=== PATIENT | male | born 1945 | race Caucasian/White ===

== ENCOUNTER 2019-11-25 06:41 | Day surgery (SDC) | payer OTHER, SELFPAY ==
[2019-11-24 07:55] VITALS: BMI 33.1
[2019-11-25 06:56] VITALS: BP 107/60; PULSE 52; RESP 18; TEMP 36.4; O2SAT 94
[2019-11-25] MEDS: sodium chloride 0.9% 1,000 ML 30 ML (07:11)
[2019-11-25 07:14] LABS: Glucose Point of Care 72 mg/dL (70-110)
--- NOTE | 2019-11-25 07:56 | ANES.PREANE2 ---
Pre-Anesthetic Assessment Pre-Anesthetic Assessment: Height/Weight: Height 1.91 m Weight 120.202 kg Temp Pulse Resp BP Pulse Ox 97.5 F L 52 L 18 107/60 94 11/25/19 06:56 11/25/19 06:56 11/25/19 06:56 11/25/19 06:56 11/25/19 06:56 Preop Diagnosis: abdominal pain Proposed Procedure: Operation Date: 11/25/19 07:45 Proposed Procedures p Colonoscopy 85614 Z12.11(Not Applicable) - Tuan Sloan MD Familial anesthetic complications: none Was Beta Subhash taken within 24 hours: Yes Last intake: Intake Last Liquid Date 11/24/19 Last Liquid Time 23:30 Social: Social History: No alcohol and No tobacco Exam: Pre-Anes Outpt Exam: alert, oriented x 3, clear to auscultation bilaterally and regular rate & rhythm Airway: Submandibular: WNL Cervical ROM: WNL MP: 2 Dentition: False (U & L) History/ROS: No significant history except as noted Pulmonary: Pulmonary: COPD (inhalers daily) and Sleep apnea (CPAP ) CV/HEM: CV/HEM: CHF, HTN and NV (CABG x5, one stent) Comments: denies chest pain : : None reported Hepatic: Hepatic: None reported GI: GI: None reported Metabolic: Metabolic: DM, Hyperlipidemia and Morbid obesity Musc/skel: Musc/skel: OA/DJD Anesthetic Plan: ASA status: III Anesthesia: Anesthesia Evaluation and MAC Risk of > 500 ml blood loss (7ml/kg in children): No Data Anesthesia Other Labs: Laboratory Results - last 48 hr 11/25/19 07:10 POC Glucose 72 Cardiac Studies: No Data to Display
[2019-11-25 09:00] VITALS: BP 101/54; PULSE 52; RESP 16; TEMP 36.4; O2SAT 94
[2019-11-25 09:15] VITALS: BP 108/47; PULSE 58; RESP 18; TEMP 36.7; O2SAT 95
--- NOTE | 2019-11-25 10:06 | ANE.PACU2 ---
 Inpatient post-anesthesia follow up: Airway intact: Yes Vital signs: Temperature 98.0 F Pulse Rate 58 Respiratory Rate 18 Blood Pressure 108/47 Pulse Oximetry 95 Oxygen Delivery Me thod Room Air Oxygen Flow Rate 3 Fraction of Inspir ed Oxygen Hydration adequate: Yes Nausea and vomiting: No Mental status: Baseline
== END 2019-11-25 09:41 | disposition home or self-care (01) ==
PROVIDERS: Family Provider Family Medicine; PCP Family Medicine; Visit Provider Surgery
PROC: 0DJD8ZZ Inspection of Lower Intestinal Tract, Via Natural or Artificial Opening Endoscopic (ICD-10-PCS; CPT 45378; principal; 2019-11-25 07:45)
DX: R10.30 Lower abdominal pain, unspecified (principal); D12.2 Benign neoplasm of ascending colon; K57.30 Diverticulosis of large intestine without perforation or abscess without bleeding; K64.8 Other hemorrhoids; J44.9 Chronic obstructive pulmonary disease, unspecified; I11.0 Hypertensive heart disease with heart failure; I50.9 Heart failure, unspecified; G47.30 Sleep apnea, unspecified; Z95.1 Presence of aortocoronary bypass graft; Z95.5 Presence of coronary angioplasty implant and graft; E11.9 Type 2 diabetes mellitus without complications; Z79.4 Long term (current) use of insulin; E78.5 Hyperlipidemia, unspecified; E66.01 Morbid (severe) obesity due to excess calories; Z68.33 Body mass index [BMI] 33.0-33.9, adult; M19.90 Unspecified osteoarthritis, unspecified site
CPT/HCPCS: 36416; 45380; 82962; 88305; J2704; J7030

== ENCOUNTER 2019-11-26 11:12 | Day surgery (SDC) | payer OTHER, SELFPAY ==
[2019-11-25 13:25] VITALS: BMI 32.5
[2019-11-26] VITALS (10 sets, daily range): BP systolic 92–136; BP diastolic 60–73; PULSE 61–79; RESP 12–20; TEMP 36.2–36.8; O2SAT 93–98
[2019-11-26] MEDS: sodium chloride 0.9% 1,000 ML 30 ML IV (12:02)
[2019-11-26 12:09] LABS: Glucose Point of Care 189 mg/dL (70-110)
--- NOTE | 2019-11-26 12:22 | ANES.PAUD2 ---
Pre-Anesthetic Update Pre-Anesthetic Assessment: Date of Surgery/Procedure: 11/26/19 Preop Diagnosis: umbilical hernia Proposed Procedure: no changes changes since preoperative assessment 11/25/19. Addendum to note for my assessment includes: Patient states he visits artistic associate [id number]. no changes made last visit. patient stated he is not currently using CPAP due to adjustments needing to be made to his machine. no history of anesthesia complications. patient has been npo since 11/26/19 0000. BG 189 this a.m. Operation Date: 11/26/19 13:30 Proposed Procedures op Laparoscopic Umbilical Hernia Repair with mesh 21223 K42.9(Not Applicable) - Tuan Sloan MD Last Intake: Intake Last Liquid Date 11/25/19 Last Liquid Time 20:00 Last Solid Date 11/25/19 Last Solid Time 17:00 Labs Last 48hrs: Laboratory Results - last 48 hr 11/26/19 12:07 POC Glucose 189 Vitals: Temperature 97.5 F L 11/26/19 11:47 Temperature Source Temporal Artery S can 11/26/19 11:47 Pulse Rate 66 11/26/19 11:47 Respiratory Rate 18 11/26/19 11:47 Blood Pressure 136/68 11/26/19 11:47 Blood Pressure Jaclyn n 90 11/26/19 11:47 Pulse Oximetry 94 11/26/19 11:47 Oxygen Delivery Me thod 11/26/19 11:47 Cardiac Studies: No Data to Display
--- NOTE | 2019-11-26 12:25 | PM.HPUD ---
H&P update H&P Update: DATE OF SURGERY/PROCEDURE: 11/26/19 DATE H&P PERFORMED: 11/06/19 H&P UPDATE INFORMATION: H&P completed within last 30 days and No changes to prior documentation PREOP DIAGNOSIS: umbilical hernia PLANNED PROCEDURE: Operation Date: 11/26/19 13:30 Proposed Procedures p Laparoscopic Umbilical Hernia Repair with mesh 14288 K42.9(Not Applicable) - Tuan Sloan MD Full H&P Medications/Allergies: Current Medications: Current Medications Generic Name Dose Route Start Last Admin Trade Name Freq PRN Reason Stop Dose Admin Sodium Chloride 1,000 mls @ 30 ml s/hr 11/26/19 11:45 11/26/19 12:02 Sodium Chloride 0.9% IV 11/27/19 11:44 30 mls/hr .Q24H VALENCIA Administration Perinent History: Medical/Surgical History: Medical History (Updated 11/06/19 @ 09:02 by Tuan Sloan MD) Abdominal aortic aneurysm (Acute) Chronic obstructive pulmonary disease (Acute) Hypertension (Acute) Low back pain (Acute) Peripheral vascular disease (Acute) Restless legs syndrome (Acute) Sleep apnea (Acute) Umbilical hernia (Acute)
--- NOTE | 2019-11-26 13:59 | SUR.PHASEI ---
BG 175
[2019-11-26 14:03] LABS: Glucose Point of Care 175 mg/dL (70-110)
[2019-11-26] MEDS: HYDROcodone-acetaminophen 5-325 mg Tablet 1 TAB PO (15:09)
--- NOTE | 2019-11-26 15:11 | PM.OP ---
Operative Report Date of procedure: November 26, 2019 Pre-op Diagnosis: umbilical hernia Post-op Diagnosis: Reducible umbilical hernia measuring 4 x 4 centimeter Procedure Done: Laparoscopic repair of umbilical hernia Implants: Proceed mesh measuring 12 x 10 cm Surgeon: Tuan Sloan Anesthesia: General Estimated blood loss (mL): 20 Condition: stable Disposition: PACU Procedure: The patient was taken to the Operating Room and was intubated under general anesthesia after the antibiotic had been administered. The abdomen was prepped and draped in a sterile manner. Using a 15 blade, a 2-cm incision was made in the left upper quadrant in the anterior axillary line and pneumoperitoneum was created using Verres needle. A 10 mm Emiliano port was placed and 15 mm of pneumoperitoneum was created after a 10 mm 30? scope had been introduced. Two 5 mm ports were placed at the level of the umbilicus and in the left lower quadrant under direct visualization. Using a combination of electrocautery and scissors the peritoneum in the midline was taken down. The hernia sac was everted to decrease the likelihood of a seroma. A spinal needle was introduced through the abdominal wall and the edges of the hernial defect were marked and measured 4x 4 cm. A 3 cm margin was marked on the abdominal wall on the outer edge of the hernial defect. Using 11 blade, four stab incisions were placed on the four corners of the site for the planned mesh placement. 4 separate 2-0 Medina-Emmanuel sutures were placed at the 4 corners of the 12 x 10 cm proceed mesh. A 5 mm camera was introduced and the mesh was introduced through the 10 mm port. Grannie needle was passed through the stab incisions and used to grasp the free ends of the Medina-Emmanuel sutures which were then used to pull the mesh up against the abdominal wall; 5 mm SecurStraps were placed 1 cm apart along the edge of the mesh to hold it against the abdominal wall. At the end of this, it was noted that the mesh was well positioned over the hernial defect. 20 cc of saline mixed with 20 cc of Exparel mixed with 20 0.5% Marcaine was infiltrated under laparoscopic visualization for a TAP block. All ports were removed under direct visualization and there was no bleeding noted from the port sites. The external oblique aponeurosis was approximated at this port site using figure of eight 0 Vicryl suture. The subcutaneous tissue was approximated using 3-0 Vicryl sutures. The skin at all 3 port sites was closed using subcuticular 4-0 Monocryl suture. The stab incisions and the 3 port sites were covered with surgical glue. The patient was extubated and transferred to recovery room in stable condition.
== END 2019-11-26 15:59 | disposition home or self-care (01) ==
PROVIDERS: Family Provider Family Medicine; PCP Family Medicine; Visit Provider Surgery
PROC: 0WQF4ZZ Repair Abdominal Wall, Percutaneous Endoscopic Approach (ICD-10-PCS; CPT 49652; principal; 2019-11-26 13:30)
DX: K42.9 Umbilical hernia without obstruction or gangrene (principal); I10 Essential (primary) hypertension; G47.30 Sleep apnea, unspecified
CPT/HCPCS: 49652; 12345; 36416; 82962; 96365; C9290; J0690; J2270; J2405; J2704; J2710; J3010; J3490; J7030

== ENCOUNTER 2020-01-21 00:37 | Emergency (ER) | payer OTHER, SELFPAY ==
[2020-01-21 00:45] VITALS: BP 121/72; PULSE 69; RESP 20; TEMP 36.9; O2SAT 92; BMI 32.5
--- NOTE | 2020-01-21 00:47 | W.ED.LOWEXIN ---
HPI - Extremity Injury (Lower) General: Chief Complaint: Extremity Problem,Nontraumatic Stated Complaint: right knee pain Time Seen by Provider: 01/21/20 00:47 History of Present Illness: HPI Narrative: 74-year-old male patient comes in tonight with complaints of anterior right knee pain. Patient reports pain started on Sunday and is just worsened to the point that he was unable to tolerate it anymore. Patient states no history of previous knee problems. Patient appears well. MD complaint: other (right knee pain) Review of Systems General: Reports: 10 or more systems reviewed and unremarkable except in HPI and below Musc: Reports: extremity pain (right knee) PFS ED PFSH: Medical History (Updated 01/21/20 @ 01:35 by JEISON Ryan) Abdominal aortic aneurysm Chronic obstructive pulmonary disease Hypertension Low back pain Peripheral vascular disease Restless legs syndrome Sleep apnea Surgical History (Updated 12/05/19 @ 11:26 by Tuan Sloan MD) History of appendectomy History of coronary artery stent placement History of umbilical hernia repair 11/26/2019 Hx of CABG Status post colonoscopy 11/25/2019: 3 mm sessile polyps x3 removed from the ascending colon, follow-up colonoscopy 2024 Social History Smoking and tobacco status: former smoker Physical Exam Const: COMMON NORMALS: no apparent distress and oriented x3 GENERAL APPEARANCE: cooperative HENMT: COMMON NORMALS: normocephalic, external ears normal, EAC's normal, TM's normal bilaterally and external nose normal HEAD & SCALP: normal to inspection and normocephalic FACE & SINUS: normal facial exam NOSE: external nose normal GENERAL EAR: hearing not grossly impaired EXTERNAL EAR: Yes external ears normal EXTERNAL AUDITORY CANAL: EAC's normal TYMPANIC MEMBRANE: TM's normal bilaterally MOUTH: oral and palatal mucosa normal THROAT: posterior oropharynx normal Eye: COMMON NORMALS: PERRL and EOMs intact bilaterally PUPIL: Yes PERRL Neck/C-Spine: COMMON NORMALS: full ROM and no lymphadenopathy Lymph: LYMPHATIC: no lymphedema noted Chest: COMMONS NORMALS: inspection of chest normal and palpation of chest normal Resp: COMMON NORMALS: normal respiratory effort and clear to auscultation bilaterally AUSCULTATION: clear to auscultation bilaterally Cardio: COMMON NORMALS: regular rate and regular rhythm RATE: regular rate RHYTHM: regular rhythm GI: COMMON NORMALS: normal to inspection, nondistended, normoactive bowel sounds and non-tender : COMMON NORMALS: Yes no CVA tenderness BLADDER/KIDNEY EXAM: Yes no CVA tenderness Back/Pelvis: COMMON NORMALS: no CVA tenderness and thoracic and lumbar spine normal to inspection Extremity: NARRATIVE EXTREMITY EXAM: Abrasion is noted to the lateral right knee, parents of anterior redness to the inferior patellar area. Minimal redness and swelling is noted though. Mild heat is noted to the same area. Neuro: COMMON NORMALS: oriented x3, moves all extremities and no focal motor deficits Psych: COMMON NORMALS: mental status grossly normal and cooperative Skin: COMMON NORMALS: no rashes or lesions noted GENERAL SKIN EXAM: no rashes or lesions noted Course Vital Signs: Vital signs: Vital Signs Temperature 98.4 F 01/21/20 00:45 Pulse Rate 69 01/21/20 00:45 Respiratory Rate 20 H 01/21/20 00:45 Blood Pressure 121/72 01/21/20 00:45 Pulse Oximetry 92 01/21/20 00:45 MDM - Extremity Injury (Lower) MDM Narrative: Medical decision making narrative: Patient comes in today for complaints of anterior right knee pain. Exam notes some area of redness with a small abrasion to the lateral side redness expands out there is no significant induration or swelling though. Area of redness is approximately 5 cm diameter. Some heat and tenderness is noted on palpation. Vital signs are normal. Differential diagnosis includes gout, arthritis, cellulitis, bursitis, contusion. X-ray noted some mild degenerative disease but otherwise no significance. Laboratory values have a normal white blood cell count, creatinine was 1.7, blood sugar is 128. Blood cultures were taken. Concern for cellulitis due to the patient's history of diabetes and complaint of pain. Patient was given 1 hydrocodone for pain and started on antibiotics with 1 g of Rocephin and Bactrim. Patient will be continued on Bactrim with need for follow-up with primary care in 1 week or return to the ER for worsening signs and symptoms. Patient reports understanding of care plan. Lab Data: Labs: Lab Results 01/21/20 01/21/20 01/21/20 Range/Units 01:08 01:08 01:08 WBC 7.9 (4.0-10.0) 10^3/ uL RBC 4.31 (4.1-5.3) 10^6/u L Hgb 12.8 (11.7-16.6) g/dL Hct 40.4 L (42.0-52.0) % MCV 93.7 (80-94) fL MCH 29.7 (28.0-34.0) pg MCHC 31.7 (30.0-36.0) g/dL RDW 13.2 (12.1-15.1) % Plt Count 158 (130-400) 10^3/c mm MPV 10.0 (7.4-10.4) fL Neut % (Auto) 72.0 % Lymph % (Auto) 17.7 % [place] % (Auto) 8.9 % Eos % (Auto) 0.8 % Baso % (Auto) 0.3 % Neut # (Auto) 5.7 (1.8-7.7) 10^3/u L Lymph # (Auto) 1.4 (0.8-4.8) 10^3/u L [place] # (Auto) 0.7 (0.2-0.9) 10^3/u L Eos # (Auto) 0.1 (0.0-0.8) 10^3/u L Baso # (Auto) 0.0 (0.0-0.1) 10^3/u L Nucleated RBC % (a uto) 0 % Nucleated RBCs # 0.0 /100WBC Sodium 141 (136-145) mmol/L Potassium 4.7 (3.5-5.1) mmol/L Chloride 107 (98-107) mmol/L Carbon Dioxide 23 (22-29) mmol/L Anion Gap 15.7 (5-19) BUN 34 H (8-23) mg/dL Creatinine 1.7 H (0.7-1.2) mg/dL Glucose 129 H (65-115) mg/dL Calculated Osmolal ity 291 (285-295) mOsm/k g Lactic Acid 1.2 (0.5-2.2) mmol/L Calcium 9.7 (8.5-10.5) mg/dL Total Bilirubin 0.5 (0.15-1.2) mg/dL AST 25 (0-40) U/L ALT 14 (0-41) U/L Alkaline Phosphata se 108 (40-130) IU/L C-Reactive Protein 1.4 (0.0-4.9) mg/L Total Protein 6.9 (6.6-8.7) g/dL Albumin 4.2 (3.5-5.2) g/dL Globulin 2.7 (1.3-4.6) g/dL Imaging Data^: Xray Ortho: Attestation: I personally reviewed and interpreted this imaging study as follows: (0117, right knee, no fracture, some djd) Discharge Plan Discharge Patient Disposition: Home, Self-Care Clinical Impression: Cellulitis Qualifiers: Site of cellulitis: extremity Site of cellulitis of extremity: lower extremity Laterality: right Qualified Code(s): L03.115 - Cellulitis of right lower limb Condition: Stable Prescriptions: New Bactrim DS 800-160 mg tablet 1 tab PO BID 10 Days Qty: 20 RF: 0 No Action amlodipine 5 mg tablet 5 mg PO DAILY RF: 0 budesonide-formoterol 160-4.5 mcg/actuation HFA aerosol inhaler 2 puff INHALATION BID RF: 0 cholecalciferol (vitamin D3) 50 mcg (2,000 unit) capsule 50 mcg PO BID RF: 0 finasteride 5 mg tablet 5 mg PO DAILY RF: 0 gabapentin 300 mg capsule 300 mg PO DAILY RF: 0 hydrochlorothiazide 25 mg tablet 25 mg PO QAM RF: 0 hydrophilic cream Cream 1 applic TOPICAL TID RF: 0 Novolin N NPH U-100 Insulin 100 unit/mL suspension See Rx Instructions SUBCUT BID RF: 0 lisinopril 40 mg tablet 20 mg PO DAILY RF: 0 meloxicam 7.5 mg tablet 7.5 mg PO DAILY RF: 0 metoprolol tartrate 50 mg tablet 25 mg PO BID RF: 0 nitroglycerin 0.4 mg tablet, sublingual 0.4 mg SUBLINGUAL ONCE PRN (Reason: chest pain) RF: 0 pentoxifylline 400 mg tablet extended release 400 mg PO TID RF: 0 ropinirole 2 mg tablet 2 mg PO TID RF: 0 simvastatin 80 mg tablet 40 mg PO DAILY RF: 0 terazosin 1 mg capsule 3 mg PO DAILY RF: 0 tiotropium bromide 2.5 mcg/actuation mist 2 inh INHALATION QAM RF: 0 clopidogrel [Plavix] 75 mg tablet 75 mg PO DAILY RF: 0 Hold Instructions: Resume on 11/29/19. docusate sodium [Colace] 100 mg capsule 100 mg PO BID Qty: 30 RF: 0 oxycodone 5 mg Tablet 5 mg PO TID PRN (Reason: Pain) RF: 0 Discharge Orders: Discharge Order (Routine); Ordered 01/21/20 Ordered By: Jeffry Brunner Referrals: Jeffry Love [Primary Care Provider] - Discharge Diet: Usual diet Discharge Activity: Increase activity as tolerated Patient Instructions: Cellulitis (ED) Activity Restrictions/Additional Instructions: Home and rest Ice or heat for further comfort Continue with routine medications Take antibiotic as directed Follow-up with primary care in one week Return to ER for worsening pain, redness and swelling Coding Level of Care Code ED [employer] Hand Engraver for Teri Fwd Exam Comprehensive
--- NOTE | 2020-01-21 00:52 | XR_ITS ---
WS: [id number] RIGHT KNEE: 3 VIEW(S) TECHNIQUE: AP, oblique(s) and lateral. HISTORY: pain, redness COMPARISON: None available. No fracture or dislocation. Mild joint space narrowing. No joint effusion. Surgical sutures along the medial knee from prior vein graft harvesting. Extensive calcifications in the arteries. XR/XR knee RT 3V* [id number] IMPRESSION: 1. Atherosclerosis. 2. Mild joint space narrowing.
[2020-01-21] MEDS: HYDROcodone-acetaminophen 7.5-325 mg Tablet 1 TAB PO (00:58)
[2020-01-21 01:13] LABS: Basophils % 0.3 %; Eosinophils # 0.1 10^3/uL (0.0-0.8); Eosinophils % 0.8 %; Hematocrit 40.4 % (42.0-52.0); Hemoglobin 12.8 g/dL (11.7-16.6); Lymphocytes # 1.4 10^3/uL (0.8-4.8); Lymphocytes % 17.7 %; Mean Corpuscular HGB Conc 31.7 g/dL (30.0-36.0); Mean Corpuscular Hemoglobin 29.7 pg (28.0-34.0); Mean Corpuscular Volume 93.7 fL (80-94); Monocytes # 0.7 10^3/uL (0.2-0.9); Monocytes % 8.9 %; Neutrophils # 5.7 10^3/uL (1.8-7.7); Nucleated Red Blood Cells % 0 %; Platelet Count 158 10^3/cmm (130-400); Red Blood Count 4.31 10^6/uL (4.1-5.3); Red Cell Distribution Width 13.2 % (12.1-15.1); White Blood Count 7.9 10^3/uL (4.0-10.0)
[2020-01-21 01:26] LABS: Lactic Sepsis W/Reflex 1.2 mmol/L (0.5-2.2)
[2020-01-21 01:27] LABS: Alanine Aminotransferase 14 U/L (0-41); Albumin Level 4.2 g/dL (3.5-5.2); Alkaline Phosphatase 108 IU/L (40-130); Anion Gap 15.7 (5-19); Aspartate Amino Transferase 25 U/L (0-40); Blood Urea Nitrogen 34 mg/dL (8-23); C Reactive Protein 1.4 mg/L (0.0-4.9); Calcium 9.7 mg/dL (8.5-10.5); Carbon Dioxide 23 mmol/L (22-29); Chloride 107 mmol/L (98-107); Creatinine Clr Calc Pharmacy 51.9754; Globulin 2.7 g/dL (1.3-4.6); Glucose 129 mg/dL (65-115); Osmolality Calculated 291 mOsm/kg (285-295); Potassium 4.7 mmol/L (3.5-5.1); Sodium 141 mmol/L (136-145); Total Bilirubin 0.5 mg/dL (0.15-1.2); Total Protein 6.9 g/dL (6.6-8.7)
[2020-01-21] MEDS: cefTRIAXone 1,000 mg SDV 1000 MG IM (01:52)
[2020-01-21] MEDS: sulfamethoxazole-trimeth DS 160-800 mg Tablet 1 TAB PO (01:52)
[2020-01-21 01:55] VITALS: BP 136/66; PULSE 69; RESP 20; O2SAT 93
== END 2020-01-21 01:55 | disposition home or self-care (01) ==
PROVIDERS: Emergency Provider Nurse Practitioner Family; Family Provider Family Medicine; PCP Family Medicine
DX: L03.115 Cellulitis of right lower limb (principal); M25.561 Pain in right knee; J44.9 Chronic obstructive pulmonary disease, unspecified; I10 Essential (primary) hypertension; I73.9 Peripheral vascular disease, unspecified; Z95.1 Presence of aortocoronary bypass graft; Z87.891 Personal history of nicotine dependence
CPT/HCPCS: 12345; 36415; 73562; 80053; 83605; 85025; 86140; 87040; 96372; 99281; 99283; J0696

== ENCOUNTER 2020-01-24 12:44 | Emergency (ER) | payer OTHER, SELFPAY ==
[2020-01-24 12:49] VITALS: PULSE 63; RESP 20; TEMP 36.8; O2SAT 95; BMI 31.6
--- NOTE | 2020-01-24 12:49 | ED_ITS ---
HPI - Extremity Problem General: Chief complaint: Extremity Injury, Lower Stated complaint: R KNEE PAIN Time Seen by Provider: 01/24/20 12:48 Source: patient Mode of arrival: ambulatory Limitations: no limitations History of Present Illness: HPI Narrative: 74-year-old male comes in with right knee pain. Patient reports that he has had knee pain for about 1 week now. Patient was seen 2 days ago in the emergency department and at that time it was felt that he had some mild cellulitis to the knee. Patient reports of redness has cleared up to the knee but he continues to have some pain to the knee. Patient reports no previous problems with chronic knee pain. Patient does take medications routinely for arthritis and for back pain. Patient goes to the [place] for his routine medical care. Review of Systems General: Reports: 10 or more systems reviewed and unremarkable except in HPI and below Musc: Reports: joint pain PFSH ED PFSH: Medical History (Updated 01/24/20 @ 14:42 by JEISON Ryan) Abdominal aortic aneurysm Chronic obstructive pulmonary disease Hypertension Low back pain Peripheral vascular disease Restless legs syndrome Sleep apnea Surgical History (Updated 12/05/19 @ 11:26 by Tuan Sloan MD) History of appendectomy History of coronary artery stent placement History of umbilical hernia repair 11/26/2019 Hx of CABG Status post colonoscopy 11/25/2019: 3 mm sessile polyps x3 removed from the ascending colon, follow-up colonoscopy 2024 Social History Smoking and tobacco status: never smoked Physical Exam Const: COMMON NORMALS: no apparent distress and oriented x3 GENERAL APPEARANCE: cooperative HENMT: COMMON NORMALS: normocephalic, external ears normal, EAC's normal, TM's normal bilaterally and external nose normal HEAD & SCALP: normal to inspection and normocephalic FACE & SINUS: normal facial exam NOSE: external nose normal GENERAL EAR: hearing not grossly impaired EXTERNAL EAR: Yes external ears normal EXTERNAL AUDITORY CANAL: EAC's normal TYMPANIC MEMBRANE: TM's normal bilaterally MOUTH: oral and palatal mucosa normal THROAT: posterior oropharynx normal Eye: COMMON NORMALS: PERRL and EOMs intact bilaterally PUPIL: Yes PERRL Neck/C-Spine: COMMON NORMALS: full ROM and no lymphadenopathy Lymph: LYMPHATIC: no lymphedema noted Chest: COMMONS NORMALS: inspection of chest normal and palpation of chest normal Resp: COMMON NORMALS: normal respiratory effort and clear to auscultation bilaterally AUSCULTATION: clear to auscultation bilaterally Cardio: COMMON NORMALS: regular rate and regular rhythm RATE: regular rate RHYTHM: regular rhythm GI: COMMON NORMALS: normal to inspection, nondistended, normoactive bowel sounds and non-tender : COMMON NORMALS: Yes no CVA tenderness BLADDER/KIDNEY EXAM: Yes no CVA tenderness Back/Pelvis: COMMON NORMALS: no CVA tenderness and thoracic and lumbar spine normal to inspection Extremity: COMMON NORMALS: normal to inspection NARRATIVE EXTREMITY EXAM: no palpable tenderness, increased pain with weight bearing GENERAL: Yes edema (bilateral, increased on right) Neuro: COMMON NORMALS: oriented x3, moves all extremities and no focal motor deficits Psych: COMMON NORMALS: mental status grossly normal and cooperative Skin: COMMON NORMALS: no rashes or lesions noted GENERAL SKIN EXAM: no rashes or lesions noted Course Vital Signs: Vital signs: Vital Signs Temperature 98.3 F 01/24/20 12:49 Pulse Rate 63 01/24/20 12:49 Respiratory Rate 16 01/24/20 12:55 Pulse Oximetry 95 01/24/20 12:49 MDM - Extremity (Nontraumatic) MDM Narrative: Medical decision making narrative: Patient came in today for complaints of persistent right knee pain. Exam notes a normal-appearing right knee with a small abrasion to the lateral aspect of the anterior side of the knee. Patient had some mild edema to the lower right leg. Pulses are intact. Respirations are even lungs are clear to auscultation. Vital signs are normal. Differential diagnosis includes tendinitis, arthritis, bursitis, cellulitis. I reviewed the chart from 2 days ago it is noted some redness to the knee but that has resolved. Ultrasound for DVT was negative. Laboratory values were normal. Reviewed exam with patient recommended treatment for her mechanical pain of the right knee. Suspect either a tendinitis or arthritis. Recommended patient drink plenty of fluids and take medications as directed for his pain that he already has prescribed from pain management. Patient agreed to plan and will follow-up with primary care. Lab Data: Labs: Lab Results 01/24/20 01/24/20 01/24/20 Range/Units 13:07 13:07 13:07 WBC 6.2 (4.0-10.0) 10^3/ uL RBC 4.38 (4.1-5.3) 10^6/u L Hgb 13.1 (11.7-16.6) g/dL Hct 40.7 L (42.0-52.0) % MCV 92.9 (80-94) fL MCH 29.9 (28.0-34.0) pg MCHC 32.2 (30.0-36.0) g/dL RDW 13.2 (12.1-15.1) % Plt Count 154 (130-400) 10^3/c mm MPV 10.2 (7.4-10.4) fL Neut % (Auto) 62.9 % Lymph % (Auto) 25.5 % [place] % (Auto) 9.1 % Eos % (Auto) 1.9 % Baso % (Auto) 0.3 % Neut # (Auto) 3.9 (1.8-7.7) 10^3/u L Lymph # (Auto) 1.6 (0.8-4.8) 10^3/u L [place] # (Auto) 0.6 (0.2-0.9) 10^3/u L Eos # (Auto) 0.1 (0.0-0.8) 10^3/u L Baso # (Auto) 0.0 (0.0-0.1) 10^3/u L Nucleated RBC % (a uto) 0 % Nucleated RBCs # 0.0 /100WBC PT 13.50 H (10.5-13.3) SECO NDS INR 1.00 (0.8-1.2) APTT 30.9 (23.9-36.7) SECO NDS Sodium 140 (136-145) mmol/L Potassium 4.9 (3.5-5.1) mmol/L Chloride 104 (98-107) mmol/L Carbon Dioxide 25 (22-29) mmol/L Anion Gap 15.9 (5-19) BUN 48 H (8-23) mg/dL Creatinine 2.1 H (0.7-1.2) mg/dL Glucose 95 (65-115) mg/dL Calculated Osmolal ity 288 (285-295) mOsm/k g Calcium 10.2 (8.5-10.5) mg/dL Total Bilirubin 0.3 (0.15-1.2) mg/dL AST 23 (0-40) U/L ALT 19 (0-41) U/L Alkaline Phosphata se 112 (40-130) IU/L Total Protein 7.9 (6.6-8.7) g/dL Albumin 4.6 (3.5-5.2) g/dL Globulin 3.3 (1.3-4.6) g/dL Discharge Plan Discharge Patient Disposition: Home, Self-Care Clinical Impression: Mechanical pain of right knee Condition: Stable Prescriptions: No Action amlodipine 5 mg tablet 5 mg PO DAILY RF: 0 budesonide-formoterol 160-4.5 mcg/actuation HFA aerosol inhaler 2 puff INHALATION BID RF: 0 cholecalciferol (vitamin D3) 50 mcg (2,000 unit) capsule 50 mcg PO BID RF: 0 finasteride 5 mg tablet 5 mg PO DAILY RF: 0 gabapentin 300 mg capsule 300 mg PO BEDTIME RF: 0 hydrochlorothiazide 25 mg tablet 25 mg PO QAM RF: 0 hydrophilic cream Cream 1 applic TOPICAL TID RF: 0 Novolin N NPH U-100 Insulin 100 unit/mL suspension See Rx Instructions SUBCUT BID RF: 0 lisinopril 40 mg tablet 20 mg PO DAILY RF: 0 meloxicam 7.5 mg tablet 7.5 mg PO DAILY RF: 0 metoprolol tartrate 50 mg tablet 25 mg PO BID RF: 0 nitroglycerin 0.4 mg tablet, sublingual 0.4 mg SUBLINGUAL ONCE PRN (Reason: chest pain) RF: 0 pentoxifylline 400 mg tablet extended release 400 mg PO TID RF: 0 ropinirole 2 mg tablet 2 mg PO TID RF: 0 simvastatin 80 mg tablet 40 mg PO DAILY RF: 0 terazosin 1 mg capsule 3 mg PO BEDTIME RF: 0 tiotropium bromide 2.5 mcg/actuation mist 2 inh INHALATION QAM RF: 0 clopidogrel [Plavix] 75 mg tablet 75 mg PO DAILY RF: 0 Hold Instructions: Resume on 11/29/19. docusate sodium [Colace] 100 mg capsule 100 mg PO BID Qty: 30 RF: 0 sulfamethoxazole-trimethoprim [Bactrim DS] 800-160 mg tablet 1 tab PO BID 10 Days Qty: 20 RF: 0 oxycodone 5 mg Tablet 5 mg PO TID PRN (Reason: Pain) RF: 0 Aspir-81 81 mg Tablet,Delayed Release (Dr/Ec) 81 mg PO DAILY RF: 0 albuterol sulfate 90 mcg/actuation Hfa Aerosol Inhaler 2 puff INHALATION Q4H PRN (Reason: Shortness Of Breath) RF: 0 Discharge Orders: Discharge Order (Routine); Ordered 01/24/20 Ordered By: Jeffry Brunner Referrals: Jeffry Love [Primary Care Provider] - Discharge Diet: Usual diet Discharge Activity: Increase activity as tolerated Patient Instructions: Knee Pain (ED) Activity Restrictions/Additional Instructions: Activity as tolerated Ice or heat for further pain relief Follow-up with primary care for further pain medication Return to ER for high fever or new concerns Coding Level of Care Code ED Community Service Aide for Teri Fwd Exam Comprehensive
[2020-01-24 12:55] VITALS: RESP 16
[2020-01-24 13:13] LABS: Basophils % 0.3 %; Eosinophils # 0.1 10^3/uL (0.0-0.8); Eosinophils % 1.9 %; Hematocrit 40.7 % (42.0-52.0); Hemoglobin 13.1 g/dL (11.7-16.6); Lymphocytes # 1.6 10^3/uL (0.8-4.8); Lymphocytes % 25.5 %; Mean Corpuscular HGB Conc 32.2 g/dL (30.0-36.0); Mean Corpuscular Hemoglobin 29.9 pg (28.0-34.0); Mean Corpuscular Volume 92.9 fL (80-94); Mean Platelet Volume 10.2 fL (7.4-10.4); Monocytes # 0.6 10^3/uL (0.2-0.9); Monocytes % 9.1 %; Neutrophils # 3.9 10^3/uL (1.8-7.7); Neutrophils % 62.9 %; Nucleated Red Blood Cells % 0 %; Platelet Count 154 10^3/cmm (130-400); Red Blood Count 4.38 10^6/uL (4.1-5.3); Red Cell Distribution Width 13.2 % (12.1-15.1); White Blood Count 6.2 10^3/uL (4.0-10.0)
[2020-01-24] MEDS: HYDROcodone-acetaminophen 7.5-325 mg Tablet 1 TAB PO (13:13)
[2020-01-24 13:29] LABS: Partial Thromboplastin Time 30.9 SECONDS (23.9-36.7)
[2020-01-24 13:39] LABS: Alanine Aminotransferase 19 U/L (0-41); Albumin Level 4.6 g/dL (3.5-5.2); Alkaline Phosphatase 112 IU/L (40-130); Anion Gap 15.9 (5-19); Aspartate Amino Transferase 23 U/L (0-40); Blood Urea Nitrogen 48 mg/dL (8-23); Calcium 10.2 mg/dL (8.5-10.5); Carbon Dioxide 25 mmol/L (22-29); Chloride 104 mmol/L (98-107); Creatinine Clr Calc Pharmacy 41.5293; Globulin 3.3 g/dL (1.3-4.6); Glucose 95 mg/dL (65-115); Osmolality Calculated 288 mOsm/kg (285-295); Potassium 4.9 mmol/L (3.5-5.1); Sodium 140 mmol/L (136-145); Total Bilirubin 0.3 mg/dL (0.15-1.2); Total Protein 7.9 g/dL (6.6-8.7)
--- NOTE | 2020-01-24 13:48 | USR_ITS ---
PROCEDURE INFORMATION: Exam: US Duplex Right Lower Extremity Veins, Limited Exam date and time: 01/24/2020 1:49 PM Age: 74 years old Clinical indication: Pain; Leg, lower; Right; Additional info: Pain, swelling TECHNIQUE: Imaging protocol: Real-time Duplex ultrasound of the Right Lower Extremity with 2-D macedo scale, color Doppler flow and spectral waveform analysis with image documentation. Limited exam was focused on the right lower extremity veins. COMPARISON: No relevant prior studies available. FINDINGS: Right deep veins: Unremarkable. The common femoral, femoral, proximal profunda femoral and popliteal veins are patent without thrombus. Normal Doppler waveforms. Normal compressibility and/or augmentation response. Right superficial veins: Unremarkable. Saphenofemoral junction is patent without thrombus. Soft tissues: Unremarkable. US/[place] [id number] IMPRESSION: No acute findings. No evidence of deep vein thrombosis.
[2020-01-24] MEDS: dexamethasone 10 mg/mL INJ IM (14:48)
[2020-01-24 15:07] VITALS: PULSE 89; RESP 15; O2SAT 95
== END 2020-01-24 15:07 | disposition home or self-care (01) ==
PROVIDERS: Emergency Provider Nurse Practitioner Family; Family Provider Family Medicine; PCP Family Medicine
DX: M25.561 Pain in right knee (principal); I71.4 Abdominal aortic aneurysm, without rupture; J44.9 Chronic obstructive pulmonary disease, unspecified; I10 Essential (primary) hypertension; I73.9 Peripheral vascular disease, unspecified; G25.81 Restless legs syndrome; G47.33 Obstructive sleep apnea (adult) (pediatric); M79.604 Pain in right leg; M79.89 Other specified soft tissue disorders; Z95.1 Presence of aortocoronary bypass graft; Z79.82 Long term (current) use of aspirin; Z95.5 Presence of coronary angioplasty implant and graft
CPT/HCPCS: 12345; 36415; 80053; 85025; 85610; 85730; 93971; 96372; 99281; 99283; J1100

== ENCOUNTER 2020-12-17 09:30 | Outpatient (CLI) | payer OTHER, SELFPAY ==
--- NOTE | 2020-12-17 10:15 | USCV_ITS ---
Musa Germain Age: 75 Gender: M : 1945 Exam Date: 12/17/2020 10:18 Ordering Phys: Roshan Medley MD ([email or web address]) Technologist: Ev Burger [place] [facility] [place]: KNOWN AAA HISTORY: Known AAA recheck Diameter (cm) AP x Transverse x Length Velocity (cm/s) Waveform Prox Aorta: 2.64 x 2.78 x 63.70 Mid Aorta: 2.93 x 2.93 x 67.40 Distal Aorta: 4.11 x 4.29 x 6.37 39.50 Right Iliac Prox: 2.02 x 1.98 x 90.70 Left Iliac Prox: 1.80 x 1.83 x 51.90 Stent Prox Landing x x Aneurysmal Sac Max x x Lt Lat Sac Dim Rt Lat Sac Dim Stent Dist Landing x x Right Iliac Stent x x Left Iliac Stent x x Right Renal Art Left Renal Art FINDINGS: See form aneurysm of the distal abdominal aorta measuring 4.1 x 4.3 cm in diameter Aneurysmal dilatation of both iliac arteries proximally Normal Doppler flow velocities CONCLUSIONS 1. Fusiform aneurysm of the distal abdominal aorta, measuring 4.11 x 4.29 cm in size. 2. 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 3. Ectatic proximal and mid abdominal aorta. Dr Roshan Medley MD [facility] (Electronically Signed) Final Date: 17 December 2020 17:24 S
--- NOTE | 2020-12-17 11:00 | USCV_ITS ---
Musa Germain Age: 75 Gender: M : 1945 Exam Date: 12/17/2020 10:33 Ordering Phys: Roshan Medley MD ([email or web address]) Technologist: Ev Burger Exam Location: [facility] [place] Indication: CLAUDICATION Risk Factors: Previous Vascular Surgery: RIGHT LEFT BP: 127.0 / 69.00 BP: 130.0/ 71.00 0 0 Waveform Velocity (cm/s) Velocity (cm/s) Waveform Biphasic 60.5 Iliac Prox 129.2 Biphasic Biphasic 92.6 Iliac Mid 95.2 Monophasic Biphasic 105.1 Iliac Distal 103.2 Monophasic Biphasic 92.8 REIMBURSEMENT REP 90.2 Monophasic Biphasic 73.8 SFA Prox 58.1 Monophasic SFA Dist 163.2 Monophasic Monophasic 42.5 POP 58.6 [address] ENG[address]ERING TECHNICIAN 69.6 Monophasic DPA 57.7 Monophasic 0.7 KATE 0[address] ENGINEERING TECHNICIAN 90 RT DPA NO FLOW LT HIGHWAY ENGINEERING TECHNICIAN 80 LT DPA 80 PLEASE SEE TECH NOTES. SFV'S ARE OCCLUDED PAST PROFUNDA SPLIT Heart rate diffuse plaques are noted in the iliac and femoral arteries on the right side. Moderate to heavy heterogeneous plaques in the left iliac and femoral arteries Monophasic and continuous waveforms in the popliteal and posterior tibial arteries bilaterally No Doppler flow signals noted in the mid,distal SFA and dorsalis pedis arteries on the right side No Doppler flow signals in the left mid SFA. CONCLUSIONS 1. Features of total occlusion of the mid and distal SFA on the right side with collateral filling of the popliteal and posterior tibial arteries. The dorsalis pedis artery on the right side also appears to be occluded 2. Features of total occlusion of the mid SFA on the left side with collateral filling of the distal SFA, popliteal and infrapopliteal vessels. 3.Abnormal resting ABIs bilaterally suggesting moderate peripheral artery disease No similar previous studies are available for comparison Dr Roshan Medley MD [facility] (Electronically Signed) Final Date: 17 December 2020 20:22 S
== END 2020-12-17 09:31 | disposition home or self-care (01) ==
LOC: RAD 09:33
PROVIDERS: PCP Family Medicine; Visit Provider Internal Medicine Cardiovascular Disease
DX: I71.4 Abdominal aortic aneurysm, without rupture (principal); I73.9 Peripheral vascular disease, unspecified
CPT/HCPCS: 93925; 93978

== ENCOUNTER → 2021-01-28 12:34 | Outpatient (BNVA) | payer OTHER, SELFPAY | PROVIDERS: PCP Family Medicine; Visit Provider Internal Medicine Cardiovascular Disease | DX: Z20.828 Contact with and (suspected) exposure to other viral communicable diseases (principal) | CPT/HCPCS: 87635 ==

== ENCOUNTER 2021-02-01 05:41 | Day surgery (SDC) | payer OTHER, SELFPAY ==
[2021-01-28 11:44] LABS: Basophils % 0.7 %; Eosinophils # 0.1 10^3/uL (0.0-0.8); Eosinophils % 2.4 %; Hematocrit 38.5 % (42.0-52.0); Hemoglobin 12.5 g/dL (11.7-16.6); Lymphocytes # 1.2 10^3/uL (0.8-4.8); Lymphocytes % 21.5 %; Mean Corpuscular HGB Conc 32.5 g/dL (30.0-36.0); Mean Corpuscular Volume 92.5 fL (80-94); Mean Platelet Volume 9.8 fL (7.4-10.4); Monocytes # 0.5 10^3/uL (0.2-0.9); Monocytes % 8.5 %; Neutrophils # 3.68 10^3/uL (1.8-7.7); Neutrophils % 66.5 %; Nucleated Red Blood Cells % 0 %; Platelet Count 142 10^3/cmm (130-400); Red Blood Count 4.16 10^6/uL (4.1-5.3); Red Cell Distribution Width 13.2 % (12.1-15.1); White Blood Count 5.5 10^3/uL (4.0-10.0)
[2021-01-28 11:59] LABS: INR 1.04 (0.8-1.2)
[2021-01-28 12:05] LABS: Anion Gap 14.3 (5-19); Blood Urea Nitrogen 47 mg/dL (8-23); Calcium 8.6 mg/dL (8.5-10.5); Carbon Dioxide 22 mmol/L (22-29); Chloride 108 mmol/L (98-107); Glucose 133 mg/dL (65-115); Osmolality Calculated 304 mOsm/kg (285-295); Potassium 4.3 mmol/L (3.5-5.1); Sodium 140 mmol/L (136-145)
[2021-02-01] VITALS (8 sets, daily range): BP systolic 122–135; BP diastolic 66–84; PULSE 50–68; RESP 14–17; TEMP 36.6–36.7; O2SAT 92–96; BMI 47.9
--- NOTE | 2021-02-01 06:00 | XACV_ITS ---
Exam Room: [facility] Ht: 191 cm Wt: 123 kg BSA: 2.59 m2 Gender: Male : 1945 Any Known Allergies: No known allergies Exam Priority: Routine Procedure(s): Procedure Description: Diagnostic procedure Procedure Description: Left Heart Catheterization Procedure Description: Aortogram Procedure Description: Venous Graft Catheterization Procedure Description: LOGAN Graft Catheterization Procedure Description: Peripheral Cath Diagnostic Procedure Procedure Description: Abdominal aortic angiography Procedure Description: Coronary Angiography Diagnostic Cath Status: Elective Diagnostic Findings * The left main is a medium caliber vessel which was found to have an aneurysmal dilatation at the mid segment. * The left anterior descending artery is a medium caliber vessel. The proximal and the mid segment was found to have moderate diffuse disease. Competitive flow was noted in the distal segment of the artery. The first diagonal branch is a small to medium caliber vessel which was found to have a high-grade ostial stenosis. No other significant stenotic lesions were seen.. * The circumflex artery is a medium caliber vessel which was found to have moderate diffuse disease proximally. Gives off a small obtuse marginal branch proximally . Right after this obtuse marginal branch, the artery appears to be totally occluded. There are some grade1- 2 left to left collaterals filling up the distal obtuse marginal artery. The ostium of the first obtuse marginal artery was found to have a high-grade stenosis.. * The right coronary artery is a medium caliber vessel which was found to have severe diffuse disease in the proximal segment. The artery appears to be completely occluded around the origin of the first RV branch. * Sequential venous graft to the PDA and PLV branch of the right coronary artery was found to be widely patent. PLV and the PDA branches were found to have mild diffuse disease. No significant stenotic lesions were seen. * The left internal mammary artery graft to the LAD was found to be widely patent with no significant stenotic lesions. * The venous graft to the diagonal/obtuse marginal arteries were not visualized. * An aortogram was performed in the LAVONNE view to visualize any grafts from the aorta. No other grafts were noted. Abdominal Diagnostic Findings The abdominal aortogram was performed by placing the pigtail catheter at the level of the L1 vertebrae. The abdomen aorta was found to have have diffuse ectasia with mild to moderate diffuse plaques. Both the renal arteries were visualized and was found to have no significant stenosis in the proximal segments. Lower Extremity Diagnostic Findings Renal aortogram with runoff was performed by placing the pigtail catheter just above the bifurcation. Both iliac arteries were found to have diffuse ectasia and mild to moderate diffuse plaques. No significant stenosis were noted. The external iliac arteries where found to have mild diffuse plaques. The internal iliac arteries were found to have mild to moderate diffuse disease. Both femoral arteries were found to be flush occluded at the takeoff of the profunda femoral artery. On the right side, the artery is reconstituted just above the knee by collaterals. A three-vessel runoff was noted below the knee on the right side. On the left side, the femoral artery found to be reconstituting in the distal end of the adductor canal. The femoral artery was found to have extensive calcification. The popliteal artery was found to have minimal diffuse plaques. A two-vessel runoff was noted at the below-knee level.. Conclusions No significant disease noted in the Left Main, LAD, Circumflex, or RCA coronary arteries. Patient has prior CABG. This is a 75-year-old white male with a history of coronary disease, status post 5 vessel coronary bypass surgery, presenting with complaints of exertional dyspnea and claudication. He was found to have features of total occlusion of the superficial femoral artery on both sides with a diminished ABIs. His perfusion scan revealed areas of fixed and reversible defects. The reversible defect is mostly in the distribution of the circumflex artery. In view of the patient's ongoing symptoms, in order to further evaluate his coronary status, graft status as well as the peripheral arteries, and cardiac conization with a coronary angiogram and peripheral angiogram where recommended. She underwent left heart catheterization with the left and right coronary angiogram, graft angiogram and peripheral angiogram today. The findings are as follows. Moderate diffuse disease in the proximal to mid LAD with a high-grade lesion in the ostium of the first diagonal branch. The diagonal branch appears to be a small to medium caliber vessel. Circumflex artery appears to be totally occluded after the first obtuse marginal branch. High-grade ostial stenosis in the ostium of the small caliber obtuse marginal branch. Total occlusion of the right coronary artery at the proximal segment. Patent LOGAN to the LAD and saphenous venous graft(sequential to the PDA/PLV). Occluded venous graft to the diagonal/obtuse marginal branch. The peripheral angiogram revealed mild diffuse ectasia of the abdominal aorta with a mild to moderate diffuse plaques. Ectatic common iliac arteries bilaterally. Flush occlusion of the femoral arteries bilaterally at the origin of the profunda femoral branch. Reconstitution of the femoral artery on the left side at the distal end of the adductor canal. Reconstitution of the femoral artery just above the knee on the right side. 3-vessel runoff was noted below the knee on the right side and two-vessel runoff on the left side. Recommendations Based on the above coronary angiogram findings, it was decided to treat him medically since his symptoms were stable. For the peripheral angiogram, it was decided to bring the patient back to the Industrial Radiographer to do possible staged intervention of the right and left femoral arteries, in view of his abnormal kidney function. I reviewed and discussed the angiogram findings with the Dr. Tabares. Dr. Tabares will make arrangements to have this done at a later time.. LV EDP: 22 mmHg Left Ventriculography Findings: * LV gram was not performed because of the concern of the dye overload. The LVEDP was 22 mmHg. Pressures Phase:Rest AO : 87 / 40 ( 63 ) @ 2:47:00 AM 111 / 43 ( 67 ) @ 2:53:00 AM 98 / 53 ( 73 ) @ 2:56:00 AM LV : 113 / -4 / @ 2:52:00 AM Hemodynamic Data Phase:Rest AO : 87.0 / 40.0 ( 63.0 ) @ 2:47:00 AM 111.0 / 43.0 ( 67.0 ) @ 2:53:00 AM 98.0 / 53.0 ( 73.0 ) @ 2:56:00 AM Clinical Evaluation EBL: 5mL-10mL Procedural Details Procedure Consent Obtained. Pre-Procedure Time Out. Identified patient by full name and date of as verbalized by the patient/guarantor. Does the consent match the physician's order: Yes. Accurate & Complete Informed Consent: Yes. Inpatient/Outpatient History & Physical on Chart: Yes. If H&P is completed, is and addenduem needed: No; If yes, is the addendum complete: N/A. Visualize and Verify Site with Patient/Guarantor: N/A. Relevant Radiology Images available: N/A. Pre-op teaching completed and patient verbalized understanding. The risks, benefits, and alternatives of sedation and/or procedure were discussed by physician. The patient agrees to continue. Procedure started. [facility] Clinical Fraility Score: 4: Vulnerable. Industrial Radiographer Indications: Stable Known CAD/PVD. Chest Pain Symptom Assessment: Atypical Angina. Cardiovascular Instability: No. Correct patient, site and procedure confirmed by cath team. PERRLA. Strong, equal hand corporate quality assurance manager bilaterally. Lungs clear x 5 lobes. IV Site on Arrival: 20 gauge in the left forearm. IV Fluids: 0.9% NaCl at KVO. 0 mL infused prior to laborer high density press. Equipment: 6F - Radial. Cardiac Cath Pack. ACIST Manifold Kit Model BT 2000. Heparinized Saline (2 units/mL), 1000 mL bag. Physician arrived. Physician scrubbed in. Immediate Pre-Procedure Time Out. Correct Patient: Yes; Correct Procedure: Yes; Correct Site: Yes; Correct Patient Position: Yes; Correct Supplies: Yes; Dried Flammable Prep: Yes; Blood Products Available: N/A;. Lidocaine 1% infiltrated to the right groin. Arterial access obtained with micropuncture set. A 5 albanian JL4 catheter in over wire. Multiple views taken of left coronary artery. Catheter removed over the standard wire. A 5 albanian JR4 catheter in over wire. Multiple views taken of right coronary artery. SVG's to RCA visualized and patent. 500 ml Bolus complete at this time. Fluid now running at 100 ml/hr. Catheter redirected to the LOGAN. Exchange wire inserted. Catheter removed over the exchange wire. A 5 albanian IM catheter in over wire. Wire out. Pre Procedural Pulses: bilateral dorsalis pedis was Doppled. Oxygen started at 2liters/min via nasal canula. bilateral groins was prepped with chloroprep then draped in the usual sterile fashion. LOGAN to LAD visualized. Exchange wire inserted. SVG to OM and DIAG occluded. A 5 albanian LCB catheter in over wire. Catheter removed over the exchange wire. A 5 albanian Angled Pig catheter in over wire. EDP Sample taken: LV 113/-4,23; HR: 51 BPM; SpO2: 96%. Pullback taken: LV Off; AO Off; Mean: , Peak to Peak: , SEP: ; HR: 51 BPM; SpO2: 96%. Aortogram performed in LAVONNE @ 12 mL/second for a total of 30 mL. PIG catheter pulled back to above the biforcation. Abdominal aortogram performed in AP @ 10 mL/sec for a total of 30 mL. Catheter repositioned again. Abdominal aortogram performed in AP @ 10 mL/sec for a total of 30 mL. Catheter removed over the exchange wire. Called Dr Tabares to come view pictures. He said he will be here in 10 min. Sheath flushed periodically to maintain patency. Post-op diagnosis: 3 vessel CAD, occluded SVG to OM and Diag, PVD. Contrast type used: Visipaque 320 mgI/mL, 500 mL bottle. Total IV fluids: 500 mL. A Suture was successful obtaining hemostatsis at the Right Femoral artery insertion site. Sheath(s) sutured into position with 2-0 silk and sterile 4x4's and Op-site applied over the site. No oozing or signs and symptoms of hematoma noted. Arterial sheath flushed and connected to tranducer and pressure bag with heparinized saline. Post Procedure: Pulses reassessed and unchanged. PERRLA. Strong, equal hand corporate quality assurance manager bilaterally. No VTE prophylaxis required. Medication's Wasted: Heparin = 2500 units. Complications: none. Estimated blood loss: 5mL-10mL. Procedure completed. Patient transferred by bed to 1st floor. Access Site Site: Right Femoral artery Sheath Size: 5 Fr Hemostasis Method: Suture Hemostasis Success: Successful Procedure Medications Start: 7:07 AM Stop: 7:07 AM Medication: 0.9% Saline Amount: 500 ml Route: I.V. bolus Start: 7:10 AM Stop: 7:10 AM Medication: Versed Amount: 1 mg Route: I.V. Start: 7:10 AM Stop: 7:10 AM Medication: Fentanyl Amount: 50 mcg Route: I.V. Start: 7:20 AM Stop: 7:20 AM Medication: Versed Amount: 1 mg Route: I.V. Start: 7:20 AM Stop: 7:20 AM Medication: Fentanyl Amount: 50 mcg Route: I.V. Start: 7:42 AM Stop: 7:42 AM Medication: Heparin Amount: 1500 units Route: I.V. I, the attending physician, have reviewed and verified all procedure medications. Yes, all medications given per verbal order History/Risk Factors Hypertension: Yes Dyslipidemia: Yes Peripheral Arterial Disease (PAD): Yes Myocardial Infarction (GA): No Obesity: Yes Renal Disease: No Prior Interventions PCI: No CABG: Yes Valve Surgery: No Report Signatures Finalized by Dr Roshan Medley MD [facility] on 02/02/2021 12:56 AM
[2021-02-01] MEDS: diphenhydrAMINE 50 mg Capsule PO (06:43)
--- NOTE | 2021-02-01 07:05 | W.PM.OPSUD ---
Surgery/Procedure H&P Update DATE OF PROCEDURE: February 01, 2021 DATE H&P PERFORMED: 01/03/21 H&P UPDATE INFORMATION: I have reviewed H&P completed within last 30 days, I have examined patient prior to procedure and No changes to prior documentation PREOP DIAGNOSIS: ASHD/abnormal stress test/peripheral arterial disease/leg pain PLANNED PROCEDURE: Operation Date: 02/01/21 07:00 Proposed Procedures p left Cardiac Catheterization [id number] I25.10 I73.9(Left) - Roshan Medley MD s Peripheral Diagnostic(Not Applicable) - Roshan Medley MD PATIENT REASSESSED PRIOR TO SEDATION, WITH NO CHANGE NOTED: Yes PHYSICAL EXAM: clear to auscultation bilaterally and regular rate & rhythm AIRWAY EVAL/ANESTHESIA PLAN: normal airway, see other exam findings, ASA III, Monitored Anesthesia, Local Anesthesia, Risks, benefits & alternatives of sedation and/or procedure discussed and Patient agrees to continue as planned
[2021-02-01] MEDS: sodium chloride 0.9% 1,000 ML 100 ML IV (08:39)
--- NOTE | 2021-02-01 08:46 | PC.NURSE ---
REceived patient from senior cytogenetics laboratory director staff at 0825. Vitals: BP: 122/66, HR: 59, Temp: 97.9, spo2: 97%.
--- NOTE | 2021-02-01 08:52 | PC.NURSE ---
Post cath recovery done. VItal remained within normal limits for the patient. and are charted in the mar. Patient denies any pain, Patient voided 600 mL urine.
[2021-02-01] MEDS: amlodipine 5 mg Tablet PO (09:22)
[2021-02-01] MEDS: aspirin 81 mg EC Tablet PO (09:22)
[2021-02-01] MEDS: ropinirole 1 mg Tablet PO ×3 (09:23→20:06)
[2021-02-01] MEDS: ropinirole 2 mg Tablet PO ×3 (09:23→20:06)
[2021-02-01] MEDS: atorvastatin 40 mg Tablet 20 MG PO (09:23)
[2021-02-01] MEDS: docusate sodium 100 mg Capsule PO ×2 (09:23→18:26)
[2021-02-01] MEDS: finasteride 5 mg Tablet PO (09:24)
[2021-02-01] MEDS: FUROsemide 40 mg Tablet PO (09:24)
[2021-02-01] MEDS: lisinopril 20 mg Tablet PO (09:25)
[2021-02-01] MEDS: pioglitazone 30 mg Tablet 15 MG PO (09:36)
[2021-02-01] MEDS: meloxicam 7.5 mg tablet PO ×2 (09:36→18:25)
--- NOTE | 2021-02-01 09:42 | PM.HP ---
Providers/Chief Complaint Admitting Physician: Dr. RAHAT Medley Primary Care Provider: Tish Henry MD Chief Complaint: Post angio/ CKD History of Present Illness Musa Germain is a 75 year old male with a history of coronary disease, peripheral artery disease, chronic kidney disease, type 2 diabetes, dyslipidemia and essential benign hypertension underwent cardiac catheterization peripheral angiogram today. He is admitted to the hospital mainly for IV hydration and close observation. This patient is known to have coronary artery disease and had a 5 vessel coronary bypass surgery at the [facility] in [place], approximately 5 years ago. He presented with dyspnea on exertion and also leg pain. He had a myocardial perfusion imaging in 2019 which revealed areas of fixed events and reversible defects. The features are suggestive of moderate area of ischemia in the distribution of the left circumflex artery. Since the patient's symptoms were stable, it was decided to treat him medically. He presented with increasing exertional claudication bilaterally. He was found to have features of total occlusion of the superficial femoral artery on both sides. For further evaluation of his coronary status as well as the peripheral arterial status, a cardiac catheterization with coronary angiogram and also a peripheral angiogram were recommended. Patient underwent this procedure yesterday. He is admitted to hospital for IV hydration and close monitoring. Review of Systems Narrative: CONSTITUTIONAL: No fever or chills. Has some amount of dyspnea on exertion. EYES: No blurring of vision or other visual disturbances lately. ENT: No hoarseness of voice, auditory disturbances or sore throat. CARDIOVASCULAR: As mentioned above. RESPIRATORY: No significant cough. GASTROINTESTINAL: No hematemesis or melena. GENITOURINARY: No dysuria or hematuria. INTEGUMENTARY: No skin rashes or history of skin cancer. NEURO: No transient ischemic attacks or amaurosis. PSYCHIATRIC: No history of psychosis or major depression. HEMATOLOGIC: No bleeding disorders or significant anemia. ENDOCRINE: No history of polyuria or polydipsia. MUSCULOSKELETAL: Exertional claudication bilaterally. ALLERGY/IMMUNOLOGY: As mentioned above. Medications/Allergies Home Medications Medication Instructions Recorded Confirmed Last Taken Type amlodipine 5 mg tablet 5 mg PO DAILY tab 11/04/19 02/09/21 02/01/21 04:30 History budesonide-formoterol HFA 160 2 puff INHALATION BID 11/04/19 02/09/21 02/01/21 04:30 History mcg-4.5 mcg/actuation aerosol inhaler finasteride 5 mg tablet 5 mg PO DAILY 11/04/19 02/09/21 02/01/21 04:30 History gabapentin 300 mg capsule 300 mg PO BEDTIME cap 11/04/19 02/09/21 01/31/21 21:00 History hydrochlorothiazide 25 mg tablet 25 mg PO QAM 11/04/19 02/09/21 02/01/21 04:30 History hydrophilic cream 1 applic TOPICAL TID 11/04/19 02/09/21 01/20/20 History insulin NPH isoph U-100 human 100 See Rx Instructions SUBCUT BID 11/04/19 02/09/21 01/31/21 21:00 History unit/mL subcutaneous suspension lisinopril 40 mg tablet 20 mg PO DAILY tab 11/04/19 02/09/21 02/01/21 04:30 History meloxicam 7.5 mg tablet 7.5 mg PO BID 11/04/19 02/09/21 02/01/21 04:30 History metoprolol tartrate 50 mg tablet 25 mg PO BID tab 11/04/19 02/09/21 02/01/21 04:30 History nitroglycerin 0.4 mg sublingual 0.4 mg SUBLINGUAL ONCE PRN 11/04/19 02/09/21 01/20/20 History tablet pentoxifylline 400 mg 400 mg PO TID 11/04/19 02/09/21 02/01/21 04:30 History tablet,extended release ropinirole 2 mg tablet 3 mg PO TID 11/04/19 02/09/21 02/01/21 04:30 History simvastatin 80 mg tablet 40 mg PO DAILY tab 11/04/19 02/09/21 01/31/21 21:00 History terazosin 1 mg capsule 3 mg PO BEDTIME cap 11/04/19 02/09/21 01/31/21 21:00 History tiotropium bromide 2.5 2 inh INHALATION QAM 11/04/19 02/09/21 02/01/21 04:30 History mcg/actuation mist for inhalation clopidogrel 75 mg tablet 75 mg PO DAILY 11/06/19 02/09/21 02/01/21 04:30 History oxycodone 7.5 mg PO TID PRN 11/24/19 02/09/21 02/01/21 04:30 History docusate sodium [Colace] 100 mg PO BID #30 cap 11/26/19 02/09/21 02/01/21 04:30 Rx albuterol sulfate 2 puff INHALATION Q4H PRN 01/24/20 02/09/21 02/01/21 04:30 History aspirin [Aspir-81] 81 mg PO DAILY 01/24/20 02/09/21 02/01/21 04:30 History Mucinex 1,200 mg PO QPM 02/01/21 02/09/21 01/31/21 21:00 History Mucinex 600 mg PO QAM 02/01/21 02/09/21 02/01/21 04:30 History furosemide 40 mg PO DAILY 02/01/21 02/09/21 02/01/21 04:30 History pioglitazone 15 mg PO DAILY 02/01/21 02/09/21 02/01/21 04:30 History Allergies Allergy/AdvReac Type Severity Reaction Status Date / Time No Known Allergies Allergy Verified 02/09/21 10:33 PFSH Acute PFSH: Medical History Abdominal aortic aneurysm Chronic obstructive pulmonary disease Hypertension Low back pain Peripheral vascular disease Restless legs syndrome Sleep apnea Surgical History History of appendectomy History of coronary artery stent placement History of umbilical hernia repair 11/26/2019 Hx of CABG Status post colonoscopy 11/25/2019: 3 mm sessile polyps x3 removed from the ascending colon, follow-up colonoscopy 2024 Family History Other Family history non-contributory Denies family history of Clotting disorder Anesthesia complication Bleeding disorder Social History Smoking and tobacco status: former smoker Alcohol intake: former Vitals/I&O/Wt Last Vital Signs Temp 98.0 F 02/01/21 08:55 Pulse 55 L 02/01/21 08:55 Resp 14 02/01/21 08:55 BP 124/84 02/01/21 08:55 Pulse Ox 92 02/01/21 08:55 Weight last 48 hrs Weight 271 lb Physical Exam Narrative: EXAM NARRATIVE: GENERAL: The patient is alert and oriented times three. Not in any acute distress. HEENT: No significant pallor, icterus or lymphadenopathy.Oral cavity: There are no mucous membrane lesions. NECK: Trachea appears to be central. No masses noted. No JVD or thyromegaly appreciated. RESPIRATORY: Chest is symmetrical. No intercostals muscle retraction or any accessory muscle activation. There is no chest wall tenderness. Breath sounds are heard bilaterally. No rales or rhonchi heard. No evidence of any consolidation. BREASTS: Deferred. HEART: The heart sounds are normal. No S3 or S4. Short systolic murmur at the left sternal border. No diastolic murmurs.. No pericardial rub ABDOMEN: No vessel pulsations or distention. No tenderness. No organomegaly appreciated. Bowel sounds are normally heard. : Deferred. RECTAL: Deferred. LYMPHATIC: No lymphadenopathy noted in the neck or groin. EXTREMITIES: Peripheral pulses are extremely weak bilaterally MUSCULOSKELETAL: No acute joint deformities or swelling SKIN: There are no significant rashes or ecchymosis NEUROPSYCHIATRIC: The patient is alert and oriented x3. Appears to be in a good mood. No tremors or rigidity noted. Data : 01/28/21 11:30 02/02/21 09:04 Other Labs: Supplemental Info 12/17/20 BLE Arterial Duplex 1. Features of total occlusion of the mid and distal SFA on the right side with collateral filling of the popliteal and posterior tibial arteries. The dorsalis pedis artery on the right side also appears to be occluded 2. Features of total occlusion of the mid SFA on the left side with collateral filling of the distal SFA, popliteal and infrapopliteal vessels. 3.Abnormal resting ABIs bilaterally suggesting moderate peripheral artery disease No similar previous studies are available for comparison 12/17/20 Aorta Iliac 1. Fusiform aneurysm of the distal abdominal aorta, measuring 4.11 x 4.29 cm in size. 2. 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 3. Ectatic proximal and mid abdominal aorta. 07/04/19 Echo Normal left ventricular size and systolic function, EF 67 %. No regional wall motion abnormalities. Minimally thickened aortic and mitral valves. Mild mitral annular calcification. Trace tricuspid valve regurgitation. There is no pericardial effusion. There are no intracardiac masses. No previous study is available for comparison. 07/04/19 Stress Test #1. Myocardial perfusion imaging revealing a moderate area of decreased tracer uptake in the inferolateral, anterolateral, apical lateral and mid inferior regions with significant reversibility, suggestive of ischemia in the distribution of the left circumflex artery. #2. Normal LV ejection fraction of 61%. #3. LV wall motion is revealing diffuse hypokinesia of the septum. #4. Normal LV volume. No similar previous studies available for comparison 1. [No significant EKG changes with the] LexiScan infusion 2. No LexiScan induced chest pain or cardiac arrhythmia 3. Normal blood pressure and heart rate response A&P Assessment and plan (1) Atherosclerotic heart disease of [place] coronary artery without angina pectoris: Patient was found to have severe vessel coronary disease. The LOGAN to the LAD was found to be patent. The venous graft to the PDA/PLV also was found to be patent. The venous graft to the diagonal/obtuse marginal was found to be totally occluded. Status: Acute Qualifiers: [place] vs. transplanted heart: [place] heart Qualified Code(s): I25.10 - Atherosclerotic heart disease of [place] coronary artery without angina pectoris (2) Peripheral vascular disease: Patient was found to have a total occlusion of the superficial femoral artery bilaterally with collateral filling of the popliteal and infrapopliteal vessels. We may consider peripheral arterial intervention at the later time. Status: Acute (3) Hypertension: The blood pressure is in the normal range. May continue on the current medications. Status: Acute Qualifiers: Hypertension type: essential hypertension Qualified Code(s): I10 - Essential (primary) hypertension (4) Dyslipidemia (high LDL; low HDL): We will continue on the current dose of the statin drug. Status: Acute (5) Chronic kidney disease: Careful IV hydration today. We will repeat the BMP in the morning Status: Acute Attestations Medical Necessity Statement*: Patient will be on observation and overnight stay. Planning to discharge home in the morning. 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 transplanted heart: [place] heart Peripheral vascular disease I73.9 Hypertension I10 Hypertension type: essential hypertension Dyslipidemia (high LDL; low HDL) E78.5 Chronic kidney disease N18.9
[2021-02-01 10:45] LABS: Partial Thromboplastin Time 29.6 SECONDS (23.9-36.7)
--- NOTE | 2021-02-01 10:52 | PC.CHAP ---
Pastoral Care Encounter/Spiritual Assessment Type of Contact [] Declined manager video visit [] Patient/Family/Request visit [] Outpatient visit [] Follow-up visit [] Physician referral [] Code/Alert [x] Routine visit [] Staff referral [] Actively dying [] Patient sleeping [] Family support [] [] Out of room [] Palliative care [] [x] Receiving care in room [] Pre-surgical visit [] Trauma [] Long length of stay [] ICU visit [] Other: Relational/Emotional Strength [] Patient feels connected with others/family/visitors/staff [] Distress [] Loneliness/isolation [] Abandonment Spirituality of Patient [] Person of Liz [] Attends Roman Catholic of their Liz [] Believes in Prayer [] Reads Bible or Protestant materials [] There are Spiritual issues to be addressed [place] Interventions [] Prayer [] Active listening [] Non-anxious presence [] Spiritual/emotional support [] Crisis/trauma care [] Spiritual counseling [] Bereavement support [] Provided bereavement packet [] Provided Bible/devotional materials [] Provided toy/stuffed animal, coloring book to patient or family member [] Provided Communion [] Anointing/[place] [] Salvation [] Completed spiritual assessment [] Other: Impact on Illness or Injury [] Angry [] Fearful [] Anxious [] Often cries [] Exhaustion [] Unable to work [] Unable to attend samaritan [] Unable to walk/stand [] Unable to read [] Unable to drive [] Unable to eat/drink [] Unable to sleep [] Unable to be with family [] Patient intubated [] Other: Summary Patient was busy with staff. Time spent with patient 1 minute
--- NOTE | 2021-02-01 11:30 | PC.NURSE ---
Addendum entered by Kareem Hogan RN 02/01/21 11:31: Arterial sheath removed. Started at 1040. Held pressure for 20 minutes. No signs of bleeding at site, bleeding not indicated per vitals. Nurse applied 4x4 gauze and tegaderm as dressing. Catheter removed was intact. Patient is to remain supine until 1600. Original Note: Arterial sheath removed. Started at 1040. Held pressure for 20 minutes. No signs of bleeding at site, bleeding not indicated per vitals. Nurse applied 4x4 gauze and tegaderm as dressing. Catheter removed was intact
[2021-02-01] MEDS: lanolin oint 7 gm 1 APPLIC TOPICAL (14:50)
--- NOTE | 2021-02-01 16:06 | PC.NURSE ---
% hours has gone by since the sheath was removed. Site is still asymptomatic. Patient no longer required to be supine. Raised head of bed per patient request.
--- NOTE | 2021-02-01 17:36 | PC.NUTR ---
NUTRITION WEIGHT ASSESSMENT: Ht. 63 inches. Wt.271 pounds. BMI of 48 kg/m2 indicates Morbid Obesity.
[2021-02-01] MEDS: guaiFENesin 600 mg Tablet 1200 MG PO (18:26)
[2021-02-01] MEDS: gabapentin 300 mg Capsule PO (20:06)
[2021-02-01] MEDS: sodium chloride 0.9% 1,000 ML 75 ML IV (23:52)
[2021-02-02] VITALS (51 sets, daily range): BP systolic 96–160; BP diastolic 52–105; PULSE 64–94; RESP 0–25; TEMP 37; O2SAT 90–95
--- NOTE | 2021-02-02 02:13 | PC.NURSE ---
Patient ambulated around nurses station 3 times. No s/s of bleeding or hematoma noted. IV fluids still running at 75 mL/hr per Dr. Medley, also ordered BNP for morning labs. Possible discharge today if all patient safety measures are met. Continue care.
[2021-02-02 04:24] LABS: NT Pro B Type Natriuretic Pept 334 pg/mL (0-450)
[2021-02-02] MEDS: sodium chloride 0.9% 1,000 ML 75 ML IV (05:05)
[2021-02-02] MEDS: hydroCHLOROthiazide 25 mg Tablet PO (05:05)
[2021-02-02] MEDS: guaiFENesin 600 mg Tablet PO (05:05)
[2021-02-02] MEDS: finasteride 5 mg Tablet PO (08:04)
[2021-02-02] MEDS: atorvastatin 40 mg Tablet 20 MG PO (08:05)
[2021-02-02] MEDS: ropinirole 1 mg Tablet PO (08:05)
[2021-02-02] MEDS: meloxicam 7.5 mg tablet PO (08:05)
[2021-02-02] MEDS: clopidogrel 75 mg Tablet PO (08:05)
[2021-02-02] MEDS: ropinirole 2 mg Tablet PO (08:05)
[2021-02-02] MEDS: docusate sodium 100 mg Capsule PO (08:05)
[2021-02-02] MEDS: aspirin 81 mg EC Tablet PO (08:05)
[2021-02-02] MEDS: FUROsemide 40 mg Tablet PO (08:05)
[2021-02-02] MEDS: pioglitazone 30 mg Tablet 15 MG PO (08:05)
[2021-02-02] MEDS: metoprolol tartrate 25 mg Tablet PO (08:05)
[2021-02-02] MEDS: amlodipine 5 mg Tablet PO (08:06)
[2021-02-02] MEDS: lisinopril 20 mg Tablet PO (08:08)
[2021-02-02 09:30] LABS: Anion Gap 12.9 (5-19); Blood Urea Nitrogen 39 mg/dL (8-23); Calcium 8.9 mg/dL (8.5-10.5); Carbon Dioxide 26 mmol/L (22-29); Chloride 102 mmol/L (98-107); Glucose 291 mg/dL (65-115); Osmolality Calculated 302 mOsm/kg (285-295); Potassium 4.9 mmol/L (3.5-5.1); Sodium 136 mmol/L (136-145)
--- NOTE | 2021-02-02 09:44 | PC.CHAP ---
Pastoral Care Encounter/Spiritual Assessment Type of Contact [] Declined fashion adviser visit [] Patient/Family/Request visit [] Outpatient visit [] Follow-up visit [] Physician referral [] Code/Alert [x] Routine visit [] Staff referral [] Actively dying [] Patient sleeping [] Family support [] [] Out of room [] Palliative care [] [] Receiving care in room [] Pre-surgical visit [] Trauma [] Long length of stay [x] ICU visit [] Other: Relational/Emotional Strength [] Patient feels connected with others/family/visitors/staff [] Distress [] Loneliness/isolation [] Abandonment Spirituality of Patient [] Person of Liz [] Attends Mormonism of their Liz [] Believes in Prayer [] Reads Bible or Buddhism materials [] There are Spiritual issues to be addressed Push Bench Operator Helper Interventions [x] Prayer [] Active listening [] Non-anxious presence [] Spiritual/emotional support [] Crisis/trauma care [] Spiritual counseling [] Bereavement support [] Provided bereavement packet [] Provided Bible/devotional materials [] Provided toy/stuffed animal, coloring book to patient or family member [] Provided Communion [] Anointing/[place] [] Salvation [x] Completed spiritual assessment [] Other: Impact on Illness or Injury [] Angry [] Fearful [] Anxious [] Often cries [] Exhaustion [] Unable to work [] Unable to attend hoahaoism [] Unable to walk/stand [] Unable to read [] Unable to drive [] Unable to eat/drink [] Unable to sleep [] Unable to be with family [] Patient intubated [] Other: Summary blood tests taken ... waiting for results Time spent with patient 10 min
== END 2021-02-02 13:30 | disposition home or self-care (01) ==
LOC: CCL 05:41 → ICU 07:59
PROVIDERS: PCP Family Medicine; Visit Provider Internal Medicine Cardiovascular Disease
DX: I25.10 Atherosclerotic heart disease of native coronary artery without angina pectoris (principal); I73.9 Peripheral vascular disease, unspecified; E78.5 Hyperlipidemia, unspecified; Z79.01 Long term (current) use of anticoagulants; I12.9 Hypertensive chronic kidney disease with stage 1 through stage 4 chronic kidney disease, or unspecified chronic kidney disease; E11.22 Type 2 diabetes mellitus with diabetic chronic kidney disease; N18.9 Chronic kidney disease, unspecified; Z87.891 Personal history of nicotine dependence; Z95.1 Presence of aortocoronary bypass graft
CPT/HCPCS: 36415; 75625; 80048; 83880; 85025; 85610; 85730; 86850; 86900; 93455; 94640; C1769; C1887; C1894; J1644; J2250; J3010; J7030; Q0163; Q9967

== ENCOUNTER → 2021-02-09 11:06 | Outpatient (BNVA) | payer OTHER, SELFPAY | PROVIDERS: PCP Family Medicine; Visit Provider Nurse Practitioner Family | DX: I25.10 Atherosclerotic heart disease of native coronary artery without angina pectoris (principal) | CPT/HCPCS: 80048 ==

== ENCOUNTER → 2021-03-24 10:35 | Outpatient (BNVA) | payer OTHER, SELFPAY | PROVIDERS: PCP Family Medicine; Referring Provider Internal Medicine; Visit Provider Internal Medicine | DX: I73.9 Peripheral vascular disease, unspecified (principal); I25.10 Atherosclerotic heart disease of native coronary artery without angina pectoris; Z20.822 Contact with and (suspected) exposure to COVID-19 | CPT/HCPCS: 80048; 85025; 85610; 87635 ==

== ENCOUNTER 2021-03-31 06:32 | Observation (INO) | payer OTHER, SELFPAY ==
[2021-03-31 07:27] VITALS: BMI 32.0
[2021-03-31] MEDS: sodium chloride 0.9% 1,000 ML 150 ML IV (08:16)
--- NOTE | 2021-03-31 09:00 | XACV_ITS ---
Ht: 188 cm Wt: 122 kg BSA: 2.56 m2 Any Known Allergies: No known allergies Gender: Male : 1945 Exam Type: Invasive Peripheral Vascular Procedure(s): Procedure Description: Peripheral Cath Diagnostic Procedure Exam Priority: Routine Lower Extremity Diagnostic Findings INDICATION: SEVERE LIFESTYLE LIMITING CLAUDICATION. Right external iliac artery: Patent Right internal iliac artery: Patent Right common femoral artery: Patent Right profunda femoral artery: Patent Right SFA:Ostially occluded. Popliteal artery reconstitutes from collateral supply from the profunda artery. Right popliteal artery: Patent (Reconstituted from collaterals) Below the knee imaging is not good, however atleast 2 vessel run off. Anterior tibial not well visualized. Likely occluded . Left external iliac artery: Patent Left internal iliac artery: Patent Left common femoral artery: Patent Left profunda femoral artery: Patent Left SFA:Ostially occluded. Distal SFA and Popliteal artery reconstitutes from collateral supply from the profunda artery. Right popliteal artery: Patent (Reconstituted from collaterals) Below the knee imaging is not good, however atleast 2 vessel run off. Anterior tibial not well visualized. . Conclusions Severe bilateral ostial to distal SFA occlusion. Continue medical therapy. Recommendations Patient will need staged procedure for revascularization attempt likely from popliteal access vs PT access in 3 weeks. IV hydration till patient is discharged. Access Site Site: Left Femoral artery Sheath Size: 6 Fr Hemost... Method: Manual Compression Hemost... Success: Successful Procedure Details Findings Procedure Consent Obtained. Admit Source: In Patient. Pre-Procedure Time Out. Identified patient by full name and date of as verbalized by the patient/guarantor. Does the consent match the physician's order: Yes. Accurate & Complete Informed Consent: Yes. Inpatient/Outpatient History & Physical on Chart: Yes. If H&P is completed, is and addenduem needed: Yes; If yes, is the addendum complete: N/A. Visualize and Verify Site with Patient/Guarantor: N/A. Relevant Radiology Images available: N/A. Pre-op teaching completed and patient verbalized understanding. The risks, benefits, and alternatives of sedation and/or procedure were discussed by physician. The patient agrees to continue. Procedure started. Correct patient, site and procedure confirmed by cath team. PERRLA. Strong, equal hand set designer bilaterally. Lungs clear x 5 lobes. IV Site on Arrival: 20 gauge in the right hand. IV Fluids: 0.9% NaCl at KVO. 400 mL infused prior to manager cardiac cath. Oxygen started at 2liters/min via nasal canula. bilateral groins was prepped with chloroprep then draped in the usual sterile fashion. right ankle area was prepped with chloroprep then draped in the usual sterile fashion. Physician notified. Baseline sample Acquired. HR: 74 BPM. Physician arrived. Physician scrubbed in. Time out performed with cath team. Lidocaine 1% infiltrated to the left groin. Arterial access obtained with micropuncture set. A 5FrFr UF catheter in over wire. wire out. glidewire inserted. Catheter out. A 5FrFr RIM catheter in over wire. runoff performed right leg 10mL/sec for a total of 30mL. runoff perfomed left leg 10mL/sec for a total of 30mL. Catheter out. Sheath(s) removed and manual pressure held until hemostasis was achieved. Sterile 4x4 and Op-site applied to the puncture site. No oozing or hematoma noted. Post sheath removal instructions were given and the patient verbalized understanding. Post Procedure: Pulses reassessed and unchanged. PERRLA. Strong, equal hand set designer bilaterally. No VTE prophylaxis required. Medication's Wasted: Heparin = 1000 units. Total IV fluids: 75 mL. Contrast type used: Visipaque 320 mgI/mL, 500 mL bottle. Contrast Material : Visipaque 58 ml. Post-op diagnosis: occluded bilateral SFA arteries. Complications: none. A Manual Compression was successful obtaining hemostatsis at the Left Femoral artery insertion site. manual pressure being held for 2 min. Estimated blood loss: 5mL-10mL. Procedure completed. Patient transferred by bed to 1st floor. Vital chart was stopped. Procedure Medications Start: 9:57 AM Stop: 9:57 AM Medication: Benadryl Amount: 50 mg Route: I.V. Start: 9:59 AM Stop: 9:59 AM Medication: Versed Amount: 1 mg Route: I.V. Start: 9:59 AM Stop: 9:59 AM Medication: Fentanyl Amount: 50 mcg Route: I.V. Start: 10:30 AM Stop: 10:30 AM Medication: Versed Amount: 1 mg Route: I.V. Start: 10:30 AM Stop: 10:30 AM Medication: Fentanyl Amount: 50 mcg Route: I.V. I, the attending physician, have reviewed and verified all procedure medications. Yes, all medications given per verbal order History/Risk Factors Hypertension: Yes Tobacco Use: Former Prior Interventions PCI: Yes CABG: Yes Report Signatures Finalized by Bora Tabares MD on 04/09/2021 07:43 PM
--- NOTE | 2021-03-31 09:54 | P.HP_ITS ---
Same Day Surgery H&P Indication for Procedure/HPI DATE OF PROCEDURE: March 31, 2021 CHIEF COMPLAINT/INDICATIONFOR SURGICAL PROCEDURE: Life style limiting claudication PREOP DIAGNOSIS: Life style limiting claudication PLANNED PROCEDRUE: Operation Date: 03/31/21 10:00 Proposed Procedures p Peripheral Diagnostic 21020 i73.9(Not Applicable) - Bora Tabares M.D Peripheral intervention Musa Germain is a 75 year old male with a history of coronary disease, peripheral artery disease, chronic kidney disease, type 2 diabetes, dyslipidemia and essential benign hypertension who has been having lifestyle limiting claudication who underwent peripheral angiogram a month ago that showed totally occluded bilateral SFAs. He is here for peripheral intervention. We will first attempt revascularization of the right SFA. ROS CONSTITUTIONAL: No fever chills weight loss or gain or night sweats. [] HEENT: Normocephalic, atraumatic.[] RESPIRATORY: No cough, sputum, hemoptysis or wheezing.[] CARDIOVASCULAR: No shortness of breath, chest pain, PND, orthopnea, lower extremity edema, presyncope or syncope. [] GI: no nausea vomiting diarrhea. 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 [] MUSCULOSKELETAL: Has bilateral leg pains Medications/Allergies* Home Medications Medication Instructions Recorded Confirmed Type amlodipine 5 mg tablet 5 mg PO DAILY tab 11/04/19 03/30/21 History budesonide-formoterol HFA 160 2 puff INHALATION BID 11/04/19 03/30/21 History mcg-4.5 mcg/actuation aerosol inhaler finasteride 5 mg tablet 5 mg PO DAILY 11/04/19 03/30/21 History gabapentin 300 mg capsule 300 mg PO BEDTIME cap 11/04/19 03/30/21 History hydrochlorothiazide 25 mg tablet 25 mg PO QAM 11/04/19 03/30/21 History hydrophilic cream 1 applic TOPICAL TID 11/04/19 03/30/21 History insulin NPH isoph U-100 human 100 See Rx Instructions SUBCUT BID 11/04/19 03/30/21 History unit/mL subcutaneous suspension lisinopril 40 mg tablet 20 mg PO DAILY tab 11/04/19 03/30/21 History meloxicam 7.5 mg tablet 7.5 mg PO BID 11/04/19 03/30/21 History metoprolol tartrate 50 mg tablet 25 mg PO BID tab 11/04/19 03/30/21 History nitroglycerin 0.4 mg sublingual 0.4 mg SUBLINGUAL ONCE PRN 11/04/19 03/30/21 History tablet pentoxifylline 400 mg 400 mg PO TID 11/04/19 03/30/21 History tablet,extended release ropinirole 2 mg tablet 3 mg PO TID 11/04/19 03/30/21 History simvastatin 80 mg tablet 40 mg PO DAILY tab 11/04/19 03/30/21 History terazosin 1 mg capsule 3 mg PO BEDTIME cap 11/04/19 03/30/21 History tiotropium bromide 2.5 2 inh INHALATION QAM 11/04/19 03/30/21 History mcg/actuation mist for inhalation clopidogrel 75 mg tablet 75 mg PO DAILY 11/06/19 03/30/21 History oxycodone 7.5 mg PO TID PRN 11/24/19 03/30/21 History albuterol sulfate 2 puff INHALATION Q4H PRN 01/24/20 03/30/21 History aspirin [Aspir-81] 81 mg PO DAILY 01/24/20 03/30/21 History Mucinex 1,200 mg PO QPM 02/01/21 03/30/21 History furosemide 40 mg PO DAILY 02/01/21 03/30/21 History guaifenesin [Mucinex] 600 mg PO QAM 02/01/21 03/30/21 History pioglitazone 15 mg PO DAILY 02/01/21 03/30/21 History Allergies/Adverse Reactions Allergy/AdvReac Type Severity Reaction Status Date / Time No Known Allergies Allergy Verified 02/09/21 10:33 Current Medications: Generic Name Dose Route Start Last Admin Trade Name Freq PRN Reason Stop Dose Admin Sodium Chloride 1,000 mls @ 150 mls/hr 03/31/21 06:15 03/31/21 08:16 Sodium Chloride 0.9% IV 150 mls/hr .[id number] VALENCIA Administration Pertinent History/Comorbid Conditions* Medical History (Updated 02/11/21 @ 16:46 by Roshan Medley MD) Abdominal aortic aneurysm Chronic obstructive pulmonary disease Hypertension Low back pain Peripheral vascular disease Restless legs syndrome Sleep apnea Surgical History (Updated 12/05/19 @ 11:26 by Tuan Sloan MD) History of appendectomy History of coronary artery stent placement History of umbilical hernia repair 11/26/2019 Hx of CABG Status post colonoscopy 11/25/2019: 3 mm sessile polyps x3 removed from the ascending colon, follow-up colonoscopy 2024 Family History (Updated 11/30/20 @ 15:24 by Eneida Rincon RN) Family history non-contributory Denies family history of Clotting disorder Anesthesia complication Bleeding disorder Social History Smoking and tobacco status: former smoker Alcohol intake: former Pertinent Exam Findings alert, oriented x 3, clear to auscultation bilaterally and regular rate & rhythm Conscious Sedation Assessment PATIENT ASSESSED PRIOR TO SEDATION, WITH NO CHANGE NOTED: Yes AIRWAY EVAL/ANESTHESIA PLAN: normal airway, see other exam findings, ASA III, Monitored Anesthesia, Local Anesthesia, Risks, benefits & alternatives of sedation and/or procedure discussed and Patient agrees to continue as planned Recommendations Surgery/Procedure today (Peripheral arterial intervention of the right SFA) Coding Level of Care Code Acute Escalator Mechanic for Teri Garay
--- NOTE | 2021-03-31 11:00 | PC.CHAP ---
Pastoral Care Encounter/Spiritual Assessment Type of Contact [] Declined electrical logging operator visit [] Patient/Family/Request visit [] Outpatient visit [] Follow-up visit [] Physician referral [] Code/Alert [x] Routine visit [] Staff referral [] Actively dying [] Patient sleeping [] Family support [] [] Out of room [] Palliative care [] [x] Receiving care in room [] Pre-surgical visit [] Trauma [] Long length of stay [] ICU visit [] Other: Relational/Emotional Strength [x] Patient feels connected with others/family/visitors/staff [] Distress [] Loneliness/isolation [] Abandonment Spirituality of Patient [x] Person of Liz [] Attends Latter-Day of their Liz [x] Believes in Prayer [] Reads Bible or Nondenominational materials [] There are Spiritual issues to be addressed Transport Medic Interventions [x] Prayer [x] Active listening [x] Non-anxious presence [x] Spiritual/emotional support [] Crisis/trauma care [x] Spiritual counseling [] Bereavement support [] Provided bereavement packet [] Provided Bible/devotional materials [] Provided toy/stuffed animal, coloring book to patient or family member [] Provided Communion [] Anointing/[place] [] Salvation [x] Completed spiritual assessment [] Other: Impact on Illness or Injury [] Angry [] Fearful [x] Anxious [] Often cries [] Exhaustion [] Unable to work [] Unable to attend alevism [] Unable to walk/stand [] Unable to read [] Unable to drive [] Unable to eat/drink [] Unable to sleep [] Unable to be with family [] Patient intubated [] Other: Summary has had tests doesn't know if he will need a procedure on vans in leg, has a good attitude, wants to home soon, +1 Time spent with patient 5 mins
--- NOTE | 2021-03-31 12:51 | PC.NURSE ---
Knowledge Management Consultant Note The patient will come back Monday April 26, 2021 for staged peripheral intervention of the left and right SFA via the popliteal approach per Dr. Tabares. The patient is to be admitted at 0600 for 4 hours of hydration with the procedure to start at 1000. Scheduling, DYLAN OrozcoU RN, and Dr. Tabares's clinic nurse were all notified. Butch Lloyd, CSU RN, stated that she would make sure the patient and his spouse knew of the scheduling and she would also put the above information in the patient's discharge paperwork.
[2021-03-31 14:48] VITALS: RESP 18
[2021-03-31] MEDS: fentaNYL 50 mcg/mL INJ 2mL 25 MCG IVP (14:48)
[2021-03-31 15:47] VITALS: PULSE 56
[2021-03-31 17:08] VITALS: BP 128/80; PULSE 56; RESP 18; TEMP 36.6; O2SAT 94
--- NOTE | 2021-03-31 18:27 | PC.NURSE ---
Pt discharged home. IV removed no redness or swelling noted. Discharge instructions given along with follow up appointments. Pt had no c/o pain or discomfort at the time of discharge.
--- NOTE | 2021-04-01 15:13 | PC.RESP ---
Pulmonary Rehab information sent to patient.
== END 2021-03-31 18:27 | disposition home or self-care (01) ==
LOC: CSU 06:33
PROVIDERS: Admitting Provider Internal Medicine; PCP Family Medicine; Visit Provider Internal Medicine
DX: I70.92 Chronic total occlusion of artery of the extremities (principal); I73.9 Peripheral vascular disease, unspecified; I25.10 Atherosclerotic heart disease of native coronary artery without angina pectoris; E78.5 Hyperlipidemia, unspecified; E11.22 Type 2 diabetes mellitus with diabetic chronic kidney disease; I12.9 Hypertensive chronic kidney disease with stage 1 through stage 4 chronic kidney disease, or unspecified chronic kidney disease; N18.9 Chronic kidney disease, unspecified; Z79.4 Long term (current) use of insulin; Z87.891 Personal history of nicotine dependence
CPT/HCPCS: 75716; C1769; C1887; C1894; G0378; J1200; J1644; J2250; J3010; J7030; Q9967

== ENCOUNTER → 2021-04-06 11:06 | Outpatient (BNVA) | payer OTHER, SELFPAY | PROVIDERS: PCP Family Medicine; Visit Provider Internal Medicine Cardiovascular Disease | DX: E78.5 Hyperlipidemia, unspecified (principal); I25.10 Atherosclerotic heart disease of native coronary artery without angina pectoris; I73.9 Peripheral vascular disease, unspecified; R06.02 Shortness of breath; I10 Essential (primary) hypertension; N18.31 Chronic kidney disease, stage 3a; I71.4 Abdominal aortic aneurysm, without rupture; Z79.01 Long term (current) use of anticoagulants | CPT/HCPCS: 80048 ==

== ENCOUNTER → 2021-04-20 10:01 | Outpatient (BNVA) | payer OTHER, SELFPAY | PROVIDERS: PCP Family Medicine; Referring Provider Internal Medicine Cardiovascular Disease; Visit Provider Internal Medicine Cardiovascular Disease | DX: N18.31 Chronic kidney disease, stage 3a (principal) | CPT/HCPCS: 80048 ==

== ENCOUNTER 2021-04-26 08:55 | Day surgery (SDC) | payer OTHER, SELFPAY ==
[2021-04-26] VITALS (18 sets, daily range): BP systolic 102–152; BP diastolic 46–89; PULSE 49–63; RESP 12–22; TEMP 36.3–36.9; O2SAT 93–98; BMI 33.0
[2021-04-26 09:34] LABS: Basophils % 0.6 %; Eosinophils # 0.1 10^3/uL (0.0-0.8); Eosinophils % 2.5 %; Hematocrit 42.3 % (42.0-52.0); Hemoglobin 13.3 g/dL (11.7-16.6); Lymphocytes # 1.2 10^3/uL (0.8-4.8); Lymphocytes % 23.4 %; Mean Corpuscular HGB Conc 31.4 g/dL (30.0-36.0); Mean Corpuscular Hemoglobin 29.6 pg (28.0-34.0); Mean Corpuscular Volume 94.2 fL (80-94); Mean Platelet Volume 9.6 fL (7.4-10.4); Monocytes # 0.5 10^3/uL (0.2-0.9); Monocytes % 8.9 %; Neutrophils # 3.39 10^3/uL (1.8-7.7); Neutrophils % 64.4 %; Nucleated Red Blood Cells % 0 %; Platelet Count 147 10^3/cmm (130-400); Red Blood Count 4.49 10^6/uL (4.1-5.3); Red Cell Distribution Width 13.6 % (12.1-15.1); White Blood Count 5.3 10^3/uL (4.0-10.0)
[2021-04-26] MEDS: sodium chloride 0.9% 1,000 ML 150 ML IV (09:35)
[2021-04-26] MEDS: diphenhydrAMINE 50 mg Capsule PO (09:45)
[2021-04-26 09:49] LABS: INR 1.03 (0.8-1.2)
[2021-04-26 09:50] LABS: SARS Covid-2 Antigen Negative (Negative)
[2021-04-26 09:56] LABS: Anion Gap 11.9 (5-19); Blood Urea Nitrogen 33 mg/dL (8-23); Carbon Dioxide 25 mmol/L (22-29); Chloride 108 mmol/L (98-107); Glucose 107 mg/dL (65-115); Osmolality Calculated 298 mOsm/kg (285-295); Potassium 4.9 mmol/L (3.5-5.1); Sodium 140 mmol/L (136-145)
--- NOTE | 2021-04-26 11:18 | XACV_ITS ---
Ht: 185 cm Wt: 120 kg BSA: 2.52 m2 Any Known Allergies: No known allergies Gender: Male : 1945 Exam Type: Invasive Peripheral Vascular Procedure(s): Procedure Description: Peripheral Cath Diagnostic Procedure Procedure Description: Lower extremities' angiography Exam Priority: Routine Lower Extremity Interventional Findings This was a staged procedure to attempt revascularization of left lower extremity from popliteal access. Patient has completely occluded SFA from ostial to distal vessel. A 6 Polish sheath was introduced in the left popliteal artery. Using a seeker support catheter and Glidewire we attempted to cross the occluded SFA segment. However it was going into dissection plane. After several attempts, Glidewire could not be advanced into true lumen in the common femoral artery. At this time we aborted the procedure. Seeker support catheter and guidewire were removed. Final angiogram was performed through the sheath that showed excellent runoff below the knee with all 3 vessels being patent. Indication: Severe lifestyle limiting claudication/occluded bilateral SFA arteries. Conclusions Occluded left SFA. Unsuccessful attempt at revascularization from popliteal access. Patient has known bilateral SFA occlusions. Has good popliteal target and runoff downstream. Recommendations Will recommend assessment for surgical bypass to popliteal arteries. Outpatient cardiology follow-up. Access Site Site: Right Popliteal Sheath Size: 6 Fr Hemost... Success: Unsuccessful Procedure Details Findings Procedure Consent Obtained. Pre-Procedure Time Out. Identified patient by full name and date of as verbalized by the patient/guarantor. Does the consent match the physician's order: Yes. Accurate & Complete Informed Consent: Yes. Inpatient/Outpatient History & Physical on Chart: Yes. If H&P is completed, is and addenduem needed: No; If yes, is the addendum complete: N/A. Visualize and Verify Site with Patient/Guarantor: N/A. Relevant Radiology Images available: Yes. Pre-op teaching completed and patient verbalized understanding. The risks, benefits, and alternatives of sedation and/or procedure were discussed by physician. The patient agrees to continue. Procedure started. Correct patient, site and procedure confirmed by cath team. PERRLA. Strong, equal hand negotiator bilaterally. Lungs clear x 5 lobes. IV Site on Arrival: 20 gauge in the right anticubital. Pre Procedural Pulses: bilateral dorsalis pedis was Doppled. Pre Procedural Pulses: bilateral posterior tibial was Doppled. Pre Procedural Pulses: bilateral radial was 2+. Oxygen started at 2liters/min via nasal canula. popliteal was prepped with chloroprep then draped in the usual sterile fashion. Physician notified. Baseline sample Acquired. HR: 69 BPM. Equipment: Peripheral. Cardiac Cath Pack. ACIST Manifold Kit Model BT 2000. Heparinized Saline (2 units/mL), 1000 mL bag. Physician arrived. Physician scrubbed in. Immediate Pre-Procedure Time Out. Correct Patient: Yes; Correct Procedure: Yes; Correct Site: Yes; Correct Patient Position: Yes; Correct Supplies: Yes; Dried Flammable Prep: Yes; Blood Products Available: N/A;. Lidocaine 1% infiltrated to the popliteal. Arterial access obtained with micropuncture set. Hand injection performed. Glidewire inserted in the sheath. Seeker inserted over the glidewire. Wire and seeker out. Hand injection performed. Dr. Howard arrived to scrub in. Wire and seeker inserted advanced to the SFA. Glidewire out. Seeker parked in the SFA. Hand injection performed. Glidewire inserted. Wire out. Glidewire inserted. Seeker pulled back to the distal SFA. Everything out. Sheath removed by Gary Soria. Manual compression applied to site. Sheath(s) removed and manual pressure held until hemostasis was achieved. Sterile 4x4 and Op-site applied to the puncture site. No oozing or hematoma noted. Post sheath removal instructions were given and the patient verbalized understanding. Post Procedure: Pulses reassessed and unchanged. PERRLA. Strong, equal hand negotiator bilaterally. No VTE prophylaxis required. Medication's Wasted: Other = Versed 1 mg. Medication's Wasted: Other = Fentanyl 50mcg. Medication's Wasted: Heparin = 1000 units. Medication's Wasted: Lidocaine 1% = 15 mL. Total IV fluids: 162 mL. Contrast type used: Omnipaque 300 mgI/mL, 500 mL bottle. Complications: None. Estimated blood loss: 5mL-10mL. Procedure completed. Patient transferred by bed to 1st floor. Vital chart was stopped. Procedure Medications Start: 11:30 AM Stop: 11:30 AM Medication: Versed Amount: 1 mg Route: I.V. Start: 11:30 AM Stop: 11:30 AM Medication: Fentanyl Amount: 50 mcg Route: I.V. Start: 11:41 AM Stop: 11:41 AM Medication: Versed Amount: 1 mg Route: I.V. Start: 11:41 AM Stop: 11:41 AM Medication: Fentanyl Amount: 50 mcg Route: I.V. I, the attending physician, have reviewed and verified all procedure medications. Yes, all medications given per verbal order History/Risk Factors Hypertension: Yes Dyslipidemia: No Peripheral Arterial Disease (PAD): No Obesity: No Renal Disease: No Tobacco Use: Former Prior Interventions PCI: Yes CABG: Yes Valve Surgery: No Report Signatures Finalized by Bora Tabares MD on 05/10/2021 07:42 PM
--- NOTE | 2021-04-26 11:33 | W.PM.OPSUD ---
Surgery/Procedure H&P Update DATE OF PROCEDURE: April 26, 2021 DATE H&P PERFORMED: 04/06/21 H&P UPDATE INFORMATION: I have reviewed H&P completed within last 30 days, I have examined patient prior to procedure and No changes to prior documentation PREOP DIAGNOSIS: Severe Life style limiting claudication PRIMARY INDICATION FOR PROCEDURE: Severe Life style limiting claudication PLANNED PROCEDURE: Operation Date: 04/26/21 10:00 Proposed Procedures p Peripheral Diagnostic(Not Applicable) - Bora Tabares M.D Possible percutaneous peripheral intervention PATIENT REASSESSED PRIOR TO SEDATION, WITH NO CHANGE NOTED: Yes PHYSICAL EXAM: alert, oriented x 3, clear to auscultation bilaterally and regular rate & rhythm AIRWAY EVAL/ANESTHESIA PLAN: ASA III, Monitored Anesthesia, Local Anesthesia, Risks, benefits & alternatives of sedation and/or procedure discussed and Patient agrees to continue as planned
--- NOTE | 2021-04-26 13:05 | PC.NURSE ---
patient received from medical laboratory specialist bedside report obtained from Kush SANTIZO patient alert oriented and in stable condition cath site clean dry and intact
[2021-04-26] MEDS: oxyCODONE-APAP 5-325 mg Tablet 1 TAB PO (17:32)
[2021-04-26] MEDS: ropinirole 2 mg Tablet 3 MG PO (17:32)
== END 2021-04-26 19:16 | disposition home or self-care (01) ==
LOC: CCL 08:57 → CSU 16:33
PROVIDERS: PCP Family Medicine; Visit Provider Internal Medicine
DX: I70.202 Unspecified atherosclerosis of native arteries of extremities, left leg (principal); J44.9 Chronic obstructive pulmonary disease, unspecified; E78.2 Mixed hyperlipidemia; I10 Essential (primary) hypertension; Z79.82 Long term (current) use of aspirin
CPT/HCPCS: 75710; 80048; 85025; 85610; 87426; C1769; C1887; C1894; J1644; J2250; J3010; J7030; Q0163; Q9967

== ENCOUNTER → 2021-05-03 13:32 | Outpatient (BNVA) | payer OTHER, SELFPAY | PROVIDERS: PCP Family Medicine; Visit Provider Nurse Practitioner Family | DX: I73.9 Peripheral vascular disease, unspecified (principal) | CPT/HCPCS: 80048 ==

== ENCOUNTER 2021-06-17 09:10 | Outpatient (CLI) | payer OTHER, SELFPAY ==
--- NOTE | 2021-06-17 09:15 | USCV_ITS ---
Musa Germain Age: 75 Gender: M : 1945 Exam Date: 06/17/2021 09:27 Ordering Phys: Tish Henry MD Technologist: Ev Burger [place] [facility] [place]: KNOWN AAA RECHECK HISTORY: Known AAA Diameter (cm) AP x Transverse x Length Velocity (cm/s) Waveform Prox Aorta: 2.67 x 2.73 x 65.50 Mid Aorta: 3.25 x 3.28 x 32.40 Distal Aorta: 4.42 x 4.39 x 8.01 40.00 Right Iliac Prox: 1.50 x 1.55 x 60.80 Left Iliac Prox: 1.27 x 1.24 x 76.40 Stent Prox Landing x x Aneurysmal Sac Max x x Lt Lat Sac Dim Rt Lat Sac Dim Stent Dist Landing x x Right Iliac Stent x x Left Iliac Stent x x Right Renal Art Left Renal Art FINDINGS: Comparison:. 12/17/20. A fusiform abdominal aortic aneurysm is noted with a maximal diameter of 4.4 cm. Mild increase in size since the prior exam. AAA extends over a length of 8.0 cm. There is no evidence of a right common iliac artery aneurysm. There is no evidence of a left common iliac artery aneurysm. CONCLUSIONS AAA, maximum diameter of 4.4 cm. Mild increase since the prior exam. Dr. Yamileth Sims DO (Electronically Signed) Final Date: 17 June 2021 13:56 S
== END 2021-06-17 09:11 | disposition home or self-care (01) ==
PROVIDERS: PCP Family Medicine; Visit Provider Family Medicine
DX: I71.4 Abdominal aortic aneurysm, without rupture (principal)
CPT/HCPCS: 93978

== ENCOUNTER → 2021-07-27 08:59 | Outpatient (BNVA) | payer OTHER, SELFPAY | PROVIDERS: PCP Family Medicine; Visit Provider Thoracic Surgery (Cardiothoracic Vascular Surgery) | DX: Z01.818 Encounter for other preprocedural examination (principal); Z20.822 Contact with and (suspected) exposure to COVID-19 | CPT/HCPCS: 87635 ==

== ENCOUNTER 2021-08-01 12:49 | Inpatient (IN) | payer OTHER, SELFPAY ==
[2021-07-27 10:21] VITALS: BMI 31.7
--- NOTE | 2021-07-27 10:24 | ECG_ITS ---
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 Measurements Intervals [place] Rate: 52 P: 74 CO: 267 QRS: 33 QRSD: 90 T: 30 QT: 444 QTc: 415 Interpretive Statements SINUS BRADYCARDIA WITH FIRST DEGREE AV BLOCK No previous ECG available for comparison Electronically Signed On 07-27-2021 23:06:51 CDT by Roshan Medley M.D. [id number]
--- NOTE | 2021-07-27 10:45 | ANES.PREANE2 ---
Pre-Anesthetic Assessment Pre-Anesthetic Assessment: Height/Weight: Height 1.91 m Weight 115.212 kg Preop Diagnosis: Severe Life style limiting claudication Proposed Procedure: Operation Date: 08/01/21 07:00 Proposed Procedures p Femoral-Popliteal Artery Bypass(Left) - Jeffry Bernal MD Was Beta Subhash taken within 24 hours: Yes Was Clonidine taken within 24 hours: N/A Social: Social History: No alcohol and No tobacco (h/o smoking quit 95') Exam: Pre-Anes Outpt Exam: alert, oriented x 3 and regular rate & rhythm Additional Exam Findings (including area of procedure): BBS but distant Airway: Submandibular: WNL Cervical ROM: WNL MP: 2 Dentition: False Additional comments: Left facial droop Pulmonary: Pulmonary: COPD and DUB[place] CV/HEM: CV/HEM: CAD (CABG, stents), HTN, [place] and PVD Comments: AAA 4.4cm : : Chronic renal Insufficiency Metabolic: Metabolic: DM, Hyperlipidemia and Morbid obesity Anesthetic Plan: ASA status: 3 Anesthesia: General Risk of > 500 ml blood loss (7ml/kg in children): No PFSH Anesthesia PFSH: Medical History Abdominal aortic aneurysm Chronic obstructive pulmonary disease Hypertension Low back pain Peripheral vascular disease Restless legs syndrome Sleep apnea Surgical History History of appendectomy History of coronary artery stent placement History of umbilical hernia repair 11/26/2019 Hx of CABG Status post colonoscopy 11/25/2019: 3 mm sessile polyps x3 removed from the ascending colon, follow-up colonoscopy 2024 Family History Other Family history non-contributory Denies family history of Clotting disorder Anesthesia complication Bleeding disorder Social History Alcohol intake: former Data Anesthesia Cardiac Studies: No Data to Display
[2021-07-27 11:11] LABS: Basophils % 0.4 %; Eosinophils # 0.2 10^3/uL (0.0-0.8); Eosinophils % 3.4 %; Hematocrit 39.4 % (42.0-52.0); Hemoglobin 12.5 g/dL (11.7-16.6); Lymphocytes # 1.3 10^3/uL (0.8-4.8); Lymphocytes % 25.9 %; Mean Corpuscular HGB Conc 31.7 g/dL (30.0-36.0); Mean Corpuscular Hemoglobin 29.8 pg (28.0-34.0); Mean Corpuscular Volume 93.8 fl (80-94); Mean Platelet Volume 10.4 fL (7.4-10.4); Monocytes # 0.4 10^3/uL (0.2-0.9); Monocytes % 7.7 %; Neutrophils # 3.09 10^3/uL (1.8-7.7); Neutrophils % 62.4 %; Nucleated Red Blood Cells % 0 %; Platelet Count 159 10^3/cmm (130-400); Red Cell Distribution Width 13.2 % (12.1-15.1)
[2021-07-27 11:31] LABS: Blood Urea Nitrogen 40 mg/dL (8-23); Calcium 8.7 mg/dL (8.5-10.5); Carbon Dioxide 22 mmol/L (22-29); Chloride 107 mmol/L (98-107); Glucose 165 mg/dL (65-115); Osmolality Calculated 303 mOsm/kg (285-295); Sodium 140 mmol/L (136-145)
[2021-07-27 11:32] LABS: Anion Gap 15.5 (5-19); Potassium 4.5 mmol/L (3.5-5.1)
[2021-08-01] VITALS (49 sets, daily range): BP systolic 107–177; BP diastolic 47–95; PULSE 54–88; RESP 7–23; TEMP 36.2–37; O2SAT 88–98
[2021-08-01 06:02] LABS: Add Urine Microscopic? NO; Charge for UA Resulting for Rev
[2021-08-01] MEDS: sodium chloride 0.9% 1,000 ML 30 ML IV (06:05)
[2021-08-01 06:07] LABS: Glucose Point of Care 89 mg/dL (70-110)
--- NOTE | 2021-08-01 06:11 | P.HP_ITS ---
Providers/Chief Complaint Admitting Physician: The Primary Care Provider: Tish Henry MD Chief Complaint: left femoral popliteal arty History of Present Illness Musa Germain is a 76 year old male whom I originally saw in my clinic on June 10 on referral for bilateral SFA occlusions and bilateral lower extremity claudication left greater than right. He had a prior history of CABG and underwent left heart catheterization by Dr. Medley on February 01 which identified the bilateral SFA occlusions. Attempted intervention was performed by Dr. Tabares on March 31 antegrade and on April 26 retrograde, but both were unsuccessful. He was then referred to our service. Prior history for CABG in 1996. Catheterization recent performed by Dr. Medley also revealed patent LOGAN to LAD as well as sequential graft to the PDA and PLV B. He appears to have occluded grafts to the OMB and diagonal. He has a long history tobacco use, but has not smoked since 1996. He continues to have bilateral exertional induced lower extremity claudication, left greater than right. He denies rest pain. Review of Systems Const: Denies: fever(s), chills, change in appetite, change in weight, fatigue or night sweats Eyes: Denies: change in vision or blurry vision ENMT: Denies: odynophagia or hoarseness Card: Reports: swelling of feet/ankles and leg pain with exertion; Denies: chest pain, palpitations, irregular heart rhythm or edema Resp: Denies: dyspnea or productive cough GI: Denies: abdominal pain, nausea, vomiting, dysphagia, heartburn or change in bowel habits : Denies: difficulty urinating, dysuria, urinary frequency, urinary urgency or urinary hesitancy Musc: Reports: back pain, extremity pain, extremity swelling and joint pain Skin/Breast: Denies: rash Neuro: Reports: numbness in extremities and difficulty walking; Denies: headache(s), weakness in extremities or sensory changes Psych: Denies: anxiety, depression or change in appetite Endo: Denies: polyuria, polydipsia or cold intolerance Fede/Lymph: Denies: easy bruising, easy bleeding, petechiae or enlarged lymph nodes Medications/Allergies Home Medications Medication Instructions Recorded Confirmed Last Taken Type amlodipine 5 mg tablet 5 mg PO DAILY tab 11/04/19 08/01/21 07/28/21 History budesonide-formoterol HFA 160 2 puff INHALATION BID 11/04/19 08/01/21 07/31/21 History mcg-4.5 mcg/actuation aerosol inhaler finasteride 5 mg tablet 5 mg PO DAILY 11/04/19 08/01/21 07/31/21 History gabapentin 300 mg capsule 300 mg PO BEDTIME cap 11/04/19 08/01/21 07/31/21 History hydrochlorothiazide 25 mg tablet 25 mg PO QAM 11/04/19 08/01/21 07/31/21 History hydrophilic cream 1 applic TOPICAL TID 11/04/19 07/27/21 04/25/21 History insulin NPH isoph U-100 human 100 See Rx Instructions SUBCUT BID 11/04/19 08/01/21 07/31/21 History unit/mL subcutaneous suspension meloxicam 7.5 mg tablet 7.5 mg PO BID 11/04/19 08/01/21 07/31/21 History metoprolol tartrate 50 mg tablet 25 mg PO BID tab 11/04/19 08/01/21 07/30/21 History nitroglycerin 0.4 mg sublingual 0.4 mg SUBLINGUAL ONCE PRN 11/04/19 07/27/21 0 01/20/20 History tablet pentoxifylline 400 mg 400 mg PO TID 11/04/19 08/01/21 07/31/21 History tablet,extended release ropinirole 2 mg tablet 3 mg PO TID 11/04/19 08/01/21 07/31/21 History simvastatin 80 mg tablet 40 mg PO DAILY tab 11/04/19 08/01/21 07/31/21 History terazosin 1 mg capsule 3 mg PO BEDTIME cap 11/04/19 08/01/21 07/31/21 History tiotropium bromide 2.5 2 inh INHALATION QAM 11/04/19 08/01/21 07/31/21 History mcg/actuation mist for inhalation clopidogrel 75 mg tablet 75 mg PO DAILY 11/06/19 08/01/21 07/28/21 History oxycodone 7.5 mg PO TID PRN 11/24/19 08/01/21 07/31/21 History albuterol sulfate 2 puff INHALATION Q4H PRN 01/24/20 08/01/21 07/31/21 History aspirin [Aspir-81] 81 mg PO DAILY 01/24/20 08/01/21 07/28/21 History Mucinex 1,200 mg PO QPM 02/01/21 07/27/21 04/25/21 20:00 History guaifenesin [Mucinex] 600 mg PO QAM 02/01/21 07/27/21 04/26/21 06:30 History pioglitazone 15 mg PO DAILY 02/01/21 08/01/21 07/31/21 History furosemide 40 mg tablet 40 mg PO DAILY tab 04/07/21 08/01/21 07/31/21 History lisinopril 40 mg tablet 40 mg PO DAILY 30 Days #30 tab 06/09/21 08/01/21 07/31/21 Rx Allergies Allergy/AdvReac Type Severity Reaction Status Date / Time No Known Allergies Allergy Verified 07/27/21 10:12 PFSH Acute PFSH: Medical History Abdominal aortic aneurysm Chronic obstructive pulmonary disease Hypertension Low back pain Peripheral vascular disease Restless legs syndrome Sleep apnea Surgical History History of appendectomy History of coronary artery stent placement History of umbilical hernia repair 11/26/2019 Hx of CABG Status post colonoscopy 11/25/2019: 3 mm sessile polyps x3 removed from the ascending colon, follow-up colonoscopy 2024 Family History Other Family history non-contributory Denies family history of Clotting disorder Anesthesia complication Bleeding disorder Social History Alcohol intake: former Vitals/I&O/Wt Last Vital Signs Temp 97.1 F L 08/01/21 05:52 Pulse 66 08/01/21 05:52 Resp 16 08/01/21 05:52 BP 177/82 08/01/21 05:52 Pulse Ox 96 08/01/21 05:52 Physical Exam Const: COMMON NORMALS: patient oriented x3 and alert ORIENTATION/CONSC IOUSNESS: Yes oriented to person, Yes oriented to place and Yes oriented to time HENMT: COMMON NORMALS: normocephalic HEAD & SCALP: normocephalic; no cranial bruits Neck/C-Spine: COMMON NORMALS: full ROM, supple, no JVD and No carotid bruits GENERAL: Yes trachea midline CERVICAL SPINE: Yes cervical ROM normal Chest: COMMONS NORMALS: normal inspection of the chest and normal palpation of entire chest wall Resp: COMMON NORMALS: normal respiratory effort, No use of accessory muscles, clear to auscultation bilaterally and percussion normal EFFORT & INSPECTION: Yes able to speak in complete sentences and Yes symmetric chest movement AUSCULTATION: clear to auscultation bilaterally PERCUSSION: percussion normal Cardio: COMMON NORMALS: no JVD, regular rate, regular rhythm, S1 normal heart sound present, S2 normal heart sound present, No gallops present (Cardio), No murmurs present (Cardio), No rub (Cardio) and Peripheral pulses 2+ throughout JUGULAR VENOUS DISTENTION: no JVD RATE: regular rate RHYTHM: regular rhythm HEART SOUNDS: S1 normal heart sound present and S2 normal heart sound present PERIPHERAL PULSES: radial pulses present positive bilateral 2+ and femoral pulses present positive right 3+ and positive left 2+ Extremity: COMMON NORMALS: normal to inspection and no pedal edema; negative for capillary refill normal OTHER: Well-healed right saphenous vein scar from prior vein harvesting for bypass surgery Neuro: COMMON NORMALS: patient oriented x3, no focal motor deficits and no sensory deficits noted SENSORIUM/ORIENTATION: Yes alert, Yes oriented to person, Yes oriented to place and Yes oriented to time GAIT: Yes Normal gait present Data : 07/27/21 10:34 07/27/21 10:34 A&P Assessment and plan (1) Peripheral vascular disease: 76-year-old gentleman with bilateral SFA occlusions that could not be reopened through previous attempts at intervention. Mr. Germain was referred to consider surgery revascularization. He has bilateral lower extremity claudication left greater than right. He presents today for planned attempt at left femoral-popliteal artery bypass. Details and risks of the procedure were carefully and frankly discussed. Risks reviewed include the possibility of , stroke, heart attack, major bleeding, infection, pneumonia, organ failure, failure to benefit, acute ischemia to the lower extremity requiring further attempt for revascularization or possible subsequent need for major amputation, prolonged hospital stay, pain after the procedure, need for further procedures, inability to complete the procedure, and possible need for long-term followup. All questions were answered. Appropriate consents have been provided for review and signature. Status: Acute Attestations Medical Necessity Statement*: Bilateral SFA occlusions with bilateral lower extremity claudication left greater than right Time Spent in Patient Care: Greater than 35 minutes Coding Level of Care Code Acute Web Development Consultant for Teri Garay Diagnoses Peripheral vascular disease I73.9
[2021-08-01 06:27] LABS: Bilirubin Urine Neg (Negative); Blood Urine Neg (Negative); Glucose Urine UA Norm (Normal); Ketones Urine Negative (Negative); Leukocyte Esterase Urine Negative (Negative); Nitrate Urine Negative (Negative); Protein Urine Neg (Negative); Urine Appearance Clear (CLEAR); Urine Color Yellow (Yellow); Urobilinogen Urine Norm (Negative); pH Urine 6 (5-7)
--- NOTE | 2021-08-01 06:45 | P.ANESUD_ITS ---
Pre-Anesthetic Update Pre-Anesthetic Assessment: Date of Surgery/Procedure: 08/01/21 Preop Savanah gnosis: Bilateral SFA occlusion with claudication Proposed Procedure: Operation Date: 08/01/21 07:00 Proposed Procedures p Femoral-Popliteal Artery Bypass(Left) - Jeffry Bernal MD Any changes to Pre-Anesthetic Assessment?: No Last Intake: Intake Last Liquid Date 07/31/21 Last Liquid Time 21:00 Last Solid Date 07/31/21 Last Solid Time 18:00 Labs Last 48hrs: Laboratory Results - last 48 hr 08/01/21 08/01/21 05:40 05:56 POC Glucose 89 Urine Color Yellow Urine Appearance Clear Urine pH 6 Ur Specific Gravit y 1.010 Urine Protein Neg Urine Glucose (UA) Norm Urine Ketones Negative Urine Blood Neg Urine Nitrate Negative Urine Bilirubin Neg Urine Urobilinogen Norm Ur Leukocyte ase Negative Vitals: Temperature 97.1 F L 08/01/21 05:52 Temperature Source Temporal Artery S can 08/01/21 05:52 Pulse Rate 66 08/01/21 05:52 Pulse Rhythm 08/01/21 05:52 Pulse Strength 3+ Normal 08/01/21 05:52 Respiratory Rate 16 08/01/21 05:52 Blood Pressure 177/82 08/01/21 05:52 Blood Pressure Jaclyn n 113 08/01/21 05:52 Pulse Oximetry 96 08/01/21 05:52 Oxygen Delivery Me thod 08/01/21 05:52 Exam: Pre-Anes Outpt Exam: alert, oriented x 3, clear to auscultation bilaterally and regular rate & rhythm Cardiac Studies: No Data to Display
[2021-08-01] MEDS: vancomycin 1,000 MG SDV 1000 MG IRRIGATION (07:58)
[2021-08-01] MEDS: heparin, porcine 1,000 unit/mL INJ 10 mL 10000 UNIT IRRIGATION (07:58)
--- NOTE | 2021-08-01 10:20 | SUR.OPER ---
NOTIFIED BERNARD SPOUSE OF START OF PROCEDURE AND PROGRESS.
[2021-08-01] MEDS: vancomycin 1,000 MG in sodium chloride 0.9% 250 ML 250 MG IV (10:57)
[2021-08-01] MEDS: lactated ringers 1,000 ML 100 ML IV (14:42)
[2021-08-01] MEDS: ropinirole 2 mg Tablet 3 MG PO ×2 (14:43→21:02)
[2021-08-01] MEDS: oxyCODONE 5 mg IR Tab/Cap 7.5 MG PO (14:50)
--- NOTE | 2021-08-01 14:53 | P.OP_ITS ---
Operative Report Date of procedure: August 01, 2021 Pre-op Diagnosis: Bilateral SFA occlusion with claudication Post-op diagnosis: same Procedure Done: Left distal external iliac to popliteal artery bypass utilizing 8 mm ringed [place]Emmanuel graft Implants: 8 mm ringed [place]Emmanuel graft Pathology: none sent Anesthesia: General Estimated blood loss (mL): 250 Estimated blood loss: She had blood was processed and retransfused as Cell Saver recovery; equal a total of 250 cc. Complications: None Findings: Heavy calcific plaque at target areas of each vessel, which was expected upon review of angiography. Dissection above iliac ligament was required for indication of a adequate quality vessel to utilize as inflow. Condition: stable Disposition: ICU Brief History: Mr. Germain is a 76-year-old gentleman with bilateral lower extremity SFA occlusions and bilateral lower extremity claudication left greater than right. He is undergone attempted interventions both antegrade and retrograde which, unfortunately, were unsuccessful. He is referred to our service to consider attempts at surgical revascularization. Details and risk of the procedure were carefully and frankly discussed. Appropriate consents have been reviewed and signed. Procedure: Mr. Germain's bilateral lower extremities and lower abdomen were sterilely prepped and draped. A roll was placed beneath the left knee. Incision was made medial to the left knee. Dissection was carried down with cautery and Metzenbaum scissors were extensive adipose tissue to this posterior space where a heavily calcified popliteal artery and was identified. Intimate approximation with the popliteal vein was carefully and small bridging veins were divided after securing with vascular clips. Small genicular branches of the artery were also secured with clips and divided. Vessels were noted to be heavily calcific but again much less so further distally. There did appear to be an adequate landing zone distally, though clearly it was diseased as well. Moistened antibiotic impregnated gauze was then placed in the wound after dissection been completed. We next made an incision in the left groin crease and utilize cautery and Metzenbaum scissors to continue dissection down to the femoral sheath was opened where the common femoral artery was carefully dissected free and isolated. This vessel was found to be very heavily calcified and then I did not feel would be a suitable area for inflow and attempted anastomosis. Therefore, I elected to proceed further proximally up to and above the inguinal ligament by partially dividing the ligament and placing retraction in this region to a point where we identified a much more suitable distal external iliac artery. We therefore made preparations for proximal anastomosis in this region. The superficial femoral artery demonstrated heavy calcifications at its origin and was occluded. After control was obtained proximally and distally, a subcutaneous tunnel was then created from the distal incision to the proximal incision where an 8 mm ringed reinforced [place]Emmanuel graft was then placed in this tunnel. After proper positioning, patient received 10,000 units of heparin. Adequate anticoagulation, was confirmed by ACT. Next, the [place]Emmanuel graft was cut to the appropriate length and beveled. Control was obtained on the popliteal artery utilizing vascular clamps. Arteriotomy was created with a #11 scalpel blade and large appropriately with [place] scissors. Distal anastomosis was then completed utilizing running 6-0 Prolene suture to the distal aspect of the [place]Emmanuel graft. Next, we beveled the proximal aspect the [place]Emmanuel graft appropriately. Proximal and distal control was obtained on the external iliac artery and the vessel was opened with a #11 scalpel blade and enlarged with [place] scissors. Proximal anastomosis was then completed with the [place]Emmanuel graft, again in a running fashion utilizing 5-0 Prolene suture. De-airing and backbleeding was allowed to occur. Antegrade flow was then reestablished through the graft into the popliteal artery. Areas of extravasation were repaired with 6-0 Prolene suture. Heparin was reversed with protamine and confirmed clinically. After adequate hemostasis had been obtained, the wound was irrigated with antibiotic solution. Sponge and needle count was correct x2. The wounds were then closed with Vicryl suture in multiple layers. Skin was reapproximated in a subcuticular fashion utilizing 3-0 Monocryl suture. Sterile dressing was applied. Patient was noted to have palpable dorsalis pedis pulse at completion of the procedure. Patient was transported to the ICU in stable condition. I did guidance counselor with his at the completion of the procedure and escorted her to Mr. Germain's bedside.
--- NOTE | 2021-08-01 14:59 | ANE.PACU2 ---
Inpatient post-anesthesia follow up: Airway intact: Yes Vital signs: Temperature 97.1 F Pulse Rate 66 Respiratory Rate 16 Blood Pressure 177/82 Pulse Oximetry 96 Oxygen Delivery Me thod Simple Mask Oxygen Flow Rate Fraction of Inspir ed Oxygen Hydration adequate: Yes Nausea and vomiting: No Pain level: 2 Mental status: Baseline
[2021-08-01] MEDS: morphine 4 mg/mL SDV 1 mL 2 MG IVP ×2 (15:38→18:22)
[2021-08-01] MEDS: aspirin 81 mg EC Tablet PO (15:39)
[2021-08-01 17:11] LABS: Glucose Point of Care 130 mg/dL (70-110)
[2021-08-01] MEDS: ceFAZolin 1,000 MG in sodium chloride 0.9% (plus) 50 ML 100 MG IV (17:52)
[2021-08-01] MEDS: metoprolol tartrate 50 mg Tablet 25 MG PO (17:52)
[2021-08-01 20:01] LABS: Glucose Point of Care 159 mg/dL (70-110)
[2021-08-01 20:21] LABS: Basophils % 0.5 %; Eosinophils # 0.1 10^3/uL (0.0-0.8); Eosinophils % 0.8 %; Hematocrit 37.5 % (42.0-52.0); Hemoglobin 11.7 g/dL (11.7-16.6); Lymphocytes % 15.2 %; Mean Corpuscular HGB Conc 31.2 g/dL (30.0-36.0); Mean Corpuscular Hemoglobin 30.1 pg (28.0-34.0); Mean Corpuscular Volume 96.4 fl (80-94); Monocytes # 0.6 10^3/uL (0.2-0.9); Monocytes % 9.7 %; Neutrophils # 4.69 10^3/uL (1.8-7.7); Neutrophils % 73.6 %; Nucleated Red Blood Cells % 0 %; Platelet Count 128 10^3/cmm (130-400); Red Blood Count 3.89 10^6/uL (4.1-5.3); Red Cell Distribution Width 13.2 % (12.1-15.1); White Blood Count 6.4 10^3/uL (4.0-10.0)
[2021-08-01 20:46] LABS: Blood Urea Nitrogen 34 mg/dL (8-23); Calcium 8.2 mg/dL (8.5-10.5); Carbon Dioxide 21 mmol/L (22-29); Chloride 109 mmol/L (98-107); Glucose 128 mg/dL (65-115); Osmolality Calculated 297 mOsm/kg (285-295); Sodium 139 mmol/L (136-145)
[2021-08-01 20:48] LABS: Anion Gap 14.1 (5-19); Potassium 5.1 mmol/L (3.5-5.1)
[2021-08-01] MEDS: gabapentin 300 mg Capsule PO (21:01)
[2021-08-01] MEDS: insulin lispro 100 unit/1 mL SUBCUT (21:02)
[2021-08-02] VITALS (41 sets, daily range): BP systolic 107–166; BP diastolic 43–126; PULSE 61–88; RESP 1–27; TEMP 37–37.1; O2SAT 90–96
[2021-08-02] MEDS: lactated ringers 1,000 ML 100 ML IV (00:36)
[2021-08-02] MEDS: ceFAZolin 1,000 MG in sodium chloride 0.9% (plus) 50 ML 100 MG IV ×2 (01:05→09:32)
[2021-08-02] MEDS: morphine 4 mg/mL SDV 1 mL 2 MG IVP ×4 (01:35→12:25)
[2021-08-02 03:48] LABS: Basophils % 0.3 %; Eosinophils % 0.6 %; Hematocrit 37.9 % (42.0-52.0); Hemoglobin 11.6 g/dL (11.7-16.6); Lymphocytes # 0.9 10^3/uL (0.8-4.8); Lymphocytes % 14.4 %; Mean Corpuscular HGB Conc 30.6 g/dL (30.0-36.0); Mean Corpuscular Hemoglobin 29.1 pg (28.0-34.0); Mean Platelet Volume 9.9 fL (7.4-10.4); Monocytes # 0.6 10^3/uL (0.2-0.9); Monocytes % 9.1 %; Neutrophils # 4.63 10^3/uL (1.8-7.7); Neutrophils % 75.3 %; Nucleated Red Blood Cells % 0 %; Platelet Count 134 10^3/cmm (130-400); Red Blood Count 3.99 10^6/uL (4.1-5.3); Red Cell Distribution Width 13.2 % (12.1-15.1); White Blood Count 6.2 10^3/uL (4.0-10.0)
[2021-08-02 04:05] LABS: Anion Gap 10.9 (5-19); Blood Urea Nitrogen 29 mg/dL (8-23); Calcium 8.4 mg/dL (8.5-10.5); Carbon Dioxide 23 mmol/L (22-29); Chloride 111 mmol/L (98-107); Glucose 148 mg/dL (65-115); Osmolality Calculated 299 mOsm/kg (285-295); Potassium 4.9 mmol/L (3.5-5.1); Sodium 140 mmol/L (136-145)
[2021-08-02] MEDS: hydroCHLOROthiazide 25 mg Tablet PO (05:17)
--- NOTE | 2021-08-02 05:20 | PC.NURSE ---
Addendum entered by Leeann Hudson RN 08/02/21 06:55: Rounded at bedside with Dr. Bernal, orders received to D/C josé and fluids, place InterDry in bilateral groins, up to chair for breakfast, and he will place transfer order to floor. Original Note: Shift Note Frequent safety and comfort rounds continue. Orders and/or nursing care completed as indicated. Patient monitored for response to intervention and treatment(s). Education provided includes medications with side effects, post op care, S/S to report, infection prevents, fall safety. Patient verbalized understanding of education. Pulses palpable and doppled, surgical sites soft without warmth. Will continue to monitor.
--- NOTE | 2021-08-02 06:52 | P.PN_ITS ---
Subjective Subjective: Interval history: Postop day #1 status post left femoral-popliteal artery bypass with 8 mm [place]-Emmanuel graft. Uneventful night. No concerns reported by nursing service. Left lower extremity is warm with 2+ palpable dorsalis pedis pulse. No evidence for embolic phenomenon. Right foot maintains a Doppler signal. Vitals/I&O/Wt Last Vital Signs Temp 98.6 F 08/02/21 04:00 Pulse 79 08/02/21 06:00 Resp 19 H 08/02/21 06:00 BP 164/86 08/02/21 06:00 Pulse Ox 93 08/02/21 06:00 08/01/21 08/01/21 08/02/21 14:59 22:59 06:59 Intake Total 370 / 370 290 / 660 1040 / 1700 Output Total 1175 / 1175 400 / 1575 Balance 370 / 370 -885 / -515 640 / 125 Physical Exam Extremity: OTHER: Left foot maintains a 2+ palpable dorsalis pedis pulse. Entire lower extremity is warm. The right lower extremity is cool with a Dopple r dorsalis pedis pulse. Urinary Catheter Management^: Nicholas: Cath Placed During This Visit: yes Reason for Continuing Indwelling Catheter: Accurate Measurement of Urinary Output in Critically Ill Patients Urinary Catheter Date of Insertion: 08/01/21 Urinary Catheter Time of Insertion: 08:32 Data : 08/02/21 03:00 08/02/21 03:00 A&P Assessment and plan (1) Status post femoropopliteal bypass surgery: Postop day #1 status post left femoral-popliteal artery bypass with 8 mm [place]-Emmanuel graft. Maintains evidence for good perfusion with warm foot and 2+ dorsalis pedis pulse. Slight strikethrough on the left knee incision. Left groin incision is clean and dry. No evidence for fluid collection. Plan: DC Nicholas catheter. Saline lock. Transfer to [facility] for continued recovery to include physical therapy assistance with ambulation. If continues to progress well, will tentatively plan for discharge to home tomorrow. Status: Acute Attestations Medical Necessity Statement*: Postop day #1 status post left femoral-popliteal artery bypass due to severe PAD with bilateral SFA occlusions. Time Spent in Patient Care: 16 - 35 minutes Coding Level of Care Code Acute Grinder Watch Parts for Teri Garay Diagnoses Status post femoropopliteal bypass surgery Z95.828
[2021-08-02] MEDS: oxyCODONE 5 mg IR Tab/Cap 7.5 MG PO ×2 (07:47→14:30)
[2021-08-02 08:00] LABS: Glucose Point of Care 159 mg/dL (70-110)
[2021-08-02] MEDS: albuterol 8 gm MDI 2 PUFF INHALATION (08:33)
[2021-08-02] MEDS: finasteride 5 mg Tablet PO (09:00)
[2021-08-02] MEDS: insulin lispro 100 unit/1 mL SUBCUT ×4 (09:00→20:34)
[2021-08-02] MEDS: ropinirole 2 mg Tablet 3 MG PO ×3 (09:01→20:32)
[2021-08-02] MEDS: lisinopril 20 mg Tablet 40 MG PO (09:01)
[2021-08-02] MEDS: FUROsemide 40 mg Tablet PO (09:01)
[2021-08-02] MEDS: clopidogrel 75 mg Tablet PO (09:02)
[2021-08-02] MEDS: pantoprazole DR 40 mg Tablet PO (09:02)
[2021-08-02] MEDS: aspirin 81 mg EC Tablet PO (09:03)
[2021-08-02] MEDS: metoprolol tartrate 50 mg Tablet 25 MG PO ×2 (09:03→17:56)
[2021-08-02] MEDS: atorvastatin 40 mg Tablet 20 MG PO (09:03)
--- NOTE | 2021-08-02 10:33 | PC.CHAP ---
Pastoral Care Encounter/Spiritual Assessment Type of Contact [] Declined nutrition services assistant visit [] Patient/Family/Request visit [] Outpatient visit [] Follow-up visit [] Physician referral [] Code/Alert [x] Routine visit [] Staff referral [] Actively dying [] Patient sleeping [] Family support [] [] Out of room [] Palliative care [] [] Receiving care in room [] Pre-surgical visit [] Trauma [] Long length of stay [] ICU visit [] Other: Relational/Emotional Strength [] Patient feels connected with others/family/visitors/staff [] Distress [] Loneliness/isolation [] Abandonment Spirituality of Patient [x] Person of Liz [] Attends Religion of their Liz [x] Believes in Prayer [] Reads Bible or Spiritism materials [] There are Spiritual issues to be addressed Cigarette Making Machine Catcher Interventions [x] Prayer [] Active listening [] Non-anxious presence [] Spiritual/emotional support [] Crisis/trauma care [] Spiritual counseling [] Bereavement support [] Provided bereavement packet [] Provided Bible/devotional materials [] Provided toy/stuffed animal, coloring book to patient or family member [] Provided Communion [] Anointing/[place] [] Salvation [] Completed spiritual assessment [] Other: Impact on Illness or Injury [] Angry [] Fearful [] Anxious [] Often cries [] Exhaustion [] Unable to work [] Unable to attend yazidism [] Unable to walk/stand [] Unable to read [] Unable to drive [] Unable to eat/drink [] Unable to sleep [] Unable to be with family [] Patient intubated [] Other: Summary A bit anxious having had surgery, in a good bit of pain, but strong enough with confidence to continue on; even with therapy. Time spent with patient 2 minutes
--- NOTE | 2021-08-02 11:15 | PC.NURSE ---
brought in home med: Pentoxifylline. Took to pharmacy for labeling. Medication given at this time.
[2021-08-02] MEDS: NON-FORMULARY MEDICATION (Pentoxifylline 400 mg tablet extended release) 400 EACH PO ×2 (12:07→14:32)
[2021-08-02 12:14] LABS: Glucose Point of Care 199 mg/dL (70-110)
--- NOTE | 2021-08-02 13:50 | PC.NURSE ---
Report faxed to [facility].
--- NOTE | 2021-08-02 14:00 | PC.NURSE ---
Report called to [facility] and given to SUKHDEV Herrera.
--- NOTE | 2021-08-02 14:29 | PC.NURSE ---
Interdry remains in place, in groin area.
--- NOTE | 2021-08-02 14:30 | PC.NURSE ---
Pt transferred to [facility] via W/C. Pt ambulated part of the way with PT. Further update given to SUKHDEV Herrera. Pt back to bed to rest. All belongings with pt.
[2021-08-02 16:37] LABS: Glucose Point of Care 178 mg/dL (70-110)
[2021-08-02 20:15] LABS: Glucose Point of Care 192 mg/dL (70-110)
[2021-08-02] MEDS: gabapentin 300 mg Capsule PO (20:32)
[2021-08-03 00:04] VITALS: BP 127/57; PULSE 61; RESP 17; TEMP 36.7; O2SAT 86
--- NOTE | 2021-08-03 00:05 | PC.NURSE ---
i reported low 02 86 to nurse
[2021-08-03 01:29] VITALS: O2SAT 91
[2021-08-03 04:16] VITALS: BP 130/65; PULSE 72; RESP 17; TEMP 36.7; O2SAT 92
[2021-08-03] MEDS: hydroCHLOROthiazide 25 mg Tablet PO (06:02)
--- NOTE | 2021-08-03 07:10 | PM.PN ---
Subjective Subjective: Interval history: Postop day #2 status post left distal iliac to popliteal artery bypass. Left foot remains warm. Palpable dorsalis pedis pulse. Postop surgical discomfort under good control. Afebrile. Vital signs stable. He is ambulated with assistance. Tolerating diet well. Vitals/I&O/Wt Last Vital Signs Temp 98.1 F 08/03/21 04:16 Pulse 72 08/03/21 04:16 Resp 17 08/03/21 04:16 BP 130/65 08/03/21 04:16 Pulse Ox 92 08/03/21 04:16 08/02/21 08/03/21 08/03/21 22:59 06:59 14:59 Intake Total 50 / 850 Output Total 480 / 730 1030 / 1760 Balance -430 / 120 -1030 / -910 Physical Exam Cardio: OTHER: Left dorsalis pedis pulse is 2+. Extremity: OTHER: Left groin and left knee incisions were carefully inspected after removal of surgical dressings. Incision lines are intact and dry. Incisions were painted with chlorhexidine and then redressed with sterile gauze. Left lower extremity and foot are warm without evidence for embolic phenomenon. Palpable dorsalis pedis pulse. Urinary Catheter Management^: Nicholas: Cath Placed During This Visit: yes Reason for Continuing Indwelling Catheter: Accurate Measurement of Urinary Output in Critically Ill Patients Urinary Catheter Date of Insertion: 08/01/21 Urinary Catheter Time of Insertion: 08:32 Data : 08/02/21 03:00 08/02/21 03:00 A&P Assessment and plan (1) Status post femoropopliteal bypass surgery: Status post left femoropopliteal bypass. Plan: We will plan for discharge to home today with home health services. He will [facility]-up in [facility] in 1 week. Status: Acute Attestations Medical Necessity Statement*: POD #2 status post left femoropopliteal bypass Time Spent in Patient Care: 16 - 35 minutes Coding Level of Care Code Acute Metal Engineering Process Worker for Teri Fwedwin Diagnoses Status post femoropopliteal bypass surgery Z95.828
--- NOTE | 2021-08-03 07:19 | P.DS_ITS ---
Discharge Providers Date of Admission: 08/01/21 12:49 Date of Discharge: August 03, 2021 Attending Provider at Admission: Jeffry Bernal MD Attending Provider at Discharge: Jeffry Bernal MD Primary Care Provider: Tish Henry MD Diagnoses at Discharge Discharge Diagnosis (1) Status post femoropopliteal bypass surgery: Status: Acute Reason for Visit Reason for Visit: left femoral popliteal [facility] Hospital Course Hospital Course Mr. Germain is a 76-year-old gentleman with bilateral superficial femoral artery occlusions and status post attempted interventions which unfortunately were unable to successfully cross these obstructive vessels. He was referred to consider staged surgical bypass. He has bilateral lower extremity claudication, left greater than right. He was electively admitted for planned left femoral popliteal artery bypass. This was performed on August 01 utilizing an 8 mm ringed Wells-Emmanuel graft. Postop day, he initially convalesced in the ICU where he remained hemodynamically stable. He has good perfusion to the left foot with a palpable dorsalis pedis pulse. After postop day #1, he was transferred to the [facility] where he continued to do well. He has been ambulating with the assistance and instructions of our physical therapy department. He remains afebrile. Tolerating diet well. Surgical dressings were removed. Incisions are clean and dry. They were redressed. He will be discharged to home today with home health services. He will be scheduled to follow-up in [facility] in 1 week. Discharge instructions and when carefully reviewed with him. Contact probation has been provided. At discharge, he is in stable condition. Physical Exam Resp: COMMON NORMALS: normal respiratory effort and clear to auscultation bilaterally AUSCULTATION: clear to auscultation bilaterally Cardio: COMMON NORMALS: regular rate, regular rhythm, S1 normal heart sound present and No murmurs present (Cardio) RATE: regular rate RHYTHM: regular rhythm HEART SOUNDS: S1 normal heart sound present Extremity: OTHER: Left lower extremity incisions and left groin incision are clean and dry. Palpable dorsalis pedis pulse on the left. Left foot is warm. No evidence for embolic phenomenon. Urinary Catheter Management^: Nicholas: Cath Placed During This Visit: yes Reason for Continuing Indwelling Catheter: Accurate Measurement of Urinary Output in Critically Ill Patients Urinary Catheter Date of Insertion: 08/01/21 Urinary Catheter Time of Insertion: 08:32 Discharge Data Data Completed and Pending: Pending at discharge Category Date Time Status Leukocyte Reduced RBC Routine Lab 08/01/21 05:35 Results Type and Screen R outine Lab 08/01/21 05:35 Results Labs from last 24 hours 08/02/21 08/02/21 08/02/21 20:11 16:26 12:10 POC Glucose 192 H 178 H 199 H 08/02/21 07:52 POC Glucose 159 H Vitals: Last Vital Signs Temp 98.1 F 08/03/21 04:16 Pulse 72 08/03/21 04:16 Resp 17 08/03/21 04:16 BP 130/65 08/03/21 04:16 Pulse Ox 92 08/03/21 04:16 Discharge Plan Discharge Patient Disposition: Home Health Service Condition: Stable Prescriptions: New levofloxacin 500 mg tablet 500 mg PO DAILY 5 Days Qty: 5 RF: 0 Continued amlodipine 5 mg tablet 5 mg PO DAILY RF: 0 budesonide-formoterol 160-4.5 mcg/actuation HFA aerosol inhaler 2 puff INHALATION BID RF: 0 finasteride 5 mg tablet 5 mg PO DAILY RF: 0 gabapentin 300 mg capsule 300 mg PO BEDTIME RF: 0 hydrochlorothiazide 25 mg tablet 25 mg PO QAM RF: 0 hydrophilic cream Cream 1 applic TOPICAL TID RF: 0 Novolin N NPH U-100 Insulin 100 unit/mL suspension See Rx Instructions SUBCUT BID RF: 0 meloxicam 7.5 mg tablet 7.5 mg PO BID RF: 0 metoprolol tartrate 50 mg tablet 25 mg PO BID RF: 0 nitroglycerin 0.4 mg tablet, sublingual 0.4 mg SUBLINGUAL ONCE PRN (Reason: chest pain) RF: 0 pentoxifylline 400 mg tablet extended release 400 mg PO TID RF: 0 ropinirole 2 mg tablet 3 mg PO TID RF: 0 simvastatin 80 mg tablet 40 mg PO DAILY RF: 0 terazosin 1 mg capsule 3 mg PO BEDTIME RF: 0 tiotropium bromide 2.5 mcg/actuation mist 2 inh INHALATION QAM RF: 0 clopidogrel [Plavix] 75 mg tablet 75 mg PO DAILY RF: 0 Hold Instructions: Resume on 11/29/19. lisinopril 40 mg tablet 40 mg PO DAILY 30 Days Qty: 30 RF: 0 furosemide 40 mg tablet 40 mg PO DAILY RF: 0 oxycodone 5 mg Tablet 7.5 mg PO TID PRN (Reason: Pain) RF: 0 aspirin [Aspir-81] 81 mg Tablet,Delayed Release (Dr/Ec) 81 mg PO DAILY RF: 0 albuterol sulfate 90 mcg/actuation Hfa Aerosol Inhaler 2 puff INHALATION Q4H PRN (Reason: Shortness Of Breath) RF: 0 Mucinex 1,200 mg Tablet Extended Release 12hr 1,200 mg PO QPM RF: 0 guaifenesin [Mucinex] 600 mg Tablet Extended Release 12hr 600 mg PO QAM RF: 0 pioglitazone 15 mg Tablet 15 mg PO DAILY RF: 0 Discharge Orders: Discharge Order (Routine); Ordered 08/03/21 Ordered By: Jeffry Bernal Referrals: Jeffry Bernal MD [Physician] - 1 week Discharge Diet: Usual diet Discharge Activity: Limit activity as instructed Patient Instructions: Opioid Safety Activity Restrictions/Additional Instructions: May remove bandage in 2 days May begin daily showers in 2 days Dry incisions thoroughly after showers. May recover if desired to prevent irritation from clothing. Pay special attention to left groin incision. Keep gauze in groin area at all times to collect moisture and prevent maceration. Change gauze 2-3 times daily and confirm that gauze remains in position and left groin over incision. Seek assistance from family member to confirm that incision is clean and dry and the gauze remains in good position. No swimming or tub baths x 2 weeks No ointments on incision Report drainage, redness, heat, increased pain, or swelling to clinic No heavy lifting or pulling x2 weeks Discharge Attestations Time Spent in Discharge Care*: less than 30 min Specific Discharge Activities: educating patient, discussing with case finishing machine adjuster/social workers/dc planners, documenting/other paperwork and evaluating patient/reviewing data Time Spent in Smoking Cessation: Patient does not smoke. Status at Discharge: Cognitive status at discharge: cognitively intact , Functional status at discharge: independent ambulation Overall status at discharge: patient is progressing back to baseline Quality Metrics Clinical Quality Measures During this hospital stay, did patient experience: None Coding Level of Care Code Acute [facility] DC note Diagnoses Status post femoropopliteal bypass surgery Z95.828
[2021-08-03 07:32] LABS: Glucose Point of Care 182 mg/dL (70-110)
[2021-08-03] MEDS: insulin lispro 100 unit/1 mL SUBCUT (07:55)
[2021-08-03] MEDS: clopidogrel 75 mg Tablet PO (07:56)
[2021-08-03] MEDS: finasteride 5 mg Tablet PO (07:56)
[2021-08-03] MEDS: pantoprazole DR 40 mg Tablet PO (07:56)
[2021-08-03] MEDS: lisinopril 20 mg Tablet 40 MG PO (07:56)
[2021-08-03] MEDS: aspirin 81 mg EC Tablet PO (07:57)
[2021-08-03] MEDS: atorvastatin 40 mg Tablet 20 MG PO (07:57)
[2021-08-03] MEDS: ropinirole 2 mg Tablet 3 MG PO (07:57)
[2021-08-03] MEDS: metoprolol tartrate 50 mg Tablet 25 MG PO (07:57)
[2021-08-03] MEDS: FUROsemide 40 mg Tablet PO (07:58)
[2021-08-03 09:31] VITALS: BP 130/65; PULSE 72; RESP 17; TEMP 36.7; O2SAT 92
--- NOTE | 2021-08-05 09:01 | PC.SOCIAL ---
discharge follow up call, spoke with patient. patient reports he is better, was ran down when he first got home. patient reports his home health nurse visited yesterday and changed his dressings, reported to patient that the incision sites looked good, free from redness and drainage. patient is taking levofloxacin as prescribed. discussed no heavy lifting x2 weeks. patient is aware of follow up appointment with dr. cox on 08-[address] nicholson 12-08. patient denies any concerns.
--- NOTE | 2021-08-05 14:50 | PC.RESP ---
PULMONARY REHAB INFORMATION SENT TO PATIENT.
== END 2021-08-03 09:32 | disposition home health service (06) | DRG 272 ==
LOC: ICU 12:50 → MEDSURG 08-02 14:37
PROVIDERS: Anesthesiology; Admitting Provider Thoracic Surgery (Cardiothoracic Vascular Surgery); PCP Family Medicine; Visit Provider Thoracic Surgery (Cardiothoracic Vascular Surgery)
PROC: 041J0JQ Bypass Left External Iliac Artery to Lower Extremity Artery with Synthetic Substitute, Open Approach (ICD-10-PCS; principal; 2021-08-01 07:00)
DX: I70.213 Atherosclerosis of native arteries of extremities with intermittent claudication, bilateral legs (principal); I25.10 Atherosclerotic heart disease of native coronary artery without angina pectoris; Z95.1 Presence of aortocoronary bypass graft; Z87.891 Personal history of nicotine dependence; I71.4 Abdominal aortic aneurysm, without rupture; J44.9 Chronic obstructive pulmonary disease, unspecified; I10 Essential (primary) hypertension; M54.50 Low back pain, unspecified; G25.81 Restless legs syndrome; G47.30 Sleep apnea, unspecified; Z79.82 Long term (current) use of aspirin; Z79.891 Long term (current) use of opiate analgesic; Z79.02 Long term (current) use of antithrombotics/antiplatelets
CPT/HCPCS: 36415; 36416; 80048; 81003; 82962; 85025; 85347; 86850; 86900; 86920; 93005; 94640; 96372; 97110; 97116; 97161; J0690; J1100; J1170; J1644; J1815; J2270; J2370; J2405; J2704; J3010; J3370; J3490; J3535; J7030; J7050

== ENCOUNTER 2021-11-04 12:22 | Inpatient (IN) | payer OTHER, MEDICARE, SELFPAY ==
[2021-11-04] VITALS (14 sets, daily range): BP systolic 101–181; BP diastolic 40–93; PULSE 71–93; RESP 11–26; TEMP 36.6–37.3; O2SAT 88–93; BMI 31.5
--- NOTE | 2021-11-04 | SCC_ITS ---
Procedure Done: Open reduction internal fixation left hip 50.0 seconds of fluoroscopic guidance, for a cumulative dose of 10.58 mGy, was provided to Dr. Smith by the radiology department. C-arm images of the LEFT hip were saved for the patient's permanent record. E.J. NOBLE HOSPITALSamara
--- NOTE | 2021-11-04 12:35 | ECG_ITS ---
[facility] Test Date: 2021-11-04 Pat Name: Musa Germain Department: Room: Gender: Male Box Tender: : 1945 Requested By: Christy Del Toro Order Number: [id number] Reading MD: WOODY MATTHEWS Measurements Intervals [place] Rate: 64 P: 48 GA: 267 QRS: 42 QRSD: 110 T: 21 QT: 407 QTc: 421 Interpretive Statements SINUS RHYTHM WITH FIRST DEGREE AV BLOCK Compared to ECG 07/27/2021 10:33:55 Sinus bradycardia no longer present Electronically Signed On 11-04-2021 18:14:37 LAST GREASER by WOODY MATTHEWS [id number]
--- NOTE | 2021-11-04 12:35 | XR_ITS ---
WS: [id number] XR hip LT 2-3V wo/w pel* [id number] REASON FOR EXAM: hip pain FINDINGS: Minimally displaced intertrochanteric fracture with fracture of the greater trochanter. The fracture line extends inferior to the greater trochanter and may involve the lesser trochanter as well. The acetabulum, superior pubic ramus, and inferior pubic ramus appear intact. XR/XR hip LT 2-3V wo/w pel* [id number] IMPRESSION: Intertrochanteric fracture. Possibly type III.
--- NOTE | 2021-11-04 12:36 | CT_ITS ---
WS: [id number] CT HEAD TECHNIQUE: Noncontrast CT of the head obtained from the skullbase to the vertex. CLINICAL INFORMATION: eval brain bleed COMPARISON: CT August 28, 2017 DLP: 1658.[address] scans at [facility] use at least one of these dose optimization techniques: automated e xposure control; mA and/or kV adjustment per patient size (includes targeted exams where dose is matc hed to clinical indication); or iterative reconstruction. FINDINGS: No evidence of intracranial hemorrhage or mass effect. Ventricular system and basal cisterns are strickland nt. Mild small vessel changes with moderate parenchymal volume loss. No extra-axial fluid collections . No evidence of mass or mass effect. Paranasal sinuses and mastoid air cells are well aerated. Intracranial vascular calcification. Mild s oft tissue edema overlying the occipital calvarium. No visualized fractures. CT/CT head wo con* 68430 IMPRESSION: 1. No evidence of intracranial hemorrhage or mass effect. 2. Mild small vessel changes with moderate parenchymal volume loss. 3. Intracranial vascular calcification. 4. No acute intracranial findings.
--- NOTE | 2021-11-04 12:48 | W.ED.GENADLT ---
HPI - General Adult General: Chief complaint: Extremity Injury, Lower Stated complaint: PROBABLE HIP FRACTURE Time Seen by Provider: 11/04/21 12:26 History of Present Illness: HPI narrative: 76-year-old male with a history of hypertension, DM medications presenting to the emergency room for evaluation of fall which happened about an hour ago. Patient was at home in recliner when he stood up and fell backwards. Patient tells me that he had no associated chest pain shortness breath palpitation. Patient complained of left hip pain after fall. Patient is on Plavix but is not on any blood thinner. Patient also reporting his head against a wall. Patient denies any LOC. Patient has no focal complaints of pain elsewhere. Patient called EMS and was brought here today for an evaluation. Onset: 1 hr ago Duration:1 hr Location:home Severity:moderate Associated symptoms: Deny chest pain, dyspnea, nausea, rash, palpitations or vomiting Review of Systems Const: Denies: fever(s) or chills Eyes: Denies: change in vision ENMT: Denies: mouth pain Card: Denies: chest pain or palpitations Resp: Denies: dyspnea or non-productive cough GI: Denies: abdominal pain, nausea, vomiting or diarrhea : Denies: dysuria Musc: Reports: extremity pain and other (+L hip pain) Skin/Breast: Denies: rash or new lesions Neuro: Denies: weakness in extremities Psych: Reports: other (Normal mood) Fede/Lymph: Denies: easy bruising PFSH ED PFSH: Medical History Abdominal aortic aneurysm Chronic obstructive pulmonary disease Hypertension Low back pain Peripheral vascular disease Restless legs syndrome Sleep apnea Surgical History History of appendectomy History of coronary artery stent placement History of umbilical hernia repair 11/26/2019 Hx of CABG Status post colonoscopy 11/25/2019: 3 mm sessile polyps x3 removed from the ascending colon, follow-up colonoscopy 2024 Status post femoropopliteal bypass surgery Family History Other Family history non-contributory Denies family history of Clotting disorder Anesthesia complication Bleeding disorder Social History Alcohol intake: former Physical Exam Const: COMMON NORMALS: alert HENMT: COMMON NORMALS: atraumatic HEAD & SCALP: atraumatic MOUTH: moist mucous membranes not abnormal Eye: COMMON NORMALS: EOMs intact bilaterally and conjunctivae normal CONJUNCTIVA: Yes conjunctivae normal Neck/C-Spine: COMMON NORMALS: full ROM and supple Resp: COMMON NORMALS: normal respiratory effort and clear to auscultation bilaterally AUSCULTATION: clear to auscultation bilaterally Cardio: COMMON NORMALS: regular rate RATE: regular rate GI: COMMON NORMALS: Soft to palpation and non-tender PALPATION: Yes Soft to palpation Extremity: NARRATIVE EXTREMITY EXAM: + decraesed range of motion to the left hip due to pain, +L inner thigh proximal tenderness to palpation, 2+ DP/TP pulses on left side, cap refill less than 3 seconds, neurovascular exam intact in the left lower extremity, no other focal tenderness palpation in the lower extremities. Neuro: SENSORIUM/ORIENTATION: Yes alert MOTOR EXAM: No Abnormal motor strength present and Other motor observations present (no focal motor deficits) Psych: COMMON NORMALS: speech normal SPEECH: Yes normal speech MOOD & AFFECT: Yes euthymic mood Course Vital Signs: Vital signs: Vital Signs Temperature 98.1 F 11/04/21 12:30 Pulse Rate 71 11/04/21 13:06 Respiratory Rate 18 11/04/21 13:06 Blood Pressure 112/47 11/04/21 13:06 Pulse Oximetry 92 11/04/21 13:06 MDM - General Adult MDM Narrative: Medical decision making narrative: Patient is a 76-year-old male with history diabetes, CAD, hypertension presents to the emergency room with complaints of left hip pain after an episode of fall. Workup CT brain, x-ray of the hip Were negative for any brain bleed. Patient is found to have a left hip fracture. Case was discussed with oncall provider Dr. Smith who agrees with admission and possible fixation. Pain controlled with dilaudid. GARFIELD of 1.3. Patient is also mildly hypoxemic at 88-89% on RA. He is placed on oxygen 3L for comfort. Disposition: admission Lab Data: Labs: Lab Results 11/04/21 11/04/21 11/04/21 12:49 12:49 12:49 WBC 8.3 10^3/uL 10^3/ uL (4.0-10.0) RBC 3.39 10^6/uL L 10 ^6/uL (4.1-5.3) Hgb 9.8 g/dL L g/dL (11.7-16.6) Hct 31.7 % L % (42.0-52.0) MCV 93.5 fl fl (80-94) MCH 28.9 pg pg (28.0-34.0) MCHC 30.9 g/dL g/dL (30.0-36.0) RDW 13.4 % % (12.1-15.1) Plt Count 150 10^3/cmm 10^3 /cmm (130-400) MPV 10.0 fL fL (7.4-10.4) Neut % (Auto) 82.7 % % Lymph % (Auto) 10.6 % % Burnett % (Auto) 5.5 % % Eos % (Auto) 0.5 % % Baso % (Auto) 0.2 % % Neut # (Auto) 6.87 10^3/uL 10^3 /uL (1.8-7.7) Lymph # (Auto) 0.9 10^3/uL 10^3/ uL (0.8-4.8) Burnett # (Auto) 0.5 10^3/uL 10^3/ uL (0.2-0.9) Eos # (Auto) 0.0 10^3/uL 10^3/ uL (0.0-0.8) Baso # (Auto) 0.0 10^3/uL 10^3/ uL (0.0-0.1) Nucleated RBC % (a uto) 0 % % Nucleated RBCs # 0.0 /100WBC /100W BC PT 14.20 SECONDS SEC ONDS (12.1-14.9) INR 1.07 (0.8-1.2) APTT 28.7 SECONDS SECO NDS (23.9-36.7) Sodium 140 mmol/L mmol/L (136-145) Potassium 3.8 mmol/L mmol/L (3.5-5.1) Chloride 112 mmol/L H mmol /L (98-107) Carbon Dioxide 17 mmol/L L mmol/ L (22-29) Anion Gap 14.8 (5-19) BUN 33 mg/dL H mg/dL (8-23) Creatinine 1.3 mg/dL H mg/dL (0.7-1.2) GFR Calculation Not Reportable Glucose 158 mg/dL H mg/dL (65-115) Calculated Osmolal ity 301 mOsm/kg H mOs m/kg (285-295) Calcium 6.9 mg/dL L mg/dL (8.5-10.5) Imaging Data^: Other Imaging: Radiologist's impression: [address] [id number] ReportSigned Patient: Musa Germain #: [id number]: 1945t#:[id number]/Sex: / MADM Date: 11/04/21Loc: ERRoom/Bed:Attending Dr: Ordering Provider/Ordering MD: Christy Del Toro MD Date of Service: 11/04/21 Procedure(s): XR hip LT 2-3V wo/w pel* [id number] Accession Number(s): [id number] Report Number: [id number] WS: [id number] XR hip LT 2-3V wo/w pel* [id number] REASON FOR EXAM: hip pain FINDINGS: Minimally displaced intertrochanteric fracture with fracture of the greater trochanter. The fracture line extends inferior to the greater trochanter and may involve the lesser trochanter as well. The acetabulum, superior pubic ramus, and inferior pubic ramus appear intact. XR/XR hip LT 2-3V wo/w pel* [id number] IMPRESSION: Intertrochanteric fracture. Possibly type III. Dictated By:Shaun Sun Jr MDSigned By:Shaun Sun Jr MDSigned Date/Time:11/04/21 1329DD/ [address] [id number] ReportSigned Patient: Musa Germain #: [id number]: 1945cct#:[id number]/Sex: 76 / MADM Date: 11/04/21Loc: ERRoom/Bed:Attending Dr: Ordering Provider/Ordering MD: Christy Del Toro MD Date of Service: 11/04/21 Procedure(s): XR chest 1V portable [id number] Accession Number(s): [id number] Report Number: [id number] WS: [email or web address] XR chest 1V portable [id number] REASON FOR EXAM: dyspnea FINDINGS: No examination for comparison. Significant tortuosity and ectasia of the thoracic aorta. The heart is at the upper limits of normal in size. Previous sternotomy Calcified granulomatous changes in both hemithoraces. Coarse reticular lung opacities in both lower lung engle unknown chronicity. The bony thorax appears intact. XR/XR chest 1V portable [id number] IMPRESSION: Basilar lung opacities of unknown chronicity. These could represent scarring or atelectasis however congestive failure or pneumonitis not readily excluded without prior comparison. Dictated By:Shaun Sun Jr MDSigned By:Shaun Sun Jr MDSigned Date/Time:11/04/219DD/ [address] [id number] Scan ReportSigned Patient: Musa Germain #: [id number]: 1945cct#:[id number]/Sex: 76 / MADM Date: 11/04/21Loc: ERRoom/Bed:Attending Dr: Ordering Provider/Ordering MD: Christy Del Toro MD Date of Service: 11/04/21 Procedure(s): CT head wo con* [id number] Accession Number(s): [id number] Report Number: [id number] WS: [email or web address] CT HEAD TECHNIQUE: Noncontrast CT of the head obtained from the skullbase to the vertex. CLINICAL INFORMATION: eval brain bleed COMPARISON: CT August 28, 2017 DLP: 1658.[address] scans at [facility] use at least one of these dose optimization techniques: automated exposure control; mA and/or kV adjustment per patient size (includes targeted exams where dose is matched to clinical indication); or iterative reconstruction. FINDINGS: No evidence of intracranial hemorrhage or mass effect. Ventricular system and basal cisterns are patent. Mild small vessel changes with moderate parenchymal volume loss. No extra-axial fluid collections. No evidence of mass or mass effect. Paranasal sinuses and mastoid air cells are well aerated. Intracranial vascular calcification. Mild soft tissue edema overlying the occipital calvarium. No visualized fractures. CT/CT head wo con* [id number] IMPRESSION: 1. No evidence of intracranial hemorrhage or mass effect. 2. Mild small vessel changes with moderate parenchymal volume loss. 3. Intracranial vascular calcification. 4. No acute intracranial findings. Dictated By:Vic Stout MDSigned By:Vic Stout MDSigned Date/Time:11/04/21 1354DD/ 1337 Discharge Plan Discharge Patient Disposition: Admitted As Inpatient Clinical Impression: Acute pain of left hip, Fall, Closed hip fracture, Hypoxemia, GARFIELD (acute kidney injury), Hypocalcemia Condition: Stable Coding Level of Care Code ED [employer] Superintendent for Jerig Fwd Exam Comprehensive
[2021-11-04 13:00] LABS: Basophils % 0.2 %; Eosinophils % 0.5 %; Hematocrit 31.7 % (42.0-52.0); Hemoglobin 9.8 g/dL (11.7-16.6); Lymphocytes # 0.9 10^3/uL (0.8-4.8); Lymphocytes % 10.6 %; Mean Corpuscular HGB Conc 30.9 g/dL (30.0-36.0); Mean Corpuscular Hemoglobin 28.9 pg (28.0-34.0); Mean Corpuscular Volume 93.5 fl (80-94); Monocytes # 0.5 10^3/uL (0.2-0.9); Monocytes % 5.5 %; Neutrophils # 6.87 10^3/uL (1.8-7.7); Neutrophils % 82.7 %; Nucleated Red Blood Cells % 0 %; Platelet Count 150 10^3/cmm (130-400); Red Blood Count 3.39 10^6/uL (4.1-5.3); Red Cell Distribution Width 13.4 % (12.1-15.1); White Blood Count 8.3 10^3/uL (4.0-10.0)
--- NOTE | 2021-11-04 13:00 | XR_ITS ---
WS: [email or web address] XR chest 1V portable [id number] REASON FOR EXAM: dyspnea FINDINGS: No examination for comparison. Significant tortuosity and ectasia of the thoracic aorta. The heart is at the upper limits of normal in size. Previous sternotomy Calcified granulomatous changes in both hemithoraces. Coarse reticular lung opacities in both lower lung engle unknown chronicity. The bony thorax appears intact. XR/XR chest 1V portable [id number] IMPRESSION: Basilar lung opacities of unknown chronicity. These could represent scarring or atelectasis however congestive failure or pneumonitis not readily excluded wit hout prior comparison.
[2021-11-04 13:26] LABS: Anion Gap 14.8 (5-19); Blood Urea Nitrogen 33 mg/dL (8-23); Calcium 6.9 mg/dL (8.5-10.5); Carbon Dioxide 17 mmol/L (22-29); Chloride 112 mmol/L (98-107); Glucose 158 mg/dL (65-115); Osmolality Calculated 301 mOsm/kg (285-295); Potassium 3.8 mmol/L (3.5-5.1); Sodium 140 mmol/L (136-145)
[2021-11-04 13:58] LABS: INR 1.07 (0.8-1.2); Partial Thromboplastin Time 28.7 SECONDS (23.9-36.7)
[2021-11-04] MEDS: HYDROmorphone 1 mg/mL INJ 1 mL 0.5 MG IVP (14:21)
--- NOTE | 2021-11-04 15:09 | P.HP_ITS ---
Providers/Chief Complaint Primary Care Provider: Tish Henry MD Chief Complaint: PROBABLE HIP FRACTURE History of Present Illness Musa Germain is a 76 year old male with a past medical history of hypertension, hyperlipidemia, insulin-dependent type 2 diabetes mellitus, CAD status post CABG x5, status post stenting x1, history of femoropopliteal bypass, peripheral vascular disease, abdominal aortic aneurysm, CKD, COPD who presents to [facility] for a fall. Patient tells me that this morning, he was getting off his recliner, he was getting up to turn, when he fell,denies any preceding chest pain, palpitations, shortness of breath, lightness, dizziness, any strokelike symptoms, no nausea, no vomiting, no dysuria, hematuria, no fevers, cough. He fell on his left hip, had left hip pain, in the emergency room he was found to have a left hip fracture, [place] creatinine 1.3. CT of head was negative for acute bleed Review of Systems Const: Denies: fever(s), chills, fatigue or malaise Eyes: Denies: change in vision or blurry vision ENMT: Denies: nasal congestion Card: Denies: chest pain, palpitations or pre-syncope Resp: Denies: dyspnea, productive cough or non-productive cough GI: Denies: abdominal pain, nausea, vomiting, hematemesis, diarrhea, constipation, hematochezia or melena : Denies: flank pain, difficulty urinating, dysuria or urinary frequency Musc: Denies: neck pain or back pain Skin/Breast: Denies: rash Neuro: Denies: headache(s), dizziness or vertigo Psych: Denies: anxiety or depression Endo: Denies: polyuria Medications/Allergies Home Medications Medication Instructions Recorded Confirmed Last Taken Type amlodipine 5 mg tablet 5 mg PO QAM tab 11/04/19 11/04/21 11/04/21 History budesonide-formoterol HFA 160 2 puff INHALATION BID 11/04/19 11/04/21 07/31/21 History mcg-4.5 mcg/actuation aerosol inhaler finasteride 5 mg tablet 5 mg PO QAM 11/04/19 11/04/21 11/04/21 History gabapentin 300 mg capsule 300 mg PO BEDTIME cap 11/04/19 11/04/21 11/03/21 History insulin NPH isoph U-100 human 100 See Rx Instructions SUBCUT BID 11/04/19 11/04/21 11/04/21 History unit/mL subcutaneous suspension 48 units meloxicam 7.5 mg tablet 7.5 mg PO BID 11/04/19 11/04/21 11/04/21 History metoprolol tartrate 50 mg tablet 25 mg PO BID tab 11/04/19 11/04/21 11/04/21 06:30 History nitroglycerin 0.4 mg sublingual 0.4 mg SUBLINGUAL Q5M PRN 11/04/19 11/04/21 01/20/20 History tablet pentoxifylline 400 mg 400 mg PO TID 11/04/19 11/04/21 11/04/21 History tablet,extended release ropinirole 2 mg tablet 2 mg PO TID 11/04/19 11/04/21 11/04/21 History simvastatin 80 mg tablet 40 mg PO BEDTIME tab 11/04/19 11/04/21 11/03/21 History terazosin 1 mg capsule 3 mg PO BEDTIME cap 11/04/19 11/04/21 11/03/21 History tiotropium bromide 2.5 2 inh INHALATION QAM 11/04/19 11/04/21 07/31/21 History mcg/actuation mist for inhalation clopidogrel 75 mg tablet 75 mg PO QAM 11/06/19 11/04/21 11/04/21 History albuterol sulfate 2 puff INHALATION Q4H PRN 01/24/20 11/04/21 07/31/21 History guaifenesin [Mucinex] See Rx Instructions .ROUTE .COMPLEX 02/01/21 11/04/21 11/04/21 History pioglitazone 15 mg PO QAM 02/01/21 11/04/21 11/04/21 History furosemide 40 mg tablet 40 mg PO QAM tab 04/07/21 11/04/21 11/04/21 History acetaminophen [Tylenol] 325 mg PO TID PRN 11/04/21 11/04/21 Unknown History aspirin [Aspir-81] 81 mg PO QAM 11/04/21 11/04/21 11/04/21 History cholecalciferol (vitamin D3) 2,000 unit PO BID 11/04/21 11/04/21 Unknown History [Vitamin D3] lisinopril 40 mg PO QAM 11/04/21 11/04/21 11/04/21 History oxycodone-acetaminophen [Percocet] 1.5 tab PO TID PRN 11/04/21 11/04/21 11/04/21 History trazodone 50 mg PO BEDTIME PRN 11/04/21 11/04/21 11/03/21 History Allergies Allergy/AdvReac Type Severity Reaction Status Date / Time No Known Allergies Allergy Verified 11/04/21 14:14 PFSH Acute PFSH: Medical History Abdominal aortic aneurysm Chronic obstructive pulmonary disease Hypertension Low back pain Peripheral vascular disease Restless legs syndrome Sleep apnea Surgical History History of appendectomy History of coronary artery stent placement History of umbilical hernia repair 11/26/2019 Hx of CABG Status post colonoscopy 11/25/2019: 3 mm sessile polyps x3 removed from the ascending colon, follow-up colonoscopy 2024 Status post femoropopliteal bypass surgery Family History Other Family history non-contributory Denies family history of Clotting disorder Anesthesia complication Bleeding disorder Social History Alcohol intake: former Vitals/I&O/Wt Last Vital Signs Temp 98.1 F 11/04/21 12:30 Pulse 71 11/04/21 13:06 Resp 17 11/04/21 14:21 BP 112/47 11/04/21 13:06 Pulse Ox 92 11/04/21 14:21 Weight last 48 hrs Weight 114.305 kg Physical Exam Const: COMMON NORMALS: no acute distress and patient oriented x3 GENERAL APPEARANCE: cooperative and comfortable HENMT: COMMON NORMALS: normocephalic HEAD & SCALP: normocephalic Eye: COMMON NORMALS: Equal, round and reactive pupils present and EOMs intact bilaterally GENERAL EYE: appearance normal, both eyes and all related structures PUPIL: Yes Equal, round and reactive pupils present Neck/C-Spine: COMMON NORMALS: full ROM, no lymphadenopathy, no JVD and Thyroid normal Lymph: LYMPHATIC: no lymphadenopathy noted Resp: COMMON NORMALS: normal respiratory effort, No retractions, No use of accessory muscles and clear to auscultation bilaterally AUSCULTATION: clear to auscultation bilaterally Cardio: COMMON NORMALS: regular rate, regular rhythm, S1 normal heart sound present, S2 normal heart sound present, No gallops present (Cardio), No clicks present (Cardio) and No murmurs present (Cardio) RATE: regular rate RHYTHM: regular rhythm HEART SOUNDS: S1 normal heart sound present and S2 normal heart sound present GI: COMMON NORMALS: Normal to inspection, nondistended, normoactive bowel sounds present, Soft to palpation and non-tender Extremity: COMMON NORMALS: no pedal edema OTHER: Left calf pain, swelling Left lower extremity external rotation Neuro: COMMON NORMALS: patient oriented x3, CN's II-XII intact bilaterally, moves all extremities and no focal motor deficits Psych: COMMON NORMALS: mental status grossly normal, Normal thought process present and cooperative THOUGHT PROCESS: Normal thought process present Data : 11/04/21 12:49 11/04/21 12:49 A&P Assessment and plan (1) Acute pain of left hip: Status: Acute (2) Status post femoropopliteal bypass surgery: Status: Acute (3) Chronic kidney disease: Status: Acute Qualifiers: Chronic kidney disease stage: stage 3 (moderate) Chronic kidney disease stage 3 subtype: stage 3a (GFR 45-59) Qualified Code(s): N18.31 - Chronic kidney disease, stage 3a (4) Atherosclerotic heart disease of [place] coronary artery without angina pectoris: Status: Acute Qualifiers: [place] vs. transplanted heart: [place] heart Qualified Code(s): I25.10 - Atherosclerotic heart disease of [place] coronary artery without angina pectoris (5) Dyslipidemia (high LDL; low HDL): Status: Acute (6) Peripheral vascular disease: Status: Acute (7) Chronic obstructive pulmonary disease: Status: Acute Qualifiers: COPD type: unspecified COPD Qualified Code(s): J44.9 - Chronic obstructive pulmonary disease, unspecified (8) Hypertension: Status: Acute Qualifiers: Hypertension type: essential hypertension Qualified Code(s): I10 - Essential (primary) hypertension (9) Abdominal aortic aneurysm: Status: Acute Qualifiers: Presence of rupture: without rupture Qualified Code(s): I71.4 - Abdominal aortic aneurysm, without rupture (10) Acute kidney injury: Status: Acute (11) Hypocalcemia: Status: Acute Additional A&P Information Left hip fracture X-ray of the left hip shows Minimally displaced intertrochanteric fracture with fracture of the greater trochanter. The fracture line extends inferior to the greater trochanter and may involve the lesser trochanter as well. The acetabulum, superior pubic ramus, and inferior pubic ramus appear intact. -PT OT -Pain control morphine -Orthopedic service on consult -Lovenox for DVT prophylaxis -Full code Type 2 diabetes mellitus, -Hold home Novolin, will check A1c -Low-dose sliding scale -We will start Levemir 10 units twice daily Acute kidney injury on CKD -Gentle IV hydration -Check CPK levels Hypertension -Continue home medications Left calf swelling, ultrasound venous COPD, currently on 2 L, does not use oxygen at home, continue to monitor closely History of femoropopliteal bypass, peripheral vascular disease CAD, status post CABG, stent status post history of stenting -Hold aspirin, Plavix Hypocalcemia -Calcium supplementation -Mag, phosphorus, vitamin D, PTH Attestations Medical Necessity Statement*: Patient requires hospitalization, inpatient, greater than 2 midnights, for left hip fracture Coding Level of Care Code Acute Teacher'S Assistant for Chg Fwd Diagnoses Acute pain of left hip M25.552 Status post femoropopliteal bypass surgery Z95.828 Chronic kidney disease N18.31 Chronic kidney disease stage: stage 3 (moderate) Chronic kidney disease stage 3 subtype: stage 3a (GFR 45-59) Atherosclerotic heart disease of [place] coronary artery without angina pectoris I25.10 [place] vs. transplanted heart: [place] heart Dyslipidemia (high LDL; low HDL) E78.5 Peripheral vascular disease I73.9 Chronic obstructive pulmonary disease J44.9 COPD type: unspecified COPD Hypertension I10 Hypertension type: essential hypertension Abdominal aortic aneurysm I71.4 Presence of rupture: without rupture Acute kidney injury N17.9 Hypocalcemia E83.51
[2021-11-04 15:12] LABS: Parathyroid Hormone 39.6 pg/mL (15-65)
[2021-11-04 15:20] LABS: 25 Hydroxy Vitamin D 49 ng/mL (30-100); Magnesium 1.6 mg/dL (1.7-2.3); Phosphorus 2.4 mg/dL (2.5-4.5)
[2021-11-04 15:30] LABS: Add Urine Microscopic? NO; Charge for UA Resulting for Rev
[2021-11-04 15:31] LABS: Ionized Calcium 1.2 mmol/L (1.1-1.4)
[2021-11-04 15:33] LABS: Bilirubin Urine Neg (Negative); Blood Urine Neg (Negative); Glucose Urine UA Norm (Normal); Ketones Urine Negative (Negative); Leukocyte Esterase Urine Negative (Negative); Nitrate Urine Negative (Negative); Protein Urine Neg (Negative); Specific Gravity, Urine 1.015 (1.005-1.030); Urine Appearance Clear (CLEAR); Urine Color Yellow (Yellow); Urobilinogen Urine Neg (Negative); pH Urine 5 (5-7)
[2021-11-04 15:43] LABS: Creatine Phosphokinase 36 U/L (39-308)
[2021-11-04] MEDS: morphine 4 mg/mL SDV 1 mL 2 MG IVP (19:51)
[2021-11-04] MEDS: ropinirole 2 mg Tablet PO ×2 (21:32→21:38)
[2021-11-04] MEDS: atorvastatin 40 mg Tablet PO (21:32)
[2021-11-04] MEDS: calcium carbonate 500 mg Chew Tablet 1000 MG PO (21:32)
[2021-11-04] MEDS: metoprolol tartrate 50 mg Tablet 25 MG PO (21:32)
[2021-11-04] MEDS: gabapentin 300 mg Capsule PO (21:32)
[2021-11-04] MEDS: docusate sodium 100 mg Capsule PO (21:33)
[2021-11-04] MEDS: enoxaparin 40 mg/0.4 mL Syringe SUBCUT (21:33)
[2021-11-04 21:34] LABS: Glucose Point of Care 130 mg/dL (70-110)
[2021-11-04] MEDS: sodium chloride 0.9% 1,000 ML 75 ML IV (21:46)
[2021-11-04] MEDS: magnesium sulfate premix 2 GM/50 ML PIGGYBACK IV (21:52)
[2021-11-04] MEDS: sodium chloride 0.9% (100 ml) 100 ML 50 ML (23:13)
[2021-11-05] VITALS (29 sets, daily range): BP systolic 101–161; BP diastolic 54–82; PULSE 67–98; RESP 16–26; TEMP 36.3–38.1; O2SAT 80–97
--- NOTE | 2021-11-05 | XR_ITS ---
NOTE: Report was unsigned for reason: Order was edited. Original Signature date and time was: 11/07/21 @ 0838 WS: [id number] Exam: XR hip LT 2-3V wo/w pel* [id number] Date/Time of Exam: 11/05/2021 11:18 AM Reason For Exam: OR PICS Intraoperative C-arm images of the left hip are submitted for evaluation. A femoral neck screw and long intramedullary josue stabilizes an intertrochanteric fracture of the left hip. Alignment is satisfactory for healing. Dictated By: Galindo Hartman DO Signed By: Signed Date/Time: MTDD XR/XR hip LT 2-3V wo/w pel* [id number] IMPRESSION: 1. Satisfactory internal orthopedic fixation involving an intertrochanteric fra cture of the left hip.
[2021-11-05] MEDS: morphine 4 mg/mL SDV 1 mL 2 MG IVP ×2 (03:55→07:40)
[2021-11-05 04:16] LABS: Basophils % 0.4 %; Eosinophils # 0.2 10^3/uL (0.0-0.8); Eosinophils % 2.4 %; Hematocrit 34.1 % (42.0-52.0); Hemoglobin 10.7 g/dL (11.7-16.6); Lymphocytes # 1.1 10^3/uL (0.8-4.8); Lymphocytes % 11.7 %; Mean Corpuscular HGB Conc 31.4 g/dL (30.0-36.0); Mean Corpuscular Hemoglobin 29.2 pg (28.0-34.0); Mean Corpuscular Volume 92.9 fl (80-94); Monocytes # 0.5 10^3/uL (0.2-0.9); Monocytes % 4.9 %; Neutrophils # 7.56 10^3/uL (1.8-7.7); Neutrophils % 80.2 %; Nucleated Red Blood Cells % 0 %; Platelet Count 160 10^3/cmm (130-400); Red Blood Count 3.67 10^6/uL (4.1-5.3); Red Cell Distribution Width 13.3 % (12.1-15.1); White Blood Count 9.4 10^3/uL (4.0-10.0)
[2021-11-05 04:37] LABS: INR 1.18 (0.8-1.2)
[2021-11-05 04:38] LABS: Estmated Average Glucose 128; Hemoglobin A1C 6.1 % (4.0-6.0)
[2021-11-05 04:43] LABS: Alanine Aminotransferase 13 U/L (0-41); Albumin Level 3.2 g/dL (3.5-5.2); Alkaline Phosphatase 117 IU/L (40-130); Anion Gap 16.6 (5-19); Aspartate Amino Transferase 12 U/L (0-40); Blood Urea Nitrogen 39 mg/dL (8-23); Carbon Dioxide 21 mmol/L (22-29); Chloride 107 mmol/L (98-107); Chol HDL Ratio 3.21 mg/dL (1.0-5.00); Cholesterol 109 mg/dL (0-200); Globulin 2.6 g/dL (1.3-4.6); Glucose 155 mg/dL (65-115); HDL Cholesterol 34 mg/dL (60-100); LDL Cholesterol Calculated 63 mg/dL (50-129); LDL HDL Ratio 1.85 RATIO (0.00-3.22); Magnesium 2.2 mg/dL (1.7-2.3); NT Pro B Type Natriuretic Pept 682 pg/mL (0-450); Osmolality Calculated 303 mOsm/kg (285-295); Phosphorus 3.2 mg/dL (2.5-4.5); Potassium 4.6 mmol/L (3.5-5.1); Sodium 140 mmol/L (136-145); Total Bilirubin 0.4 mg/dL (0.15-1.2); Total Protein 5.8 g/dL (6.6-8.7); Triglycerides 60 mg/dL (0-150)
--- NOTE | 2021-11-05 04:56 | PC.NURSE ---
Patient cleaned and prepped for surgery. Removed one watch, one ring, and one pair of dentures. All items placed at bedside.
[2021-11-05 06:47] LABS: Glucose Point of Care 170 mg/dL (70-110)
[2021-11-05 09:42] LABS: Glucose Point of Care 161 mg/dL (70-110)
[2021-11-05] MEDS: sodium chloride 0.9% 1,000 ML 30 ML IV (09:45)
--- NOTE | 2021-11-05 09:47 | P.ANESASSM_ITS ---
Pre-Anesthetic Assessment Pre-Anesthetic Assessment: Height/Weight: Height 1.91 m Weight 114.94 kg Temp Pulse Resp BP Pulse Ox 100.6 F H 73 18 142/58 94 11/05/21 09:25 11/05/21 09:25 11/05/21 09:25 11/05/21 09:25 11/05/21 09:25 Preop Diagnosis: Left intertrochanteric hip fracture Proposed Procedure: Operation Date: 11/05/21 10:20 Proposed Procedures p Open Reduction Internal Fixation Left Hip(Left) - Sriram Smith MD Familial anesthetic complications: none Was Beta Subhash taken within 24 hours: N/A Was Clonidine taken within 24 hours: N/A Last intake: Intake Last Liquid Date 11/04/21 Last Liquid Time 20:00 Last Solid Date 11/04/21 Last Solid Time 20:00 Social: Social History: No alcohol and No tobacco Comment: former smoker Exam: Pre-Anes Outpt Exam: alert, oriented x 3, clear to auscultation bilaterally and regular rate & rhythm Airway: Cervical ROM: WNL MP: 2 Dentition: Other (no teeth) Pulmonary: Pulmonary: COPD CV/HEM: CV/HEM: CAD (stednt 2010), HTN and PVD : : Chronic renal Insufficiency Metabolic: Metabolic: DM Anesthetic Plan: ASA status: 3 Anesthesia: General Risk of > 500 ml blood loss (7ml/kg in children): No Medications/Allergies Current Medications: Current Medications Generic Name Dose Route Start Last Admin Trade Name Freq PRN Reason Stop Dose Admin Atorvastatin Calci um 40 mg 11/04/21 21:00 11/04/21 21:32 Atorvastatin 40 Mg Tablet PO 40 mg BEDTIME VALENCIA Administration Calcium Carbonate 1,000 mg 11/04/21 18:45 11/04/21 21:32 Calcium Carbonat e 500 Mg Chew Tabl et PO 1,000 mg Q12H VALENCIA Administration Docusate Sodium 100 mg 11/04/21 18:45 11/04/21 21:33 Docusate Sodium 100 Mg Capsule PO 100 mg BID VALENCIA Administration Enoxaparin Sodium 40 mg 11/04/21 18:45 11/04/21 21:33 Enoxaparin 40 Mg /0.4 Ml Syringe SUBCUT 40 mg Q24H VALENCIA Administration Gabapentin 300 mg 11/04/21 21:00 11/04/21 21:32 Gabapentin 300 M g Capsule PO 300 mg BEDTIME VALENCIA Administration Sodium Chloride 1,000 mls @ 75 ml s/hr 11/04/21 18:45 11/04/21 21:46 Sodium Chloride 0.9% IV 75 mls/hr .[id number] VALENCIA Administration Sodium Chloride 1,000 mls @ 30 ml s/hr 11/05/21 09:30 11/05/21 09:45 Sodium Chloride 0.9% IV 11/06/21 09:29 30 mls/hr .Q24H VALENCIA Administration Insulin Detemir 10 unit 11/04/21 21:00 11/04/21 21:45 Insulin Detemir 100 Units/1 Ml SUBCUT 10 unit Q12H VALENCIA Administration Insulin Human Lisp ro 0 unit 11/04/21 18:45 11/04/21 22:08 Insulin Lispro 1 00 Unit/1 Ml SUBCUT Not Given TIDWM [facility] Protocol Metoprolol Tartrat e 25 mg 11/04/21 18:45 11/04/21 21:32 Metoprolol Tartr ate 50 Mg Tablet PO 25 mg BID VALENCIA Administration Morphine Sulfate 2 mg 11/04/21 18:45 11/05/21 07:40 Morphine 4 Mg/Ml Sdv 1 Ml IVP 2 mg Q4H PRN Administration SEVERE PAIN Non-Formulary Medi cation 400 mg 11/04/21 18:45 11/04/21 22:12 Pentoxifylline PO Not Given TID VALENCIA Ropinirole HCl 2 mg 11/04/21 18:45 11/04/21 21:38 Ropinirole 2 Mg Tablet PO 2 mg TID VALENCIA Administration Terazosin HCl 3 mg 11/04/21 21:00 11/04/21 21:31 Terazosin 1 Mg C apsule PO 3 mg BEDTIME VALENCIA Administration PFSH Anesthesia PFSH: Medical History Abdominal aortic aneurysm Chronic obstructive pulmonary disease Hypertension Low back pain Peripheral vascular disease Restless legs syndrome Sleep apnea Surgical History History of appendectomy History of coronary artery stent placement History of umbilical hernia repair 11/26/2019 Hx of CABG Status post colonoscopy 11/25/2019: 3 mm sessile polyps x3 removed from the ascending colon, follow-up colonoscopy 2024 Status post femoropopliteal bypass surgery Family History Other Family history non-contributory Denies family history of Clotting disorder Anesthesia complication Bleeding disorder Social History Alcohol intake: former Data Anesthesia CBC & Chem 7: 11/05/21 03:08 11/05/21 03:08 Other Labs: Laboratory Results - last 48 hr 11/04/21 11/04/21 11/04/21 12:49 12:49 12:49 WBC 8.3 RBC 3.39 L Hgb 9.8 L Hct 31.7 L MCV 93.5 MCH 28.9 MCHC 30.9 RDW 13.4 Plt Count 150 MPV 10.0 Neut % (Auto) 82.7 Lymph % (Auto) 10.6 [place] % (Auto) 5.5 Eos % (Auto) 0.5 Baso % (Auto) 0.2 Neut # (Auto) 6.87 Lymph # (Auto) 0.9 Ransom # (Auto) 0.5 Eos # (Auto) 0.0 Baso # (Auto) 0.0 Nucleated RBC % (auto) 0 Nucleated RBCs # 0.0 PT 14.20 INR 1.07 APTT 28.7 Sodium 140 Potassium 3.8 Chloride 112 H Carbon Dioxide 17 L Anion Gap 14.8 BUN 33 H Creatinine 1.3 H GFR Calculation Not Reportable Glucose 158 H POC Glucose Estimat Average Glucose Hemoglobin A1c Calculated Osmolality 301 H Calcium 6.9 L Ionized Calcium Saurabh Phosphorus Magnesium Total Bilirubin AST ALT Alkaline Phosphatase Creatine Kinase NT-Pro-B Natriuret Pep Total Protein Albumin Globulin Triglycerides Cholesterol LDL Cholesterol, Calc HDL Cholesterol LDL/HDL Ratio Cholesterol/HDL Ratio 25-OH Vitamin D Total PTH Intact Calcium (PTH Intact) Urine Color Urine Appearance Urine pH Ur Specific [place] Urine Protein Urine Glucose (UA) Urine Ketones Urine Blood Urine Nitrate Urine Bilirubin Urine Urobilinogen Ur Leukocyte Esterase 11/04/21 11/04/21 11/04/21 12:49 12:49 12:49 WBC RBC Hgb Hct MCV MCH MCHC RDW Plt Count MPV Neut % (Auto) Lymph % (Auto) [place] % (Auto) Eos % (Auto) Baso % (Auto) Neut # (Auto) Lymph # (Auto) [place] # (Auto) Eos # (Auto) Baso # (Auto) Nucleated RBC % (auto) Nucleated RBCs # PT INR APTT Sodium Potassium Chloride Carbon Dioxide Anion Gap BUN Creatinine GFR Calculation Glucose POC Glucose Estimat Average Glucose Hemoglobin A1c Calculated Osmolality Calcium Ionized Calcium Saurabh Phosphorus 2.4 L Magnesium 1.6 L Total Bilirubin AST ALT Alkaline Phosphatase Creatine Kinase 36 L NT-Pro-B Natriuret Pep Total Protein Albumin Globulin Triglycerides Cholesterol LDL Cholesterol, Calc HDL Cholesterol LDL/HDL Ratio Cholesterol/HDL Ratio 25-OH Vitamin D Total 49 PTH Intact 39.6 Calcium (PTH Intact) 7.0 L Urine Color Urine Appearance Urine pH Ur Specific [place] Urine Protein Urine Glucose (UA) Urine Ketones Urine Blood Urine Nitrate Urine Bilirubin Urine Urobilinogen Ur Leukocyte Esterase 11/04/21 11/04/21 11/04/21 15:08 15:17 21:10 WBC RBC Hgb Hct MCV MCH MCHC RDW Plt Count MPV Neut % (Auto) Lymph % (Auto) [place] % (Auto) Eos % (Auto) Baso % (Auto) Neut # (Auto) Lymph # (Auto) [place] # (Auto) Eos # (Auto) Baso # (Auto) Nucleated RBC % (auto) Nucleated RBCs # PT INR APTT Sodium Potassium Chloride Carbon Dioxide Anion Gap BUN Creatinine GFR Calculation Glucose POC Glucose 130 H Estimat Average Glucose Hemoglobin A1c Calculated Osmolality Calcium Ionized Calcium Saurabh 1.2 Phosphorus Magnesium Total Bilirubin AST ALT Alkaline Phosphatase Creatine Kinase Cancelled NT-Pro-B Natriuret Pep Total Protein Albumin Globulin Triglycerides Cholesterol LDL Cholesterol, Calc HDL Cholesterol LDL/HDL Ratio Cholesterol/HDL Ratio 25-OH Vitamin D Total PTH Intact Calcium (PTH Intact) Urine Color Yellow Urine Appearance Clear Urine pH 5 Ur Specific [place] 1.015 Urine Protein Neg Urine Glucose (UA) Norm Urine Ketones Negative Urine Blood Neg Urine Nitrate Negative Urine Bilirubin Neg Urine Urobilinogen Neg Ur Leukocyte Esterase Negative 11/05/21 11/05/21 11/05/21 03:08 03:08 03:08 WBC 9.4 RBC 3.67 L Hgb 10.7 L Hct 34.1 L MCV 92.9 MCH 29.2 MCHC 31.4 RDW 13.3 Plt Count 160 MPV 10.0 Neut % (Auto) 80.2 Lymph % (Auto) 11.7 [place] % (Auto) 4.9 Eos % (Auto) 2.4 Baso % (Auto) 0.4 Neut # (Auto) 7.56 Lymph # (Auto) 1.1 [place] # (Auto) 0.5 Eos # (Auto) 0.2 Baso # (Auto) 0.0 Nucleated RBC % (auto) 0 Nucleated RBCs # 0.0 PT 15.30 H INR 1.18 APTT Sodium 140 Potassium 4.6 Chloride 107 Carbon Dioxide 21 L Anion Gap 16.6 BUN 39 H Creatinine 1.5 H GFR Calculation Not Reportable Glucose 155 H POC Glucose Estimat Average Glucose Hemoglobin A1c Calculated Osmolality 303 H Calcium 8.0 L Ionized Calcium Saurabh Phosphorus 3.2 Magnesium 2.2 Total Bilirubin 0.4 AST 12 ALT 13 Alkaline Phosphatase 117 Creatine Kinase NT-Pro-B Natriuret Pep 682 H Total Protein 5.8 L Albumin 3.2 L Globulin 2.6 Triglycerides 60 Cholesterol 109 LDL Cholesterol, Calc 63 HDL Cholesterol 34 L LDL/HDL Ratio 1.85 Cholesterol/HDL Ratio 3.21 25-OH Vitamin D Total PTH Intact Calcium (PTH Intact) Urine Color Urine Appearance Urine pH Ur Specific [place] Urine Protein Urine Glucose (UA) Urine Ketones Urine Blood Urine Nitrate Urine Bilirubin Urine Urobilinogen Ur Leukocyte Esterase 11/05/21 11/05/21 11/05/21 03:08 06:29 09:38 WBC RBC Hgb Hct MCV MCH MCHC RDW Plt Count MPV Neut % (Auto) Lymph % (Auto) [place] % (Auto) Eos % (Auto) Baso % (Auto) Neut # (Auto) Lymph # (Auto) [place] # (Auto) Eos # (Auto) Baso # (Auto) Nucleated RBC % (auto) Nucleated RBCs # PT INR APTT Sodium Potassium Chloride Carbon Dioxide Anion Gap BUN Creatinine GFR Calculation Glucose POC Glucose 170 H 161 H Estimat Average Glucose 128 Hemoglobin A1c 6.1 H Calculated Osmolality Calcium Ionized Calcium Saurabh Phosphorus Magnesium Total Bilirubin AST ALT Alkaline Phosphatase Creatine Kinase NT-Pro-B Natriuret Pep Total Protein Albumin Globulin Triglycerides Cholesterol LDL Cholesterol, Calc HDL Cholesterol LDL/HDL Ratio Cholesterol/HDL Ratio 25-OH Vitamin D Total PTH Intact Calcium (PTH Intact) Urine Color Urine Appearance Urine pH Ur Specific [place] Urine Protein Urine Glucose (UA) Urine Ketones Urine Blood Urine Nitrate Urine Bilirubin Urine Urobilinogen Ur Leukocyte Esterase Cardiac Studies: No Data to Display
--- NOTE | 2021-11-05 10:11 | PM.CONSULT ---
Providers/Reason For Consult Consulting Physician/Specialty*: Sriram Smith MD; orthopedic surgery Reason for Consult*: Left intratrochanteric hip fracture Attending Physician: Marco Elder MD Primary Care Provider: Tish Henry MD History of Present Illness History of Present Illness Musa Germain is a 76 year old male who fell yesterday at home. He states he arose from the couch to answer his door with his leg asleep. He was unable to stabilize himself with his arm and fell to the ground with immediate pain in his left hip. He was transferred to our emergency room where radiographs revealed a left intertrochanteric hip fracture. He has been admitted to the hospital and orthopedics is seeing the patient for surgical stabilization. He denies any other extremity pain. He denies any blow to the head neck or back pain. He reportedly was very active and required no ambulatory aids. His is with him at the bedside and states he could out work even a younger man. Medications/Allergies Home Medications Medication Instructions Recorded Confirmed Last Taken Type amlodipine 5 mg tablet 5 mg PO QAM tab 11/04/19 11/04/21 11/04/21 History budesonide-formoterol HFA 160 2 puff INHALATION BID 11/04/19 11/04/21 07/31/21 History mcg-4.5 mcg/actuation aerosol inhaler finasteride 5 mg tablet 5 mg PO QAM 11/04/19 11/04/21 11/04/21 History gabapentin 300 mg capsule 300 mg PO BEDTIME cap 11/04/19 11/04/21 11/03/21 History insulin NPH isoph U-100 human 100 See Rx Instructions SUBCUT BID 11/04/19 11/04/21 11/04/21 History unit/mL subcutaneous suspension 48 units meloxicam 7.5 mg tablet 7.5 mg PO BID 11/04/19 11/04/21 11/04/21 History metoprolol tartrate 50 mg tablet 25 mg PO BID tab 11/04/19 11/04/21 11/04/21 06:30 History nitroglycerin 0.4 mg sublingual 0.4 mg SUBLINGUAL Q5M PRN 11/04/19 11/04/21 01/20/20 History tablet pentoxifylline 400 mg 400 mg PO TID 11/04/19 11/04/2111/04/22 History tablet,extended release ropinirole 2 mg tablet 2 mg PO TID 11/04/19 11/04/21 11/04/21 History simvastatin 80 mg tablet 40 mg PO BEDTIME tab 11/04/19 11/04/21 11/03/21 History terazosin 1 mg capsule 3 mg PO BEDTIME cap 11/04/19 11/04/21 11/03/21 History tiotropium bromide 2.5 2 inh INHALATION QAM 11/04/19 11/04/21 07/31/21 History mcg/actuation mist for inhalation clopidogrel 75 mg tablet 75 mg PO QAM 11/06/19 11/04/21 11/04/21 History albuterol sulfate 2 puff INHALATION Q4H PRN 01/24/20 11/04/21 07/31/21 History guaifenesin [Mucinex] See Rx Instructions .ROUTE .COMPLEX 02/01/21 11/04/21 11/04/21 History pioglitazone 15 mg PO QAM 02/01/21 11/04/21 11/04/21 History furosemide 40 mg tablet 40 mg PO QAM tab 04/07/21 11/04/21 11/04/21 History acetaminophen [Tylenol] 325 mg PO TID PRN 11/04/21 11/04/21 Unknown History aspirin [Aspir-81] 81 mg PO QAM 11/04/21 11/04/21 11/04/21 History cholecalciferol (vitamin D3) 2,000 unit PO BID 11/04/21 11/04/21 Unknown History [Vitamin D3] lisinopril 40 mg PO QAM 11/04/21 11/04/21 11/04/21 History oxycodone-acetaminophen [Percocet] 1.5 tab PO TID PRN 11/04/21 11/04/21 11/04/21 History trazodone 50 mg PO BEDTIME PRN 11/04/21 11/04/21 11/03/21 History Allergies Allergy/AdvReac Type Severity Reaction Status Date / Time No Known Allergies Allergy Verified 11/04/21 14:14 Current Medications Generic Name Dose Route Start Last Admin Trade Name Freq PRN Reason Stop Dose Admin Atorvastatin Calcium 40 mg 11/04/21 21:00 11/04/21 21:32 Atorvastatin 40 Mg Tablet PO 40 mg BEDTIME VALENCIA Administration Calcium Carbonate 1,000 mg 11/04/21 18:45 11/04/21 21:32 Calcium Carbonate 500 Mg Chew Tablet PO 1,000 mg Q12H VALENCIA Administration Docusate Sodium 100 mg 11/04/21 18:45 11/04/21 21:33 Docusate Sodium 100 Mg Capsule PO 100 mg BID VALENCIA Administration Enoxaparin Sodium 40 mg 11/04/21 18:45 11/04/21 21:33 Enoxaparin 40 Mg/0.4 Ml Syringe SUBCUT 40 mg Q24H VALENCIA Administration Gabapentin 300 mg 11/04/21 21:00 11/04/21 21:32 Gabapentin 300 Mg Capsule PO 300 mg BEDTIME VALENCIA Administration Sodium Chloride 1,000 mls @ 75 mls/hr 11/04/21 18:45 11/04/21 21:46 Sodium Chloride 0.9% IV 75 mls/hr .[id number] VALENCIA Administration Sodium Chloride 1,000 mls @ 30 mls/hr 11/05/21 09:30 11/05/21 09:45 Sodium Chloride 0.9% IV 11/06/21 09:29 30 mls/hr .Q24H VALENCIA Administration Insulin Detemir 10 unit 11/04/21 21:00 11/04/21 21:45 Insulin Detemir 100 Units/1 Ml SUBCUT 10 unit Q12H VALENCIA Administration Insulin Human Lispro 0 unit 11/04/21 18:45 11/04/21 22:08 Insulin Lispro 100 Unit/1 Ml SUBCUT Not Given [facility] Protocol Metoprolol Tartrate 25 mg 11/04/21 18:45 11/04/21 21:32 Metoprolol Tartrate 50 Mg Tablet PO 25 mg BID VALENCIA Administration Morphine Sulfate 2 mg 11/04/21 18:45 11/05/21 07:40 Morphine 4 Mg/Ml Sdv 1 Ml IVP 2 mg Q4H PRN Administration SEVERE PAIN Non-Formulary Medication 400 mg 11/04/21 18:45 11/04/21 22:12 Pentoxifylline PO Not Given TID VALENCIA Ropinirole HCl 2 mg 11/04/21 18:45 11/04/21 21:38 Ropinirole 2 Mg Tablet PO 2 mg TID VALENCIA Administration Terazosin HCl 3 mg 11/04/21 21:00 11/04/21 21:31 Terazosin 1 Mg Capsule PO 3 mg BEDTIME VALENCIA Administration PFSH Acute PFSH: Medical History Abdominal aortic aneurysm Chronic obstructive pulmonary disease Hypertension Low back pain Peripheral vascular disease Restless legs syndrome Sleep apnea Surgical History History of appendectomy History of coronary artery stent placement History of umbilical hernia repair 11/26/2019 Hx of CABG Status post colonoscopy 11/25/2019: 3 mm sessile polyps x3 removed from the ascending colon, follow-up colonoscopy 2024 Status post femoropopliteal bypass surgery Family History Other Family history non-contributory Denies family history of Clotting disorder Anesthesia complication Bleeding disorder Social History Alcohol intake: former Vitals/I&O/Wt Last Vital Signs Temp 100.6 F H 11/05/21 09:25 Pulse 73 11/05/21 09:25 Resp 18 11/05/21 09:25 BP 142/58 11/05/21 09:25 Pulse Ox 94 11/05/21 09:25 11/04/21 11/05/21 11/05/21 22:59 06:59 14:59 Intake Total 530.833 / 530.833 Output Total 600 / 600 200 / 800 300 / 300 Balance -600 / -600 330.833 / -269.167 -300 / -300 Weight last 48 hrs Weight 253 lb 6.4 oz Weight 252 lb Weight 252 lb Physical Exam Narrative: EXAM NARRATIVE: On examination Mr. Germain is supine in bed in no apparent distress. He answers questions appropriately and is oriented to person place and time. He has scars over his medial leg consistent with a femoropopliteal bypass He has exquisite pain with motion of the left hip. He will flex extend his left toes and ankle. His left lower extremity sensation is intact to light touch. I cannot feel good dorsalis pedis or tibialis posterior pulses although his left foot is warm. Data Imaging^: Xray Ortho: Radiologist's impression: 2 views of the left hip are interpreted from the emergency room yesterday revealing a nondisplaced left intertrochanteric hip fracture A&P Assessment and plan (1) Intertrochanteric fracture of left hip: I discussed options with the patient.. I told the patient we could treat this nonoperatively but certainly they would be at risk for medical problems without surgery. Theywould have problems with pain that would require narcotics for pain control. They would require a long period of bedrest crate icer risk for pneumonia and skin breakdown. I discussed surgical intervention with the patient. I told them with open reduction internal fixation they should be able to be mobilized and resume ambulatory status. We can eliminate the problems associated with prolonged bed rest and would have better control of pain. Certainly there would be inherent risk with surgery. These would would include the risk of cardiac complications, stroke, infection, and even . I discussed risk of any orthopedic implant including nonunion, malunion, a component failure. I discussed the possible need for component removal. I discussed risk of deep venous thromboses and pulmonary emboli that are present with any treatment and the importance of DVT prophylaxis. The patient expressed good understanding of alternative treatments, seem to comprehend, and agrees to surgical intervention. Status: Acute Coding Level of Care Code Acute Substance Abuse Clinician for Teri Garay Diagnoses Intertrochanteric fracture of left hip S72.142A
--- NOTE | 2021-11-05 11:17 | XR_ITS ---
WS: [id number] Exam: XR hip LT 2-3V wo/w pel* [id number] Date/Time of Exam: 11/05/2021 11:18 AM Reason For Exam: OR PICS Intraoperative C-arm images of the left hip are submitted for evaluation. A femoral neck screw and long intramedullary josue stabilizes an intertrochanteric fracture of the left hip. Alignment is satisfactory for healing.
--- NOTE | 2021-11-05 11:34 | P.OP_ITS ---
Operative Report Date of procedure: November 05, 2021 Pre-op Diagnosis: Left intertrochanteric hip fracture Post-op diagnosis: same Post-op Findings: Same Procedure Done: Open reduction internal fixation left hip Implants: Jes[place]s gamma nail 420 x 11 mm, lag screw 10.5 x 110 mm Pathology: none sent Surgeon: Sriram Smith Anesthesia: General Estimated blood loss (mL): 100 Complications: None Findings: The patient had a nondisplaced left intertrochanteric hip fracture Condition: stable Disposition: PACU Procedure: The patient was taken to the operating room. They were given 1 g of Ancef. They were positioned on the fracture table with the right lower extremity in gentle traction. A timeout was performed. A 2 cm long incision was made proximal to the greater trochanter scalpel blade. Dissection was carried down to tip the greater trochanter. A guidepin was passed manually from the tip of the trochanter down the shaft. The proximal reamer was utilized to open up the proximal canal. An 11 mm by 420 mm [place] gamma nail was passed down the canal without difficulty. Under visualization of fluoroscopy a guidepin was driven up into the head and neck at 125? angle. It was measured at 110 mm in length and a lag screw similar length was then placed and locked into place with the proximal locking screw. Intraoperative imaging was obtained verifying satisfactory position of the hardware and reduction of the fracture. Deep tissues were closed with 0 Vicryl as were subcutaneous tissues. The skin was closed with skin alivia. Sterile dressings were applied. The patient was extubated and taken to recovery room in stable condition.
--- NOTE | 2021-11-05 11:56 | P.PN_ITS ---
Subjective Subjective: Interval history: Patient was seen this morning, he had 100.6 fever overnight, was seen in [facility], has no complaints overnight Vitals/I&O/Wt Last Vital Signs Temp 97.4 F L 11/05/21 11:35 Pulse 96 11/05/21 11:50 Resp 17 11/05/21 11:50 BP 133/59 11/05/21 11:50 Pulse Ox 84 L 11/05/21 11:50 11/04/21 11/05/21 11/05/21 22:59 06:59 14:59 Intake Total 530.833 / 530.833 550 / 550 Output Total 600 / 600 200 / 800 400 / 400 Balance -600 / -600 330.833 / -269.167 150 / 150 Weight last 48 hrs Weight 114.94 kg Weight 114.305 kg Weight 114.305 kg Physical Exam Const: COMMON NORMALS: no acute distress and patient oriented x3 Resp: COMMON NORMALS: normal respiratory effort, No retractions, No use of accessory muscles and clear to auscultation bilaterally AUSCULTATION: clear to auscultation bilaterally Cardio: COMMON NORMALS: regular rate, regular rhythm, S1 normal heart sound present and S2 normal heart sound present RATE: regular rate RHYTHM: regular rhythm HEART SOUNDS: S1 normal heart sound present and S2 normal heart sound present GI: COMMON NORMALS: Normal to inspection, nondistended, normoactive bowel sounds present, Soft to palpation, non-tender and No hepatosplenomegaly present PALPATION: Yes Soft to palpation and Yes No hepatosplenomegaly present Extremity: COMMON NORMALS: no pedal edema Neuro: COMMON NORMALS: patient oriented x3 Psych: COMMON NORMALS: mental status grossly normal Data : 11/05/21 03:08 11/05/21 03:08 A&P Assessment and plan (1) Acute pain of left hip: Status: Acute (2) Status post femoropopliteal bypass surgery: Status: Acute (3) Chronic kidney disease: Status: Acute Qualifiers: Chronic kidney disease stage: stage 3 (moderate) Chronic kidney disease stage 3 subtype: stage 3a (GFR 45-59) Qualified Code(s): N18.31 - Chronic kidney disease, stage 3a (4) Atherosclerotic heart disease of [place] coronary artery without angina pectoris: Status: Acute Qualifiers: [place] vs. transplanted heart: [place] heart Qualified Code(s): I25.10 - Atherosclerotic heart disease of [place] coronary artery without angina pectoris (5) Dyslipidemia (high LDL; low HDL): Status: Acute (6) Peripheral vascular disease: Status: Acute (7) Chronic obstructive pulmonary disease: Status: Acute Qualifiers: COPD type: unspecified COPD Qualified Code(s): J44.9 - Chronic obstructive pulmonary disease, unspecified (8) Hypertension: Status: Acute Qualifiers: Hypertension type: essential hypertension Qualified Code(s): I10 - Essential (primary) hypertension (9) Abdominal aortic aneurysm: Status: Acute Qualifiers: Presence of rupture: without rupture Qualified Code(s): I71.4 - Abdominal aortic aneurysm, without rupture (10) Acute kidney injury: Status: Acute (11) Hypocalcemia: Status: Acute Additional A&P Information Left hip fracture X-ray of the left hip shows Minimally displaced intertrochanteric fracture with fracture of the greater trochanter. The fracture line extends inferior to the greater trochanter and may involve the lesser trochanter as well. The acetabulum, superior pubic ramus, and inferior pubic ramus appear intact. -PT OT -Pain control morphine -Orthopedic service on consult, surgical intervention this morning -Will do flu testing, COVID testing -Lovenox for DVT prophylaxis -Full code Type 2 diabetes mellitus, -Hold home Novolin, A1c 6.1 -Low-dose sliding scale -Continue Levemir 10 units twice daily Acute kidney injury on CKD -Gentle IV hydration Hypertension -Continue home medications Left calf swelling, ultrasound venous negative for DVT COPD, currently on 2 L, does not use oxygen at home, continue to monitor closely History of femoropopliteal bypass, peripheral vascular disease CAD, status post CABG, stent status post history of stenting -Hold aspirin, Plavix Hypocalcemia -Calcium supplementation -Mag within normal limits, phosphorus within normal limits, vitamin D, PTH within normal limits Attestations 2 Medical Necessity Statement*: Patient requires hospitalization for left hip fracture Coding Level of Care Code Acute Scholastic Aptitude Test Grader for Teri Garay Diagnoses Acute pain of left hip M25.552 Status post femoropopliteal bypass surgery Z95.828 Chronic kidney disease N18.31 Chronic kidney disease stage: stage 3 (moderate) Chronic kidney disease stage 3 subtype: stage 3a (GFR 45-59) Atherosclerotic heart disease of [place] coronary artery without angina pectoris I25.10 [place] vs. transplanted heart: [place] heart Dyslipidemia (high LDL; low HDL) E78.5 Peripheral vascular disease I73.9 Chronic obstructive pulmonary disease J44.9 COPD type: unspecified COPD Hypertension I10 Hypertension type: essential hypertension Abdominal aortic aneurysm I71.4 Presence of rupture: without rupture Acute kidney injury N17.9 Hypocalcemia E83.51
[2021-11-05 12:29] LABS: Glucose Point of Care 192 mg/dL (70-110)
[2021-11-05] MEDS: ipratropium-albuterol 3 mL Neb INHALATION (14:04)
[2021-11-05 15:43] LABS: Influenza A by IFA Negative (Negative); Influenza B by IFA Negative (Negative)
[2021-11-05] MEDS: ropinirole 2 mg Tablet PO ×2 (15:55→20:23)
[2021-11-05] MEDS: oxyCODONE 5 mg IR Tab/Cap 10 MG PO (15:55)
[2021-11-05 16:31] LABS: Adenovirus Not Detected (NOT DETECT); Chlamydia Pneumoniae Not Detected (NOT DETECT); Coronavirus 229E,HKU1,NL63,OC4 Not Detected (NOT DETECT); Human Metapneumovirus Not Detected (NOT DETECT); Human Rhinovirus/Enterovirus Not Detected (NOT DETECT); Influenza A Not Detected (NOT DETECT); Influenza A H1 Not Detected (NOT DETECT); Influenza A H1-2009 Not Detected (NOT DETECT); Influenza A H3 Not Detected (NOT DETECT); Influenza B Not Detected (NOT DETECT); Mycoplasma Pneumoniae Not Detected (NOT DETECT); Parainfluenza Virus Type 1 Not Detected (NOT DETECT); Parainfluenza Virus Type 2 Not Detected (NOT DETECT); Parainfluenza Virus Type 3 Not Detected (NOT DETECT); Parainfluenza Virus Type 4 Not Detected (NOT DETECT); Respiratory Syncytial Virus A Not Detected (NOT DETECT); Respiratory Syncytial Virus B Not Detected (NOT DETECT); SARS-COV-2 Not Detected (NOT DETECT)
[2021-11-05 17:04] LABS: Glucose Point of Care 258 mg/dL (70-110)
[2021-11-05] MEDS: cholecalciferol (vitamin D3) 1,000 unit Tablet 2000 UNIT PO (17:08)
[2021-11-05] MEDS: enoxaparin 40 mg/0.4 mL Syringe SUBCUT (17:08)
[2021-11-05] MEDS: calcium carbonate 500 mg Chew Tablet 1000 MG PO (17:08)
[2021-11-05] MEDS: docusate sodium 100 mg Capsule PO (17:08)
[2021-11-05] MEDS: metoprolol tartrate 50 mg Tablet 25 MG PO (17:09)
[2021-11-05] MEDS: sodium chloride 0.9% 1,000 ML 75 ML IV (17:11)
[2021-11-05] MEDS: insulin lispro 100 unit/1 mL SUBCUT (17:19)
--- NOTE | 2021-11-05 18:45 | USR_ITS ---
PROCEDURE INFORMATION: Exam: US Duplex Left Lower Extremity Veins, Limited Exam date and time: 11/05/2021 6:45 PM Age: 76 years old Clinical indication: Pain; Leg, upper; Left; Additional info: Dvt TECHNIQUE: Imaging protocol: Real-time Duplex ultrasound of the Left Lower Extremity with 2-D [place] scale, color Doppler flow and spectral waveform analysis with image documentation. Limited exam focused on the left lower extremity veins. COMPARISON: No relevant prior studies available. FINDINGS: Left deep veins: The common femoral, femoral, proximal profunda femoral and popliteal veins are patent without thrombus. Normal Doppler waveforms. Normal compressibility and/or augmentation response. Left superficial veins: Saphenofemoral junction is patent without thrombus. Soft tissues: Superficial soft tissue edema in the calf. US/CV venous duplex [facility] [id number] IMPRESSION: No evidence of deep vein thrombosis.
[2021-11-05] MEDS: atorvastatin 40 mg Tablet PO (20:24)
[2021-11-05] MEDS: gabapentin 300 mg Capsule PO (20:24)
[2021-11-05 20:43] LABS: Glucose Point of Care 232 mg/dL (70-110)
[2021-11-06] VITALS (16 sets, daily range): BP systolic 111–154; BP diastolic 55–68; PULSE 72–106; RESP 16–24; TEMP 36.5–37.2; O2SAT 89–97
[2021-11-06] MEDS: ondansetron 2 mg/ML SDV 2 mL 4 MG IVP (01:44)
[2021-11-06] MEDS: metoclopramide 5 mg/mL SDV 2 mL 10 MG IVP (05:05)
--- NOTE | 2021-11-06 05:29 | PC.NURSE ---
Patient recently medicated for nausea/vomiting. Called desk requesting someone sit at the side of his bed as he feels short of breath. O2 sat on 3LNC 96%. Dr. Perales called new order received for Ativan 0.5mg IVP x's 1.
[2021-11-06 05:45] LABS: Basophils % 0.2 %; Eosinophils # 0.1 10^3/uL (0.0-0.8); Eosinophils % 0.5 %; Hematocrit 33.3 % (42.0-52.0); Hemoglobin 10.6 g/dL (11.7-16.6); Lymphocytes # 0.9 10^3/uL (0.8-4.8); Lymphocytes % 6.5 %; Mean Corpuscular HGB Conc 31.8 g/dL (30.0-36.0); Mean Corpuscular Hemoglobin 29.3 pg (28.0-34.0); Mean Platelet Volume 10.3 fL (7.4-10.4); Monocytes # 0.5 10^3/uL (0.2-0.9); Monocytes % 3.9 %; Neutrophils # 11.71 10^3/uL (1.8-7.7); Neutrophils % 88.6 %; Nucleated Red Blood Cells % 0 %; Platelet Count 158 10^3/cmm (130-400); Red Blood Count 3.62 10^6/uL (4.1-5.3); Red Cell Distribution Width 13.1 % (12.1-15.1); White Blood Count 13.2 10^3/uL (4.0-10.0)
[2021-11-06] MEDS: aspirin 81 mg EC Tablet PO (05:52)
[2021-11-06] MEDS: LORazepam 2 mg/mL INJ 1 mL 0.5 MG IVP (05:52)
[2021-11-06] MEDS: calcium carbonate 500 mg Chew Tablet 1000 MG PO ×2 (05:53→18:39)
[2021-11-06] MEDS: sodium chloride 0.9% 1,000 ML 75 ML IV (05:53)
[2021-11-06] MEDS: finasteride 5 mg Tablet PO (05:53)
[2021-11-06] MEDS: amlodipine 5 mg Tablet PO (05:53)
[2021-11-06 05:55] LABS: INR 1.08 (0.8-1.2)
[2021-11-06 06:16] LABS: Alanine Aminotransferase 13 U/L (0-41); Albumin Level 3.2 g/dL (3.5-5.2); Alkaline Phosphatase 125 IU/L (40-130); Anion Gap 18.8 (5-19); Aspartate Amino Transferase 15 U/L (0-40); Blood Urea Nitrogen 47 mg/dL (8-23); Calcium 8.4 mg/dL (8.5-10.5); Carbon Dioxide 19 mmol/L (22-29); Chloride 101 mmol/L (98-107); Globulin 2.8 g/dL (1.3-4.6); Glucose 187 mg/dL (65-115); Magnesium 2.2 mg/dL (1.7-2.3); NT Pro B Type Natriuretic Pept 745 pg/mL (0-450); Osmolality Calculated 295 mOsm/kg (285-295); Phosphorus 3.3 mg/dL (2.5-4.5); Potassium 4.8 mmol/L (3.5-5.1); Sodium 134 mmol/L (136-145); Total Bilirubin 0.4 mg/dL (0.15-1.2)
[2021-11-06] MEDS: HYDROcodone-acetaminophen 5-325 mg Tablet 1 TAB PO (06:39)
[2021-11-06 06:43] LABS: Glucose Point of Care 239 mg/dL (70-110)
[2021-11-06] MEDS: morphine 4 mg/mL SDV 1 mL 2 MG IVP (07:46)
[2021-11-06] MEDS: metoprolol tartrate 50 mg Tablet 25 MG PO ×2 (07:47→18:39)
[2021-11-06] MEDS: docusate sodium 100 mg Capsule PO ×2 (07:47→18:39)
[2021-11-06] MEDS: cholecalciferol (vitamin D3) 1,000 unit Tablet 2000 UNIT PO ×2 (07:47→18:39)
[2021-11-06] MEDS: ropinirole 2 mg Tablet PO ×3 (07:47→20:29)
[2021-11-06] MEDS: insulin lispro 100 unit/1 mL SUBCUT ×2 (07:57→18:38)
[2021-11-06] MEDS: ipratropium-albuterol 3 mL Neb INHALATION (09:07)
--- NOTE | 2021-11-06 09:43 | USCV_ITS ---
Musa Germain Age: 76 Gender: M : 1945 Exam Date: 11/06/2021 10:02 Ordering Phys: Marco Elder MD Technologist: Emely Madsen Exam Location: [facility] [place] Indication: Shortness of breath BP: 111 / 62 HR: 76 Rhythm: Sinus Technical Quality: Technically difficult study MEASUREMENTS (Male / Female) Normal Values 2D ECHO LV Diastolic Diameter PLAX 4.3 cm 4.2 - 5.9 / 3.9 - 5.3 cm LV Systolic Diameter PLAX 2.5 cm IVS Diastolic Thickness 2.0 cm 0.6 - 1.0 / 0.6 - 0.9 cm IVS Systolic Thickness 2.1 cm LVPW Diastolic Thickness 1.0 cm 0.6 - 1.0 / 0.6 - 0.9 cm LVPW Systolic Thickness 2.1 cm RV Chamber Size 2.3 cm LVOT Diameter 2.1 cm LV Ejection Fraction 2D Teich 71.0 % LV Ejection Fraction MOD 2C 60.6 % LV Ejection Fraction 2C AL 60.2 % LA Diameter 4.5 cm LA Width 3.5 cm LA Height 5.9 cm RA Width 3.5 cm RA Height 4.7 cm Aorta at Sinotubular Diameter 3.7 cm M-MODE Aortic Annulus Diameter 4.1 cm LA Ao Ratio MM 1.2 MV E Point Septal Separation 0.6 cm DOPPLER AV Peak Velocity 156.0 cm/s LVOT Peak Velocity 121.0 cm/s AV Area Cont Eq vti 3.0 cm squared AV Area Cont Eq pk 2.6 cm squared MV Area PHT 2.8 cm squared Mitral E to A Ratio 0.9 MV E' Velocity 51.5 cm/s Mitral E to MV E' Ratio 8.4 Mitral E to LV E' Lateral Ratio 5.6 Mitral E to LV E' Septal Ratio 16.5 TV Peak E Velocity 72.0 cm/s Right Atrial Pressure 3.0 mmHg RV Acceleration Time 0.1 s RV Ejection Time 0.3 s RV AcT/ET 0.3 FINDINGS Left Ventricle Normal left ventricular cavity size. Normal left ventricular systolic function. No regional wall motion abnormalities. Left ventricular ejection fraction is estimated at 70 %. Grade I/IV diastolic dysfunction (abnormal relaxation filling pattern), normal to mildly elevated filling pressures. Right Ventricle The right ventricle is normal in size and function. Right Atrium The right atrium is normal in size. Left Atrium The left atrium is normal in size. Mitral Valve Structurally normal mitral valve without significant stenosis or prolapse. There is no mitral regurgitation. Aortic Valve Moderate aortic valve calcification. No aortic valve stenosis. Trace aortic valve regurgitation. Tricuspid Valve Trace tricuspid valve regurgitation. Pulmonic Valve Structurally normal pulmonic valve without significant stenosis. There is no pulmonic regurgitation. Pericardium Normal pericardium without effusion. Aorta Normal ascending aorta dimension. CONCLUSIONS 1-Normal left ventricular cavity size. Normal left ventricular systolic function. No regional wall motion abnormalities. Left ventricular ejection fraction is estimated at 70 %. Grade I/IV diastolic dysfunction (abnormal relaxation filling pattern), normal to mildly elevated filling pressures. 2-There is no pericardial effusion. 3-No significant valve abnormalities. 4-Right atrial pressure is around 5 mm of mercury. 5-No significant change since the prior echocardiogram study of 07/04/2019 . Charo Howard MD (Electronically Signed) Final Date: 06 November 2021 16:20 S
[2021-11-06] MEDS: enoxaparin 40 mg/0.4 mL Syringe SUBCUT (09:46)
--- NOTE | 2021-11-06 09:53 | XRR_ITS ---
PROCEDURE INFORMATION: Exam: XR Chest Exam date and time: 11/06/2021 9:53 AM Age: 76 years old Clinical indication: Shortness of breath; Additional info: SOB TECHNIQUE: Imaging protocol: XR of the chest. Views: 1 view. Total images: 1 COMPARISON: CR XR chest 1V portable [id number] 11/04/2021 1:08 PM FINDINGS: Lungs: Bilateral pulmonary opacities are again noted with the left-sided opacities showing interval worsening. Pleural spaces: Unremarkable. No pleural effusion. No pneumothorax. Heart/Mediastinum: Heart size is stable when compared to the prior exam. Bones/joints: Osseous structures are unchanged from the prior exam. Other findings: Stable postsurgical changes. XR/XR chest 1V portable [id number] IMPRESSION: Bilateral pulmonary opacities are again noted with the left-sided opacities showing interval worsening.
[2021-11-06] MEDS: FUROsemide 10 mg/mL SDV 4mL 40 MG IVP (09:58)
--- NOTE | 2021-11-06 10:32 | PM.PN ---
Subjective Subjective: Interval history: Patient was seen this morning, currently on 6 L, does complain of some wheezing, but no shortness of breath with exertion, does feel weak, adamant about going home with home health care, no nausea, no vomiting, no chest pain Vitals/I&O/Wt Last Vital Signs Temp 97.7 F 11/06/21 08:00 Pulse 82 11/06/21 09:24 Resp 18 11/06/21 09:07 BP 111/62 11/06/21 08:00 Pulse Ox 92 11/06/21 09:07 11/05/21 11/06/21 11/06/21 22:59 06:59 14:59 Intake Total 1234 / 1784 1972.5 / 3756.5 680 / 680 Output Total 750 / 1150 Balance 1234 / 1384 1222.5 / 2606.5 680 / 680 Weight last 48 hrs Weight 114.94 kg Weight 114.305 kg Weight 114.305 kg Physical Exam Const: COMMON NORMALS: no acute distress and patient oriented x3 Resp: COMMON NORMALS: normal respiratory effort, No retractions and No use of accessory muscles AUSCULTATION: wheezes Cardio: COMMON NORMALS: regular rate, regular rhythm, S1 normal heart sound present and S2 normal heart sound present RATE: regular rate RHYTHM: regular rhythm HEART SOUNDS: S1 normal heart sound present and S2 normal heart sound present GI: COMMON NORMALS: Normal to inspection, nondistended, normoactive bowel sounds present, Soft to palpation and non-tender PALPATION: Yes Soft to palpation Extremity: COMMON NORMALS: no pedal edema Neuro: COMMON NORMALS: patient oriented x3 Data : 11/06/21 04:05 11/06/21 04:05 A&P Assessment and plan (1) Acute pain of left hip: Status: Acute (2) Status post femoropopliteal bypass surgery: Status: Acute (3) Chronic kidney disease: Status: Acute Qualifiers: Chronic kidney disease stage: stage 3 (moderate) Chronic kidney disease stage 3 subtype: stage 3a (GFR 45-59) Qualified Code(s): N18.31 - Chronic kidney disease, stage 3a (4) Atherosclerotic heart disease of [place] coronary artery without angina pectoris: Status: Acute Qualifiers: [place] vs. transplanted heart: [place] heart Qualified Code(s): I25.10 - Atherosclerotic heart disease of [place] coronary artery without angina pectoris (5) Dyslipidemia (high LDL; low HDL): Status: Acute (6) Peripheral vascular disease: Status: Acute (7) Chronic obstructive pulmonary disease: Status: Acute Qualifiers: COPD type: unspecified COPD Qualified Code(s): J44.9 - Chronic obstructive pulmonary disease, unspecified (8) Hypertension: Status: Acute Qualifiers: Hypertension type: essential hypertension Qualified Code(s): I10 - Essential (primary) hypertension (9) Abdominal aortic aneurysm: Status: Acute Qualifiers: Presence of rupture: without rupture Qualified Code(s): I71.4 - Abdominal aortic aneurysm, without rupture (10) Acute kidney injury: Status: Acute (11) Hypocalcemia: Status: Acute Additional A&P Information Left hip fracture X-ray of the left hip shows Minimally displaced intertrochanteric fracture with fracture of the greater trochanter. The fracture line extends inferior to the greater trochanter and may involve the lesser trochanter as well. The acetabulum, superior pubic ramus, and inferior pubic ramus appear intact. -Status post open reduction internal fixation -PT OT -Pain control morphine -Orthopedic service on consult, -flu testing negative, COVID testing negative -Lovenox for DVT prophylaxis -Full code Hypoxia on chronic 6 L, wheezing on exam -Does have elevated BNP -COVID-negative, flu negative -Chest x-ray pending -Creatinine 1.7, will give 40 of Lasix, cardiac echo -If oxygen requirements do not improve, will consider VQ scan for consideration of pulmonary emboli -Left lower extremity ultrasound negative for DVT Type 2 diabetes mellitus, -Hold home Novolin, A1c 6.1 -Low-dose sliding scale -Continue Levemir 10 units twice daily Acute kidney injury on CKD -Gentle IV hydration Hypertension -Continue home medications Left calf swelling, ultrasound venous negative for DVT COPD,, does not use oxygen at home, continue to monitor closely History of femoropopliteal bypass, peripheral vascular disease CAD, status post CABG, stent status post history of stenting -Hold aspirin, Plavix Hypocalcemia -Calcium supplementation -Mag within normal limits, phosphorus within normal limits, vitamin D, PTH within normal limits Attestations Medical Necessity Statement*: Patient requires hospitalization for hypoxia, left hip fracture Coding Level of Care Code Acute Computer Forwarding System Markup Clerk for Teri Garay Diagnoses Acute pain of left hip M25.552 Status post femoropopliteal bypass surgery Z95.828 Chronic kidney disease N18.31 Chronic kidney disease stage: stage 3 (moderate) Chronic kidney disease stage 3 subtype: stage 3a (GFR 45-59) Atherosclerotic heart disease of [place] coronary artery without angina pectoris I25.10 [place] vs. transplanted heart: [place] heart Dyslipidemia (high LDL; low HDL) E78.5 Peripheral vascular disease I73.9 Chronic obstructive pulmonary disease J44.9 COPD type: unspecified COPD Hypertension I10 Hypertension type: essential hypertension Abdominal aortic aneurysm I71.4 Presence of rupture: without rupture Acute kidney injury N17.9 Hypocalcemia E83.51
[2021-11-06 11:10] LABS: Glucose Point of Care 134 mg/dL (70-110)
[2021-11-06] MEDS: oxyCODONE 5 mg IR Tab/Cap 10 MG PO ×2 (11:14→20:28)
[2021-11-06 14:44] LABS: Blood Gas Allen Test Pos; Blood Gas Sample Type Arterial; Oxygen Device NC
[2021-11-06 15:22] LABS: ABG PCO2 26.3 mmHg (35-45); Arterial Blood Gas Hematocrit 23.5 % (42-52); Base Excess ABG -2.2 mmol/L (-2.0-2.0); Blood Gas Operator Identificat WALCI; Blood Gas Sample Site Brachial, left; Carboxyhemoglobin 4.5 %THgb (0.4-20.1); HCO3 ABG 20.5 mmol/L (22-26); HGB O2 Sat 91.3 % (95-100); Ionized Calcium Level - ABG 1.1 mmol/L (1.1-1.4); Oxygen Saturation ABG 97.6; Potassium Level - ABG 5.3 mmol/L (3.5-5.0); Total Hemoglobin 7.7 g/dL (14-18)
[2021-11-06 17:35] LABS: Glucose Point of Care 162 mg/dL (70-110)
[2021-11-06] MEDS: gabapentin 300 mg Capsule PO (20:29)
[2021-11-06] MEDS: atorvastatin 40 mg Tablet PO (20:29)
[2021-11-06 21:18] LABS: Glucose Point of Care 221 mg/dL (70-110)
[2021-11-07] VITALS (14 sets, daily range): BP systolic 95–146; BP diastolic 56–69; PULSE 66–97; RESP 16–20; TEMP 36.8–37.6; O2SAT 90–93
[2021-11-07] MEDS: oxyCODONE 5 mg IR Tab/Cap 10 MG PO ×3 (04:35→15:11)
[2021-11-07] MEDS: aspirin 81 mg EC Tablet PO (05:18)
[2021-11-07] MEDS: finasteride 5 mg Tablet PO (05:18)
[2021-11-07] MEDS: amlodipine 5 mg Tablet PO (05:18)
[2021-11-07] MEDS: calcium carbonate 500 mg Chew Tablet 1000 MG PO ×2 (05:48→17:43)
[2021-11-07 06:12] LABS: Glucose Point of Care 175 mg/dL (70-110)
[2021-11-07 06:15] LABS: Basophils % 0.4 %; Eosinophils # 0.3 10^3/uL (0.0-0.8); Hemoglobin 9.6 g/dL (11.7-16.6); INR 1.06 (0.8-1.2); Lymphocytes # 0.9 10^3/uL (0.8-4.8); Lymphocytes % 9.1 %; Mean Corpuscular Hemoglobin 28.7 pg (28.0-34.0); Mean Corpuscular Volume 92.8 fl (80-94); Mean Platelet Volume 10.7 fL (7.4-10.4); Monocytes # 0.6 10^3/uL (0.2-0.9); Neutrophils # 8.13 10^3/uL (1.8-7.7); Nucleated Red Blood Cells % 0 %; Platelet Count 168 10^3/cmm (130-400); Red Blood Count 3.34 10^6/uL (4.1-5.3); Red Cell Distribution Width 13.4 % (12.1-15.1)
[2021-11-07 06:40] LABS: Alanine Aminotransferase 9 U/L (0-41); Albumin Level 3.1 g/dL (3.5-5.2); Alkaline Phosphatase 122 IU/L (40-130); Anion Gap 18.8 (5-19); Aspartate Amino Transferase 15 U/L (0-40); Blood Urea Nitrogen 57 mg/dL (8-23); Calcium 8.5 mg/dL (8.5-10.5); Carbon Dioxide 20 mmol/L (22-29); Chloride 102 mmol/L (98-107); Globulin 2.9 g/dL (1.3-4.6); Glucose 155 mg/dL (65-115); Magnesium 2.1 mg/dL (1.7-2.3); NT Pro B Type Natriuretic Pept 1524 pg/mL (0-450); Osmolality Calculated 301 mOsm/kg (285-295); Phosphorus 2.9 mg/dL (2.5-4.5); Potassium 4.8 mmol/L (3.5-5.1); Sodium 136 mmol/L (136-145); Total Bilirubin 0.4 mg/dL (0.15-1.2)
--- NOTE | 2021-11-07 09:07 | NM_ITS ---
WS: [id number] NUCLEAR MEDICINE VENTILATION/PERFUSION LUNG SCAN HISTORY: sob COMPARISON: 11/06/2021 TECHNIQUE: Ventilation: 32.5 mCi of Technetium 99 DTPA aerosol inhaled. Perfusion: 5.4 mCi of technetium 99m MAA IV. Heterogeneous distribution of the radionuclide throughout the ventilatory portion due to patient's ch ronic lung disease. Lung volumes are decreased. The heart shadow appears enlarged. Better perfusion o verall. No large unmatched defects. Blunting of the posterior LEFT costophrenic angle is matched. NM/NM pul vent and perfus* [id number] IMPRESSION: Low probability pulmonary embolism.
[2021-11-07] MEDS: metoprolol tartrate 50 mg Tablet 25 MG PO ×2 (09:13→17:43)
[2021-11-07] MEDS: cholecalciferol (vitamin D3) 1,000 unit Tablet 2000 UNIT PO ×2 (09:13→17:43)
[2021-11-07] MEDS: ropinirole 2 mg Tablet PO ×3 (09:13→20:40)
[2021-11-07] MEDS: docusate sodium 100 mg Capsule PO ×2 (09:13→17:43)
[2021-11-07] MEDS: insulin lispro 100 unit/1 mL SUBCUT ×3 (09:13→17:45)
[2021-11-07] MEDS: enoxaparin 40 mg/0.4 mL Syringe SUBCUT (10:10)
[2021-11-07] MEDS: FUROsemide 10 mg/mL SDV 4mL 40 MG IVP (10:10)
[2021-11-07] MEDS: metOLazone 5 MG Tablet 2.5 MG PO (10:11)
[2021-11-07 11:08] LABS: Glucose Point of Care 235 mg/dL (70-110)
--- NOTE | 2021-11-07 13:37 | PM.PN ---
Subjective Subjective: Interval history: Patient was seen this morning, currently on 6 L, he uses CPAP overnight, no chest pain, no palpitations, does feel weak Vitals/I&O/Wt Last Vital Signs Temp 98.3 F 11/07/21 04:00 Pulse 81 11/07/21 11:35 Resp 16 11/07/21 11:35 BP 146/60 11/07/21 11:35 Pulse Ox 90 11/07/21 11:35 11/06/21 11/07/21 11/07/21 22:59 06:59 14:59 Intake Total 1000 / 1740 480 / 2220 360 / 360 Output Total 550 / 1625 800 / 2425 900 / 900 Balance 450 / 115 -320 / -205 -540 / -540 Physical Exam Const: COMMON NORMALS: no acute distress and patient oriented x3 Resp: COMMON NORMALS: normal respiratory effort, No retractions and No use of accessory muscles AUSCULTATION: crackles Cardio: COMMON NORMALS: regular rate, regular rhythm, S1 normal heart sound present and S2 normal heart sound present RATE: regular rate RHYTHM: regular rhythm HEART SOUNDS: S1 normal heart sound present and S2 normal heart sound present GI: COMMON NORMALS: Normal to inspection, nondistended, normoactive bowel sounds present, Soft to palpation and non-tender PALPATION: Yes Soft to palpation Neuro: COMMON NORMALS: patient oriented x3 Psych: COMMON NORMALS: mental status grossly normal Data : 11/07/21 05:05 11/07/21 05:05 A&P Assessment and plan (1) Acute pain of left hip: Status: Acute (2) Status post femoropopliteal bypass surgery: Status: Acute (3) Chronic kidney disease: Status: Acute Qualifiers: Chronic kidney disease stage: stage 3 (moderate) Chronic kidney disease stage 3 subtype: stage 3a (GFR 45-59) Qualified Code(s): N18.31 - Chronic kidney disease, stage 3a (4) Atherosclerotic heart disease of [place] coronary artery without angina pectoris: Status: Acute Qualifiers: [place] vs. transplanted heart: [place] heart Qualified Code(s): I25.10 - Atherosclerotic heart disease of [place] coronary artery without angina pectoris (5) Dyslipidemia (high LDL; low HDL): Status: Acute (6) Peripheral vascular disease: Status: Acute (7) Chronic obstructive pulmonary disease: Status: Acute Qualifiers: COPD type: unspecified COPD Qualified Code(s): J44.9 - Chronic obstructive pulmonary disease, unspecified (8) Hypertension: Status: Acute Qualifiers: Hypertension type: essential hypertension Qualified Code(s): I10 - Essential (primary) hypertension (9) Abdominal aortic aneurysm: Status: Acute Qualifiers: Presence of rupture: without rupture Qualified Code(s): I71.4 - Abdominal aortic aneurysm, without rupture (10) Acute kidney injury: Status: Acute (11) Hypocalcemia: Status: Acute Additional A&P Information Left hip fracture X-ray of the left hip shows Minimally displaced intertrochanteric fracture with fracture of the greater trochanter. The fracture line extends inferior to the greater trochanter and may involve the lesser trochanter as well. The acetabulum, superior pubic ramus, and inferior pubic ramus appear intact. -Status post open reduction internal fixation -PT OT -Pain control morphine -Orthopedic service on consult, -flu testing negative, COVID testing negative -Lovenox for DVT prophylaxis -Full code Hypoxia on chronic 6 L, crackles on exam -Does have elevated BNP -COVID-negative, flu negative -Chest x-ray shows bilateral pulmonary opacities, concerning for fluid overload -Cardiac echo -1-Normal left ventricular cavity size. Normal left ventricular systolic function. No regional wall motion abnormalities. Left ventricular ejection fraction is estimated at 70 %. Grade I/IV diastolic dysfunction (abnormal relaxation filling pattern), normal to mildly elevated filling pressures. 2-There is no pericardial effusion. 3-No significant valve abnormalities. 4-Right atrial pressure is around 5 mm of mercury. 5-No significant change since the prior echocardiogram study of 07/04/2019 . -Creatinine 1.6, will give 40 mg of Lasix today - order VQ scan to evaluate for underlying pulm emboli -Left lower extremity ultrasound negative for DVT Type 2 diabetes mellitus, -Hold home Novolin, A1c 6.1 -Low-dose sliding scale -Continue Levemir 10 units twice daily Acute kidney injury on CKD -Gentle IV hydration Hypertension -Continue home medications Left calf swelling, ultrasound venous negative for DVT COPD,, does not use oxygen at home, continue to monitor closely History of femoropopliteal bypass, peripheral vascular disease CAD, status post CABG, stent status post history of stenting -Hold aspirin, Plavix Hypocalcemia -Calcium supplementation -Mag within normal limits, phosphorus within normal limits, vitamin D, PTH within normal limits Attestations Medical Necessity Statement*: Patient requires hospitalization for left hip fracture, hypoxia, likely diastolic CHF exacerbation, Coding Level of Care Code Acute Director Of Elementary Education for Teri Fwd Diagnoses Acute pain of left hip M25.552 Status post femoropopliteal bypass surgery Z95.828 Chronic kidney disease N18.31 Chronic kidney disease stage: stage 3 (moderate) Chronic kidney disease stage 3 subtype: stage 3a (GFR 45-59) Atherosclerotic heart disease of [place] coronary artery without angina pectoris I25.10 [place] vs. transplanted heart: [place] heart Dyslipidemia (high LDL; low HDL) E78.5 Peripheral vascular disease I73.9 Chronic obstructive pulmonary disease J44.9 COPD type: unspecified COPD Hypertension I10 Hypertension type: essential hypertension Abdominal aortic aneurysm I71.4 Presence of rupture: without rupture Acute kidney injury N17.9 Hypocalcemia E83.51
--- NOTE | 2021-11-07 16:49 | P.PN_ITS ---
Subjective Subjective: Interval history: Pain OK. Slow progress with therapy Vitals/I&O/Wt Last Vital Signs Temp 98.3 F 11/07/21 04:00 Pulse 69 11/07/21 15:27 Resp 18 11/07/21 15:27 BP 95/59 11/07/21 15:27 Pulse Ox 90 11/07/21 15:27 11/07/21 11/07/21 11/07/21 06:59 14:59 22:59 Intake Total 480 / 2220 360 / 360 Output Total 800 / 2425 900 / 900 Balance -320 / -205 -540 / -540 Physical Exam 2 Narrative: EXAM NARRATIVE: Left hp dressing with staining but dry Some swelling left thigh Data : 11/07/21 05:05 11/07/21 05:05 A&P Assessment and plan (1) Intertrochanteric fracture of left hip: Status: Acute (2) Postoperative state: Slow progress with therap. Likely will need SNF Status: Acute Attestations Medical Necessity Statement*: Will need SNF Coding Level of Care Code Acute Medical Imaging Technician for Teri Garay Diagnoses Intertrochanteric fracture of left hip S72.142A Postoperative state Z98.890
[2021-11-07 16:53] LABS: Glucose Point of Care 156 mg/dL (70-110)
[2021-11-07] MEDS: gabapentin 300 mg Capsule PO (20:40)
[2021-11-07] MEDS: atorvastatin 40 mg Tablet PO (20:40)
[2021-11-08] VITALS (17 sets, daily range): BP systolic 102–117; BP diastolic 57–70; PULSE 66–91; RESP 16–20; TEMP 36.7–37.3; O2SAT 90–94
[2021-11-08] MEDS: amlodipine 5 mg Tablet PO (05:45)
[2021-11-08] MEDS: calcium carbonate 500 mg Chew Tablet 1000 MG PO ×2 (05:45→17:22)
[2021-11-08] MEDS: aspirin 81 mg EC Tablet PO (05:45)
[2021-11-08] MEDS: finasteride 5 mg Tablet PO (05:45)
[2021-11-08 06:02] LABS: Basophils % 0.4 %; Eosinophils # 0.4 10^3/uL (0.0-0.8); Eosinophils % 5.6 %; Hematocrit 30.5 % (42.0-52.0); Hemoglobin 9.4 g/dL (11.7-16.6); Lymphocytes % 13.3 %; Mean Corpuscular HGB Conc 30.8 g/dL (30.0-36.0); Mean Corpuscular Hemoglobin 28.9 pg (28.0-34.0); Mean Corpuscular Volume 93.8 fl (80-94); Mean Platelet Volume 10.6 fL (7.4-10.4); Monocytes # 0.6 10^3/uL (0.2-0.9); Monocytes % 8.2 %; Neutrophils # 5.64 10^3/uL (1.8-7.7); Neutrophils % 72.1 %; Nucleated Red Blood Cells % 0 %; Platelet Count 160 10^3/cmm (130-400); Red Blood Count 3.25 10^6/uL (4.1-5.3); Red Cell Distribution Width 13.4 % (12.1-15.1); White Blood Count 7.8 10^3/uL (4.0-10.0)
[2021-11-08 06:14] LABS: Alanine Aminotransferase 6 U/L (0-41); Alkaline Phosphatase 117 IU/L (40-130); Anion Gap 17.4 (5-19); Aspartate Amino Transferase 15 U/L (0-40); Blood Urea Nitrogen 67 mg/dL (8-23); Calcium 8.4 mg/dL (8.5-10.5); Carbon Dioxide 21 mmol/L (22-29); Chloride 103 mmol/L (98-107); Globulin 2.7 g/dL (1.3-4.6); Glucose 121 mg/dL (65-115); Magnesium 2.2 mg/dL (1.7-2.3); Osmolality Calculated 305 mOsm/kg (285-295); Phosphorus 3.5 mg/dL (2.5-4.5); Potassium 4.4 mmol/L (3.5-5.1); Sodium 137 mmol/L (136-145); Total Bilirubin 0.5 mg/dL (0.15-1.2); Total Protein 5.7 g/dL (6.6-8.7)
[2021-11-08 06:41] LABS: Glucose Point of Care 135 mg/dL (70-110)
[2021-11-08] MEDS: ipratropium-albuterol 3 mL Neb INHALATION ×2 (07:44→15:02)
--- NOTE | 2021-11-08 08:07 | P.PN_ITS ---
Subjective Subjective: Interval history: Pain minimal Vitals/I&O/Wt Last Vital Signs Temp 98.4 F 11/08/21 07:38 Pulse 91 11/08/21 07:45 Resp 18 11/08/21 07:38 BP 113/63 11/08/21 07:38 Pulse Ox 94 11/08/21 07:38 11/07/21 11/08/21 11/08/21 22:59 06:59 14:59 Intake Total 240 / 600 Output Total 250 / 1150 1440 / 2590 Balance -250 / -790 -1200 / -1989 Physical Exam Narrative: EXAM NARRATIVE: Left hip dressings changed. Incisions dry. Data : 11/08/21 05:00 11/08/21 05:00 A&P Assessment and plan (1) Intertrochanteric fracture of left hip: Status: Acute (2) Postoperative state: Slow progress with therapy. Likely will need SNF. Status: Acute Attestations Medical Necessity Statement*: As per medicine Coding Level of Care Code Acute Account Contact Associate for Teri Garay Diagnoses Intertrochanteric fracture of left hip S72.142A Postoperative state Z98.890
[2021-11-08 08:19] LABS: Glucose Point of Care 129 mg/dL (70-110)
[2021-11-08] MEDS: docusate sodium 100 mg Capsule PO ×2 (08:19→17:22)
[2021-11-08] MEDS: cholecalciferol (vitamin D3) 1,000 unit Tablet 2000 UNIT PO ×2 (08:19→17:20)
[2021-11-08] MEDS: ropinirole 2 mg Tablet PO ×3 (08:19→20:31)
[2021-11-08] MEDS: metoprolol tartrate 50 mg Tablet 25 MG PO ×2 (08:19→17:22)
--- NOTE | 2021-11-08 10:17 | PC.CHAP ---
Pastoral Care Encounter/Spiritual Assessment Type of Contact [] Declined stockroom selector visit [] Patient/Family/Request visit [] Outpatient visit [] Follow-up visit [] Physician referral [] Code/Alert [x] Routine visit [] Staff referral [] Actively dying [] Patient sleeping [] Family support [] [] Out of room [] Palliative care [] [] Receiving care in room [] Pre-surgical visit [] Trauma [] Long length of stay [] ICU visit [] Other: Relational/Emotional Strength [] Patient feels connected with others/family/visitors/staff [] Distress [] Loneliness/isolation [] Abandonment Spirituality of Patient [x] Person of Liz [x] Attends Buddhism of their Liz [x] Believes in Prayer [] Reads Bible or Synagogue materials [] There are Spiritual issues to be addressed Assistant Infant Toddler Teacher Interventions [x] Prayer [x] Active listening [x] Non-anxious presence [x] Spiritual/emotional support [] Crisis/trauma care [] Spiritual counseling [] Bereavement support [] Provided bereavement packet [] Provided Bible/devotional materials [] Provided toy/stuffed animal, coloring book to patient or family member [] Provided Communion [] Anointing/[place] [] Salvation [x] Completed spiritual assessment [] Other: Impact on Illness or Injury [] Angry [] Fearful [] Anxious [] Often cries [] Exhaustion [] Unable to work [] Unable to attend islam [] Unable to walk/stand [] Unable to read [] Unable to drive [] Unable to eat/drink [] Unable to sleep [] Unable to be with family [] Patient intubated [] Other: Summary Pt sitting on edge of bed waiting on nurse to assist in getting back into bed. Assistant Infant Toddler Teacher made sure call light was on. Pt is from the [facility] but is scheduled to be released to a rehab center in [place]. Hoping the staff will be able to arrange for him to go to a facility closer to home so his will not have to travel so far. He has several children living out of state, but he says they do not speak to him. His also has children and they also live out of state so contact with family, other than , is limited. Pt said he is a person of liz but he has not been attending shinto recently due to Covid going around. Time spent with patient 10m
[2021-11-08] MEDS: enoxaparin 40 mg/0.4 mL Syringe SUBCUT (10:21)
[2021-11-08] MEDS: metOLazone 5 MG Tablet 2.5 MG PO (10:21)
[2021-11-08] MEDS: FUROsemide 10 mg/mL SDV 4mL 40 MG IVP ×2 (10:22→17:23)
[2021-11-08 11:17] LABS: Glucose Point of Care 221 mg/dL (70-110)
[2021-11-08] MEDS: oxyCODONE 5 mg IR Tab/Cap 10 MG PO (13:25)
[2021-11-08] MEDS: insulin lispro 100 unit/1 mL SUBCUT ×2 (13:26→17:23)
--- NOTE | 2021-11-08 15:51 | P.PN_ITS ---
Subjective Subjective: Interval history: Patient was seen this morning, sitting up to the side of bed, complains of increased weakness, he tells me that he needs increased help with ambulation, and is agreeable to go to a snf facility for short-term rehab, afebrile overnight, remains on 6 L Vitals/I&O/Wt Last Vital Signs Temp 98.1 F 11/08/21 10:50 Pulse 73 11/08/21 15:06 Resp 18 11/08/21 14:55 BP 117/64 11/08/21 10:50 Pulse Ox 91 11/08/21 14:55 11/08/21 11/08/21 11/08/21 06:59 14:59 22:59 Intake Total 240 / 600 480 / 480 Output Total 1440 / 2590 Balance -1200 / -1990 480 / 480 Physical Exam Const: COMMON NORMALS: no acute distress and patient oriented x3 Resp: COMMON NORMALS: normal respiratory effort, No retractions, No use of accessory muscles and clear to auscultation bilaterally AUSCULTATION: clear to auscultation bilaterally Cardio: COMMON NORMALS: regular rate, regular rhythm, S1 normal heart sound present and S2 normal heart sound present RATE: regular rate RHYTHM: regular rhythm HEART SOUNDS: S1 normal heart sound present and S2 normal heart sound present GI: COMMON NORMALS: Normal to inspection, nondistended, normoactive bowel migdalia nds present, Soft to palpation and non-tender PALPATION: Yes Soft to palpation Extremity: COMMON NORMALS: no pedal edema Neuro: COMMON NORMALS: patient oriented x3 Psych: COMMON NORMALS: mental status grossly normal Data : 11/08/21 05:00 11/08/21 05:00 A&P Assessment and plan (1) Acute pain of left hip: Status: Acute (2) Status post femoropopliteal bypass surgery: Status: Acute (3) Chronic kidney disease: Status: Acute Qualifiers: Chronic kidney disease stage: stage 3 (moderate) Chronic kidney disease stage 3 subtype: stage 3a (GFR 45-59) Qualified Code(s): N18.31 - Chronic kidney disease, stage 3a (4) Atherosclerotic heart disease of [place] coronary artery without angina pectoris: Status: Acute Qualifiers: [place] vs. transplanted heart: [place] heart Qualified Code(s): I25.10 - Atherosclerotic heart disease of [place] coronary artery without angina pectoris (5) Dyslipidemia (high LDL; low HDL): Status: Acute (6) Peripheral vascular disease: Status: Acute (7) Chronic obstructive pulmonary disease: Status: Acute Qualifiers: COPD type: unspecified COPD Qualified Code(s): J44.9 - Chronic obstructive pulmonary disease, unspecified (8) Hypertension: Status: Acute Qualifiers: Hypertension type: essential hypertension Qualified Code(s): I10 - Essential (primary) hypertension (9) Abdominal aortic aneurysm: Status: Acute Qualifiers: Presence of rupture: without rupture Qualified Code(s): I71.4 - Abdominal aortic aneurysm, without rupture (10) Acute kidney injury: Status: Acute (11) Hypocalcemia: Status: Acute Additional A&P Information Left hip fracture X-ray of the left hip shows Minimally displaced intertrochanteric fracture with fracture of the greater trochanter. The fracture line extends inferior to the greater trochanter and may involve the lesser trochanter as well. The acetabulum, superior pubic ramus, and inferior pubic ramus appear intact. -Status post open reduction internal fixation -PT OT -Pain control morphine -Orthopedic service on consult, -flu testing negative, COVID testing negative -Lovenox for DVT prophylaxis -Full code Hypoxia on chronic 6 L -Does have elevated BNP -COVID-negative, flu negative -Chest x-ray shows bilateral pulmonary opacities, concerning for fluid overload -Cardiac echo -1-Normal left ventricular cavity size. Normal left ventricular systolic function. No regional wall motion abnormalities. Left ventricular ejection fraction is estimated at 70 %. Grade I/IV diastolic dysfunction (abnormal relaxation filling pattern), normal to mildly elevated filling pressures. 2-There is no pericardial effusion. 3-No significant valve abnormalities. 4-Right atrial pressure is around 5 mm of mercury. 5-No significant change since the prior echocardiogram study of 07/04/2019 . -VQ scan negative for pulm emboli -Left lower extremity ultrasound negative for DVT -Creatinine 1.6, 2 doses today Type 2 diabetes mellitus, -Hold home Novolin, A1c 6.1 -Low-dose sliding scale -Continue Levemir 10 units twice daily Acute kidney injury on CKD -Gentle IV hydration Hypertension -Continue home medications Left calf swelling, ultrasound venous negative for DVT COPD,, does not use oxygen at home, continue to monitor closely History of femoropopliteal bypass, peripheral vascular disease CAD, status post CABG, stent status post history of stenting -Hold aspirin, Plavix Hypocalcemia -Calcium supplementation -Mag within normal limits, phosphorus within normal limits, vitamin D, PTH within normal limits Attestations Medical Necessity Statement*: Patient requires hospitalization for left hip fracture, fluid overload, diastolic CHF exacerbation, requiring hospitalization Coding Level of Care Code Acute Rn First Assistant for Jerialphonse Garay Diagnoses Acute pain of left hip M25.552 Status post femoropopliteal bypass surgery Z95.828 Chronic kidney disease N18.31 Chronic kidney disease stage: stage 3 (moderate) Chronic kidney disease stage 3 subtype: stage 3a (GFR 45-59) Atherosclerotic heart disease of [place] coronary artery without angina pectoris I25.10 [place] vs. transplanted heart: [place] heart Dyslipidemia (high LDL; low HDL) E78.5 Peripheral vascular disease I73.9 Chronic obstructive pulmonary disease J44.9 COPD type: unspecified COPD Hypertension I10 Hypertension type: essential hypertension Abdominal aortic aneurysm I71.4 Presence of rupture: without rupture Acute kidney injury N17.9 Hypocalcemia E83.51
--- NOTE | 2021-11-08 16:06 | PC.OT ---
OT TREATMENT ATTEMPTED. PATIENT STATES HE IS TOO TIRED AT THIS TIME AND REQUESTS THAT I RETURN IN THE MORNING.
[2021-11-08 17:02] LABS: Glucose Point of Care 213 mg/dL (70-110)
[2021-11-08] MEDS: atorvastatin 40 mg Tablet PO (20:31)
[2021-11-08] MEDS: gabapentin 300 mg Capsule PO (20:31)
[2021-11-08 20:59] LABS: Glucose Point of Care 144 mg/dL (70-110)
[2021-11-09] VITALS (16 sets, daily range): BP systolic 100–149; BP diastolic 52–77; PULSE 62–90; RESP 15–20; TEMP 36.4–37.1; O2SAT 90–97
[2021-11-09 03:06] LABS: Basophils % 0.4 %; Eosinophils # 0.4 10^3/uL (0.0-0.8); Eosinophils % 5.3 %; Hematocrit 28.1 % (42.0-52.0); Hemoglobin 8.9 g/dL (11.7-16.6); Lymphocytes # 1.1 10^3/uL (0.8-4.8); Lymphocytes % 15.4 %; Mean Corpuscular HGB Conc 31.7 g/dL (30.0-36.0); Mean Corpuscular Volume 91.5 fl (80-94); Mean Platelet Volume 10.6 fL (7.4-10.4); Monocytes # 0.6 10^3/uL (0.2-0.9); Monocytes % 8.2 %; Neutrophils # 5.02 10^3/uL (1.8-7.7); Neutrophils % 70.1 %; Nucleated Red Blood Cells % 0 %; Platelet Count 176 10^3/cmm (130-400); Red Blood Count 3.07 10^6/uL (4.1-5.3); Red Cell Distribution Width 13.6 % (12.1-15.1); White Blood Count 7.2 10^3/uL (4.0-10.0)
[2021-11-09 03:32] LABS: Alanine Aminotransferase 6 U/L (0-41); Albumin Level 2.9 g/dL (3.5-5.2); Alkaline Phosphatase 149 IU/L (40-130); Anion Gap 18.1 (5-19); Aspartate Amino Transferase 14 U/L (0-40); Blood Urea Nitrogen 76 mg/dL (8-23); Calcium 8.5 mg/dL (8.5-10.5); Carbon Dioxide 23 mmol/L (22-29); Chloride 100 mmol/L (98-107); Globulin 2.9 g/dL (1.3-4.6); Glucose 118 mg/dL (65-115); Magnesium 2.2 mg/dL (1.7-2.3); Osmolality Calculated 308 mOsm/kg (285-295); Phosphorus 4.4 mg/dL (2.5-4.5); Potassium 4.1 mmol/L (3.5-5.1); Sodium 137 mmol/L (136-145); Total Bilirubin 0.5 mg/dL (0.15-1.2); Total Protein 5.8 g/dL (6.6-8.7)
[2021-11-09] MEDS: aspirin 81 mg EC Tablet PO (05:40)
[2021-11-09] MEDS: finasteride 5 mg Tablet PO (05:40)
[2021-11-09] MEDS: oxyCODONE 5 mg IR Tab/Cap 10 MG PO ×3 (05:40→22:17)
[2021-11-09] MEDS: amlodipine 5 mg Tablet PO (05:41)
[2021-11-09] MEDS: calcium carbonate 500 mg Chew Tablet 1000 MG PO ×2 (05:45→17:24)
[2021-11-09 06:49] LABS: Glucose Point of Care 131 mg/dL (70-110)
[2021-11-09] MEDS: ropinirole 2 mg Tablet PO ×3 (07:44→22:06)
[2021-11-09] MEDS: docusate sodium 100 mg Capsule PO ×2 (07:44→17:24)
[2021-11-09] MEDS: metoprolol tartrate 50 mg Tablet 25 MG PO (07:44)
[2021-11-09] MEDS: cholecalciferol (vitamin D3) 1,000 unit Tablet 2000 UNIT PO ×2 (07:44→17:24)
[2021-11-09 09:52] LABS: Ferritin 172 ng/mL (30-400); Iron 21 ug/dL (59-158); Percent Saturation 10.8 % (20-50); Total Iron Binding Capacity 193 mcg/dl; Unsaturated Iron Binding 172 ug/dL (112-347)
--- NOTE | 2021-11-09 10:18 | PC.SOCIAL ---
IMM Updated Updated pt on IMM. No questions voiced. Provided pt a copy. Initialed, dated, & timed copy in chart.
[2021-11-09] MEDS: pantoprazole DR 40 mg Tablet PO ×2 (10:20→22:06)
[2021-11-09] MEDS: enoxaparin 40 mg/0.4 mL Syringe SUBCUT (10:20)
[2021-11-09] MEDS: sucralfate 1 gm Tablet PO ×3 (10:20→22:06)
[2021-11-09] MEDS: FUROsemide 10 mg/mL SDV 4mL 40 MG IVP (10:21)
[2021-11-09 11:46] LABS: Glucose Point of Care 246 mg/dL (70-110)
[2021-11-09] MEDS: insulin lispro 100 unit/1 mL SUBCUT ×2 (12:09→17:23)
[2021-11-09 12:26] LABS: Basophils % 0.5 %; Eosinophils # 0.3 10^3/uL (0.0-0.8); Eosinophils % 3.7 %; Hematocrit 30.8 % (42.0-52.0); Hemoglobin 9.6 g/dL (11.7-16.6); Lymphocytes # 0.8 10^3/uL (0.8-4.8); Lymphocytes % 10.8 %; Mean Corpuscular HGB Conc 31.2 g/dL (30.0-36.0); Mean Corpuscular Hemoglobin 28.7 pg (28.0-34.0); Mean Corpuscular Volume 92.2 fl (80-94); Mean Platelet Volume 10.3 fL (7.4-10.4); Monocytes # 0.6 10^3/uL (0.2-0.9); Monocytes % 7.5 %; Neutrophils # 5.75 10^3/uL (1.8-7.7); Neutrophils % 77.1 %; Nucleated Red Blood Cells % 0 %; Platelet Count 188 10^3/cmm (130-400); Red Blood Count 3.34 10^6/uL (4.1-5.3); Red Cell Distribution Width 13.3 % (12.1-15.1); White Blood Count 7.5 10^3/uL (4.0-10.0)
--- NOTE | 2021-11-09 14:07 | P.PN_ITS ---
Subjective Subjective: Interval history: Patient was seen this morning, he needs assistance to help to get to the commode, uses a walker, denies any nausea, any vomiting, no bloody or black stools reported Vitals/I&O/Wt Last Vital Signs Temp 98.1 F 11/09/21 12:00 Pulse 70 11/09/21 12:00 Resp 15 11/09/21 12:09 BP 131/66 11/09/21 12:00 Pulse Ox 93 11/09/21 12:00 11/08/21 11/09/21 11/09/21 22:59 06:59 14:59 Intake Total 240 / 720 880 / 880 Output Total 1450 / 1450 860 / 2310 600 / 600 Balance -1210 / -730 -860 / -1590 280 / 280 Physical Exam Narrative: EXAM NARRATIVE: Left hip, surgical site looks clean and dry, with surrounding superficial bruising Const: COMMON NORMALS: no acute distress and patient oriented x3 Resp: COMMON NORMALS: normal respiratory effort, No retractions, No use of accessory muscles and clear to auscultation bilaterally AUSCULTATION: clear to auscultation bilaterally Cardio: COMMON NORMALS: regular rate, regular rhythm, S1 normal heart sound present and S2 normal heart sound present RATE: regular rate RHYTHM: regular rhythm HEART SOUNDS: S1 normal heart sound present and S2 normal heart sound present GI: COMMON NORMALS: Normal to inspection, nondistended, normoactive bowel sounds present, Soft to palpation, non-tender and No hepatosplenomegaly present PALPATION: Yes Soft to palpation and Yes No hepatosplenomegaly present Extremity: COMMON NORMALS: no pedal edema Neuro: COMMON NORMALS: patient oriented x3 Psych: COMMON NORMALS: mental status grossly normal Data : 11/09/21 12:14 11/09/21 01:47 A&P Assessment and plan (1) Acute pain of left hip: Status: Acute (2) Status post femoropopliteal bypass surgery: Status: Acute (3) Chronic kidney disease: Status: Acute Qualifiers: Chronic kidney disease stage: stage 3 (moderate) Chronic kidney disease stage 3 subtype: stage 3a (GFR 45-59) Qualified Code(s): N18.31 - Chronic kidney disease, stage 3a (4) Atherosclerotic heart disease of [place] coronary artery without angina pectoris: Status: Acute Qualifiers: [place] vs. transplanted heart: [place] heart Qualified Code(s): I25.10 - Atherosclerotic heart disease of [place] coronary artery without angina pectoris (5) Dyslipidemia (high LDL; low HDL): Status: Acute (6) Peripheral vascular disease: Status: Acute (7) Chronic obstructive pulmonary disease: Status: Acute Qualifiers: COPD type: unspecified COPD Qualified Code(s): J44.9 - Chronic obstructive pulmonary disease, unspecified (8) Hypertension: Status: Acute Qualifiers: Hypertension type: essential hypertension Qualified Code(s): I10 - Essential (primary) hypertension (9) Abdominal aortic aneurysm: Status: Acute Qualifiers: Presence of rupture: without rupture Qualified Code(s): I71.4 - Abdominal aortic aneurysm, without rupture (10) Acute kidney injury: Status: Acute (11) Hypocalcemia: Status: Acute Additional A&P Information Left hip fracture X-ray of the left hip shows Minimally displaced intertrochanteric fracture with fracture of the greater trochanter. The fracture line extends inferior to the greater trochanter and may involve the lesser trochanter as well. The acetabulum, superior pubic ramus, and inferior pubic ramus appear intact. -Status post open reduction internal fixation -PT OT -Pain control morphine -Orthopedic service on consult, -flu testing negative, COVID testing negative -Lovenox for DVT prophylaxis -Full code Acute on chronic anemia -Evidence of iron deficiency anemia -Hemoccult stool pending -No complaints of bloody or black stools -No hemodynamic compromise -Continue Protonix, Carafate, monitor hemoglobin as he is on aspirin and Plavix Hypoxia on chronic 6 L -Does have elevated BNP, 1 dose of Lasix today, -800 cc -COVID-negative, flu negative -Chest x-ray shows bilateral pulmonary opacities, concerning for fluid overload -Cardiac echo -1-Normal left ventricular cavity size. Normal left ventricular systolic function. No regional wall motion abnormalities. Left ventricular ejection fraction is estimated at 70 %. Grade I/IV diastolic dysfunction (abnormal relaxation filling pattern), normal to mildly elevated filling pressures. 2-There is no pericardial effusion. 3-No significant valve abnormalities. 4-Right atrial pressure is around 5 mm of mercury. 5-No significant change since the prior echocardiogram study of 07/04/2019 . -VQ scan negative for pulm emboli -Left lower extremity ultrasound negative for DVT Type 2 diabetes mellitus, -Hold home Novolin, A1c 6.1 -Low-dose sliding scale -Continue Levemir 10 units twice daily Acute kidney injury on CKD -Gentle IV hydration Hypertension -Continue home medications Left calf swelling, ultrasound venous negative for DVT COPD,, does not use oxygen at home, continue to monitor closely History of femoropopliteal bypass, peripheral vascular disease CAD, status post CABG, stent status post history of stenting - aspirin, Plavix Hypocalcemia -Calcium supplementation -Mag within normal limits, phosphorus within normal limits, vitamin D, PTH within normal limits Attestations Medical Necessity Statement*: Patient requires hospitalization for left hip fracture, acute on chronic anemia, hypoxia, Coding Level of Care Code Acute Certification And Selection Specialist for g Fwd Diagnoses Acute pain of left hip M25.552 Status post femoropopliteal bypass surgery Z95.828 Chronic kidney disease N18.31 Chronic kidney disease stage: stage 3 (moderate) Chronic kidney disease stage 3 subtype: stage 3a (GFR 45-59) Atherosclerotic heart disease of [place] coronary artery without angina pectoris I25.10 [place] vs. transplanted heart: [place] heart Dyslipidemia (high LDL; low HDL) E78.5 Peripheral vascular disease I73.9 Chronic obstructive pulmonary disease J44.9 COPD type: unspecified COPD Hypertension I10 Hypertension type: essential hypertension Abdominal aortic aneurysm I71.4 Presence of rupture: without rupture Acute kidney injury N17.9 Hypocalcemia E83.51
[2021-11-09 21:32] LABS: Glucose Point of Care 187 mg/dL (70-110)
[2021-11-09 21:32] LABS: Glucose Point of Care 167 mg/dL (70-110)
[2021-11-09] MEDS: metoprolol tartrate 25 mg Tablet PO (22:05)
[2021-11-09] MEDS: atorvastatin 40 mg Tablet PO (22:05)
[2021-11-09] MEDS: gabapentin 300 mg Capsule PO (22:06)
[2021-11-10] VITALS: BP 132/66; PULSE 78; RESP 18; TEMP 36.7; O2SAT 90
[2021-11-10 03:17] VITALS: BP 126/62; PULSE 72; RESP 18; TEMP 36.7; O2SAT 91
[2021-11-10 05:44] LABS: Basophils % 0.7 %; Eosinophils # 0.3 10^3/uL (0.0-0.8); Eosinophils % 5.3 %; Hematocrit 28.1 % (42.0-52.0); Hemoglobin 8.8 g/dL (11.7-16.6); Lymphocytes # 1.1 10^3/uL (0.8-4.8); Lymphocytes % 19.2 %; Mean Corpuscular HGB Conc 31.3 g/dL (30.0-36.0); Mean Corpuscular Hemoglobin 28.6 pg (28.0-34.0); Mean Corpuscular Volume 91.2 fl (80-94); Mean Platelet Volume 10.5 fL (7.4-10.4); Monocytes # 0.7 10^3/uL (0.2-0.9); Monocytes % 11.5 %; Neutrophils # 3.64 10^3/uL (1.8-7.7); Neutrophils % 62.4 %; Nucleated Red Blood Cells % 0 %; Platelet Count 186 10^3/cmm (130-400); Red Blood Count 3.08 10^6/uL (4.1-5.3); Red Cell Distribution Width 13.2 % (12.1-15.1); White Blood Count 5.8 10^3/uL (4.0-10.0)
[2021-11-10 06:01] LABS: Alanine Aminotransferase 6 U/L (0-41); Alkaline Phosphatase 121 IU/L (40-130); Aspartate Amino Transferase 13 U/L (0-40); Blood Urea Nitrogen 75 mg/dL (8-23); Calcium 8.2 mg/dL (8.5-10.5); Carbon Dioxide 23 mmol/L (22-29); Chloride 100 mmol/L (98-107); Globulin 2.6 g/dL (1.3-4.6); Glucose 157 mg/dL (65-115); Magnesium 2.4 mg/dL (1.7-2.3); Osmolality Calculated 312 mOsm/kg (285-295); Phosphorus 3.7 mg/dL (2.5-4.5); Sodium 138 mmol/L (136-145); Total Bilirubin 0.5 mg/dL (0.15-1.2); Total Protein 5.6 g/dL (6.6-8.7)
[2021-11-10 06:28] LABS: Glucose Point of Care 165 mg/dL (70-110)
[2021-11-10] MEDS: finasteride 5 mg Tablet PO (06:44)
[2021-11-10 06:45] VITALS: RESP 18
[2021-11-10] MEDS: amlodipine 5 mg Tablet PO (06:45)
[2021-11-10] MEDS: sucralfate 1 gm Tablet PO ×2 (06:45→10:21)
[2021-11-10] MEDS: aspirin 81 mg EC Tablet PO (06:45)
[2021-11-10] MEDS: oxyCODONE 5 mg IR Tab/Cap 10 MG PO (06:45)
[2021-11-10] MEDS: calcium carbonate 500 mg Chew Tablet 1000 MG PO (06:45)
[2021-11-10 07:32] VITALS: PULSE 89; RESP 17; O2SAT 90
[2021-11-10] MEDS: ipratropium-albuterol 3 mL Neb INHALATION (07:32)
[2021-11-10 08:00] VITALS: BP 116/57; PULSE 83; RESP 15; TEMP 36.9; O2SAT 95
[2021-11-10] MEDS: docusate sodium 100 mg Capsule PO (08:02)
[2021-11-10] MEDS: metoprolol tartrate 25 mg Tablet PO (08:02)
[2021-11-10] MEDS: ropinirole 2 mg Tablet PO (08:02)
[2021-11-10] MEDS: cholecalciferol (vitamin D3) 1,000 unit Tablet 2000 UNIT PO (08:02)
[2021-11-10] MEDS: clopidogrel 75 mg Tablet PO (08:02)
[2021-11-10] MEDS: pantoprazole DR 40 mg Tablet PO (08:02)
[2021-11-10] MEDS: insulin lispro 100 unit/1 mL SUBCUT ×2 (08:03→12:35)
[2021-11-10] MEDS: FUROsemide 10 mg/mL SDV 4mL 40 MG IVP (08:03)
[2021-11-10] MEDS: metOLazone 5 MG Tablet 10 MG PO (08:05)
[2021-11-10] MEDS: enoxaparin 40 mg/0.4 mL Syringe SUBCUT (10:21)
--- NOTE | 2021-11-10 10:44 | P.DS_ITS ---
Discharge Providers Date of Admission: 11/04/21 13:27 Date of Discharge: November 10, 2021 Attending Provider at Admission: Marco Elder MD Attending Provider at Discharge: Marco Elder MD Primary Care Provider: Tish Henry MD Diagnoses at Discharge Discharge Diagnosis (1) Acute pain of left hip: Status: Acute (2) Status post femoropopliteal bypass surgery: Status: Acute (3) Chronic kidney disease: Status: Acute Qualifiers: Chronic kidney disease stage: stage 3 (moderate) Chronic kidney disease stage 3 subtype: stage 3a (GFR 45-59) Qualified Code(s): N18.31 - Chronic kidney disease, stage 3a (4) Atherosclerotic heart disease of [place] coronary artery without angina pectoris: Status: Acute Qualifiers: [place] vs. transplanted heart: [place] heart Qualified Code(s): I25.10 - Atherosclerotic heart disease of [place] coronary artery without angina pectoris (5) Dyslipidemia (high LDL; low HDL): Status: Acute (6) Peripheral vascular disease: Status: Acute (7) Chronic obstructive pulmonary disease: Status: Acute Qualifiers: COPD type: unspecified COPD Qualified Code(s): J44.9 - Chronic obstructive pulmonary disease, unspecified (8) Hypertension: Status: Acute Qualifiers: Hypertension type: essential hypertension Qualified Code(s): I10 - Essential (primary) hypertension (9) Abdominal aortic aneurysm: Status: Acute Qualifiers: Presence of rupture: without rupture Qualified Code(s): I71.4 - Abdominal aortic aneurysm, without rupture (10) Acute kidney injury: Status: Acute (11) Hypocalcemia: Status: Acute Reason for Visit Reason for Visit: PROBABLE HIP FRACTURE Hospital Course Hospital Course Musa Germain is a 76 year old male with a past medical history of hypertension, hyperlipidemia, insulin-dependent type 2 diabetes mellitus, CAD status post CABG x5, status post stenting x1, history of femoropopliteal bypass, peripheral vascular disease, abdominal aortic aneurysm, CKD, COPD who presents to [facility] for a [facility]. For patient's left hip fracture, status post open reduction internal fixation, tolerated surgical procedure well, received inpatient PT OT, decision was made to pursue halfway facility for rehab, discharged to halfway facility, aspirin and Plavix for DVT prophylaxis Patient developed hypoxia during his hospitalization, requiring up to 6 L, COVID was negative, flu was negative, cardiac echo no acute significant wall motion abnormalities, EF was 70%, grade 1 out of 4 diastolic dysfunction, VQ scan was negative for pulmonary emboli. Patient was diuresed over 2 L, oxygen requirements decreased to 4 L, discharged to halfway facility on 4 L with instructions to titrate oxygen requirements down. Patient developed acute on chronic anemia during hospitalization, with evidence of iron deficiency, as he takes aspirin and Plavix at home, discharged on Proton ix and Carafate, ferrous sulfate, with instructions to recheck hemoglobin in 48 hours. If he develops bloody or black stools go to the emergency room. Follow- up with general surgery in a month for consideration of EGD Physical Exam Const: COMMON NORMALS: no acute distress and patient oriented x3 Resp: COMMON NORMALS: normal respiratory effort, No retractions, No use of accessory muscles and clear to auscultation bilaterally AUSCULTATION: clear to auscultation bilaterally Cardio: COMMON NORMALS: regular rate, regular rhythm, S1 normal heart sound present and S2 normal heart sound present RATE: regular rate RHYTHM: regular rhythm HEART SOUNDS: S1 normal heart sound present and S2 normal heart sound present GI: COMMON NORMALS: Normal to inspection, nondistended, normoactive bowel sounds present, Soft to palpation and non-tender PALPATION: Yes Soft to palpation Extremity: COMMON NORMALS: no pedal edema Neuro: COMMON NORMALS: patient oriented x3 Psych: COMMON NORMALS: mental status grossly normal Discharge Data Data Completed and Pending: Completed Studies During Hospitalization Category Date Time Status CT head wo con* 7 0450 Urgent Cat Scan 11/04/21 12:36 Completed XR chest 1V robert ble [id number] Routine Exams 11/06/21 09:53 Completed XR chest 1V robert ble [id number] Urgent Exams 11/04/21 13:00 Completed XR hip LT 2-3V wo /w pel* [id number] Rout ine Exams 11/05/21 11:17 Completed XR hip LT 2-3V wo /w pel* [id number] Urge nt Exams 11/04/21 12:35 Completed NM pul vent and p erfus* [id number] Routi ne Nuc Med 11/07/21 09:07 [place] [id number] Urgent Ultrasound 11/05/21 18:45 Completed CV. echo complete * [id number] Routine Ultrasound 11/06/21 09:43 Completed Pending at discharge Category Date Time Status ABG FULL [Arteria l Blood Gas Full] Stat Lab 11/06/21 14:33 Results COVID OZH [Osborne virus PCR] Stat Lab 11/10/21 09:04 Immunochemical Fe melly OCB Routine Lab 11/09/21 09:23 Uncollected Labs from last 24 hours 11/10/21 11/10/21 11/10/21 10:15 06:14 04:10 WBC RBC Hgb Hct MCV MCH MCHC RDW Plt Count MPV Neut % (Auto) Lymph % (Auto) Forrest % (Auto) Eos % (Auto) Baso % (Auto) Neut # (Auto) Lymph # (Auto) Forrest # (Auto) Eos # (Auto) Baso # (Auto) Nucleated RBC % (a uto) Nucleated RBCs # Sodium 138 Potassium 4.0 Chloride 100 Carbon Dioxide 23 Anion Gap 19.0 BUN 75 H Creatinine 1.5 H GFR Calculation Not Reportable Glucose 157 H POC Glucose 165 H Calculated Osmolal ity 312 H Calcium 8.2 L Phosphorus 3.7 Magnesium 2.4 H Total Bilirubin 0.5 AST 13 ALT 6 Alkaline Phosphata se 121 Total Protein 5.6 L Albumin 3.0 L Globulin 2.6 Coronavirus 229E ( PCR) Pending SARS-CoV-2 (PCR) Pending 11/10/21 11/09/21 11/09/21 04:10 20:43 17:06 WBC 5.8 RBC 3.08 L Hgb 8.8 L Hct 28.1 L MCV 91.2 MCH 28.6 MCHC 31.3 RDW 13.2 Plt Count 186 MPV 10.5 H Neut % (Auto) 62.4 Lymph % (Auto) 19.2 Forrest % (Auto) 11.5 Eos % (Auto) 5.3 Baso % (Auto) 0.7 Neut # (Auto) 3.64 Lymph # (Auto) 1.1 Forrest # (Auto) 0.7 Eos # (Auto) 0.3 Baso # (Auto) 0.0 Nucleated RBC % (a uto) 0 Nucleated RBCs # 0.0 Sodium Potassium Chloride Carbon Dioxide Anion Gap BUN Creatinine GFR Calculation Glucose POC Glucose 187 H 167 H Calculated Osmolal ity Calcium Phosphorus Magnesium Total Bilirubin AST ALT Alkaline Phosphata se Total Protein Albumin Globulin Coronavirus 229E ( PCR) SARS-CoV-2 (PCR) 11/09/21 11/09/21 12:14 11:00 WBC 7.5 RBC 3.34 L Hgb 9.6 L Hct 30.8 L MCV 92.2 MCH 28.7 MCHC 31.2 RDW 13.3 Plt Count 188 MPV 10.3 Neut % (Auto) 77.1 Lymph % (Auto) 10.8 Forrest % (Auto) 7.5 Eos % (Auto) 3.7 Baso % (Auto) 0.5 Neut # (Auto) 5.75 Lymph # (Auto) 0.8 Forrest # (Auto) 0.6 Eos # (Auto) 0.3 Baso # (Auto) 0.0 Nucleated RBC % (a uto) 0 Nucleated RBCs # 0.0 Sodium Potassium Chloride Carbon Dioxide Anion Gap BUN Creatinine GFR Calculation Glucose POC Glucose 246 H Calculated Osmolal ity Calcium Phosphorus Magnesium Total Bilirubin AST ALT Alkaline Phosphata se Total Protein Albumin Globulin Coronavirus 229E ( PCR) SARS-CoV-2 (PCR) Vitals: Last Vital Signs Temp 98.4 F 11/10/21 08:00 Pulse 83 11/10/21 08:00 Resp 15 11/10/21 08:00 BP 116/57 11/10/21 08:00 Pulse Ox 95 11/10/21 08:00 Discharge Plan Discharge Patient Disposition: Xfer SNF Condition: Stable Prescriptions: New sucralfate [Carafate] 1 gram tablet 1 g PO BID 28 Days Qty: 56 RF: 0 pantoprazole [Protonix] 40 mg tablet,delayed release (DR/EC) 40 mg PO BID 30 Days Qty: 60 RF: 0 Continued amlodipine 5 mg tablet 5 mg PO QAM RF: 0 budesonide-formoterol 160-4.5 mcg/actuation HFA aerosol inhaler 2 puff INHALATION BID RF: 0 finasteride 5 mg tablet 5 mg PO QAM RF: 0 gabapentin 300 mg capsule 300 mg PO BEDTIME RF: 0 metoprolol tartrate 50 mg tablet 25 mg PO BID RF: 0 nitroglycerin 0.4 mg tablet, sublingual 0.4 mg SUBLINGUAL Q5M PRN (Reason: chest pain) RF: 0 pentoxifylline 400 mg tablet extended release 400 mg PO TID RF: 0 ropinirole 2 mg tablet 2 mg PO TID RF: 0 simvastatin 80 mg tablet 40 mg PO BEDTIME RF: 0 terazosin 1 mg capsule 3 mg PO BEDTIME RF: 0 tiotropium bromide 2.5 mcg/actuation mist 2 inh INHALATION QAM RF: 0 clopidogrel [Plavix] 75 mg tablet 75 mg PO QAM RF: 0 Hold Instructions: Resume on 11/29/19. furosemide 40 mg tablet 40 mg PO QAM RF: 0 Tylenol 325 mg Tablet 325 mg PO TID PRN (Reason: Pain) RF: 0 Aspir-81 81 mg Tablet,Delayed Release (Dr/Ec) 81 mg PO QAM RF: 0 Percocet 5-325 mg Tablet 1.5 tab PO TID PRN (Reason: Pain) RF: 0 trazodone 100 mg Tablet 50 mg PO BEDTIME PRN (Reason: Sleep) RF: 0 Vitamin D3 50 mcg (2,000 unit) Capsule 2,000 unit PO BID RF: 0 albuterol sulfate 90 mcg/actuation Hfa Aerosol Inhaler 2 puff INHALATION Q4H PRN (Reason: Shortness Of Breath) RF: 0 guaifenesin [Mucinex] 600 mg Tablet Extended Release 12hr See Rx Instructions .ROUTE .COMPLEX RF: 0 pioglitazone 15 mg Tablet 15 mg PO QAM RF: 0 Changed Novolin N NPH U-100 Insulin 100 unit/mL suspension See Rx Instructions SUBCUT BID Qty: 0 RF: 0 Discontinued meloxicam 7.5 mg tablet 7.5 mg PO BID RF: 0 lisinopril 40 mg tablet 40 mg PO QAM RF: 0 Discharge Orders: Discharge Order (Routine); Ordered 11/10/21 Ordered By: Marco Elder Referrals: Tish Henry MD [Primary Care Provider] - Tuan Sloan MD [Physician] - 1 month (anemia ) Sriram Smith MD [Physician] - 1 month Discharge Diet: Cardiac Discharge Activity: Resume usual activity Activity Restrictions/Additional Instructions: May weight-bear as tolerated left lower extremity Monitor creatinine, on Lasix Monitor hemoglobin Follow-up with general surgery for consideration of EGD due to anemia If he develops bloody or black stools go to emergency room Discharged on Novolin NPH 20 units every 12 hours, titrate upward based on blood sugars Discharge Attestations Time Spent in Discharge Care*: less than 30 min Status at Discharge: Cognitive status at discharge: cognitively intact , Quality Metrics Clinical Quality Measures During this hospital stay, did patient experience: None Coding Level of Care Code Acute Chg FW DC note Diagnoses Acute pain of left hip M25.552 Status post femoropopliteal bypass surgery Z95.828 Chronic kidney disease N18.31 Chronic kidney disease stage: stage 3 (moderate) Chronic kidney disease stage 3 subtype: stage 3a (GFR 45-59) Atherosclerotic heart disease of [place] coronary artery without angina pectoris I25.10 [place] vs. transplanted heart: [place] heart Dyslipidemia (high LDL; low HDL) E78.5 Peripheral vascular disease I73.9 Chronic obstructive pulmonary disease J44.9 COPD type: unspecified COPD Hypertension I10 Hypertension type: essential hypertension Abdominal aortic aneurysm I71.4 Presence of rupture: without rupture Acute kidney injury N17.9 Hypocalcemia E83.51
[2021-11-10 11:32] VITALS: BP 103/52; PULSE 74; RESP 18; TEMP 36.9; O2SAT 93
[2021-11-10 12:24] LABS: Adenovirus Not Detected (NOT DETECT); Chlamydia Pneumoniae Not Detected (NOT DETECT); Coronavirus 229E,HKU1,NL63,OC4 Not Detected (NOT DETECT); Human Metapneumovirus Not Detected (NOT DETECT); Human Rhinovirus/Enterovirus Not Detected (NOT DETECT); Influenza A Not Detected (NOT DETECT); Influenza A H1 Not Detected (NOT DETECT); Influenza A H1-2009 Not Detected (NOT DETECT); Influenza A H3 Not Detected (NOT DETECT); Influenza B Not Detected (NOT DETECT); Mycoplasma Pneumoniae Not Detected (NOT DETECT); Parainfluenza Virus Type 1 Not Detected (NOT DETECT); Parainfluenza Virus Type 2 Not Detected (NOT DETECT); Parainfluenza Virus Type 3 Not Detected (NOT DETECT); Parainfluenza Virus Type 4 Not Detected (NOT DETECT); Respiratory Syncytial Virus A Not Detected (NOT DETECT); Respiratory Syncytial Virus B Not Detected (NOT DETECT); SARS-COV-2 Not Detected (NOT DETECT)
[2021-11-10 12:30] LABS: Glucose Point of Care 204 mg/dL (70-110)
--- NOTE | 2021-11-10 14:17 | PC.NURSE ---
Report given to Bekah at [facility].
== END 2021-11-10 14:32 | disposition skilled nursing facility (03) | DRG 481 ==
LOC: ER 13:19 → MEDSURG 21:11
PROVIDERS: Orthopaedic Surgery; Admitting Provider Family Medicine; Emergency Provider Emergency Medicine; PCP Family Medicine; Visit Provider Family Medicine
PROC: 0QS706Z Reposition Left Upper Femur with Intramedullary Internal Fixation Device, Open Approach (ICD-10-PCS; CPT 27245; principal; 2021-11-05 10:00)
DX: S72.142A Displaced intertrochanteric fracture of left femur, initial encounter for closed fracture (principal); N17.9 Acute kidney failure, unspecified; W18.30XA Fall on same level, unspecified, initial encounter; Z79.4 Long term (current) use of insulin; Z79.02 Long term (current) use of antithrombotics/antiplatelets; J44.9 Chronic obstructive pulmonary disease, unspecified; G25.81 Restless legs syndrome; G47.30 Sleep apnea, unspecified; I25.10 Atherosclerotic heart disease of native coronary artery without angina pectoris; R09.02 Hypoxemia; E83.51 Hypocalcemia; Z95.828 Presence of other vascular implants and grafts; N18.31 Chronic kidney disease, stage 3a; E78.5 Hyperlipidemia, unspecified; I71.4 Abdominal aortic aneurysm, without rupture; Z95.1 Presence of aortocoronary bypass graft; D50.9 Iron deficiency anemia, unspecified; Z79.82 Long term (current) use of aspirin; I12.9 Hypertensive chronic kidney disease with stage 1 through stage 4 chronic kidney disease, or unspecified chronic kidney disease; E11.22 Type 2 diabetes mellitus with diabetic chronic kidney disease; E11.51 Type 2 diabetes mellitus with diabetic peripheral angiopathy without gangrene
CPT/HCPCS: 36415; 36416; 70450; 71045; 73502; 76000; 78014; 80048; 80051; 80053; 80061; 81003; 82306; 82310; 82330; 82550; 82728; 82805; 82962; 83036; 83540; 83550; 83735; 83880; 83970; 84100; 85025; 85610; 85730; 87635; 87804; 93005; 93306; 93971; 94640; 94664; 96365; 96372; 96375; 97116; 97161; 97166; 97530; 97535; 99285; A9540; A9567; C1713; J0690; J1100; J1170; J1650; J1815; J1940; J2060; J2270; J2405; J2704; J2710; J2765; J3010; J3475; J3490; J7030

== ENCOUNTER → 2021-12-13 10:56 | Outpatient (BNVA) | payer OTHER, SELFPAY | PROVIDERS: PCP Family Medicine; Visit Provider Orthopaedic Surgery | DX: Z98.890 Other specified postprocedural states (principal) | CPT/HCPCS: 73502 ==

== ENCOUNTER → 2022-02-07 14:01 | Outpatient (BNVA) | payer OTHER, SELFPAY | PROVIDERS: PCP Family Medicine; Visit Provider Internal Medicine Cardiovascular Disease | DX: I25.10 Atherosclerotic heart disease of native coronary artery without angina pectoris (principal); E78.5 Hyperlipidemia, unspecified; I73.9 Peripheral vascular disease, unspecified; J44.9 Chronic obstructive pulmonary disease, unspecified; I13.0 Hypertensive heart and chronic kidney disease with heart failure and stage 1 through stage 4 chronic kidney disease, or unspecified chronic kidney disease; N18.31 Chronic kidney disease, stage 3a; I50.30 Unspecified diastolic (congestive) heart failure; Z87.891 Personal history of nicotine dependence; Z79.82 Long term (current) use of aspirin; I71.4 Abdominal aortic aneurysm, without rupture | CPT/HCPCS: 99214 ==

== ENCOUNTER → 2022-02-09 11:10 | Outpatient (BNVA) | payer OTHER, SELFPAY | PROVIDERS: PCP Family Medicine; Visit Provider Internal Medicine Cardiovascular Disease | DX: N18.31 Chronic kidney disease, stage 3a (principal); I25.10 Atherosclerotic heart disease of native coronary artery without angina pectoris; I50.30 Unspecified diastolic (congestive) heart failure; J44.9 Chronic obstructive pulmonary disease, unspecified; N18.9 Chronic kidney disease, unspecified | CPT/HCPCS: 80048; 83880 ==

== ENCOUNTER 2022-02-23 09:56 | Outpatient (CLI) | payer OTHER, SELFPAY ==
--- NOTE | 2022-02-23 10:30 | CT_ITS ---
WS: [id number] CTA ABDOMEN PELVIS TECHNIQUE: Contrast enhanced CTA of the abdominal aorta and pelvis with coronal and sagittal reformat ilda images and additional MIP Images. CLINICAL INFORMATION: FOllow up COMPARISON: CT October 09, 2019 DLP: 1181.[address] scans at [facility] use at least one of these dose optimization techniques: automated e xposure control; mA and/or kV adjustment per patient size (includes targeted exams where dose is matc hed to clinical indication); or iterative reconstruction. FINDINGS: Slight patchy infiltrates or atelectasis in the RIGHT middle lobe partially visualized. Sli ght bibasilar atelectasis. Infrarenal abdominal aortic aneurysm with peripheral mural thrombus is not significantly changed compared to 2019. Today this measures 4.2 x 4.1 x 7.3 cm AP by transverse by c raniocaudal. Proximal common iliac arteries are normal. Moderate or calcification. Celiac and SMA origins are patent. Dense calcification at the celiac origin with mild stenosis. Mild stenosis renal artery ostia which are patent. Bilateral renal cortical atrophy. No hydronephrosis in either kidney. Normal liver.Cholecystectomy. Normal spleen. Fatty atrophy of the pancreas. Normal GE junction. Splen ic artery calcification. Adrenal glands are normal. Normal sigmoid colon. Umbilical hernia containing a small amount of fluid. Small bowel abuts this are a. No evidence of bowel obstruction. No free fluid in the pelvis. Prior postoperative changes screw f ixation LEFT hip. Prior fracture deformity LEFT pubic ramus and pubic symphysis. L5-S1 spondylolysis. No significant anterolisthesis. CT/CT angio abdomen pelvis [id number] IMPRESSION: 1. Stable infrarenal abdominal aortic aneurysm measuring 4.2 x 4.1 x 7.3 cm AP by transverse by craniocaudal. Proximal common iliac arteries are normal. 2. Slight patchy infiltrates or atelectasis in RIGHT middle lobe. 3. No other significant changes compared to previous.
[2022-02-23] MEDS: iodixanol 320 mg/mL 100mL Btl IV (10:44)
== END 2022-02-23 09:57 | disposition home or self-care (01) ==
LOC: RAD 09:58
PROVIDERS: PCP Family Medicine; Visit Provider Internal Medicine Cardiovascular Disease
DX: I71.4 Abdominal aortic aneurysm, without rupture (principal)
CPT/HCPCS: 74174

== ENCOUNTER 2022-03-30 10:21 | Emergency (ER) | payer OTHER, SELFPAY ==
[2022-03-30 10:48] VITALS: BP 103/84; PULSE 57; RESP 18; O2SAT 97; BMI 31.1
--- NOTE | 2022-03-30 10:54 | USCV_ITS ---
Musa Germain Age: 76 Gender: M : 1945 Exam Date: 03/30/2022 11:06 Ordering Phys: Christy Del Toro MD Technologist: Marco Rivera Exam Location: [facility] Indication: eval for possible blood clot HISTORY: Broke leg in october 2021. Had fem/pop bypass done July 2021. PROCEDURES: Venous duplex imaging was performed in only the left lower extremity. The following venous structures were evaluated: common femoral vein, profunda vein, proximal portion of the greater saphenous vein, superficial femoral vein, and the popliteal vein. In addition, the posterior tibial and peroneal trunk were evaluated. Serial compression, augmentation maneuvers, and spectral Doppler flow evaluation were performed. There is a pocket of fluid med to the left pop .94x.80x2.09cm. There is no blood flow to this area. Patient had a left fem/pop bypass done July 2021. In the area of the incision located medial to left knee there is a track from incision site to the graft. There does not appear to be flow within the track. There graft is demonstrated with flow. The [place] artery is also noted. CONCLUSIONS No evidence of left lower extremity DVT. Simple fluid collection in the area of fem/pop bypass graft incision medial left knee measuring 0.9 x 0.8 x 2.0cm likely incidental postoperative seroma. Vic Stout MD (Electronically Signed) Final Date: 30 March 2022 12:48 S
--- NOTE | 2022-03-30 10:59 | ED_ITS ---
HPI - General Adult General: Chief complaint: Extremity Injury, Lower Stated complaint: Swelling Time Seen by Provider: 03/30/22 10:53 History of Present Illness: This is a 76yo patient w/ hx of with history abdominal aortic aneurysm, hypertension, peripheral vascular disease presenting to the emergency with complaints of left leg swelling x3 days. Patient has moderate pain. Has any recent surgery immobilization. Patient has shortness of breath at baseline but does not report any increase in shortness of breath. Onset:3 days ago Duration:3 days Location:home Severity:moderate Associated symptoms: Deny chest pain, dyspnea, nausea, rash, palpitations or vomiting Review of Systems Const: Denies: fever(s) or chills Eyes: Denies: change in vision ENMT: Denies: mouth pain Card: Denies: chest pain or palpitations Resp: Denies: dyspnea or non-productive cough GI: Denies: abdominal pain, nausea, vomiting or diarrhea : Denies: dysuria Musc: Reports: extremity pain (+L leg swelling and pain) Skin/Breast: Denies: rash or new lesions Neuro: Denies: weakness in extremities Psych: Reports: other (Normal mood) Fede/Lymph: Denies: easy bruising PFSH ED PFSH: Medical History Abdominal aortic aneurysm Chronic obstructive pulmonary disease Hypertension Low back pain Peripheral vascular disease Restless legs syndrome Sleep apnea Surgical History History of appendectomy History of coronary artery stent placement History of open reduction and internal fixation (ORIF) procedure left hip History of umbilical hernia repair 11/26/2019 Hx of CABG Hx of cholecystectomy Status post colonoscopy 11/25/2019: 3 mm sessile polyps x3 removed from the ascending colon, follow-up colonoscopy 2024 Status post femoropopliteal bypass surgery Family History Other Family history non-contributory Denies family history of Clotting disorder Anesthesia complication Bleeding disorder Social History Smoking and tobacco status: former smoker Alcohol intake: former Physical Exam Const: COMMON NORMALS: alert HENMT: COMMON NORMALS: atraumatic HEAD & SCALP: atraumatic MOUTH: moist mucous membranes not abnormal Eye: COMMON NORMALS: EOMs intact bilaterally and conjunctivae normal CONJUNCTIVA: Yes conjunctivae normal Neck/C-Spine: COMMON NORMALS: full ROM and supple Resp: COMMON NORMALS: normal respiratory effort and clear to auscultation bilaterally AUSCULTATION: clear to auscultation bilaterally Cardio: COMMON NORMALS: regular rate RATE: regular rate GI: COMMON NORMALS: Soft to palpation and non-tender PALPATION: Yes Soft to palpation Extremity: COMMON NORMALS: full ROM NARRATIVE EXTREMITY EXAM: 1+ edema in the LLE, no Homans' sign, 2+ DP/PT pulses on the affected extremity Neuro: SENSORIUM/ORIENTATION: Yes alert MOTOR EXAM: No Abnormal motor s trength present and Other motor observations present (no focal motor deficits) Psych: COMMON NORMALS: speech normal SPEECH: Yes normal speech MOOD & AFFECT: Yes euthymic mood Course Vital Signs: Vital signs: Vital Signs Pulse Rate 57 L 03/30/22 10:48 Respiratory Rate 18 03/30/22 10:48 Blood Pressure 103/84 03/30/22 10:48 Pulse Oximetry 97 03/30/22 10:48 [facility] - General Adult Medical Decision Making 76-year-old male with history abdominal aortic aneurysm, hypertension, peripheral vascular disease presenting to the emergency room for evaluation of left leg swelling for 3 days. Patient on exam has 1+ lower extremity in the right lower extremity. No Homans' sign. 2+ DP/PT pulses on the L extremity. US duplex veinous did not show any signs of DVT. Do not suspect any acute fracture on acute necrotizing soft tissue infection. Do not suspect any arterial occlusion. Incidental findings of postoperative seroma discussed extensively with patient. Patient received a copy of the US report with the documented findings. Patient is instructed to follow up urgently with specialists. He is instructed to follow-up in 1 week for repeat US to ensure definitely no ultrasound per guideline. Disposition: Discharge. Patient counseled regarding diagnostic impression, treatment plan. Patient given ED strict return precautions to return for continuation, worsening, or development of new symptoms. Instructed to f/u w/ PCP regarding symptoms today. Patient verbalized understanding. Imaging Data Other Imaging: Radiologist's impression: [address] [address] Ultrasound Report Signed Patient: Musa Germain Unit #: [id number] : 1945 Age/Sex: 76 / M ADM Date: 03/30/22 Loc: ER Room/Bed: Attending Dr: Ordering Provider/Ordering MD: Christy Del Toro MD Date of Service: 03/30/22 Procedure(s): [place] [address] Accession Number(s): [id number] Report Number: [id number] ?Musa Germain ?Age:? ? 76 ? ? Gender: ? ? M ?:? ? 1945 ?Exam Date: ? ? 03/30/2022 11:06 ?Ordering Phys: ? ? Christy Del Toro? ?Technologist:? ? ? Marco Rivera ?[place]? ? ? [facility] [place]:? ? [id number] ?Account Number: ? ? ? [id number] ?Indication:? ? ? eval for possible blood clot ?HISTORY: ?Broke leg in october 2021. Had fem/pop bypass done July 2021. ?PROCEDURES: ?Venous duplex imaging was performed in only the left lower ?extremity. ?The following venous structures were evaluated: common femoral ?vein, profunda vein, proximal portion of the greater saphenous ?vein, superficial femoral vein, and the popliteal vein. ?In addition, the posterior tibial and peroneal trunk were ?evaluated. ?Serial compression, augmentation maneuvers, and spectral Doppler ?flow evaluation were performed. ?There is a pocket of fluid med to the left pop .94x.80x2.09cm. ?There is no blood flow to this area. ?Patient had a left fem/pop bypass done July 2021. In the area ?of the incision located medial to left knee there is a track ?from incision site to the graft. There does not appear to be ?flow within the track. There graft is demonstrated with flow. ?The nightmute artery is also noted. ?CONCLUSIONS ?No evidence of left lower extremity DVT. ?Simple fluid collection in the area of fem/pop bypass graft ?incision medial left knee measuring? 0.9 x 0.8 x 2.0cm likely ?incidental postoperative seroma. ?Vic Stout MD ?(Electronically Signed) ?Final Date:? ? ? 30 March 2022 ? 12:48 S Discharge Plan Discharge Patient Disposition: Home Clinical Impression: Leg swelling Condition: Stable Prescriptions: No Action amlodipine 5 mg tablet 5 mg PO QAM 0RF budesonide-formoterol 160-4.5 mcg/actuation HFA aerosol inhaler 2 puff INHALATION BID 0RF finasteride 5 mg tablet 5 mg PO QAM 0RF gabapentin 300 mg capsule 300 mg PO BEDTIME 0RF metoprolol tartrate 50 mg tablet 25 mg PO BID 0RF nitroglycerin 0.4 mg tablet, sublingual 0.4 mg SUBLINGUAL Q5M PRN (Reason: chest pain) 0RF Rx Instructions: Dissolve one tablet under the tongue one time as needed for check pain if no improvement after first dose call 911 may take 2 additional doses after 5 minutes apart. pentoxifylline 400 mg tablet extended release 400 mg PO TID 0RF ropinirole 2 mg tablet 2 mg PO TID 0RF simvastatin 80 mg tablet 40 mg PO BEDTIME 0RF terazosin 1 mg capsule 3 mg PO BEDTIME 0RF tiotropium bromide 2.5 mcg/actuation mist 2 inh INHALATION QAM 0RF clopidogrel [Plavix] 75 mg tablet 75 mg PO QAM 0RF Hold Instructions: Resume on 11/29/19. furosemide 40 mg tablet 40 mg PO QAM 0RF Tylenol 325 mg Tablet 325 mg PO TID PRN (Reason: Pain) 0RF aspirin 81 mg Tablet,Delayed Release (Dr/Ec) 81 mg PO QAM 0RF Percocet 5-325 mg Tablet 1.5 tab PO TID PRN (Reason: Pain) 0RF trazodone 100 mg Tablet 50 mg PO BEDTIME PRN (Reason: Sleep) 0RF Vitamin D3 50 mcg (2,000 unit) Capsule 2,000 unit PO BID 0RF Novolin N NPH U-100 Insulin 100 unit/mL suspension See Rx Instructions SUBCUT BID Qty: 0 0RF Rx Instructions: 20 units before am meal and 20 units before pm meal albuterol sulfate 90 mcg/actuation Hfa Aerosol Inhaler 2 puff INHALATION Q4H PRN (Reason: Shortness Of Breath) 0RF guaifenesin [Mucinex] 600 mg Tablet Extended Release 12hr See Rx Instructions .ROUTE .COMPLEX 0RF Rx Instructions: 600 mg orally qam and 1200mg po bedtime pioglitazone 15 mg Tablet 15 mg PO QAM 0RF Discharge Orders: Discharge ED (Routine); Ordered 03/30/22 Ordered By: Christy Del Toro Referrals: Tish Henry MD [Primary Care Provider] - Discharge Diet: Advance as tolerated Discharge Activity: Increase activity as tolerated Patient Instructions: Leg Edema (ED) Activity Restrictions/Additional Instructions: Come back if you have any new or concerning issues. Please repeat US in 1 week to ensure you do not have a blood clot. Here's a copy of your US report: [address] [address] Ultrasound Report Signed Patient: Musa Germain Unit #: [id number] : 1945 Age/Sex: 76 / M ADM Date: 03/30/22 Loc: ER Room/Bed: Attending Dr: Ordering Provider/Ordering MD: Christy Del Toro MD Date of Service: 03/30/22 Procedure(s): [place] [id number] Accession Number(s): [id number] Report Number: [id number] ?Musa Germain ?Age:? ? 76 ? ? Gender: ? ? M ?:? ? 1945 ?Exam Date: ? ? 03/30/2022 11:06 ?Ordering Phys: ? ? Christy Del Toro? ?Technologist:? ? ? Marco Rivera ?Exam Location:? ? ? [facility] [place]N:? ? [id number] ?Account Number: ? ? ? [id number] ?Indication:? ? ? eval for possible blood clot ?HISTORY: ?Broke leg in october 2021. Had fem/pop bypass done July 2021. ?PROCEDURES: ?Venous duplex imaging was performed in only the left lower ?extremity. ?The following venous structures were evaluated: common femoral ?vein, profunda vein, proximal portion of the greater saphenous ?vein, superficial femoral vein, and the popliteal vein. ?In addition, the posterior tibial and peroneal trunk were ?evaluated. ?Serial compression, augmentation maneuvers, and spectral Doppler ?flow evaluation were performed. ?There is a pocket of fluid med to the left pop .94x.80x2.09cm. ?There is no blood flow to this area. ?Patient had a left fem/pop bypass done July 2021. In the area ?of the incision located medial to left knee there is a track ?from incision site to the graft. There does not appear to be ?flow within the track. There graft is demonstrated with flow. ?The nightmute artery is also noted. ?CONCLUSIONS ?No evidence of left lower extremity DVT. ?Simple fluid collection in the area of fem/pop bypass graft ?incision medial left knee measuring? 0.9 x 0.8 x 2.0cm likely ?incidental postoperative seroma. ?Vic Stout MD ?(Electronically Signed) ?Final Date:? ? ? 30 March 2022 ? 12:48 S Coding Level of Care Code ED Chain Machine Operator for Chg Fwd Exam Comprehensive
[2022-03-30 13:29] VITALS: BP 129/60; PULSE 57; RESP 17; O2SAT 95
== END 2022-03-30 13:28 | disposition home or self-care (01) ==
PROVIDERS: Emergency Provider Emergency Medicine; PCP Family Medicine
DX: M79.89 Other specified soft tissue disorders (principal); M79.605 Pain in left leg; I73.9 Peripheral vascular disease, unspecified; I10 Essential (primary) hypertension; G25.81 Restless legs syndrome; Z86.79 Personal history of other diseases of the circulatory system; Z87.891 Personal history of nicotine dependence; Z79.82 Long term (current) use of aspirin; Z79.02 Long term (current) use of antithrombotics/antiplatelets
CPT/HCPCS: 93971; 99283

== ENCOUNTER 2022-04-05 07:22 | Outpatient (CLI) | payer OTHER, SELFPAY ==
[2022-04-05 08:47] VITALS: BMI 30.9
--- NOTE | 2022-04-05 08:51 | NMCV_ITS ---
NM keena perf SPECT r/s* [id number] Musa Germain Age: 76 Gender: M : 1945 Exam Date: 04/05/2022 08:51 Ordering Phys: Roshan Medley MD ([email or web address]) Technologist: CLEMENTINE Stafford Exam Location: [facility] Indications: SHORTNESS OF BREATH, DIASTOLIC CHF STRESS TEST Please see separate stress test report in [facility] for full findings IMAGE PROTOCOL Rest/Stress 1 Lexiscan Day Radiopharmaceutical Dose (mCi) Administration Site Administered by Rest: Tc-99m 10.7 IV CLEMENTINE Hussein Sestamibi Stress:Tc-99m 32.5 IV CLEMENTINE Stafford Sestamijuno Rest: 05-Apr-2022 60 Discovery 630 Stress: 05-Apr-2022 30 Discovery 630 0.4mg Lexiscan. Images obtained in supine and prone position. SPECT RESULTS Technical Quality: Excellent Raw Data Analysis: Normal Image Corrections: No attenuation or motion correction applied Summed Stress Score: 14 Summed Rest Score: 9 Summed Difference Score: 5 PERFUSION FINDINGS Moderate to large area of decreased tracer uptake in the basal and mid anterolateral, inferolateral, apical lateral regions. Complete reversibility was noted in the anterolateral region. Small area of slightly decreased uptake was noted in the mid inferior region with no significant reversibility. FUNCTIONAL RESULTS (calculated via Gated SPECT) Stress Image LV EF (%): 75 Stress EDV (mL):84 TID: 0.77 Stress ESV (mL):21 FUNCTIONAL FINDINGS: Segmental wall motion analysis revealed diffuse hypokinesia of the septum. IMPRESSIONS 1. Myocardial perfusion imaging revealing moderate to large area of decreased tracer uptake in the anterolateral, inferolateral, apical lateral and mid inferior regions with significant reversibility in the anterolateral and basal inferolateral regions suggesting myocardial scarring with a significant ischemia in the distribution of the left circumflex artery. 2. Normal LV ejection fraction 75%. 3. LV wall motion analysis revealing diffuse hypokinesia of the septum. 4. Normal LV volume. Compared to the study from 07/04/2019, there may not be a significant change Dr Roshan Medley MD FAC (Electronically Signed) Final Date: 05 April 2022 23:45 S
--- NOTE | 2022-04-05 08:51 | ECG_ITS ---
[facility] Test Date: 2022-04-05 Pat Name: Musa Germain Department: Room: Gender: Male Surgical Aide: Laxmi Wang : 1945 Requested By: Roshan Medley Order Number: [id number] Elvia MD: Roshan Medley M.D. Interpretive Statements NAME OF STUDY: LEXISCAN SESTAMIBI STRESS TEST INDICATION: ashd, PROCEDURE: At the baseline, the EKG revealed normal sinus rhythm with normal ST Ts. The baseline blood pressure was 141/68 mm Hg with a heart rate of 71 beats/min. Lexiscan was infused over a period of 20 seconds. A total of 0.4 milligrams of Lexiscan was infused. The stress phase was continued for a total of 5 minutes. Heart rate at the end of the stress phase was 79 with a blood pressure 127/52. The EKG at the peak infusion revealed no significant changes occasional supraventricular ectopics were noted during the recovery phase. Sestamibi was injected 20 seconds after the Lexiscan infusion. Blood pressure at the end of the recovery phase was 129/50 with a heart rate of 80/min CONCLUSION: 1. No significant EKG changes with the LexiScan infusion 2. No LexiScan induced chest pain or cardiac arrhythmia 3. Normal blood pressure and heart rate response 4. Sestamibi/sestamibi perfusion scan pending; see separate report. Electronically Signed On 04-07-2022 7:04:14 CDT by Roshan Medley M.D. [email or web address]
[2022-04-05] MEDS: regadenoson 0.4 Mg/5 ml Syringe IVP (09:45)
[2022-04-05 09:58] VITALS: BP 129/50; PULSE 78
== END 2022-04-05 07:23 | disposition home or self-care (01) ==
LOC: CDL 07:23
PROVIDERS: PCP Family Medicine; Visit Provider Internal Medicine Cardiovascular Disease
DX: I50.30 Unspecified diastolic (congestive) heart failure (principal); R06.02 Shortness of breath
CPT/HCPCS: 78452; 93017; A9500; J2785

== ENCOUNTER → 2022-04-12 10:17 | Outpatient (BNVA) | payer OTHER, SELFPAY | PROVIDERS: PCP Family Medicine; Visit Provider Internal Medicine Cardiovascular Disease | DX: I25.10 Atherosclerotic heart disease of native coronary artery without angina pectoris (principal); I13.0 Hypertensive heart and chronic kidney disease with heart failure and stage 1 through stage 4 chronic kidney disease, or unspecified chronic kidney disease; N18.31 Chronic kidney disease, stage 3a; I50.30 Unspecified diastolic (congestive) heart failure; Z87.891 Personal history of nicotine dependence; E78.5 Hyperlipidemia, unspecified; I71.4 Abdominal aortic aneurysm, without rupture; I73.9 Peripheral vascular disease, unspecified; J44.9 Chronic obstructive pulmonary disease, unspecified; R94.39 Abnormal result of other cardiovascular function study | CPT/HCPCS: 80048; 83880; 85025; 85610; 86850; 86900; 99214 ==

== ENCOUNTER 2022-04-17 05:58 | Outpatient (CLI) | payer OTHER, SELFPAY ==
[2022-04-17] VITALS (40 sets, daily range): BP systolic 95–151; BP diastolic 49–79; PULSE 45–70; RESP 11–25; TEMP 36.5–36.8; O2SAT 91–98; BMI 31.7
[2022-04-17] MEDS: diphenhydrAMINE 50 mg Capsule PO (06:20)
[2022-04-17 06:50] LABS: Anion Gap 15.4 (5-19); Blood Urea Nitrogen 51 mg/dL (8-23); Carbon Dioxide 20 mmol/L (22-29); Chloride 111 mmol/L (98-107); Glucose 99 mg/dL (65-115); Osmolality Calculated 308 mOsm/kg (285-295); Potassium 4.4 mmol/L (3.5-5.1); Sodium 142 mmol/L (136-145)
--- NOTE | 2022-04-17 06:57 | PC.NURSE ---
NS bolus Dr. Medley called to unit to administer 250ml NS bolus. RBTO for NS 250ml bolus prior to procedure. Labs are pending.
--- NOTE | 2022-04-17 06:59 | P.HPUD_ITS ---
Surgery/Procedure H&P Update DATE OF PROCEDURE: April 17, 2022 DATE H&P PERFORMED: 04/12/22 H&P UPDATE INFORMATION: I have reviewed H&P completed within last 30 days, I have examined patient prior to procedure and No changes to prior documentation PREOP DIAGNOSIS: ASHD PRIMARY INDICATION FOR PROCEDURE: ASHD, abnormal Myocardial perfusion imaging PLANNED PROCEDURE: Operation Date: 04/17/22 07:00 Proposed Procedures p Cardiac Catheterization(Left) - Roshan Medley MD PATIENT REASSESSED PRIOR TO SEDATION, WITH NO CHANGE NOTED: Yes PHYSICAL EXAM: alert, oriented x 3, clear to auscultation bilaterally, regular rate & rhythm and operative site marked OTHER PERTINENT EXAM FINDINGS: Latest creatinine is 1.6 AIRWAY EVAL/ANESTHESIA PLAN: normal airway, see other exam findings, Monitored A nesthesia, Local Anesthesia, Risks, benefits & alternatives of sedation and/or procedure discussed and Patient agrees to continue as planned
--- NOTE | 2022-04-17 07:00 | XACV_ITS ---
Exam Room: 2 Ht: 191 cm Wt: 115 kg BSA: 2.50 m2 Gender: Male : 1945 Any Known Allergies: No known allergies Exam Priority: Routine Procedure(s): Procedure Description: Diagnostic procedure Procedure Description: Coronary Angiography ARTGalindo; Diagnostic Cath Status: Elective Diagnostic Findings * The left main is a medium caliber vessel with extensive calcification. Moderate diffuse disease was noted in this vessel. * The left anterior descending artery was found to have moderate to severe diffuse disease in the proximal to mid segment. There was a relatively small caliber diagonal vessel with moderate to severe ostial narrowing. The distal artery was found to have a complicated blood flow.. * The left circumflex artery is a medium caliber vessel. It gives off a relatively small caliber high obtuse marginal branch. This was found to have a high-grade stenosis at the ostium. The proximal circumflex artery was found to be very tortuous with extensive calcification. The circumflex artery appeared to be totally occluded after the obtuse marginal branch. * The right coronary artery is a medium caliber vessel with moderate to severe diffuse disease proximally. The artery appears to be totally occluded after the first RV branch. * There is a sequential venous graft to the PDA/PLV which was found to be widely patent. The graft was found to be diffusely ectatic. The PDA and the PLV branches were found to have diffuse disease. No significant stenotic lesions were noted in the graft itself. * The LOGAN to the LAD was found to be widely patent. The distal LAD was found to minimal intimal irregularities. Conclusions 1. 76-year-old white male with a history of coronary artery disease, status post 5 vessel bypass surgery, presenting with chest pain and increasing shortness of breath with activities. Myocardial perfusion imaging revealing myocardial scarring with ischemia in the distribution of all the 3 coronary arteries, more so in the distribution of the circumflex artery. A cardiac catheterization was recommended to further evaluate the coronary arteries as well as the graft vessels, to decide on further management. Patient underwent left heart catheterization with left and right coronary angiogram and graft angiogram today. The findings are as follows. 2. Moderate diffuse disease in the left main. Moderately severe diffuse disease in the proximal to mid LAD . Moderate to severe stenosis in the ostium of the relatively small caliber diagonal vessel. Total occlusion of circumflex artery after the small caliber obtuse marginal artery. High-grade ostial stenosis in the obtuse marginal vessel. Heavy diffuse calcification in the left main, proximal to mid LAD and proximal circumflex artery. Patent sequential venous graft to the PDA/PLV. Patent LOGAN to the LAD. LVEDP of 17 mmHg.. 3. I reviewed and discussed the cardiac catheterization data with the Dr. Michaels. In view of the extensive calcification and relatively small caliber vessels with the complex anatomy, it was thought to be appropriate to optimize medical treatment at this point. Diagnostic RX Recommendation: medical therapy and/or counseling LV EDP: 17 mmHg Left Ventriculography Findings: * LV gram was not performed because of the patient's stage III kidney disease. The LVEDP was 17 mmHg. Pressures Phase:Rest AO : 130 / 56 ( 83 ) @ 8:35:00 AM 151 / 58 ( 95 ) @ 9:00:00 AM 148 / 57 ( 93 ) @ 9:00:00 AM LV : 144 / -9 / 17 @ 9:00:00 AM 149 / -5 / 21 @ 9:00:00 AM Valves Phase:DefaultPhase AV : 0.0 @ 8:16:09 AM AV Mean Gradient: 0.0 @ 8:16:09 AM Clinical Evaluation EBL: 5mL-10mL Procedural Details Pre-Procedure Time Out. Identified patient by full name and date of as verbalized by the patient/guarantor. Does the consent match the physician's order: Yes. Accurate & Complete Informed Consent: Yes. Inpatient/Outpatient History & Physical on Chart: Yes. If H&P is completed, is and addenduem needed: No; If yes, is the addendum complete: N/A. Visualize and Verify Site with Patient/Guarantor: N/A. Relevant Radiology Images available: Yes. Pre-op teaching completed and patient verbalized understanding. The risks, benefits, and alternatives of sedation and/or procedure were discussed by physician. The patient agrees to continue. Procedure started. [facility] Clinical Fraility Score: 3: Managing Well. Billing Specialist Indications: New Onset Angina. Chest Pain Symptom Assessment: Typical Angina Symptoms. Cardiovascular Instability: No. Correct patient, site and procedure confirmed by cath team. PERRLA. Strong, equal hand warp dyeing vat tender bilaterally. Lungs clear x 5 lobes. IV Site on Arrival: 20 gauge in the right anticubital. IV Fluids: 0.9% NaCl at KVO. 250 mL infused prior to irrigation laborer. Pre Procedural Pulses: bilateral posterior tibial was Doppled. Pre Procedural Pulses: bilateral radial was 1+. Pre Procedural Pulses: right dorsalis pedis was Doppled. Pre Procedural Pulses: left dorsalis pedis was 2+. Oxygen started at 2liters/min via nasal canula. right groin was prepped with chloroprep then draped in the usual sterile fashion. right radial was prepped with chloroprep then draped in the usual sterile fashion. Physician notified. Baseline sample Acquired. HR: 69 BPM. Physician arrived. Physician scrubbed in. Immediate Pre-Procedure Time Out. Correct Patient: Yes; Correct Procedure: Yes; Correct Site: Yes; Correct Patient Position: Yes; Correct Supplies: Yes; Dried Flammable Prep: Yes; Blood Products Available: N/A;. Lidocaine 1% infiltrated to the right groin. Arterial access obtained with micropuncture set. A 5 thai JL4 catheter in over wire. Multiple views taken of left coronary artery. Catheter removed over the standard wire. A 5 thai JL4.5 catheter in over wire. Multiple views taken of left coronary artery. Catheter removed over the standard wire. A 5 thai JR4 catheter in over wire. cineography of the RCA performed. Catheter redirected to the SVG. SVG's to OM and Diagonal occluded. Catheter redirected to the IM. LOGAN to LAD visualized. Catheter removed over the standard wire. A 5 thai RCB catheter in over wire. SVG's to RCA visualized and patent. Catheter removed over the standard wire. Dr. Michaels called to view cine. A 5 thai Angled Pig catheter in over wire. EDP Sample taken: LV 144/-10,17; HR: 80 BPM; SpO2: 96%. Pullback taken: LV 149/-6,21; AO 151/58(95); Mean: 0mmHg, Peak to Peak: 0mmHg, SEP: 29sec/min; HR: 76 BPM; SpO2: 97%. Catheter removed over the standard wire. Dr. Medley scrubbed out. Flushing the sheath periodically with heparinized saline to maintain patency. Dr. Michaels arrived. Sheath(s) removed and manual pressure held until hemostasis was achieved. Sterile 4x4 and Op-site applied to the puncture site. No oozing or hematoma noted. Post sheath removal instructions were given and the patient verbalized understanding. Arterial sheath flushed and connected to tranducer and pressure bag with heparinized saline. Post Procedure: Pulses reassessed and unchanged. PERRLA. Strong, equal hand warp dyeing vat tender bilaterally. No VTE prophylaxis required. Total IV fluids: 55 mL. Medication's Wasted: Lidocaine 1% = 2 mL. Medication's Wasted: Heparin = 2500 units. A Suture was successful obtaining hemostatsis at the Right Femoral artery insertion site. Post-op diagnosis: Non-Obstructive CAD. Complications: none. Estimated blood loss: 5mL-10mL. Responsiveness - Normal response to verbal stimuli; alert and oriented, PERRLA. Airway - Unaffected, no intervention required; spontaneous ventilation. Circulation: W/N/L, pulses unchanged. Nausea/Vomiting: No. Procedure completed. Patient transferred by bed to 1st floor. Vital chart was stopped. Access Site Site: Right Femoral artery Sheath Size: 5 Fr Hemostasis Method: Suture Hemostasis Success: Successful Procedure Medications Start: 7:18 AM Stop: 7:18 AM Medication: Fentanyl Amount: 50 mcg Route: I.V. Start: 7:23 AM Stop: 7:23 AM Medication: Versed Amount: 1 mg Route: I.V. Start: 7:33 AM Stop: 7:33 AM Medication: Heparin Amount: 1500 units Route: I.V. Start: 7:48 AM Stop: 7:48 AM Medication: Versed Amount: 1 mg Route: I.V. Start: 8:03 AM Stop: 8:03 AM Medication: Fentanyl Amount: 25 mcg Route: I.V. I, the attending physician, have reviewed and verified all procedure medications. Yes, all medications given per verbal order History/Risk Factors Hypertension: No Dyslipidemia: Yes Peripheral Arterial Disease (PAD): No Myocardial Infarction (FL): No Obesity: Yes Renal Disease: No Tobacco Use: Former Prior Interventions PCI: No CABG: Yes Valve Surgery: No Report Signatures Finalized by Dr Roshan Medley MD [facility] on 04/17/2022 08:06 PM
[2022-04-17] MEDS: sodium chloride 0.9% 1,000 ML 100 ML IV (08:30)
--- NOTE | 2022-04-17 08:30 | PC.NURSE ---
[facility] pt received via bed. pt is awake, restless due to chronic back pain and restless leg syndrome. Reports of bck pain when laying down flat. Pain scale at 9/10 per patient. Pt has blood oozing from 5 FR arterial sheath on right groin. No hematoma, or swelling noted. DP and PT are diminished and doppled. right leg and foot are warm to touch. Per at bedside, pt takes ropironole and oxycodone at the same time three times a day at home. Notified Dr Medley for an oxycodone order. Received RBTO to give oxycodone 5/325 mg q6h PRN for pain. Will keep monitoring. Activity restrictions discuss to pt however pt is still moving his right leg. at bedside. call light w/in reach.
[2022-04-17] MEDS: ropinirole 2 mg Tablet PO (08:40)
[2022-04-17] MEDS: oxyCODONE-APAP 5-325 mg Tablet PO (08:53)
--- NOTE | 2022-04-17 09:15 | PC.NURSE ---
Sheath removal Explained procedure to pt on sheath removal. pt is still restless on his leg. Right femoral No hematoma noted. Right femoral 5 Fr arterial sheath removed from right groin. Manual pressure held for 20 mins. Hemostasis achieved. No hematoma, swelling or freq bleeding noted. Distal pulses are doppled. right leg is warm to touch. Dressing applied to puncture site. Acitivity restrictions discuss to pt and carol. bedrest for 6 hrs. Educated pt to let nurse know of any unusual pain, pressure or burning sensation on right groin. Pt and verbalizes understanding. call light provided.
--- NOTE | 2022-04-17 09:45 | PC.NURSE ---
Pt is resting and asleep Right groin dressing is c/d/i. no hematoma, swelling or bleeding. pedal pulses are doppled. skin on LE is warm.
--- NOTE | 2022-04-17 11:00 | PC.NURSE ---
Physician notified Called Dr Medley on the phone regarding pt's HR ranges from 47 to 50s, bradycardia, asymptomatic. Pt is scheduled to have metoprolol 50 mg. Received order RBTO from doctor to hold the metoprolol this morning. pt and notified.
[2022-04-17 11:13] LABS: Glucose Point of Care 101 mg/dL (70-110)
[2022-04-17] MEDS: cholecalciferol (vitamin D3) 1,000 unit Tablet 2000 UNIT PO (11:21)
[2022-04-17] MEDS: guaiFENesin 600 mg Tablet PO (11:22)
--- NOTE | 2022-04-17 15:20 | PC.NURSE ---
Pt up ad kofi/ambulated Pt is alert, awake, oriented, animated. Denies any pain or discomfort anywhere. Right groin looks good. no hematoma, bleeding, dressing clean and dry. pedal pulses bilateral LE are doppled. +1 pitting edema on left LE and Lfoot noted. Per pt and , this is chronic since he had surgery on the left leg. they had done vein duplex w/o any blood clots. right LE has trace edema. per , pt takes diuretic at home. Dr. Nicholson notified via Tel on the pt's uneventful ambulation and groin site assessment. Per Dr nicholson, he will come down and see this patient. pt and informed.
--- NOTE | 2022-04-17 17:00 | PC.NURSE ---
Doctor rounding Dr Medley at pt bedside to check right groin site. No noted complications seen. Educated pt and to increase fluid intake to help pt's kidneys post cardiac cath and ff-up this for BMP check. Unfortunately [facility] is close already. Pt and instructed to call the clinic tomorrow morning. they verbalizes understanding.
[2022-04-17] MEDS: ranolazine (12HR) 500 mg Tablet PO (17:33)
[2022-04-17] MEDS: aspirin 81 mg EC Tablet PO (17:33)
[2022-04-17] MEDS: clopidogrel 75 mg Tablet PO (17:33)
--- NOTE | 2022-04-17 17:36 | PC.NURSE ---
Doctor order to discontinue simvastatin due to drug interaction of the new Rx Ranexa. Pt should start taking atorvastatin instead.
--- NOTE | 2022-04-17 17:41 | PC.NURSE ---
called dr rebollar when the pt can take his lasix. per dr nicholson telephone order read back that pt can take it in the morning.
[2022-04-17] MEDS: atorvastatin 40 mg Tablet PO (17:55)
--- NOTE | 2022-04-17 18:31 | PC.NURSE ---
Discharge Note Patient discharged to home via private vehicle accompanied by . Discharge instructions reviewed with patient and/or brewery representative. Post angiogram home care instructions discuss to pt and . Mobile pharmacy medications and/or prescriptions provided. Belongings/home medications returned. Informed pt and that pt can continue all his home meds except the simvastatin and change it to lipitor. Instructed to call heart care services tomorrow morning to verify his appointment on for BMP per Dr Medley. Discharge papers provided to pt.
== END 2022-04-17 18:00 | disposition home or self-care (01) ==
LOC: CCL 06:00 → CSU 08:54
PROVIDERS: PCP Family Medicine; Visit Provider Internal Medicine Cardiovascular Disease
DX: I25.10 Atherosclerotic heart disease of native coronary artery without angina pectoris (principal); R07.9 Chest pain, unspecified; R06.02 Shortness of breath; Z95.1 Presence of aortocoronary bypass graft; E78.2 Mixed hyperlipidemia; E11.22 Type 2 diabetes mellitus with diabetic chronic kidney disease; I13.0 Hypertensive heart and chronic kidney disease with heart failure and stage 1 through stage 4 chronic kidney disease, or unspecified chronic kidney disease; N18.30 Chronic kidney disease, stage 3 unspecified; I50.30 Unspecified diastolic (congestive) heart failure; Z79.82 Long term (current) use of aspirin; Z79.4 Long term (current) use of insulin
CPT/HCPCS: 36415; 36416; 80048; 82962; 86850; 86900; 93459; 96360; 96361; 99152; 99153; C1769; C1887; C1894; J1644; J2250; J3010; J7030; Q0163; Q9967

== ENCOUNTER 2022-04-20 08:33 | Outpatient (CLI) | payer OTHER, SELFPAY ==
[2022-04-20 09:39] LABS: Anion Gap 17.5 (5-19); Blood Urea Nitrogen 47 mg/dL (8-23); Calcium 8.6 mg/dL (8.5-10.5); Carbon Dioxide 18 mmol/L (22-29); Chloride 107 mmol/L (98-107); Glucose 216 mg/dL (65-115); Osmolality Calculated 305 mOsm/kg (285-295); Potassium 4.5 mmol/L (3.5-5.1); Sodium 138 mmol/L (136-145)
== END 2022-04-20 08:34 | disposition home or self-care (01) ==
PROVIDERS: PCP Family Medicine; Visit Provider Internal Medicine Cardiovascular Disease
DX: N18.9 Chronic kidney disease, unspecified (principal)
CPT/HCPCS: 36415; 80048

== ENCOUNTER → 2022-04-26 08:16 | Outpatient (BNVA) | payer OTHER, SELFPAY | PROVIDERS: PCP Family Medicine; Visit Provider Nurse Practitioner Family | DX: I25.10 Atherosclerotic heart disease of native coronary artery without angina pectoris (principal); Z95.1 Presence of aortocoronary bypass graft; Z87.891 Personal history of nicotine dependence | CPT/HCPCS: 99213 ==

== ENCOUNTER → 2022-05-24 08:16 | Outpatient (BNVA) | payer OTHER, SELFPAY | PROVIDERS: PCP Family Medicine; Visit Provider Surgery | DX: R19.5 Other fecal abnormalities (principal); K42.9 Umbilical hernia without obstruction or gangrene | CPT/HCPCS: 99203 ==

== ENCOUNTER → 2022-08-01 13:50 | Outpatient (BNVA) | payer OTHER, SELFPAY | PROVIDERS: PCP Family Medicine; Visit Provider Internal Medicine Cardiovascular Disease | DX: R06.02 Shortness of breath (principal); I50.30 Unspecified diastolic (congestive) heart failure; I25.10 Atherosclerotic heart disease of native coronary artery without angina pectoris; Z95.828 Presence of other vascular implants and grafts; N18.31 Chronic kidney disease, stage 3a; E78.5 Hyperlipidemia, unspecified; J44.9 Chronic obstructive pulmonary disease, unspecified; I74.10 Embolism and thrombosis of unspecified parts of aorta; I10 Essential (primary) hypertension; Z79.891 Long term (current) use of opiate analgesic | CPT/HCPCS: 36415; 80048; 83880; 99214 ==

== ENCOUNTER 2022-08-09 06:00 | Day surgery (SDC) | payer OTHER, SELFPAY ==
[2022-08-07 13:08] VITALS: BMI 30.9
[2022-08-09 06:24] VITALS: BP 151/76; PULSE 59; RESP 18; TEMP 36.6; O2SAT 96
[2022-08-09] MEDS: sodium chloride 0.9% 1,000 ML 30 ML IV (06:41)
[2022-08-09 06:44] LABS: Glucose Point of Care 64 mg/dL (70-110)
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
[2022-08-09] MEDS: dextrose 50% syringe 50 mL 25 ML IVP (06:53)
--- NOTE | 2022-08-09 07:03 | PM.HP ---
Providers/Chief Complaint Primary Care Provider: Tish Henry MD Chief Complaint: R19.5 History of Present Illness Musa Germain is a 77 year old male here for EGD and colonoscopy Medications/Allergies Home Medications Medication Instructions Recorded Confirmed Last Taken Type amlodipine 5 mg tablet 5 mg PO QAM 11/04/19 08/07/22 08/08/22 History budesonide-formoterol HFA 160 2 puff inhalation BID 11/04/19 08/07/22 08/08/22 History mcg-4.5 mcg/actuation aerosol inhaler finasteride 5 mg tablet 5 mg PO QAM 11/04/19 08/07/22 08/08/22 History gabapentin 300 mg capsule 300 mg PO BEDTIME 11/04/19 08/07/22 08/08/22 History nitroglycerin 0.4 mg sublingual 0.4 mg sublingual Q5M PRN chest 11/04/19 08/07/22 01/20/20 History tablet pain pentoxifylline 400 mg 400 mg PO TID 11/04/19 08/07/22 08/08/22 History tablet,extended release ropinirole 2 mg tablet 2 mg PO TID 11/04/19 08/07/22 08/08/22 History terazosin 1 mg capsule 3 mg PO BEDTIME 11/04/19 08/07/22 08/08/22 History tiotropium bromide 2.5 2 inh inhalation QAM 11/04/19 08/07/22 08/08/22 History mcg/actuation mist for inhalation clopidogrel 75 mg tablet (Plavix) 75 mg PO QAM 11/06/19 08/07/22 08/02/22 History albuterol sulfate 90 mcg/actuation 2 puff inhalation Q4H PRN 01/24/20 08/07/22 08/08/22 History aerosol inhaler Shortness Of Breath pioglitazone 15 mg tablet 15 mg PO QAM 02/01/21 08/07/22 08/08/22 History furosemide 40 mg tablet 40 mg PO QAM 04/07/21 08/07/22 08/08/22 History aspirin 81 mg tablet,delayed 81 mg PO QAM 11/04/21 08/07/22 08/08/22 History release cholecalciferol (vitamin D3) 50 2,000 unit PO BID 11/04/21 08/07/2222 History mcg (2,000 unit) capsule (Vitamin D3) oxycodone-acetaminophen 5 mg-325 1.5 tab PO TID PRN Pain 11/04/21 08/07/22 08/08/22 History mg tablet (Percocet) trazodone 100 mg tablet 50 mg PO BEDTIME PRN Sleep 11/04/21 08/07/22 08/08/22 History metoprolol tartrate 50 mg tablet 50 mg PO BID 04/12/22 08/07/22 08/08/22 History atorvastatin 40 mg tablet (Lipitor) 40 mg PO DAILY #30 tabs 04/17/22 08/07/22 08/08/22 Rx guaifenesin 600 mg tablet, See Rx Instructions .Route 04/26/22 08/07/22 08/08/22 History extended release 12 hr (Mucinex) .COMPLEX PRN Congestion insulin NPH isoph U-100 human 100 See Rx Instructions SUBCUT BID 04/26/22 08/07/22 08/08/22 History unit/mL subcutaneous suspension lower blood sugar (Novolin N NPH U-100 Insulin isophane) isosorbide mononitrate 30 mg 30 mg PO DAILY #90 tabs 05/02/22 08/07/22 08/08/22 Rx tablet,extended release 24 hr iron 18 mg tablet 18 mg PO DAILY 05/24/22 08/07/22 08/08/22 History Allergies Allergy/AdvReac Type Severity Reaction Status Date / Time No Known Allergies Allergy Verified 08/01/22 09:08 PFSH Acute PFSH: Medical History Abdominal aortic aneurysm Chronic obstructive pulmonary disease Hypertension Low back pain Peripheral vascular disease Recurrent umbilical hernia Restless legs syndrome Sleep apnea Surgical History History of appendectomy History of coronary artery stent placement History of open reduction and internal fixation (ORIF) procedure left hip History of umbilical hernia repair 11/26/2019 Hx of CABG Hx of cholecystectomy Status post colonoscopy 11/25/2019: 3 mm sessile polyps x3 removed from the ascending colon, follow-up colonoscopy 2024 Status post femoropopliteal bypass surgery Family History Other Family history non-contributory Denies family history of Clotting disorder Anesthesia complication Bleeding disorder Social History Smoking and tobacco status: former smoker Alcohol intake: former Vitals/I&O/Wt Last Vital Signs Temp 98 F 08/09/22 06:24 Pulse 59 L 08/09/22 06:24 Resp 18 08/09/22 06:24 BP 151/76 08/09/22 06:24 Pulse Ox 96 08/09/22 06:24 O2 Del Method 08/09/22 06:24 Weight last 48 hrs Weight 248 lb A&P Assessment and plan (1) Guaiac positive stools: Plan EGD and colonoscopy Attestations Medical Necessity Statement*: Home Coding Level of Care Code Acute Planning Lead for Chg Fwd Diagnoses Guaiac positive stools R19.5
[2022-08-09 07:34] VITALS: BP 106/53; PULSE 64; RESP 16; TEMP 36.5; O2SAT 95
[2022-08-09 07:39] VITALS: BP 99/61; PULSE 66; RESP 18; O2SAT 93
[2022-08-09 07:45] LABS: Glucose Point of Care 110 mg/dL (70-110)
[2022-08-09 07:49] VITALS: BP 111/61; PULSE 73; RESP 18; O2SAT 95
--- NOTE | 2022-08-09 07:51 | PC.NURSE ---
dentures with patients spouse.
--- NOTE | 2022-08-09 13:50 | ANE.PACU2 ---
Inpatient post-anesthesia follow up: Airway intact: Yes Vital signs: Temperature 97.7 F Pulse Rate 73 Respiratory Rate 18 Blood Pressure 111/61 Pulse Oximetry 95 Oxygen Delivery Me thod Room Air Oxygen Flow Rate Fraction of Inspir ed Oxygen Hydration adequate: Yes Nausea and vomiting: No Pain level: 1 Mental status: Baseline
== END 2022-08-09 08:12 | disposition home or self-care (01) ==
PROVIDERS: PCP Family Medicine; Visit Provider Surgery
PROC: 0DJ08ZZ Inspection of Upper Intestinal Tract, Via Natural or Artificial Opening Endoscopic (ICD-10-PCS; CPT 43235; principal; 2022-08-09 07:30)
PROC: 0DJD8ZZ Inspection of Lower Intestinal Tract, Via Natural or Artificial Opening Endoscopic (ICD-10-PCS; CPT 45378; 2022-08-09 07:30)
DX: R19.5 Other fecal abnormalities (principal); K57.30 Diverticulosis of large intestine without perforation or abscess without bleeding; K29.50 Unspecified chronic gastritis without bleeding; B96.81 Helicobacter pylori [H. pylori] as the cause of diseases classified elsewhere; J44.9 Chronic obstructive pulmonary disease, unspecified; I25.10 Atherosclerotic heart disease of native coronary artery without angina pectoris; I10 Essential (primary) hypertension; I25.2 Old myocardial infarction; Z95.5 Presence of coronary angioplasty implant and graft; E11.9 Type 2 diabetes mellitus without complications; E78.5 Hyperlipidemia, unspecified; E66.01 Morbid (severe) obesity due to excess calories; Z68.31 Body mass index [BMI] 31.0-31.9, adult; Z87.891 Personal history of nicotine dependence
CPT/HCPCS: 36416; 43239; 45378; 82962; 88305; J2704; J7030

== ENCOUNTER → 2022-08-25 14:49 | Outpatient (BNVA) | payer OTHER, SELFPAY | PROVIDERS: PCP Family Medicine; Visit Provider Surgery | DX: Z09 Encounter for follow-up examination after completed treatment for conditions other than malignant neoplasm (principal); K29.70 Gastritis, unspecified, without bleeding; B96.81 Helicobacter pylori [H. pylori] as the cause of diseases classified elsewhere | CPT/HCPCS: 99212 ==

== ENCOUNTER 2022-09-05 00:40 | Observation (INO) | payer OTHER, SELFPAY ==
[2022-09-05] VITALS (18 sets, daily range): BP systolic 104–138; BP diastolic 49–65; PULSE 72–97; RESP 12–22; TEMP 36.6–37.4; O2SAT 87–97; BMI 31.2
--- NOTE | 2022-09-05 00:48 | ECG_ITS ---
[facility] Test Date: 2022-09-05 Pat Name: Musa Germain Department: Room: 250 Gender: Male Visual Display Associate: : 1945 Requested By: Holli Cardoza Order Number: [id number] Reading MD: Robbie Keller Measurements Intervals [place] Rate: 79 P: -85 NH: 148 QRS: 55 QRSD: 126 T: 78 QT: 363 QTc: 417 Interpretive Statements SINUS RHYTHM MODERATE INTRAVENTRICULAR CONDUCTION DELAY MINIMAL ST DEPRESSION INTERPRETATION BASED ON A DEFAULT AGE OF 40 YEARS Compared to ECG 11/04/2021 13:04:02 First degree AV block no longer present Electronically Signed On 09-05-2022 9:41:13 ACCOUNTING TECHNICIAN by Robbie Keller [id number]
--- NOTE | 2022-09-05 00:49 | XRR_ITS ---
PROCEDURE INFORMATION: Exam: XR Chest Exam date and time: 09/05/2022 1:54 AM Age: 77 years old Clinical indication: Cough and fever and shortness of breath; Prior surgery; Surgery type: Cabg. Gb; Patient HX: C/O cough with SOB and fever. ; Additional info: Cough, fever TECHNIQUE: Imaging protocol: Radiologic exam of the chest. Views: 1 view. COMPARISON: CR XR chest 1V portable [id number] 11/06/2021 10:36 AM FINDINGS: Lungs: Mild nonspecific fine reticular lower lung opacity bilaterally. Pleural spaces: There is no pleural effusion or pneumothorax. Heart/Mediastinum: Cardiomediastinal contours are unremarkable. Bones/joints: Sternal wires are present. There is no displacement to suggest sternal dehiscence. Multiple healed left rib deformities. XR/XR chest 1V portable [id number] IMPRESSION: Nonspecific bilateral lower lung opacity. Possible interstitial disease, atelectasis or infection.
--- NOTE | 2022-09-05 00:58 | ED_ITS ---
HPI - SOB/Dyspnea General: Chief Complaint: Shortness of Breath/Dyspnea Stated Complaint: SOB\Coughing\Fever Time Seen by Provider: 09/05/22 00:49 History of Present Illness: HPI Narrative: 77-year-old male patient comes in today with coughing starting on Sunday and fever starting today. Patient has not been on any antibiotics. Patient does not wear oxygen at home. Patient has a history of heart disease, hypertension, diabetes mellitus requiring insulin, COPD, coronary artery bypass, stent placement, and gallbladder surgery. Patient did get a flu shot this year. Patient is also been vaccinated in the first series of COVID 19. Patient came in tonight due to increased shortness of breath and fever up to 102 at home. Patient uses inhalers at home for his COPD. Patient has had several episodes of emesis today with the last episode being prior to arrival to the ER. Associated symptoms: Reports fever(s) and vomiting; Deny chest pain Review of Systems Const: Reports: fever(s) and body aches ENMT: Denies: throat pain or nasal discharge Card: Denies: chest pain Resp: Reports: dyspnea and non-productive cough GI: Reports: vomiting; Denies: diarrhea or constipation : Denies: difficulty urinating Skin/Breast: Reports: other; Denies: rash Neuro: Denies: headache(s) PFSH ED PFSH: Medical History (Updated 09/05/22 @ 01:58 by JEISON Ryan) Abdominal aortic aneurysm Chronic obstructive pulmonary disease Helicobacter pylori gastritis Hypertension Low back pain Peripheral vascular disease Recurrent umbilical hernia Restless legs syndrome Sleep apnea Surgical History History of appendectomy History of coronary artery stent placement History of open reduction and internal fixation (ORIF) procedure left hip History of umbilical hernia repair 11/26/2019 Hx of CABG Hx of cholecystectomy Status post colonoscopy 11/25/2019: 3 mm sessile polyps x3 removed from the ascending colon, follow-up colonoscopy 2024 Status post femoropopliteal bypass surgery Family History Other Family history non-contributory Denies family history of Clotting disorder Anesthesia complication Bleeding disorder Social History Smoking and tobacco status: former smoker Alcohol intake: former Physical Exam Const: COMMON NORMALS: alert HENMT: COMMON NORMALS: normocephalic and Normal external nose present HEAD & SCALP: normocephalic FACE & SINUS: sinuses not nontender NOSE: Normal external nose present MOUTH: Normal oral and palatal mucosa present Neck/C-Spine: COMMON NORMALS: full ROM Resp: COMMON NORMALS: normal respiratory effort EFFORT & INSPECTION: Yes able to speak in complete sentences AUSCULTATION: diminished lung sounds bilateral in the lower lung engle OTHER: Oxygen saturation was 87% on room air Cardio: COMMON NORMALS: regular rate and regular rhythm RATE: regular rate RHYTHM: regular rhythm GI: AUSCULTATION: Yes normoactive bowel sounds PALPATION: No Tenderness to palpation present (GI) : COMMON NORMALS: Yes no CVA tenderness BLADDER/KIDNEY EXAM: Yes no CVA tenderness Back/Pelvis: COMMON NORMALS: no CVA tenderness Extremity: COMMON NORMALS: full ROM NARRATIVE EXTREMITY EXAM: Bilateral +1 edema, nonpitting Neuro: SENSORIUM/ORIENTATION: Yes alert Skin: RASHES: other (Senile purpura forearms) Course ED course: 0154, reviewed patient with Dr. Fernandez regarding lab and symptoms. Patient had a temperature up to 102 today with increasing shortness of breath. X-ray notes interstitial versus infection in bilateral bases of the lung engle. Patient does have some mild increase in his BNP over baseline. Patient CRP is elevated at 47. White count is normal. Creatinine is 2.0 which is near patient 's baseline. Patient was 87% on room air and after breathing treatment no improvement in oxygenation has occurred. Patient was given 40 mg of Lasix due to concern of possible increase in fluid overload. Dr. Fernandez recommended talking with hospitalist for admission for pneumonia. Vital Signs: Vital signs: Vital Signs Temperature 99.4 F 09/05/22 00:44 Pulse Rate 78 09/05/22 01:40 Respiratory Rate 20 H 09/05/22 01:40 Blood Pressure 104/56 09/05/22 00:44 Pulse Oximetry 96 09/05/22 01:40 Oxygen Delivery Me thod 09/05/22 01:40 Oxygen Flow Rate 3 09/05/22 01:40 MDM - SOB/Dyspnea Medical Decision Making 77-year-old male patient comes in today for complaints cough starting yesterday and fever starting today. Patient has had episodes of fever fever, cough, and emesis today. Patient continues to have nausea. Patient reported worsening shortness of breath tonight. On exam patient has decreased breath sounds in bilateral lung engle. Patient was hypoxic on room air at 87%. Some mild lower extremity edema was noted on exam. Patient denies any chest pain. Differential diagnosis includes pneumonia, viral syndrome, exacerbation of COPD. CBC was unremarkable, except for some mild anemia. CMP has a creatinine of 2.0, CRP is 47, BNP is 1500. Patient creatinine usually runs around 1.4-1.6. BNP baseline is usually around 5-600. Chest x-ray noted some decrease air expansion in the lower lung engle bilaterally suggesting atelectasis, interstitial disease, or pneumonia. Patient will need admitted to the hospital due to hypoxia and treatment of pneumonia. Patient is very guarded condition at this time. Lab Data 09/05/22 00:45 09/05/22 00:45 Labs/Radiology: Radiology Impressions Chest X-Ray 09/05/22 00:49 IMPRESSION: Nonspecific bilateral lower lung opacity. Possible interstitial disease, atelectasis or infection. Laboratory Results WBC 9.0 10^3/uL (4.0-10.0) 09/05/22 00:45 RBC 3.77 10^6/uL (4.1-5.3) L 09/05/22 00:45 Hgb 11.1 g/dL (11.7-16.6) L 09/05/22 00:45 Hct 35.8 % (42.0-52.0) L 09/05/22 00:45 MCV 95.0 fl (80-94) H 09/05/22 00:45 MCH 29.4 pg (28.0-34.0) 09/05/22 00:45 MCHC 31.0 g/dL (30.0-36.0) 09/05/22 00:45 RDW 14.0 % (12.1-15.1) 09/05/22 00:45 Plt Count 205 10^3/cmm (130-400) 09/05/22 00:45 MPV 9.7 fL (7.4-10.4) 09/05/22 00:45 Neut % (Auto) 83.2 % 09/05/22 00:45 Lymph % (Auto) 9.1 % 09/05/22 00:45 Peach % (Auto) 6.3 % 09/05/22 00:45 Eos % (Auto) 0.3 % 09/05/22 00:45 Baso % (Auto) 0.4 % 09/05/22 00:45 Neut # (Auto) 7.51 10^3/uL (1.8-7.7) 09/05/22 00:45 Lymph # (Auto) 0.8 10^3/uL (0.8-4.8) 09/05/22 00:45 Peach # (Auto) 0.6 10^3/uL (0.2-0.9) 09/05/22 00:45 Eos # (Auto) 0.0 10^3/uL (0.0-0.8) 09/05/22 00:45 Baso # (Auto) 0.0 10^3/uL (0.0-0.1) 09/05/22 00:45 Nucleated RBC % (auto) 0 % 09/05/22 00:45 Nucleated RBCs # 0.0 /100WBC 09/05/22 00:45 Sodium 139 mmol/L (136-145) 09/05/22 00:45 Potassium 4.0 mmol/L (3.5-5.1) 09/05/22 00:45 Chloride 104 mmol/L (98-107) 09/05/22 00:45 Carbon Dioxide 23 mmol/L (22-29) 09/05/22 00:45 Anion Gap 16.0 (5-19) 09/05/22 00:45 BUN 47 mg/dL (8-23) H 09/05/22 00:45 Creatinine 2.0 mg/dL (0.7-1.2) H 09/05/22 00:45 GFR Calculation Not Reportable 09/05/22 00:45 Glucose 66 mg/dL (65-115) 09/05/22 00:45 Calculated Osmolality 298 mOsm/kg (285-295) H 09/05/22 00:45 Lactic Acid 1.1 mmol/L (0.5-2.2) 09/05/22 00:45 Calcium 9.0 mg/dL (8.5-10.5) 09/05/22 00:45 Total Bilirubin 0.5 mg/dL (0.15-1.2) 09/05/22 00:45 AST 21 U/L (0-40) 09/05/22 00:45 ALT 15 U/L (0-41) 09/05/22 00:45 Alkaline Phosphatase 189 U/L (40-130) H 09/05/22 00:45 C-Reactive Protein 47.5 mg/L (0.0-4.9) H 09/05/22 00:45 NT-Pro-B Natriuret Pep 1511 pg/mL (0-450) H 09/05/22 00:45 Total Protein 6.5 g/dL (6.6-8.7) L 09/05/22 00:45 Albumin 3.5 g/dL (3.5-5.2) 09/05/22 00:45 Globulin 3.0 g/dL (1.3-4.6) 09/05/22 00:45 Procalcitonin 0.11 ng/mL (0-0.5) 09/05/22 00:45 Influenza Type A Ag negative (Negative) 09/05/22 00:51 Influenza Type B Ag negative (Negative) 09/05/22 00:51 SARS-CoV-2 Ag (Rapid) negative (Negative) 09/05/22 00:51 EKG Data EKG 1: EKG Interpretation Date: 09/05/22 EKG interpretation time: 01:11 Prior EKG tracings: not available for review Interpretation: EKG shows a sinus rhythm with a interventricular conduction delay, regular rate at 79 bpm, no ST elevation or ectopy is otherwise known. Prior exams are not available for comparison. Discharge Plan Discharge Patient Disposition: Admitted As Inpatient Clinical Impression: Hypoxia, Chronic obstructive pulmonary disease Pneumonia Qualifiers: Pneumonia type: due to unspecified organism Laterality: bilateral Lung location: lower lobe of lung Qualified Code(s): J18.9 - Pneumonia, unspecified organism Condition: Stable Coding Level of Care Code ED Civil Engineering Project Manager for alphonse Fwd Exam Comprehensive
[2022-09-05 01:00] LABS: Basophils % 0.4 %; Eosinophils % 0.3 %; Hematocrit 35.8 % (42.0-52.0); Hemoglobin 11.1 g/dL (11.7-16.6); Lymphocytes # 0.8 10^3/uL (0.8-4.8); Lymphocytes % 9.1 %; Mean Corpuscular Hemoglobin 29.4 pg (28.0-34.0); Mean Platelet Volume 9.7 fL (7.4-10.4); Monocytes # 0.6 10^3/uL (0.2-0.9); Monocytes % 6.3 %; Neutrophils # 7.51 10^3/uL (1.8-7.7); Neutrophils % 83.2 %; Nucleated Red Blood Cells % 0 %; Platelet Count 205 10^3/cmm (130-400); Red Blood Count 3.77 10^6/uL (4.1-5.3)
[2022-09-05 01:17] LABS: Influenza A by IFA negative (Negative); Influenza B by IFA negative (Negative); SARS Covid-2 Antigen negative (Negative)
[2022-09-05 01:23] LABS: Lactic Sepsis W/Reflex 1.1 mmol/L (0.5-2.2)
[2022-09-05 01:34] LABS: NT Pro B Type Natriuretic Pept 1511 pg/mL (0-450); Procalcitonin 0.11 ng/mL (0-0.5)
[2022-09-05] MEDS: ipratropium-albuterol 3 mL Neb INHALATION ×4 (01:40→19:57)
[2022-09-05 01:45] LABS: Alanine Aminotransferase 15 U/L (0-41); Albumin Level 3.5 g/dL (3.5-5.2); Alkaline Phosphatase 189 U/L (40-130); Aspartate Amino Transferase 21 U/L (0-40); Blood Urea Nitrogen 47 mg/dL (8-23); C Reactive Protein 47.5 mg/L (0.0-4.9); Carbon Dioxide 23 mmol/L (22-29); Chloride 104 mmol/L (98-107); Glucose 66 mg/dL (65-115); Osmolality Calculated 298 mOsm/kg (285-295); Sodium 139 mmol/L (136-145); Total Bilirubin 0.5 mg/dL (0.15-1.2); Total Protein 6.5 g/dL (6.6-8.7)
[2022-09-05] MEDS: dexamethasone 10 mg/mL INJ IVP (01:46)
[2022-09-05 01:49] LABS: Creatinine Clr Calc Pharmacy 41.3588
[2022-09-05] MEDS: metoclopramide 5 mg/mL SDV 2 mL 10 MG IVP (01:50)
[2022-09-05] MEDS: FUROsemide 10 mg/mL SDV 4mL 40 MG IVP (02:21)
[2022-09-05] MEDS: cefTRIAXone 1,000 MG in sodium chloride 0.9% (plus) 50 ML 100 MG IV (02:25)
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
[2022-09-05] MEDS: amlodipine 5 mg Tablet PO (05:41)
[2022-09-05] MEDS: oxyCODONE-APAP 5-325 mg Tablet 1.5 TAB PO (05:41)
[2022-09-05] MEDS: aspirin 81 mg EC Tablet PO (05:41)
[2022-09-05] MEDS: FUROsemide 40 mg Tablet PO (05:41)
[2022-09-05] MEDS: enoxaparin 40 mg/0.4 mL Syringe SUBCUT (05:42)
--- NOTE | 2022-09-05 06:26 | CT_ITS ---
WS: [id number] CT HEAD TECHNIQUE: Noncontrast CT of the head obtained from the skullbase to the vertex. CLINICAL INFORMATION: head injury COMPARISON: 2017 DLP: 1071.[address] scans at [facility] use at least one of these dose optimization techniques: automated e xposure control; mA and/or kV adjustment per patient size (includes targeted exams where dose is matc hed to clinical indication); or iterative reconstruction. FINDINGS: No evidence of intracranial hemorrhage or mass effect. Ventricular system and basal cisterns are strickland nt. Moderate small vessel changes with moderate parenchymal volume loss. Vascular calcification. No e xtra-axial fluid collections. Mucosal thickening in the ethmoid air cells. Mastoid air cells well aerated. IMPRESSION: 1. No evidence of intracranial hemorrhage or mass effect. 2. Moderate small vessel changes with moderate parenchymal volume loss. 3. No acute intracranial findings.
--- NOTE | 2022-09-05 06:26 | CT_ITS ---
WS: [id number] CT ABDOMEN PELVIS TECHNIQUE: Noncontrast CT of the abdomen and pelvis with coronal and sagittal reformatted images. CLINICAL INFORMATION: evaluate for SBO vs ileus COMPARISON: CT 2019 DLP: 1105.[address] scans at [facility] use at least one of these dose optimization techniques: automated e xposure control; mA and/or kV adjustment per patient size (includes targeted exams where dose is matc hed to clinical indication); or iterative reconstruction. FINDINGS: Fatty atrophy of the pancreas. Urine distended bladder. No significant bowel distention. No evidence of small or large bowel obstruction. Fat-containing umbilical hernia with a small herniated loop of n onobstructed small bowel unchanged from 2019. Vascular calcification. LEFT external iliac artery sten t. Prior postoperative changes intramedullary josue and screw fixation LEFT hip. Lung bases are well aerated. Slight bibasilar atelectasis. Noncontrast liver is normal. Prior cholecy stectomy. Normal GE junction. Splenic artery calcification. Mesenteric artery calcification. Adrenal glands are normal. Moderate bilateral renal cortical atrophy. No hydronephrosis. Stable infrarenal abdominal aortic aneurysm measuring 4.2 x 3.8 cm AP by transverse. L5-S1 spondyloly sis. No significant anterolisthesis. CT/CT abdomen pelvis con [id number] IMPRESSION: 1. No evidence of small or large bowel obstruction. 2. No free fluid in the abdomen or pelvis. 3. Urine distended bladder. 4. Stable infrarenal abdominal aortic aneurysm. 5. Prior cholecystectomy 6. Fat-containing umbilical hernia with a small herniated loop of nonobstructe d small bowel unchanged from 2019
[2022-09-05 06:59] LABS: Glucose Point of Care 125 mg/dL (70-110)
[2022-09-05] MEDS: atorvastatin 40 mg Tablet PO (08:46)
[2022-09-05] MEDS: pantoprazole DR 40 mg Tablet PO ×2 (08:46→17:18)
--- NOTE | 2022-09-05 09:16 | PC.PHAR ---
pt states he takes care of his own medications-pt verified medications entered
--- NOTE | 2022-09-05 09:24 | ECG_ITS ---
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
[2022-09-05] MEDS: ropinirole 2 mg Tablet PO ×3 (09:33→20:21)
[2022-09-05 11:32] LABS: Glucose Point of Care 377 mg/dL (70-110)
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
[2022-09-05] MEDS: insulin lispro 100 unit/1 mL SUBCUT ×3 (11:48→20:22)
[2022-09-05 14:45] LABS: Add Urine Culture? No; Add Urine Microscopic? YES; Bilirubin Urine Neg (Negative); Blood Urine Neg (Negative); Glucose Urine UA Norm (Normal); Ketones Urine Negative (Negative); Leukocyte Esterase Urine Negative (Negative); Nitrate Urine Negative (Negative); Protein Urine Neg (Negative); RBC Urine RARE /hpf (0-2); Specific Gravity, Urine 1.015 (1.005-1.030); Urine Appearance Hazy (CLEAR); Urine Color Yellow (Yellow); Urobilinogen Urine Neg (Negative); pH Urine 5 (5-7)
[2022-09-05 17:10] LABS: Glucose Point of Care 374 mg/dL (70-110)
[2022-09-05] MEDS: metoprolol tartrate 50 mg Tablet PO (17:18)
[2022-09-05] MEDS: gabapentin 300 mg Capsule PO (20:21)
[2022-09-05 20:38] LABS: Glucose Point of Care 277 mg/dL (70-110)
[2022-09-06] VITALS (15 sets, daily range): BP systolic 125–140; BP diastolic 60–63; PULSE 65–88; RESP 13–18; TEMP 36.6–37; O2SAT 87–97
[2022-09-06] MEDS: ipratropium-albuterol 3 mL Neb INHALATION ×3 (02:33→14:37)
[2022-09-06] MEDS: aspirin 81 mg EC Tablet PO (05:19)
[2022-09-06] MEDS: enoxaparin 40 mg/0.4 mL Syringe SUBCUT (05:19)
[2022-09-06] MEDS: amlodipine 5 mg Tablet PO (05:19)
[2022-09-06 06:04] LABS: Basophils % 0.1 %; Hematocrit 33.1 % (42.0-52.0); Hemoglobin 10.5 g/dL (11.7-16.6); Lymphocytes # 0.9 10^3/uL (0.8-4.8); Lymphocytes % 11.9 %; Mean Corpuscular HGB Conc 31.7 g/dL (30.0-36.0); Mean Corpuscular Hemoglobin 29.7 pg (28.0-34.0); Mean Corpuscular Volume 93.5 fl (80-94); Mean Platelet Volume 9.8 fL (7.4-10.4); Monocytes # 0.5 10^3/uL (0.2-0.9); Monocytes % 6.1 %; Neutrophils # 6.13 10^3/uL (1.8-7.7); Neutrophils % 81.6 %; Nucleated Red Blood Cells % 0 %; Platelet Count 204 10^3/cmm (130-400); Red Blood Count 3.54 10^6/uL (4.1-5.3); Red Cell Distribution Width 13.5 % (12.1-15.1); White Blood Count 7.5 10^3/uL (4.0-10.0)
[2022-09-06 06:29] LABS: Alanine Aminotransferase 13 U/L (0-41); Albumin Level 3.3 g/dL (3.5-5.2); Alkaline Phosphatase 175 U/L (40-130); Aspartate Amino Transferase 15 U/L (0-40); Blood Urea Nitrogen 57 mg/dL (8-23); Carbon Dioxide 26 mmol/L (22-29); Chloride 103 mmol/L (98-107); Globulin 2.9 g/dL (1.3-4.6); Glucose 189 mg/dL (65-115); Osmolality Calculated 313 mOsm/kg (285-295); Sodium 141 mmol/L (136-145); Total Bilirubin 0.4 mg/dL (0.15-1.2); Total Protein 6.2 g/dL (6.6-8.7)
[2022-09-06 06:50] LABS: Glucose Point of Care 212 mg/dL (70-110)
[2022-09-06] MEDS: pantoprazole DR 40 mg Tablet PO ×2 (08:37→17:53)
[2022-09-06] MEDS: ropinirole 2 mg Tablet PO ×2 (08:37→16:19)
[2022-09-06] MEDS: isosorbide mononitrate ER 30 mg Tablet PO (08:37)
[2022-09-06] MEDS: insulin lispro 100 unit/1 mL SUBCUT ×3 (08:38→17:52)
[2022-09-06] MEDS: atorvastatin 40 mg Tablet PO (08:38)
[2022-09-06] MEDS: metoprolol tartrate 50 mg Tablet PO ×2 (08:38→17:53)
[2022-09-06] MEDS: FUROsemide 10 mg/mL SDV 4mL 40 MG IVP (10:39)
[2022-09-06 11:44] LABS: Glucose Point of Care 273 mg/dL (70-110)
--- NOTE | 2022-09-06 11:54 | PC.CHAP ---
Pastoral Care Encounter/Spiritual Assessment Type of Contact [] Declined transportation agent visit [] Patient/Family/Request visit [] Outpatient visit [] Follow-up visit [] Physician referral [] Code/Alert [x] Routine visit [] Staff referral [] Actively dying [x] Patient sleeping [] Family support [] x [] Long length of stay [] ICU visit [] Other: Relational/Emotional Strength [] Patient feels connected with others/family/visitors/staff [] Distress [] Loneliness/isolation [] Abandonment Spirituality of Patient [] Person of Liz [] Attends Restorationism of their Liz [] Believes in Prayer [] Reads Bible or Episcopalian materials [] There are Spiritual issues to be addressed Stars Analytical Lead Interventions [] Prayer [] Active listening [] Non-anxious presence [] Spiritual/emotional support [] Crisis/trauma care [] Spiritual counseling [] Bereavement support [] Provided bereavement packet [] Provided Bible/devotional materials [] Provided toy/stuffed animal, coloring book to patient or family member [] Provided Communion [] Anointing/[place] [] Salvation [] Completed spiritual assessment [] Other: Impact on Illness or Injury [] Angry [] Fearful [] Anxious [] Often cries [] Exhaustion [] Unable to work [] Unable to attend shinto [] Unable to walk/stand [] Unable to read [] Unable to drive [] Unable to eat/drink [] Unable to sleep [] Unable to be with family [] Patient intubated [] Other: Summary Time spent with patient
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
--- NOTE | 2022-09-06 14:51 | CTR_ITS ---
PROCEDURE INFORMATION: Exam: CT Chest Without Contrast; Diagnostic Exam date and time: 09/06/2022 3:37 PM Age: 77 years old Clinical indication: Dyspnea and shortness of breath; Prior surgery; Surgery date: 6+ months; Surgery type: Cabg; Additional info: Hypoxia TECHNIQUE: Imaging protocol: Diagnostic computed tomography of the chest without contrast. Radiation optimization: All CT scans at this facility use at least one of these dose optimization techniques: automated exposure control; mA and/or kV adjustment per patient size (includes targeted exams where dose is matched to clinical indication); or iterative reconstruction. COMPARISON: CR (CHEST, ) 09/05/2022 1:54 AM RADIATION DOSE METRICS: Total DLP (mGy-cm): 757.44 FINDINGS: Lungs: Bibasilar atelectasis versus minimal infiltrate. Right upper lobe anterior segment 3.3 mm pulmonary nodule, series 3, image 29. Emphysematous changes. Pleural spaces: Unremarkable. No pneumothorax. No pleural effusion. Heart: Coronary artery atherosclerotic calcifications. Lymph nodes: Scattered prominent mediastinal lymph nodes measuring up to 11 mm, nonspecific. Vasculature: Unremarkable. No aortic aneurysm. Gallbladder and bile ducts: Cholecystectomy. Kidneys and ureters: Perinephric edema bilaterally likely reflecting renal insufficiency. Stomach and bowel: Diverticulosis without diverticulitis. Bones/joints: Sternotomy wires. Several chronic left rib fractures. Soft tissues: Unremarkable. CT/CT chest wo con [id number] IMPRESSION: 1. Bibasilar atelectasis versus minimal infiltrate. 2. Right upper lobe anterior segment 3.3 mm pulmonary nodule, series 3, image 29. For patients at low risk (minimal or absent history of smoking and of other known risk factors), no routine follow-up is indicated. For patients at high risk (history of smoking or of other known risk factors), consider optional CT Chest at 12 months. (Reference: Yun) 3. Sternotomy wires. 4. Coronary artery atherosclerotic calcifications. 5. Cholecystectomy. 6. Perinephric edema bilaterally likely reflecting renal insufficiency. 7. Diverticulosis without diverticulitis. 8. Emphysematous changes. 9. Several chronic left rib fractures. 10. Scattered prominent mediastinal lymph nodes measuring up to 11 mm, nonspecific. REFERENCES: Yun Ernst, et al. Guidelines for Management of Incidental Pulmonary Nodules Detected on CT Images: From the Fleischner Society 2017. Radiology. 2017;284(1):228-243.
[2022-09-06 15:21] LABS: NT Pro B Type Natriuretic Pept 1384 pg/mL (0-450); Procalcitonin 0.09 ng/mL (0-0.5)
[2022-09-06 15:31] LABS: C Reactive Protein 55.8 mg/L (0.0-4.9)
[2022-09-06 16:41] LABS: Glucose Point of Care 236 mg/dL (70-110)
[2022-09-06] MEDS: FUROsemide 10 mg/mL SDV 2mL 20 MG IVP (17:52)
== END 2022-09-06 19:15 | disposition home or self-care (01) ==
LOC: ER 01:58 → MEDSURG 03:00
PROVIDERS: Admitting Provider Student in an Organized Health Care Education/Training Program; Emergency Provider Nurse Practitioner Family; PCP Family Medicine; Visit Provider Family Medicine
DX: R11.2 Nausea with vomiting, unspecified (principal)
CPT/HCPCS: 36415; 36416; 51798; 70450; 71045; 71250; 74176; 80053; 81001; 82962; 83605; 83880; 84145; 85025; 86140; 87040; 87086; 87426; 87804; 93005; 94640; 94760; 96365; 96372; 96375; 96376; 99285; G0378; J0696; J1100; J1650; J1815; J1940; J2765

== ENCOUNTER → 2022-09-21 08:50 | Outpatient (BNVA) | payer OTHER, SELFPAY | PROVIDERS: PCP Family Medicine; Visit Provider Thoracic Surgery (Cardiothoracic Vascular Surgery) | DX: I73.9 Peripheral vascular disease, unspecified (principal) | CPT/HCPCS: 99213 ==

== ENCOUNTER 2022-10-16 13:08 | Outpatient (CLI) | payer OTHER, SELFPAY ==
--- NOTE | 2022-10-16 13:25 | CT_ITS ---
WS: [id number] CT CHEST TECHNIQUE: Contrast enhanced CT of the chest with coronal and sagittal reformatted images. CLINICAL INFORMATION: ABNORMAL CT COMPARISON: CT September 06, 2022 DLP: 766.[address] scans at [facility] use at least one of these dose optimization techniques: automated e xposure control; mA and/or kV adjustment per patient size (includes targeted exams where dose is matc hed to clinical indication); or iterative reconstruction. FINDINGS: Moderate chronic emphysematous changes. Previously described RIGHT upper lobe pulmonary nodule appear s stable measuring 3.2 mm today. A few calcified granulomas. Slight atelectasis in the lung bases. No other suspicious pulmonary parenchymal opacities.No focal pneumonia or pleural fluid. Normal caliber thoracic aorta. Aortic Calcification. Sternotomy with CABG and coronary calcification. No mediastinal or hilar lympha denopathy. No axillary lymphadenopathy. Adrenal glands are normal. Cholecystectomy clips. Tiny esophageal hiatal hernia. Splenic artery calci fication. Fatty atrophy of the pancreas. CT/CT chest w con* [id number] IMPRESSION: 1. Previously described 3.2 mm nodule RIGHT upper lobe is stable. 2. Moderate chronic emphysematous changes. No acute pulmonary infiltrates. 3. Prior sternotomy with CABG. 4. No other remarkable findings
[2022-10-16] MEDS: iohexol 350 mg/mL 100 mL Btl IV (13:50)
== END 2022-10-16 13:09 | disposition home or self-care (01) ==
LOC: RAD 13:09
PROVIDERS: PCP Family Medicine; Visit Provider Family Medicine
DX: R93.89 Abnormal findings on diagnostic imaging of other specified body structures (principal); R91.1 Solitary pulmonary nodule; Z95.1 Presence of aortocoronary bypass graft
CPT/HCPCS: 71260; Q9967

== ENCOUNTER 2022-11-09 10:11 | Outpatient (CLI) | payer OTHER, SELFPAY ==
[2022-11-09 11:43] LABS: Blood Urea Nitrogen 55 mg/dL (8-23)
== END 2022-11-09 10:12 | disposition home or self-care (01) ==
LOC: RAD 10:12
PROVIDERS: PCP Family Medicine; Visit Provider Family Medicine
DX: Z01.89 Encounter for other specified special examinations (principal)
CPT/HCPCS: 82565; 84520

== ENCOUNTER → 2022-12-05 13:00 | Outpatient (BNVA) | payer OTHER, SELFPAY | PROVIDERS: PCP Family Medicine; Visit Provider Internal Medicine Pulmonary Disease | DX: R91.1 Solitary pulmonary nodule (principal); J44.9 Chronic obstructive pulmonary disease, unspecified; R53.81 Other malaise; Z87.891 Personal history of nicotine dependence | CPT/HCPCS: 99204 ==

== ENCOUNTER 2023-01-21 18:55 | Emergency (ER) | payer OTHER, SELFPAY ==
[2023-01-21 18:59] VITALS: BP 96/41; PULSE 67; RESP 16; TEMP 36.7; O2SAT 95; BMI 29.7
[2023-01-21 19:06] VITALS: BP 91/38; PULSE 65; RESP 16; O2SAT 95
--- NOTE | 2023-01-21 19:10 | W.ED.GENADLT ---
HPI - General Adult General: Chief complaint: General Medical Stated complaint: HYPOGLYCEMIA; FALL Time Seen by Provider: 01/21/23 19:10 History of Present Illness: Mr. Germain is a 77-year-old gentleman with complex past medical history including CKD, hypertension, hyperlipidemia presenting to the emergency department for unsteady feeling and presyncope. He reports onset of symptoms fairly recently, this is in the context of medication change. He reports earlier today having symptoms severe enough that he had a fall. No head strike. EMS found the patient's blood glucose to be mildly low. No other specific changes in health, exacerbating, or alleviating factors identified. Onset (ago): day(s) Severity: moderate Relieving factors: none Exacerbating factors: medication Associated symptoms: Reports weakness and other Review of Systems General: Reports: 10 or more systems reviewed and unremarkable except in HPI and below PFSH ED PFSH: Medical History Abdominal aortic aneurysm Chronic obstructive pulmonary disease Helicobacter pylori gastritis Hypertension Low back pain Peripheral vascular disease Recurrent umbilical hernia Restless legs syndrome Sleep apnea Surgical History History of appendectomy History of coronary artery stent placement History of open reduction and internal fixation (ORIF) procedure left hip History of umbilical hernia repair 11/26/2019 Hx of CABG Hx of cholecystectomy Status post colonoscopy 11/25/2019: 3 mm sessile polyps x3 removed from the ascending colon, follow-up colonoscopy 2024 Status post femoropopliteal bypass surgery Family History Other Family history non-contributory Denies family history of Clotting disorder Anesthesia complication Bleeding disorder Social History Smoking and tobacco status: former smoker Quit status (tobacco): has quit using tobacco Year quit tobacco: 1995 Former quit date comment: 2 ppd 38 years Alcohol intake: former Physical Exam Const: COMMON NORMALS: patient oriented x3 and alert GENERAL APPEARANCE: cooperative and well developed HENMT: COMMON NORMALS: normocephalic and atraumatic HEAD & SCALP: normocephalic and atraumatic THROAT: posterior oropharynx normal Eye: COMMON NORMALS: conjunctivae normal CONJUNCTIVA: Yes conjunctivae normal SCLERA: sclerae normal Neck/C-Spine: COMMON NORMALS: supple GENERAL: Yes trachea midline Resp: COMMON NORMALS: clear to auscultation bilaterally EFFORT & INSPECTION: Yes able to speak in complete sentences AUSCULTATION: clear to auscultation bilaterally Cardio: COMMON NORMALS: regular rate and regular rhythm RATE: regular rate RHYTHM: regular rhythm GI: COMMON NORMALS: Soft to palpation PALPATION: Yes Soft to palpation and No Tenderness to palpation present (GI) Extremity: GENERAL: Yes normal exam except as noted and No edema Neuro: COMMON NORMALS: patient oriented x3, CN's II-XII intact bilaterally, moves all extremities, no focal motor deficits and no sensory deficits noted SENSORIUM/ORIENTATION: Yes alert and No Orientation impaired Psych: COMMON NORMALS: mental status grossly normal and Normal thought process present THOUGHT PROCESS: Normal thought process present Course Vital Signs: Vital signs: Vital Signs Temperature 98.0 F 01/21/23 18:59 Pulse Rate 66 01/21/23 22:48 Respiratory Rate 14 01/21/23 21:30 Blood Pressure 125/50 01/21/23 22:48 Pulse Oximetry 96 01/21/23 22:48 Oxygen Delivery Me thod 01/21/23 21:30 MDM - General Adult Medical Decision Making 77-year-old gentleman presenting with dizziness and unsteady gait associated with near syncopal episode. Patient also reports low blood glucose improved with EMS treatment. Patient is nontoxic on exam and there are no focal neurologic deficits. Patient endorses medication change with cardiology which has seemed to correlate with difficulty with lightheadedness/dizziness. EKG notable for sinus rhythm with normal axis and intervals, no STEMI. Labs with no leukocytosis, macrocytic anemia similar to baseline. Metabolic panel with dehydration/CKD. Negative range 2-hour delta troponin. There is no head strike and patient denies chest pain. Patient treated with IV fluids and ambulated without difficulty. I discussed disposition options and offered admission, patient reports feeling comfortable with discharge and follows up with cardiology tomorrow. Most likely etiology of symptoms is multifactorial including dehydration and medication change which may explain presyncopal episode. The results of ED evaluation were discussed with the patient including prescriptions and/or symptomatic cares (if applicable) including appropriate and responsible use, followup plan, and return precautions. The patient verbalized understanding and felt safe for discharge. Medical Records I reviewed the patient's medical records. Lab Data I reviewed the patient's lab results. 01/21/23 19:30 01/21/23 19: Laboratory Results WBC 6.7 10^3/uL (4.0-10.0) 01/21/23 19: RBC 3.21 10^6/uL (4.1-5.3) L 01/21/23: Hgb 9.6 g/dL (11.7-16.6) L 01/21/23: Hct 31.1 % (42.0-52.0) L 01/21/23: MCV 96.9 fl (80-94) H 01/21/23: MCH 29.9 pg (28.0-34.0) 01/21/23: MCHC 30.9 g/dL (30.0-36.0) 01/21/23: RDW 13.9 % (12.1-15.1) 01/21/23: Plt Count 119 10^3/cmm (130-400) L 01/21/23: MPV 10.4 fL (7.4-10.4) 01/21/23: Neut % (Auto) 84.0 % 01/21/23: Lymph % (Auto) 9.5 % 01/21/23: Dare % (Auto) 5.5 % 01/21/23: Eos % (Auto) 0.3 % 01/21/23: Baso % (Auto) 0.4 % 01/21/23: Neut # (Auto) 5.63 10^3/uL (1.8-7.7) 01/21/23: Lymph # (Auto) 0.6 10^3/uL (0.8-4.8) L 01/21/23: Dare # (Auto) 0.4 10^3/uL (0.2-0.9) 01/21/23: Eos # (Auto) 0.0 10^3/uL (0.0-0.8) 01/21/23 19: Baso # (Auto) 0.0 10^3/uL (0.0-0.1) 01/21/23 19:30 Nucleated RBC % (auto) 0 % 01/21/23 19:30 Nucleated RBCs # 0.0 /100WBC 01/21/23 19:30 Sodium 139 mmol/L (136-145) 01/21/23 19:30 Potassium 4.2 mmol/L (3.5-5.1) 01/21/23 19:30 Chloride 106 mmol/L (98-107) 01/21/23 19:30 Carbon Dioxide 22 mmol/L (22-29) 01/21/23 19:30 Anion Gap 15.2 (5-19) 01/21/23 19:30 BUN 56 mg/dL (8-23) H 01/21/23 19:30 Creatinine 2.6 mg/dL (0.7-1.2) H 01/21/23 19:30 GFR Calculation Not Reportable 01/21/23 19:30 Glucose 133 mg/dL (65-115) H 01/21/23 19:30 POC Glucose 177 mg/dL (70-110) H 01/21/23 19:06 Calculated Osmolality 305 mOsm/kg (285-295) H 01/21/23 19:30 Calcium 8.2 mg/dL (8.5-10.5) L 01/21/23 19:30 Total Bilirubin 0.4 mg/dL (0.15-1.2) 01/21/23 19:30 AST 14 U/L (0-40) 01/21/23 19:30 ALT 11 U/L (0-41) 01/21/23 19:30 Alkaline Phosphatase 178 U/L (40-130) H 01/21/23 19:30 Troponin T Baseline 60 ng/L (0-15) H 01/21/23 19:30 Troponin T 120 Minute 53.07 ng/L (0-15) H 01/21/23 21:16 Delta Troponin T -6.93 ABS# (0-10) L 01/21/23 21:16 Total Protein 5.5 g/dL (6.6-8.7) L 01/21/23 19:30 Albumin 3.2 g/dL (3.5-5.2) L 01/21/23 19:30 Globulin 2.3 g/dL (1.3-4.6) 01/21/23 19:30 Discharge Plan Discharge Patient Disposition: Home Clinical Impression: Dehydration, CKD (chronic kidney disease), Fall, Hypoglycemia Condition: Stable Prescriptions: No Action amlodipine 5 mg tablet 5 mg PO QAM finasteride 5 mg tablet 5 mg PO QAM gabapentin 300 mg capsule 300 mg PO BEDTIME nitroglycerin 0.4 mg tablet, sublingual 0.4 mg SUBLINGUAL Q5M PRN (Reason: chest pain) Rx Instructions: Dissolve one tablet under the tongue one time as needed for check pain if no improvement after first dose call 911 may take 2 additional doses after 5 minutes apart. pentoxifylline 400 mg tablet extended release 400 mg PO TID ropinirole 2 mg tablet 2 mg PO TID terazosin 1 mg capsule 3 mg PO BEDTIME tiotropium bromide 2.5 mcg/actuation mist 2 inh INHALATION QAM metoprolol tartrate 50 mg tablet 25 mg PO BID clopidogrel [Plavix] 75 mg tablet 75 mg PO QAM Hold Instructions: Resume on 08/12/22. pantoprazole [Protonix] 40 mg tablet,delayed release (DR/EC) 40 mg PO BID 14 Days Qty: 28 0RF Novolin N NPH U-100 Insulin 100 unit/mL suspension See Rx Instructions SUBCUT BID Rx Instructions: 48 units before am meal and 25 units before pm meal furosemide 40 mg tablet 40 mg PO QAM isosorbide mononitrate 30 mg tablet extended release 24 hr 30 mg PO DAILY Qty: 90 3RF Rx Instructions: May cause headaches until your body adjusts - tylenol or ibu as needed 30 mins prior aspirin 81 mg Tablet,Delayed Release (Dr/Ec) 81 mg PO QAM oxycodone-acetaminophen [Percocet] 5-325 mg Tablet 1.5 tab PO BID PRN (Reason: Pain) trazodone 100 mg Tablet 50 mg PO BEDTIME PRN (Reason: Sleep) cholecalciferol (vitamin D3) [Vitamin D3] 50 mcg (2,000 unit) Capsule 2,000 unit PO BID albuterol sulfate 90 mcg/actuation Hfa Aerosol Inhaler 2 puff INHALATION Q4H PRN (Reason: Shortness Of Breath) pioglitazone 15 mg Tablet 15 mg PO QAM guaifenesin [Mucinex] 600 mg tablet extended release 12hr See Rx Instructions .ROUTE .COMPLEX PRN (Reason: Congestion) Rx Instructions: 600 mg orally qam and 1200mg po bedtime PRN; Advair Diskus 250-50 mcg/dose Blister With Device 1 inh INHALATION BID Vitamin B-12 100 mcg Tablet 100 mcg PO DAILY iron 325 mg (65 mg iron) Tablet 325 mg PO BID hydrochlorothiazide 25 mg Tablet 25 mg PO DAILY lisinopril 40 mg Tablet 40 mg PO DAILY atorvastatin [Lipitor] 40 mg tablet 40 mg PO DAILY Qty: 30 0RF Discharge Orders: Discharge ED (Routine); Ordered 01/21/23 Ordered By: Luis Borrero Referrals: Tish Henry MD [Primary Care Provider] - Discharge Diet: Usual diet Discharge Activity: Increase activity as tolerated Patient Instructions: Dehydration (ED), Hypoglycemia in a Person with Diabetes (ED), Fall Prevention (ED) Activity Restrictions/Additional Instructions: Thank you for visiting the emergency department. You were seen and evaluated for fall and generalized unsteady feeling. The exact cause of your symptoms is unclear. You were found to have dehydration and elevated creatinine above baseline. I recommend that you do not take your metoprolol until further discussion with cardiology. Please also follow-up with your primary care provider. I recommend a repeat check of kidney function in the next 3 to 5 days, please ensure that you are staying hydrated. Return to the emergency department for recurrent symptoms, decreased urine output, chest pain, shortness of breath, or anything else that you are concerned about and feel needs emergency department evaluation. Coding Level of Care Code ED Plating Tank Operator for Teri Garay
[2023-01-21 19:19] LABS: Glucose Point of Care 177 mg/dL (70-110)
[2023-01-21] MEDS: sodium chloride 0.9% 1,000 ML 999 ML IV (19:25)
[2023-01-21 19:36] VITALS: BP 88/38; RESP 14; O2SAT 90
--- NOTE | 2023-01-21 19:39 | ECG_ITS ---
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 Measurements Intervals [place] Rate: 63 P: 0 AK: 0 QRS: 81 QRSD: 88 T: 0 QT: 417 QTc: 429 Interpretive Statements SUPRAVENTRICULAR RHYTHM LOW QRS VOLTAGE IN EXTREMITY LEADS [QRS DEFLECTION < 0.5 mV IN LIMB LEADS] Compared to ECG 09/05/2022 09:24:20 Supraventricular rhythm now present Low QRS voltage now present Sinus rhythm no longer present Electronically Signed On 01-22-2023 13:07:31 CDT by Bora Tabares M.D. [id number]
[2023-01-21 19:44] LABS: Basophils % 0.4 %; Eosinophils % 0.3 %; Hematocrit 31.1 % (42.0-52.0); Hemoglobin 9.6 g/dL (11.7-16.6); Lymphocytes # 0.6 10^3/uL (0.8-4.8); Lymphocytes % 9.5 %; Mean Corpuscular HGB Conc 30.9 g/dL (30.0-36.0); Mean Corpuscular Hemoglobin 29.9 pg (28.0-34.0); Mean Corpuscular Volume 96.9 fl (80-94); Mean Platelet Volume 10.4 fL (7.4-10.4); Monocytes # 0.4 10^3/uL (0.2-0.9); Monocytes % 5.5 %; Neutrophils # 5.63 10^3/uL (1.8-7.7); Nucleated Red Blood Cells % 0 %; Platelet Count 119 10^3/cmm (130-400); Red Blood Count 3.21 10^6/uL (4.1-5.3); Red Cell Distribution Width 13.9 % (12.1-15.1); White Blood Count 6.7 10^3/uL (4.0-10.0)
[2023-01-21 19:59] LABS: Alanine Aminotransferase 11 U/L (0-41); Albumin Level 3.2 g/dL (3.5-5.2); Alkaline Phosphatase 178 U/L (40-130); Anion Gap 15.2 (5-19); Aspartate Amino Transferase 14 U/L (0-40); Blood Urea Nitrogen 56 mg/dL (8-23); Calcium 8.2 mg/dL (8.5-10.5); Carbon Dioxide 22 mmol/L (22-29); Chloride 106 mmol/L (98-107); Globulin 2.3 g/dL (1.3-4.6); Glucose 133 mg/dL (65-115); Osmolality Calculated 305 mOsm/kg (285-295); Potassium 4.2 mmol/L (3.5-5.1); Sodium 139 mmol/L (136-145); Total Bilirubin 0.4 mg/dL (0.15-1.2); Total Protein 5.5 g/dL (6.6-8.7)
[2023-01-21 20:01] LABS: Troponin(5th) Baseline 60 ng/L (0-15)
[2023-01-21 20:06] VITALS: BP 102/45; PULSE 67; RESP 20; O2SAT 95
[2023-01-21 20:49] LABS: Slide Review Slide Review Perform
--- NOTE | 2023-01-21 21:18 | ECG_ITS ---
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 Measurements Intervals [place] Rate: 68 P: 226 AK: 176 QRS: 35 QRSD: 84 T: 7 QT: 392 QTc: 417 Interpretive Statements SINUS RHYTHM Compared to ECG 01/21/2023 19:39:27 Supraventricular rhythm no longer present Electronically Signed On 01-22-2023 13:08:43 CDT by Bora Tabares M.D. [email or web address] baptist medical centerM2M Solutionmercy health st. anne [email or web address].[id number]
[2023-01-21 21:30] VITALS: BP 100/48; PULSE 68; RESP 14; O2SAT 92
[2023-01-21 21:44] LABS: Troponin 5 2HR 53.07 ng/L (0-15)
[2023-01-21 21:49] LABS: Troponin 5 2HR Delta -6.93 ABS# (0-10)
[2023-01-21 22:48] VITALS: BP 125/50; PULSE 66; O2SAT 96
== END 2023-01-21 22:19 | disposition home or self-care (01) ==
PROVIDERS: Emergency Provider Emergency Medicine; PCP Family Medicine
DX: E16.2 Hypoglycemia, unspecified (principal); I12.9 Hypertensive chronic kidney disease with stage 1 through stage 4 chronic kidney disease, or unspecified chronic kidney disease; N18.9 Chronic kidney disease, unspecified; E86.0 Dehydration; Z79.82 Long term (current) use of aspirin; Z79.02 Long term (current) use of antithrombotics/antiplatelets; Z79.4 Long term (current) use of insulin; E78.5 Hyperlipidemia, unspecified; J44.9 Chronic obstructive pulmonary disease, unspecified; Z95.1 Presence of aortocoronary bypass graft; Z87.891 Personal history of nicotine dependence
CPT/HCPCS: 36416; 80053; 82962; 84484; 85025; 93005; 96360; 96361; 99284; J7030

== ENCOUNTER → 2023-01-22 15:37 | Outpatient (BNVA) | payer OTHER, SELFPAY | PROVIDERS: PCP Family Medicine; Visit Provider Internal Medicine Cardiovascular Disease | DX: I25.10 Atherosclerotic heart disease of native coronary artery without angina pectoris (principal); E78.5 Hyperlipidemia, unspecified; I10 Essential (primary) hypertension; I73.9 Peripheral vascular disease, unspecified; I71.40 Abdominal aortic aneurysm, without rupture, unspecified; Z87.891 Personal history of nicotine dependence | CPT/HCPCS: 99214 ==

== ENCOUNTER 2023-02-06 15:50 | Emergency (ER) | payer OTHER, SELFPAY ==
[2023-02-06] VITALS (31 sets, daily range): BP systolic 92–125; BP diastolic 52–74; PULSE 0–83; RESP 16–20; TEMP 36.2; O2SAT 93–98; BMI 31.2
--- NOTE | 2023-02-06 16:02 | XRR_ITS ---
PROCEDURE INFORMATION: Exam: XR Chest Exam date and time: 02/06/2023 4:28 PM Age: 77 years old Clinical indication: Condition or disease; Other: Hypoglycemia TECHNIQUE: Imaging protocol: Radiologic exam of the chest. Views: 1 view. COMPARISON: CT chest w con* [id number] 10/16/2022 1:46 PM FINDINGS: Lungs: The lungs are hyperinflated, consistent with COPD. No consolidative pulmonary infiltrates are noted. Pleural spaces: No pleural effusion. No pneumothorax. Heart/Mediastinum: No cardiomegaly. Vasculature: The thoracic aorta is atherosclerotic. Bones/joints: Median sternotomy noted. XR/XR chest 1V portable [id number] IMPRESSION: 1. The lungs are hyperinflated, consistent with COPD. 2. No acute abnormality demonstrated.
--- NOTE | 2023-02-06 16:04 | ECG_ITS ---
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 Measurements Intervals [place] Rate: 78 P: -20 CO: 201 QRS: 48 QRSD: 98 T: 20 QT: 396 QTc: 453 Interpretive Statements SINUS RHYTHM Compared to ECG 01/21/2023 21:15:01 No significant changes Electronically Signed On 02-06-2023 17:07:34 CDT by Bora Tabares M.D. [id number]
[2023-02-06 16:42] LABS: Basophils % 0.3 %; Eosinophils % 0.3 %; Hematocrit 32.7 % (42.0-52.0); Hemoglobin 10.2 g/dL (11.7-16.6); Lymphocytes # 0.6 10^3/uL (0.8-4.8); Lymphocytes % 9.7 %; Mean Corpuscular HGB Conc 31.2 g/dL (30.0-36.0); Mean Corpuscular Hemoglobin 30.2 pg (28.0-34.0); Mean Corpuscular Volume 96.7 fl (80-94); Mean Platelet Volume 9.4 fL (7.4-10.4); Monocytes # 0.4 10^3/uL (0.2-0.9); Monocytes % 5.9 %; Neutrophils # 5.54 10^3/uL (1.8-7.7); Neutrophils % 83.5 %; Nucleated Red Blood Cells % 0 %; Platelet Count 194 10^3/cmm (130-400); Red Blood Count 3.38 10^6/uL (4.1-5.3); Red Cell Distribution Width 14.6 % (12.1-15.1); White Blood Count 6.6 10^3/uL (4.0-10.0)
--- NOTE | 2023-02-06 16:52 | ED_ITS ---
HPI - Recheck/Abnormal Lab/Rx General: Chief Complaint: Recheck/Abnormal Lab/Rx Stated Complaint: AMS/ LOW BS Time Seen by Provider: 02/06/23 16:01 History of Present Illness: Patient with extensive past medical history including diabetes on 7030, CAD, COPD, CHF who follows at the [facility] presents the emergency department by EMS with his due to hypoglycemia. Per patient, his , and EMS the patient took 48 units of 7030 this morning upon waking, only had a very small breakfast and then drove to [place] to get some routine lab test done. Upon arriving home he was found to have altered mental status, and his called EMS. EMS arrived to find the patient having a blood sugar of 21, he was noted to be diaphoretic. He was given D10 and his blood sugar went up to 164, however then it came back down to 72. He was placed on a D10 drip at approximately 200 mL/h. Patient denies any fevers, chills, chest pain, abdominal pain, nausea, or vomiting, he has shortness of breath which is baseline for him. He denies any recent illnesses or recent changes in his medication regiment, however his states that he has been having issues with his blood sugar control over the past few months, and is currently on 70/30 insulin, 48 units in the morning, and 35 units at night. Patient was recently at the [facility] after a fall and suffered a right ankle fracture, he is currently in a right ankle cast. The patient's also notes that she was called by the physician at the [facility], his labs this morning showed a hemoglobin of 9.1 and a creatinine of 2.1, she is unsure of his baseline but states to check our records. No other modifying factors, no other associated symptoms. Review of Systems General: Reports: 10 or more systems reviewed and unremarkable except in HPI and below PFSH ED PFSH: Medical History Abdominal aortic aneurysm Chronic obstructive pulmonary disease Helicobacter pylori gastritis Hypertension Low back pain Peripheral vascular disease Recurrent umbilical hernia Restless legs syndrome Sleep apnea Surgical History History of appendectomy History of coronary artery stent placement History of open reduction and internal fixation (ORIF) procedure left hip History of umbilical hernia repair 11/26/2019 Hx of CABG Hx of cholecystectomy Status post colonoscopy 11/25/2019: 3 mm sessile polyps x3 removed from the ascending colon, follow-up colonoscopy 2024 Status post femoropopliteal bypass surgery Family History Other Family history non-contributory Denies family history of Clotting disorder Anesthesia complication Bleeding disorder Social History Smoking and tobacco status: former smoker Quit status (tobacco): has quit using tobacco Year quit tobacco: 1995 Former quit date comment: 2 ppd 38 years Alcohol intake: former Physical Exam Const: COMMON NORMALS: no acute distress and patient oriented x3 GENERAL APPEARANCE: cooperative and well kempt ORIENTATION/CONSCIOUSNESS: Yes awake HENMT: COMMON NORMALS: normocephalic, atraumatic, hearing grossly normal bilaterally, external ears normal and Normal external nose present HEAD & SCALP: normocephalic and atraumatic FACE & SINUS: other (Left facial droop which is chronic) NOSE: Normal external nose present EXTERNAL EAR: Yes external ears normal MOUTH: Normal oral and palatal mucosa present THROAT: posterior oropharynx normal Eye: COMMON NORMALS: Equal, round and reactive pupils present and EOMs intact bilaterally GENERAL EYE: other (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) PUPIL: Yes Equal, round and reactive pupils present Neck/C-Spine: COMMON NORMALS: supple GENERAL: Yes normal visual inspection CERVICAL SPINE: No Cervical spine tenderness and No step off deformity Chest: COMMONS NORMALS: normal inspection of the chest Resp: COMMON NORMALS: normal respiratory effort, No retractions, No use of accessory muscles and clear to auscultation bilaterally AUSCULTATION: clear to auscultation bilaterally Cardio: COMMON NORMALS: regular rate and Peripheral pulses 2+ throughout RATE: regular rate PERIPHERAL PULSES: Peripheral pulses 2+ throughout GI: COMMON NORMALS: Normal to inspection, nondistended, normoactive bowel sounds present, Soft to palpation and non-tender PALPATION: Yes Soft to palpation : COMMON NORMALS: Yes no CVA tenderness BLADDER/KIDNEY EXAM: Yes no CVA tenderness Back/Pelvis: COMMON NORMALS: no CVA tenderness and thoracic and lumbar spine normal to inspection THORACIC SPINE/UPPER BACK: Yes normal to inspection LUMBAR SPINE/LOWER BACK: Yes normal to inspection Extremity: COMMON NORMALS: full ROM and no calf tenderness NARRATIVE EXTREMITY EXAM: Left ankle in walking boot GENERAL: No clubbing, No cyanosis and Yes edema (1+ pitting edema bilaterally) Neuro: COMMON NORMALS: patient oriented x3, moves all extremities, no focal motor deficits and no sensory deficits noted Psych: COMMON NORMALS: mental status grossly normal, Normal thought process present, cooperative and activity/motor behavior normal APPEARANCE: Yes well kempt ATTITUDE: Yes calm THOUGHT PROCESS: Normal thought process present Skin: COMMON NORMALS: no rashes or lesions noted GENERAL SKIN EXAM: no rashes or lesions noted Course Reevaluation(s): Reevaluation #1: Advised by nursing that the patient is hypoglycemic again, patient has just finished eating a sandwich, will give him another sandwich, D10 infusion was clamped, will unclamp, will recheck Accu-Chek. Time: 17:00 Reevaluation #2: Patient reevaluated, his blood sugars have stabilized, and he is asymptomatic. Given that he is on 7030 and having issues with blood sugar control he may benefit from changing to a more modern insulin regiment, his insurance coverage is not an issue. Will refer him to endocrinology, until then patient and his advised to have his insulin dosing both in the morning and at night. Patient advised to follow-up as directed, return to the emergency department with any new or worsening symptoms or if unable to follow-up as directed or tolerate p.o. intake. Patient verbalized understanding and agreement with this plan, all questions answered. Time: 18:46 Vital Signs: Vital signs: Vital Signs Temperature 97.1 F L 02/06/23 15:55 Pulse Rate 80 02/06/23 16:41 Respiratory Rate 16 02/06/23 15:55 Blood Pressure 119/57 02/06/23 16:41 Pulse Oximetry 94 02/06/23 16:41 Oxygen Delivery Me thod Room Air 02/06/23 16:41 MDM - Recheck/Abnormal Lab/Rx Medical Decision Making Concerned that this patient's hypoglycemia may be due to excessive insulin doses in the setting of worsening renal function. We will also perform laboratory work-up, to make sure there is no metabolic cause. Patient will require observation at least here in the emergency department as well as p.o. intake to make sure that his blood sugars normalize, if they stabilize he can potentially follow-up outpatient at the [facility], otherwise he will likely require inpatient admission. Lab Data 02/06/23 16:20 02/06/23 16:20 Radiology Impressions Chest X-Ray 02/06/23 16:02 IMPRESSION: 1. The lungs are hyperinflated, consistent with COPD. 2. No acute abnormality demonstrated. Laboratory Results WBC 6.6 10^3/uL (4.0-10.0) 02/06/23 16:20 RBC 3.38 10^6/uL (4.1-5.3) L 02/06/23 16:20 Hgb 10.2 g/dL (11.7-16.6) L 02/06/23 16:20 Hct 32.7 % (42.0-52.0) L 02/06/23 16:20 MCV 96.7 fl (80-94) H 02/06/23 16:20 MCH 30.2 pg (28.0-34.0) 02/06/23 16:20 MCHC 31.2 g/dL (30.0-36.0) 02/06/23 16:20 RDW 14.6 % (12.1-15.1) 02/06/23 16:20 Plt Count 194 10^3/cmm (130-400) 02/06/23 16:20 MPV 9.4 fL (7.4-10.4) 02/06/23 16:20 Neut % (Auto) 83.5 % 02/06/23 16:20 Lymph % (Auto) 9.7 % 02/06/23 16:20 [place] % (Auto) 5.9 % 02/06/23 16:20 Eos % (Auto) 0.3 % 02/06/23 16:20 Baso % (Auto) 0.3 % 02/06/23 16:20 Neut # (Auto) 5.54 10^3/uL (1.8-7.7) 02/06/23 16:20 Lymph # (Auto) 0.6 10^3/uL (0.8-4.8) L 02/06/23 16:20 [place] # (Auto) 0.4 10^3/uL (0.2-0.9) 02/06/23 16:20 Eos # (Auto) 0.0 10^3/uL (0.0-0.8) 02/06/23 16:20 Baso # (Auto) 0.0 10^3/uL (0.0-0.1) 02/06/23 16:20 Nucleated RBC % (auto) 0 % 02/06/23 16:20 Nucleated RBCs # 0.0 /100WBC 02/06/23 16:20 Sodium 140 mmol/L (136-145) 02/06/23 16:20 Potassium 4.3 mmol/L (3.5-5.1) 02/06/23 16:20 Chloride 107 mmol/L (98-107) 02/06/23 16:20 Carbon Dioxide 21 mmol/L (22-29) L 02/06/23 16:20 Anion Gap 16.3 (5-19) 02/06/23 16:20 BUN 52 mg/dL (8-23) H 02/06/23 16:20 Creatinine 2.1 mg/dL (0.7-1.2) H 02/06/23 16:20 GFR Calculation Not Reportable 02/06/23 16:20 Glucose 47 mg/dL (65-115) L 02/06/23 16:20 POC Glucose 158 mg/dL (70-110) H 02/06/23 18:23 Calculated Osmolality 301 mOsm/kg (285-295) H 02/06/23 16:20 Calcium 8.8 mg/dL (8.5-10.5) 02/06/23 16:20 Total Bilirubin 0.2 mg/dL (0.15-1.2) 02/06/23 16:20 AST 13 U/L (0-40) 02/06/23 16:20 ALT 10 U/L (0-41) 02/06/23 16:20 Alkaline Phosphatase 172 U/L (40-130) H 02/06/23 16:20 Troponin T Baseline 50 ng/L (0-15) H 02/06/23 16:20 NT-Pro-B Natriuret Pep 1506 pg/mL (0-450) H 02/06/23 16:20 Total Protein 5.7 g/dL (6.6-8.7) L 02/06/23 16:20 Albumin 3.4 g/dL (3.5-5.2) L 02/06/23 16:20 Globulin 2.3 g/dL (1.3-4.6) 02/06/23 16:20 Critical Care Time Critical Care Time: Critical Care Time: Yes Total Critical Care Time: 31 Attestation: This case had a high probability of a clinically significant, sudden, or life threatening deterioration of this patient's condition which required my full and direct attention, intervention and personal management. Discharge Plan Discharge Patient Disposition: Home Clinical Impression: Hypoglycemia Condition: Stable Prescriptions: Changed Novolin N NPH U-100 Insulin 100 unit/mL suspension See Rx Instructions SUBCUT BID Qty: 10 0RF Rx Instructions: 24 units before am meal and 12 units before pm meal No Action amlodipine 5 mg tablet 5 mg PO QAM finasteride 5 mg tablet 5 mg PO QAM gabapentin 300 mg capsule 300 mg PO BEDTIME nitroglycerin 0.4 mg tablet, sublingual 0.4 mg SUBLINGUAL Q5M PRN (Reason: chest pain) Rx Instructions: Dissolve one tablet under the tongue one time as needed for check pain if no improvement after first dose call 911 may take 2 additional doses after 5 minutes apart. pentoxifylline 400 mg tablet extended release 400 mg PO TID ropinirole 2 mg tablet 2 mg PO TID terazosin 1 mg capsule 3 mg PO BEDTIME tiotropium bromide 2.5 mcg/actuation mist 2 inh INHALATION QAM metoprolol tartrate 50 mg tablet 25 mg PO BID clopidogrel [Plavix] 75 mg tablet 75 mg PO QAM Hold Instructions: Resume on 08/12/22. pantoprazole [Protonix] 40 mg tablet,delayed release (DR/EC) 40 mg PO BID 14 Days Qty: 28 0RF furosemide 40 mg tablet 40 mg PO QAM isosorbide mononitrate 30 mg tablet extended release 24 hr 30 mg PO DAILY Qty: 90 3RF Rx Instructions: May cause headaches until your body adjusts - tylenol or ibu as needed 30 mins prior aspirin 81 mg Tablet,Delayed Release (Dr/Ec) 81 mg PO QAM oxycodone-acetaminophen [Percocet] 5-325 mg Tablet 1.5 tab PO BID PRN (Reason: Pain) trazodone 100 mg Tablet 50 mg PO BEDTIME PRN (Reason: Sleep) cholecalciferol (vitamin D3) [Vitamin D3] 50 mcg (2,000 unit) Capsule 2,000 unit PO BID albuterol sulfate 90 mcg/actuation Hfa Aerosol Inhaler 2 puff INHALATION Q4H PRN (Reason: Shortness Of Breath) pioglitazone 15 mg Tablet 15 mg PO QAM guaifenesin [Mucinex] 600 mg tablet extended release 12hr See Rx Instructions .ROUTE .COMPLEX PRN (Reason: Congestion) Rx Instructions: 600 mg orally qam and 1200mg po bedtime PRN; Advair Diskus 250-50 mcg/dose Blister With Device 1 inh INHALATION BID Vitamin B-12 100 mcg Tablet 100 mcg PO DAILY iron 325 mg (65 mg iron) Tablet 325 mg PO BID hydrochlorothiazide 25 mg Tablet 25 mg PO DAILY lisinopril 40 mg Tablet 40 mg PO DAILY atorvastatin [Lipitor] 40 mg tablet 40 mg PO DAILY Qty: 30 0RF Discharge Orders: Discharge ED (Routine); Ordered 02/06/23 Ordered By: Huy Busby Referrals: Tish Henry MD [Primary Care Provider] - Patient Instructions: Hypoglycemia in a Person with Diabetes (ED), What to Do if Your Blood Sugar is Low (ED) Activity Restrictions/Additional Instructions: Follow-up with endocrinology as directed by case management Coding Level of Care Code ED Director Of Occupational Health for Teri Garay
[2023-02-06 17:10] LABS: Troponin(5th) Baseline 50 ng/L (0-15)
[2023-02-06 17:20] LABS: Alanine Aminotransferase 10 U/L (0-41); Albumin Level 3.4 g/dL (3.5-5.2); Alkaline Phosphatase 172 U/L (40-130); Anion Gap 16.3 (5-19); Aspartate Amino Transferase 13 U/L (0-40); Blood Urea Nitrogen 52 mg/dL (8-23); Calcium 8.8 mg/dL (8.5-10.5); Carbon Dioxide 21 mmol/L (22-29); Chloride 107 mmol/L (98-107); Globulin 2.3 g/dL (1.3-4.6); Glucose 47 mg/dL (65-115); NT Pro B Type Natriuretic Pept 1506 pg/mL (0-450); Osmolality Calculated 301 mOsm/kg (285-295); Potassium 4.3 mmol/L (3.5-5.1); Sodium 140 mmol/L (136-145); Total Bilirubin 0.2 mg/dL (0.15-1.2); Total Protein 5.7 g/dL (6.6-8.7)
[2023-02-06 18:28] LABS: Glucose Point of Care 158 mg/dL (70-110)
[2023-02-06 19:04] LABS: Troponin 5 2HR 42.26 ng/L (0-15); Troponin 5 2HR Delta -7.74 ABS# (0-10)
--- NOTE | 2023-02-07 09:13 | DCPLANNER ---
Addendum entered by Maria D Mcdonald 02/21/23 09:46: Patient has a follow up appointment scheduled for Sunday, April 02, 2023 at 11:15 with endo. Original Note: manager of network had message to schedule a follow up appointment for patient with endocrinology. manager of network sent patients information to the front office staff at endocrinology. Patients information will be printed and reviewed. Clinic will call patient with appointment information.
== END 2023-02-06 19:40 | disposition home or self-care (01) ==
PROVIDERS: Emergency Provider Emergency Medicine; PCP Family Medicine
DX: E11.649 Type 2 diabetes mellitus with hypoglycemia without coma (principal); Z79.82 Long term (current) use of aspirin; Z79.02 Long term (current) use of antithrombotics/antiplatelets; Z79.4 Long term (current) use of insulin; Z87.891 Personal history of nicotine dependence; Z95.1 Presence of aortocoronary bypass graft; J44.9 Chronic obstructive pulmonary disease, unspecified; I25.10 Atherosclerotic heart disease of native coronary artery without angina pectoris; I11.0 Hypertensive heart disease with heart failure; I50.9 Heart failure, unspecified
CPT/HCPCS: 36415; 36416; 71045; 80053; 82962; 83880; 84484; 85025; 93005; 99285

== ENCOUNTER 2023-03-06 14:08 | Outpatient (CLI) | payer OTHER, SELFPAY ==
--- NOTE | 2023-03-06 14:26 | XR_ITS ---
WS: [id number] DEXA (DUAL ENERGY X-RAY ABSORPTIOMETRY) Bone mineral density was performed using a [employer] machine. HISTORY: 2 RECENT FRACTURES COMPARISON: None available. Lumbar spine BMD (L1-L4): 1.280 g/cm2 T score: 0.5 Z score: 0.4 Total hip BMD: Right: 0.828 g/cm2. T score: -1.9 Z score: -1.3 10 year probability of a major osteoporotic fracture is 14.3%. LEFT lateral curvature lumbar spine. XR/XR DEXA axial skeleton* 23350 IMPRESSION: OSTEOPENIA.
== END 2023-03-06 14:09 | disposition home or self-care (01) ==
PROVIDERS: PCP Family Medicine; Visit Provider Family Medicine
DX: M81.0 Age-related osteoporosis without current pathological fracture (principal); M85.80 Other specified disorders of bone density and structure, unspecified site
CPT/HCPCS: 77080

== ENCOUNTER → 2023-04-02 10:34 | Outpatient (BNVA) | payer OTHER, SELFPAY | PROVIDERS: PCP Family Medicine; Referring Provider Family Medicine; Visit Provider Internal Medicine | DX: E11.649 Type 2 diabetes mellitus with hypoglycemia without coma (principal); E78.5 Hyperlipidemia, unspecified; Z79.4 Long term (current) use of insulin | CPT/HCPCS: 99204 ==

== ENCOUNTER → 2023-04-17 13:10 | Outpatient (BNVA) | payer OTHER, SELFPAY | PROVIDERS: PCP Family Medicine; Visit Provider Internal Medicine | DX: E11.649 Type 2 diabetes mellitus with hypoglycemia without coma (principal); E11.59 Type 2 diabetes mellitus with other circulatory complications; E78.2 Mixed hyperlipidemia; I25.10 Atherosclerotic heart disease of native coronary artery without angina pectoris; I11.0 Hypertensive heart disease with heart failure; J44.9 Chronic obstructive pulmonary disease, unspecified; Z79.4 Long term (current) use of insulin | CPT/HCPCS: 99214 ==

== ENCOUNTER → 2023-05-03 09:59 | Outpatient (BNVA) | payer OTHER, SELFPAY | PROVIDERS: PCP Family Medicine; Visit Provider Thoracic Surgery (Cardiothoracic Vascular Surgery) | DX: I73.9 Peripheral vascular disease, unspecified (principal); Z87.891 Personal history of nicotine dependence | CPT/HCPCS: 99214 ==

== ENCOUNTER 2023-05-14 13:23 | Outpatient (CLI) | payer OTHER, SELFPAY ==
[2023-05-14 14:23] LABS: Blood Urea Nitrogen 53 mg/dL (8-23)
== END 2023-05-14 13:24 | disposition home or self-care (01) ==
LOC: RAD 13:25
PROVIDERS: PCP Family Medicine; Visit Provider Thoracic Surgery (Cardiothoracic Vascular Surgery)
DX: I73.9 Peripheral vascular disease, unspecified (principal)
CPT/HCPCS: 82565; 84520

== ENCOUNTER 2023-06-02 05:58 | Outpatient (CLI) | payer OTHER, SELFPAY ==
--- NOTE | 2023-06-02 | PETR_ITS ---
PROCEDURE INFORMATION: Exam: PET/CT Skull Base to Mid-thigh Exam date and time: 06/02/2023 9:26 AM Age: 77 years old Clinical indication: Abnormal findings; 3.2 mm nodule right upper lobe; Prior surgery; Surgery date: 6+ months; Surgery type: Heart; Additional info: Abnormal findings in lung field LABS AND CLINICAL REPORTS: Glucose: 117 mg/dl Treatment strategy for malignancy (PET staging): Initial Staging (PI) TECHNIQUE: Imaging protocol: Following at least four-hour fasting and following the injection of radiopharmaceutical, low dose CT images were obtained. Then, PET images were obtained. Attenuation corrected images were constructed using the CT scan. Fused images of PET and CT were reviewed. The standardized uptake values (SUV) reported below are maximum values within a region of interest, expressed in gm/ml. Exam includes orbital meatal line to mid-thigh. Radiopharmaceutical: 11.97 mCi F-18 FDG (Fluorodeoxyglucose), IV. Time of imaging post radiopharmaceutical administration: 1 hour Injection site: site COMPARISON: CT chest 10/16/2022. CT chest 09/06/2022. FINDINGS: Brain: Visualized brain has normal physiologic uptake. Pharynx: No abnormal uptake. Larynx: No abnormal uptake. Lungs, pleura and trachea: Centrilobular emphysema. In the right upper lobe, at the posterior aspect of the posterior segment, a solid spiculated pulmonary nodule is new since the CT on 10/16/2022. It is 1.7 x 1.0 x 2.2 cm (transverse x ant-post x craniocaudal). It abuts the major fissure. Its max SUV is 2.4, which is borderline and suspicious for malignancy. Biopsy is recommended. The 3.2 mm pulmonary nodule, which was seen in the anterior segment of the right upper lobe on the 2 prior CTs, it is not visible on this study. It has resolved. Heart: Normal physiologic uptake. Mediastinal space: No abnormal uptake. Liver: No abnormal uptake. Gallbladder and bile ducts: No abnormal uptake. Post cholecystectomy. Pancreas: No abnormal uptake. There are fatty involutional changes of the pancreas. Spleen: No abnormal uptake. Adrenal glands: No abnormal uptake. Kidneys and ureters: Normal physiologic uptake. Mild bilateral renal atrophy is typical for age. Stomach and bowel: No abnormal uptake. Vasculature: There is severe calcific atherosclerosis of the abdominal aorta and iliac arteries. An infrarenal abdominal aortic aneurysm is 4.3 cm (measured on sagittal images). A arterial bypass graft begins at the left common femoral artery and extends inferiorly below the field of view. Lymph nodes: No abnormal uptake. No lymphadenopathy in the head, neck, chest, abdomen, pelvis or extremities. Bones/joints: No metabolically active areas. A proximal left femoral fracture has been treated with open reduction and internal fixation using a [employer] including an intramedullary nail and interlocking lag screw in the femoral head and neck. The hardware appears in good position. The fracture has healed in near-anatomic position. Its SUV max is 5.8. Sternotomy closure with wire sutures. Moderate spinal degenerative changes. Healed fractures at anterolateral aspects of the left 5th and 6th ribs in at the anterior right 4th rib are not FDG avid. Soft tissues: No metabolically active areas. PET/PET skulltothigh INITIAL [id number] IMPRESSION: In the posterior segment of the right upper lobe, a new solid spiculated pulmonary nodule is 1.7 x 1.0 x 2.2 cm. Its max SUV is 2.4, which is suspicious for malignancy. Biopsy is recommended. The 3.2 mm pulmonary nodule, which was seen in the anterior segment of the right upper lobe on the 2 prior CTs, it is not visible on this PET-CT. It has apparently resolved. No FDG avid lymph nodes. No FDG avid distant metastases. An infrarenal abdominal aortic aneurysm is 4.3 cm. Follow-up imaging in 1 year is recommended.
== END 2023-06-02 05:59 | disposition home or self-care (01) ==
LOC: RAD 06-04 05:59
PROVIDERS: PCP Family Medicine; Visit Provider Family Medicine
DX: R91.8 Other nonspecific abnormal finding of lung field (principal)
CPT/HCPCS: 78815; A9552

== ENCOUNTER → 2023-06-04 09:17 | Outpatient (BNVA) | payer OTHER, SELFPAY | PROVIDERS: PCP Family Medicine; Visit Provider Internal Medicine Pulmonary Disease | DX: J44.9 Chronic obstructive pulmonary disease, unspecified; R53.81 Other malaise; R91.8 Other nonspecific abnormal finding of lung field; Z87.891 Personal history of nicotine dependence | CPT/HCPCS: 99214 ==

== ENCOUNTER 2023-06-21 07:50 | Outpatient (CLI) | payer OTHER, SELFPAY ==
[2023-06-21 08:18] VITALS: PULSE 72; RESP 18; O2SAT 98
[2023-06-21 08:23] VITALS: PULSE 74
[2023-06-21] MEDS: albuterol 2.5 mg/3 mL Neb INHALATION (08:23)
== END 2023-06-21 07:51 | disposition home or self-care (01) ==
PROVIDERS: PCP Family Medicine; Visit Provider Internal Medicine Pulmonary Disease
DX: R06.02 Shortness of breath (principal)
CPT/HCPCS: 94060; 94618; 94726; 94729; J7613

== ENCOUNTER 2023-06-26 05:46 | Day surgery (SDC) | payer OTHER, SELFPAY ==
[2023-06-22 09:59] VITALS: BMI 28.1
[2023-06-26] VITALS (14 sets, daily range): BP systolic 85–148; BP diastolic 40–68; PULSE 60–78; RESP 14–21; TEMP 36.1–36.3; O2SAT 90–98
--- NOTE | 2023-06-26 05:58 | CT_ITS ---
WS: [id number] CT chest ION (PULM ONLY) [id number] HISTORY: for robotic navigational bronchoscopy biopsies TECHNIQUE: Axial imaging performed through the thorax. . All CT scans at [facility] use at ast one of these dose optimization techniques: automated exposure control; mA and/or kV adjustment pe r patient size (includes targeted exams where dose is matched to clinical indication); or iterative r econstruction. CONTRAST: None DLP: 591.28 mGy COMPARISON: 06/02/2023 PET/CT. Centrilobular emphysema. Previously described PET/CT positive spiculated nodule in the posterior segm ent of the RIGHT upper lobe is reidentified measuring 12 x 9 mm. Less spiculation and less adjacent i nflammation. There is still mild spiculation with slight tethering and retraction of the fissure. Neftali ronodule RIGHT upper lobe, image 127. Marked atherosclerosis aorta. Mild pulmonary hypertension. Prior CABG. Heart is slightly enlarged. No adenopathy. Suprarenal aortic ectasia. Kidneys are atrophied. IMPRESSION: 1. RIGHT upper lobe spiculated mass reidentified measuring 12 x 9 mm. 2. Marked centrilobular emphysema.
--- NOTE | 2023-06-26 06:06 | SC_ITS ---
WS: [id number] C ARM fluoroscopy for bronchoscopy of the right upper lobe, 06/26/2023 Clinical Data: ion Comparison: CT chest, 06/26/2023 Findings: Dr. Sahni performed a remote bronchoscopy of a right upper lobe lesion. Impression: Right upper lobe bronchoscopy.
[2023-06-26] MEDS: sodium chloride 0.9% 1,000 ML 30 ML IV (06:31)
--- NOTE | 2023-06-26 06:45 | ANES.PREANE2 ---
Pre-Anesthetic Assessment Height/Weight: Height 1.91 m Weight 102.058 kg Temp Pulse Resp BP Pulse Ox O2 Del Method 97.4 F L 73 18 148/68 96 Room Air 06/26/23 06:27 06/26/23 06:27 06/26/23 06:27 06/26/23 06:27 06/26/23 06:27 06/26/23 06:27 Operation Date: 06/26/23 07:00 Proposed Procedures p ION, EBUS, 84177, 143829, 33352, 67569, 15432, 18362, 69703, 73878, 66883, 90356, 43480, 38352, 49212, 94865,R91.8(Not Applicable) - Umer Sahni MD s Ebus(Not Applicable) - Umer GarsiarMD Familial anesthetic complications: None Was Beta Subhash taken within 24 hours: N/A Was Clonidine taken within 24 hours: N/A Last intake: Intake Last Liquid Date 06/25/23 Last Liquid Time 19:00 Last Solid Date 06/25/23 Last Solid Time 17:30 Social No alcohol and No tobacco Exam alert, oriented x 3, clear to auscultation bilaterally and regular rate & rhythm Airway Mallampati: Class IV Dentition: other (none) Pulmonary Chronic Obstructive Pulmonary Disease and Sleep Apnea pulmonary nodules CV/HEM Coronary Artery Disease (hx cabg, recent cath revealed mod to severe diffuse multivessel CAD with decision to treat medically), Congestive Heart Failure (diastolic grade I), Hypertension and Peripheral Vascular Disease (fem-pop bypass) AAA Chronic Renal Insufficiency GI Gastroesophageal Reflux Disease h pylori Metabolic Diabetes Mellitus and Hyperlipidemia Anesthetic Plan ASA status: 4 Anesthesia: General Risk of > 500 ml blood loss (7ml/kg in children): No Medications/Allergies Home Medications Medication Instructions Recorded Confirmed Last Taken Type amlodipine 5 mg tablet 5 mg PO QAM 11/04/19 06/22/23 06/26/23 History finasteride 5 mg tablet 5 mg PO BEDTIME 11/04/19 06/26/23 06/25/23 History gabapentin 300 mg capsule 300 mg PO BEDTIME 11/04/19 06/22/23 06/25/23 History nitroglycerin 0.4 mg sublingual 0.4 mg sublingual Q5M PRN chest 11/04/19 06/22/23 01/20/20 History tablet pain pentoxifylline 400 mg 400 mg PO TID 11/04/19 06/22/23 06/26/23 History tablet,extended release ropinirole 2 mg tablet 2 mg PO TID 11/04/19 06/22/23 06/26/23 History terazosin 1 mg capsule 3 mg PO BEDTIME 11/04/19 06/22/23 06/25/23 History tiotropium bromide 2.5 2 inh inhalation QAM 11/04/19 06/22/23 06/25/23 History mcg/actuation mist for inhalation clopidogrel 75 mg tablet (Plavix) 75 mg PO QAM 11/06/19 06/22/23 06/19/23 History albuterol sulfate 90 mcg/actuation 2 puff inhalation Q4H PRN 01/24/20 06/22/23 06/25/23 History aerosol inhaler Shortness Of Breath pioglitazone 15 mg tablet 15 mg PO QAM 02/01/21 06/22/23 06/26/23 History aspirin 81 mg tablet,delayed 81 mg PO QAM 11/04/21 06/22/23 06/22/23 History release cholecalciferol (vitamin D3) 50 2,000 unit PO BID 11/04/21 06/22/23 06/26/23 History mcg (2,000 unit) capsule (Vitamin D3) oxycodone-acetaminophen 5 mg-325 1.5 tab PO BID PRN Pain 11/04/21 06/22/23 06/25/23 History mg tablet (Percocet) trazodone 100 mg tablet 50 mg PO BEDTIME PRN Sleep 11/04/21 06/22/23 06/22/23 History guaifenesin 600 mg tablet, See Rx Instructions .Route 04/26/22 06/22/23 06/25/23 History extended release 12 hr (Mucinex) .COMPLEX PRN Congestion pantoprazole 40 mg tablet,delayed 40 mg PO BID 14 days #28 tabs 08/25/22 06/22/23 06/26/23 Rx release (Protonix) cyanocobalamin (vitamin B-12) 100 100 mcg PO DAILY 09/05/22 06/22/23 06/26/23 History mcg tablet (Vitamin B-12) ferrous sulfate 325 mg (65 mg 325 mg PO BID 1106/22/23 06/26/23 History iron) tablet (iron) fluticasone 250 mcg-salmeterol 50 1 inh inhalation BID 09/05/22 06/22/23 06/25/23 History mcg/dose blistr powdr for inhalation (Advair Diskus) hydrochlorothiazide 25 mg tablet 25 mg PO DAILY 09/05/22 06/22/23 06/26/23 History lisinopril 40 mg tablet 40 mg PO BEDTIME 09/05/22 06/26/23 06/25/23 History glucagon HCl 1 mg solution for 1 mg SUBCUT Q20M PRN hypoglycemia 04/03/23 06/22/23 Unknown Rx injection (Glucagon (HCl) #1 ea Emergency Kit) FreeStyle Alvin 2 Sensor (flash #6 ea 04/17/23 06/22/23 06/22/23 Rx glucose sensor) flash glucose scanning reader #1 ea 04/17/23 06/22/23 06/22/23 Rx (FreeStyle Alvin 2 Jameson) insulin NPH isoph U-100 human 100 See Rx Instructions SUBCUT DAILY 05/03/23 06/22/23 06/25/23 History unit/mL subcutaneous suspension lower blood sugar (Novolin N NPH U-100 Insulin isophane) isosorbide mononitrate 30 mg See Rx Instructions .Route 05/10/23 06/22/23 06/26/23 Rx tablet,extended release 24 hr .COMPLEX #90 tabs atorvastatin 40 mg tablet (Lipitor) 40 mg PO BEDTIME 06/26/23 06/26/23 06/25/23 History Allergies Allergy/AdvReac Type Severity Reaction Status Date / Time No Known Allergies Allergy Verified 06/22/23 09:59 Current Medications Generic Name Dose Route Start Last Admin Trade Name Freq PRN Reason Stop Dose Admin Sodium Chloride 1,000 mls @ 30 mls/hr 06/26/23 06:00 06/26/23 06:31 Sodium Chloride 0.9% IV 06/27/23 05:59 30 mls/hr .Q24H VALENCIA Administration PFSH Anesthesia Medical History Abdominal aortic aneurysm Chronic obstructive pulmonary disease Helicobacter pylori gastritis Hypertension Low back pain Peripheral vascular disease Recurrent umbilical hernia Restless legs syndrome Sleep apnea Surgical History History of appendectomy History of coronary artery stent placement History of open reduction and internal fixation (ORIF) procedure left hip History of umbilical hernia repair 11/26/2019 Hx of CABG Hx of cholecystectomy Status post colonoscopy 11/25/2019: 3 mm sessile polyps x3 removed from the ascending colon, follow-up colonoscopy 2024 Status post femoropopliteal bypass surgery Family History Other Family history non-contributory Denies family history of Clotting disorder Anesthesia complication Bleeding disorder Social History (Updated 06/04/23 @ 10:18 by Christine Menendez LPN) Smoking and tobacco status: former smoker Quit status (tobacco): has quit using tobacco Year quit tobacco: 1995 Former quit date comment: 2 ppd 38 years Alcohol intake: former Substance/Drug Use: never Data Anesthesia Cardiac Studies: Echocardiogram 11/06/21 Sestamibi Stress Test (Cardiology) 04/05/22
--- NOTE | 2023-06-26 07:07 | W.PM.OPSUD ---
Surgery/Procedure H&P Update DATE OF PROCEDURE: June 26, 2023 DATE H&P PERFORMED: 06/04/23 H&P UPDATE INFORMATION: I have reviewed H&P completed within last 30 days, I have examined patient prior to procedure and No changes to prior documentation CHANGES TO PREVIOUS DOCUMENTATION: none PREOP DIAGNOSIS: right upper lobe PET active lesion PRIMARY INDICATION FOR PROCEDURE: rule out malignancy PLANNED PROCEDURE: Operation Date: 06/26/23 07:00 Proposed Procedures p ION, EBUS, 98594, 506110, 04966, 07063, 06716, 66438, 25680, 45976, 78977, 03019, 49008, 52456, 99717, 65565,R91.8(Not Applicable) - Umer Sahni MD s Ebus(Not Applicable) - Umer Sahni MD Related Problem List Diagnoses (1) Pulmonary nodule:
--- NOTE | 2023-06-26 07:19 | P.HPUD_ITS ---
Surgery/Procedure H&P Update DATE OF PROCEDURE: June 26, 2023 DATE H&P PERFORMED: 06/04/23 PREOP DIAGNOSIS: right upper lobe PET active lesion PLANNED PROCEDURE: Operation Date: 06/26/23 07:00 Proposed Procedures p ION, EBUS, 40934, 058402, 20761, 92459, 45501, 93751, 80275, 29326, 87583, 68062, 09515, 48323, 60248, 72477,R91.8(Not Applicable) - Umer Sahni MD s Nhi(Not Applicable) - Umer Sahni MD
--- NOTE | 2023-06-26 07:19 | W.PM.OPSUD ---
Surgery/Procedure H&P Update DATE OF PROCEDURE: June 26, 2023 DATE H&P PERFORMED: 06/04/23 PREOP DIAGNOSIS: right upper lobe PET active lesion PLANNED PROCEDURE: Operation Date: 06/26/23 07:00 Proposed Procedures p ION, EBUS, 26535, 165210, 43505, 74184, 32728, 46793, 78650, 40105, 98111, 81189, 07331, 74409, 82287, 13007,R91.8(Not Applicable) - Umer Sahni MD s Nhi(Not Applicable) - Umer Sahni MD
[2023-06-26] MEDS: lidocaine 1% INJ 10 mL (per mL) XX (07:27)
[2023-06-26 08:39] LABS: Apprearance, Bronch Wash Bloody (CLEAR); Bronch Source Right Upper Lobe; Color, Bronc Wash Red
--- NOTE | 2023-06-26 09:29 | P.OP_ITS ---
Operative Report Date of procedure: June 26, 2023 Surgeon: Umer Sahni MD Procedure: Procedure: 83766 Dx Bronchoscope w/Washings or airway inspection 42385 Bx Bronchoscope w/Brushings or protected brushings 75660 Dx Bronchoscope w/BAL 46901 Bronch with computer image guided Navigational Bronchoscopy 09622 Bronchoscopy w/Transbronchial lung biopsy(s), single lobe 88860 Bronchoscopy w/Transbronchial needle aspiration biopsy(s), tracheal, main stem, and/or lobar bronchus 19937 Bronchoscopy w/ therapeutic aspiration of the tracheobronchial tree (clearance of airway secretions, removal of mucus plugs) 26429 EBUS Sampling >=3 nodes 77209 EBUS Diag or Interven Peripheral lesion (radial EBUS) Description of the procedure: The procedure was explained to the patient and the consent was obtained.? The patient was brought to the OR. Anesthesia: The patient underwent endotracheal intubation for general anesthesia. Local anesthesia: 1% lidocaine-1 mL each instilled on main sneha right mainstem bronchus and left mainstem bronchus Following induction of general anesthesia, the flexible bronchoscope was advanced through the? ET tube.? The? lower trachea mucosa appeared normal, no endotracheal lesion was seen.? 1 mL of 1% lidocaine instilled on the main snhea, right mainstem bronchus and left mainstem bronchus.? The sneha was sha rp.? In a systematic manner bilateral bronchial tree was then examined. ? The bronchoscope was then introduced into the right mainstem bronchus.There were clear secretions which were suctioned right away.(29263). After suctioning, the right upper lobe, right middle lobe and right lower lobe bronchi were examined up to the third subsegmental level and no abnormalities were identified.Mucosa appeared normal with no endobronchial lesion, active bleeding or mucous plug. The bronchoscope was advanced into the left mainstem bronchus.??There were significant thick mucus secretions which were suctioned right away.(72799)., clogging left mainstem bronchus and some of the left side lobes and segments.? After suctioning,? the left upper lobe, lingula and left lower lobe bronchi were examined up to the third subsegmental level and no abnormalities were identified.? Mucosa appeared normal with no endobronchial lesion, active bleeding or mucous plug.? After initial inspection as well as airway clearance with flexible bronchoscope(71311),?ION robotic assisted navigational bronchoscope (23973)?was introduced-and right upper lobe lesion in the posterior apical temporal segment was accessed.? After?confirming the location with radial EBUS (11945), under the fluoroscopy guidance? -we were able to obtain biopsies using fine-needle, forceps.There was some evidence of grade 2 bleeding-cold saline was instilled.? Bronchoalveolar lavage was also taken from Posterior segment of right upper lobe. After making sure there is no active bleeding navigational bronchoscope was retracted and introduced?Endobronchial ultrasound EBUS (91359). ? With the help of EBUS, identified a lymph node?station 4L station 7, station 11R. ??Fine-needle aspiration biopsies? were taken from station 4L station 7, station 11R? (03468) After taking the biopsies EBUS retracted-diagnostic bronchoscope was introduced to check for any evidence of active bleeding. There was some evidence of bleeding-controlled with instillation of cold saline. After making sure there is no active bleeding bronchoscope was retracted and procedure terminated. ? Samples: A.? Right upper lobe lesion 1.? Total of 3 passes were made using?needle aspiration(39654); 1 slide sent for Onsite pathology Reported benign histiocytes and lymphocytes with no evidence of malignancy; rest of the material was placed in formalin and sent for histopathology 2.? Targeting the same area 4 passes were made using?forceps (61157);?1 slide sent for Onsite pathology Reported seeing numerous neoplastic cells; rest of the material was placed in formalin and sent for histopathology 3. Targeting the same area 1 passes were made using?Cytobrush (02703);? all the material was placed in formalin and sent for histopathology 4.?Bronchoscope was wedged at the entrance of the? posterior segment of right upper lobe segment, 20 mL of saline was instilled and returned 12 mL of bronchoalveolar lavage (50550).? The fluid was mixed with blood and specks of tissue. Samples for cell count, cytology, microbiology cultures B.?EBUS guided? Fine-needle aspiration biopsies? were taken from? station 4L station 7, station 11R,? (95196)? 1.? Total of 3 passes were made using needle aspiration(79537) from station 4L; ? 1 slide sent for Onsite pathology Reported seeing Suspicious for metastatic disease; rest of the material was placed in formalin and sent for histopathology 2.? Total of 3 passes were made using needle aspiration(66210) from station 7; 1 slide sent for Onsite pathology Reported Benign lymphocytes and endobronchial epithelium; rest of the material was placed in formalin and sent for histopathology 3.? Total of 3 passes were made using needle aspiration(76008) from station 11R :?1 slide sent for Onsite pathology Reported seeing Benign cells ( Lymphocytes and bronchial epithelium); rest of the material was placed in formalin and sent for histopathology ? Complications: None.The patient was extubated and brought to the PACU in stable condition. Postprocedure chest x-ray: There is no evidence of pneumothorax Disposition: Patient can be discharged home in stable condition. ? Pt?and family are aware that I am going to call him? to update final biopsy results once available.
--- NOTE | 2023-06-26 09:52 | XRR_ITS ---
PROCEDURE INFORMATION: Exam: XR Chest Exam date and time: 06/26/2023 9:57 AM Age: 77 years old Clinical indication: Device placement; Other: Post ion; Prior surgery; Surgery date: Post-operative (0-2 days) TECHNIQUE: Imaging protocol: Radiologic exam of the chest. Views: 1 view. COMPARISON: CT chest ION (PULM ONLY) [id number] 06/26/2023 6:07 AM FINDINGS: Lungs: Unremarkable. No consolidation. Pleural spaces: Unremarkable. No pleural effusion. No pneumothorax. Heart/Mediastinum: Heart appears mildly enlarged on this portable chest exam. Bones/joints: Prior median sternotomy. No acute bony abnormalities. XR/XR chest 1V portable [id number] IMPRESSION: Mild cardiomegaly otherwise negative chest.
--- NOTE | 2023-06-26 11:00 | ANE.PACU2 ---
Inpatient post-anesthesia follow up: Airway intact: Yes Vital signs: Temperature 97.1 F Pulse Rate 63 Respiratory Rate 16 Blood Pressure 122/58 Pulse Oximetry 98 Oxygen Delivery Me thod Room Air Oxygen Flow Rate 2 Fraction of Inspir ed Oxygen Hydration adequate: Yes Nausea and vomiting: No Pain level: 1 Mental status: Baseline
[2023-06-26 11:19] LABS: Total Cells Counted Bronch 100
[2023-06-26 11:21] LABS: Other Cells, Bronch Wash 0 %; PATH Referral Yes
[2023-06-26 11:51] LABS: Cyto Order Verification Order Verified
[2023-06-26 11:51] LABS: Cyto Order Verification Order Verified
[2023-06-26 11:52] LABS: Cyto Order Verification Order Verified
[2023-06-26 11:52] LABS: Cyto Order Verification Order Verified
[2023-06-26 13:53] LABS: Glucose Point of Care 163 mg/dL (70-110)
== END 2023-06-26 10:00 | disposition home or self-care (01) ==
PROVIDERS: PCP Family Medicine; Visit Provider Internal Medicine Pulmonary Disease
PROC: 0BJ08ZZ Inspection of Tracheobronchial Tree, Via Natural or Artificial Opening Endoscopic (ICD-10-PCS; CPT 31622; principal; 2023-06-26 07:00)
PROC: BB4BZZZ Ultrasonography of Pleura (ICD-10-PCS; 2023-06-26 07:00)
DX: R91.8 Other nonspecific abnormal finding of lung field (principal); E78.5 Hyperlipidemia, unspecified; J44.9 Chronic obstructive pulmonary disease, unspecified; I25.10 Atherosclerotic heart disease of native coronary artery without angina pectoris; Z95.1 Presence of aortocoronary bypass graft; Z87.891 Personal history of nicotine dependence; I13.0 Hypertensive heart and chronic kidney disease with heart failure and stage 1 through stage 4 chronic kidney disease, or unspecified chronic kidney disease; I50.30 Unspecified diastolic (congestive) heart failure; N18.9 Chronic kidney disease, unspecified
CPT/HCPCS: 31623; 31624; 31627; 31628; 31629; 31645; 31652; 31653; 31654; 36416; 71045; 71250; 76000; 80503; 82962; 87070; 87205; 88112; 88305; 89050; J0330; J1100; J2371; J2405; J2704; J2710; J3010; J3490; J7030

== ENCOUNTER → 2023-07-16 09:02 | Outpatient (BNVA) | payer OTHER, SELFPAY | PROVIDERS: PCP Family Medicine; Visit Provider Internal Medicine | DX: E11.649 Type 2 diabetes mellitus with hypoglycemia without coma; E78.2 Mixed hyperlipidemia; Z79.4 Long term (current) use of insulin; Z79.84 Long term (current) use of oral hypoglycemic drugs | CPT/HCPCS: 99214 ==

== ENCOUNTER 2023-07-19 11:00 | Outpatient (CLI) | payer OTHER, SELFPAY ==
[2023-07-19 12:29] LABS: Estmated Average Glucose 128; Hemoglobin A1C 6.1 % (4.0-6.0)
[2023-07-19 12:37] LABS: Creatinine Urine, Random 165 mg/dL (39-259); Microalbum Creatinine Ratio Ur 6 mg/dL (0-20); Microalbumin Random Urine 1 ug/dL (0-20)
[2023-07-19 12:37] LABS: Phosphorus 2.3 mg/dL (2.5-4.5)
[2023-07-19 12:39] LABS: Alanine Aminotransferase 11 U/L (0-41); Albumin Level 3.8 g/dL (3.5-5.2); Alkaline Phosphatase 157 U/L (40-130); Anion Gap 18.2 (5-19); Aspartate Amino Transferase 12 U/L (0-40); Blood Urea Nitrogen 37 mg/dL (8-23); Calcium 8.8 mg/dL (8.5-10.5); Carbon Dioxide 19 mmol/L (22-29); Chloride 107 mmol/L (98-107); Chol HDL Ratio 2.46 mg/dL (1.0-5.00); Cholesterol 101 mg/dL (0-200); Globulin 2.5 g/dL (1.3-4.6); Glucose 187 mg/dL (65-115); HDL Cholesterol 41 mg/dL (60-100); LDL Cholesterol Calculated 50 mg/dL (50-129); LDL HDL Ratio 1.22 RATIO (0.00-3.22); Osmolality Calculated 304 mOsm/kg (285-295); Potassium 4.2 mmol/L (3.5-5.1); Sodium 140 mmol/L (136-145); Total Bilirubin 0.6 mg/dL (0.15-1.2); Total Protein 6.3 g/dL (6.6-8.7); Triglycerides 48 mg/dL (0-150)
== END 2023-07-19 11:01 | disposition home or self-care (01) ==
PROVIDERS: Internal Medicine; PCP Family Medicine; Visit Provider Internal Medicine
DX: E11.649 Type 2 diabetes mellitus with hypoglycemia without coma (principal); E78.5 Hyperlipidemia, unspecified
CPT/HCPCS: 36415; 80053; 80061; 82044; 83036; 84100

== ENCOUNTER 2023-08-06 17:15 | Outpatient (CLI) | payer OTHER, SELFPAY ==
--- NOTE | 2023-08-06 17:24 | XRR_ITS ---
PROCEDURE INFORMATION: Exam: XR Chest Exam date and time: 08/06/2023 5:27 PM Age: 78 years old Clinical indication: Wheezing TECHNIQUE: Imaging protocol: Radiologic exam of the chest. Views: 2 views. COMPARISON: CR XR chest 1V portable [id number] 06/26/2023 9:57 AM FINDINGS: Lungs: Unremarkable. No consolidation. Pleural spaces: Unremarkable. No pleural effusion. No pneumothorax. Heart/Mediastinum: Unremarkable. No cardiomegaly. Bones/joints: The patient is post sternotomy with surgical clips in the mediastinum. The bones are generally osteopenic. XR/XR chest 2V* [id number] IMPRESSION: No acute cardiopulmonary disease.
== END 2023-08-06 17:16 | disposition home or self-care (01) ==
PROVIDERS: PCP Family Medicine; Visit Provider Internal Medicine Pulmonary Disease
DX: R91.1 Solitary pulmonary nodule (principal); R06.2 Wheezing
CPT/HCPCS: 71046; 99214

== ENCOUNTER 2023-08-07 13:05 | Outpatient (CLI) | payer OTHER, SELFPAY ==
--- NOTE | 2023-08-07 13:00 | CT_ITS ---
WS: [id number] CT CHEST TECHNIQUE: Noncontrast CT of the chest with coronal and sagittal reformatted images. CLINICAL INFORMATION: lung cancer follow up COMPARISON: CT chest 06/26/2023 and PET/CT 06/02/2023 DLP: 529.[address] scans at [facility] use at least one of these dose optimization techniques: automated e xposure control; mA and/or kV adjustment per patient size (includes targeted exams where dose is matc hed to clinical indication); or iterative reconstruction. FINDINGS: Advanced centrilobular emphysema. Previously described spiculated lesion in the posterior segment of the RIGHT upper lobe has decreased in size compared to the prior examinations. This measures approximately 6.5 x 3.8 mm compared to 12 x 9 mm previous. Findings compatible with interval response to therapy. No new or progressed nodules. Tiny subpleural nodule RIGHT upper lobe measuring 3 mm. Normal caliber thoracic aorta. Pulmonary arterial hypertension unchanged. Coronary calcification. Jossy or CABG with bypass. No mediastinal or hilar lymphadenopathy. Prior cholecystectomy. Normal GE junction. Adrenal glands are normal. Splenic artery calcification. IMPRESSION: 1. Significant decrease in RIGHT upper lobe nodule described above compatible with interval response to therapy. 2. Advanced chronic emphysematous changes. 3. Stable 3 mm nodule in the RIGHT upper lobe subpleural in location. 4. No mediastinal or hilar lymphadenopathy.
== END 2023-08-07 13:06 | disposition home or self-care (01) ==
PROVIDERS: PCP Family Medicine; Visit Provider Internal Medicine Pulmonary Disease
DX: R91.8 Other nonspecific abnormal finding of lung field (principal); J43.2 Centrilobular emphysema
CPT/HCPCS: 71250

== ENCOUNTER 2023-09-17 12:18 | Outpatient (CLI) | payer OTHER, SELFPAY ==
--- NOTE | 2023-09-17 12:30 | CT_ITS ---
WS: [id number] CT chest wo con [id number] HISTORY: Follow-up lung nodules. TECHNIQUE: Axial imaging performed through the thorax. Coronal and sagittal reformats are submitted. All CT scans at [facility] use at least one of these dose optimization techniques: automated exposure control; mA and/or kV adjustment per patient size (includes targeted exams where dose is mat ched to clinical indication); or iterative reconstruction. CONTRAST: None DLP: 518.30 mGy.cm COMPARISON: 08/07/2023 and 06/26/2023 Lungs and central airway: Marked hyperexpansion and chronic emphysema. Previously described pulmonary nodule in the RIGHT upper lobe has essentially resolved. There is some very mild associated pleural thickening at the site of the previously described nodule. There are a few additional micronodules wh ich are unchanged. No new or enlarging nodule or mass. No pneumonia. Pleura: Normal. No pleural effusion. Heart and pericardium: Normal size heart with no pericardial effusion. Mediastinum and darleen: No adenopathy. Small benign-appearing lymph nodes are unchanged. Vessels: Extensive calcification in the igiugig coronary arteries and the thoracic aorta. Prior CABG. Thoracic aorta is ectatic. Mild pulmonary artery dilatation. Chest wall and lower neck: No soft tissue masses. Upper abdomen: No adrenal mass. Very heavy calcification within the splenic artery and the visualized suprarenal aorta. Mild atrophy upper pole of each kidney. Prior cholecystectomy. Osseous structures: Scoliosis. IMPRESSION: 1. Essentially complete resolution of previously described PET/CT nodule in the RIGHT upper lobe. Con sistent with response to therapy. 2. Centrilobular emphysema. The additional micronodules are stable. No new or increasing mass. 3. Extensive calcifications in the aorta and coronary arteries. 4. No adrenal mass and no mediastinal or hilar adenopathy. 5. Cholecystectomy.
== END 2023-09-17 12:19 | disposition home or self-care (01) ==
PROVIDERS: PCP Family Medicine; Visit Provider Internal Medicine Pulmonary Disease
DX: R91.1 Solitary pulmonary nodule (principal); J43.2 Centrilobular emphysema; I70.0 Atherosclerosis of aorta; I25.10 Atherosclerotic heart disease of native coronary artery without angina pectoris
CPT/HCPCS: 71250

== ENCOUNTER 2023-10-08 15:19 | Outpatient (CLI) | payer OTHER, SELFPAY ==
[2023-10-08 16:21] LABS: Estmated Average Glucose 151; Hemoglobin A1C 6.9 % (4.0-6.0)
[2023-10-08 16:39] LABS: Alanine Aminotransferase 11 U/L (0-41); Albumin Level 3.8 g/dL (3.5-5.2); Alkaline Phosphatase 131 U/L (40-130); Anion Gap 15.9 (5-19); Aspartate Amino Transferase 14 U/L (0-40); Blood Urea Nitrogen 36 mg/dL (8-23); Calcium 8.9 mg/dL (8.5-10.5); Carbon Dioxide 20 mmol/L (22-29); Chloride 110 mmol/L (98-107); Chol HDL Ratio 2.82 mg/dL (1.0-5.00); Cholesterol 110 mg/dL (0-200); Globulin 2.6 g/dL (1.3-4.6); Glucose 189 mg/dL (65-115); HDL Cholesterol 39 mg/dL (60-100); LDL Cholesterol Calculated 56 mg/dL (50-129); LDL HDL Ratio 1.44 RATIO (0.00-3.22); Osmolality Calculated 305 mOsm/kg (285-295); Potassium 4.9 mmol/L (3.5-5.1); Sodium 141 mmol/L (136-145); Total Bilirubin 0.3 mg/dL (0.15-1.2); Total Protein 6.4 g/dL (6.6-8.7); Triglycerides 77 mg/dL (0-150)
== END 2023-10-08 15:20 | disposition home or self-care (01) ==
LOC: LAB 15:20
PROVIDERS: PCP Family Medicine; Visit Provider Internal Medicine
DX: E11.51 Type 2 diabetes mellitus with diabetic peripheral angiopathy without gangrene (principal); Z95.820 Peripheral vascular angioplasty status with implants and grafts; I25.10 Atherosclerotic heart disease of native coronary artery without angina pectoris; E11.22 Type 2 diabetes mellitus with diabetic chronic kidney disease; I13.0 Hypertensive heart and chronic kidney disease with heart failure and stage 1 through stage 4 chronic kidney disease, or unspecified chronic kidney disease; I50.32 Chronic diastolic (congestive) heart failure; N18.30 Chronic kidney disease, stage 3 unspecified; I71.40 Abdominal aortic aneurysm, without rupture, unspecified; E78.5 Hyperlipidemia, unspecified; Z87.891 Personal history of nicotine dependence; Z79.4 Long term (current) use of insulin
CPT/HCPCS: 36415; 80053; 80061; 83036; 99214

== ENCOUNTER 2023-10-12 07:36 | Outpatient (CLI) | payer OTHER, SELFPAY ==
--- NOTE | 2023-10-12 08:00 | USCV_ITS ---
Musa Germain Age: 78 Gender: M : 1945 Exam Date: 10/12/2023 08:20 Ordering Phys: Roshan Medley MD ([email or web address]) Technologist: SHAHANA Exam Location: [facility] – [place] Indication: AAA HISTORY: Diameter (cm) AP x Transverse x Length Velocity (cm/s) Waveform Prox Aorta: 2.14 x 2.71 x 90.70 Triphasic Mid Aorta: 3.65 x 3.47 x 7.43 30.60 Triphasic Distal Aorta: 1.85 x 2.26 x 51.60 Triphasic Right Iliac Prox: 0.95 x 1.52 x 106.60 Triphasic Left Iliac Prox: 0.97 x 1.66 x 91.30 Triphasic Stent Prox Landing x x Aneurysmal Sac Max x x Lt Lat Sac Dim Rt Lat Sac Dim Stent Dist Landing x x Right Iliac Stent x x Left Iliac Stent x x Right Renal Art Left Renal Art FINDINGS: comp 05/2021 CONCLUSIONS Infrarenal Fusiform AAA measuring 3.6 x 3.5 x 7.4cm AP x Trans x CC. This is stable since 2020 Normal common iliac arteries Vic Stout MD (Electronically Signed) Final Date: 12 October 2023 16:52 S
== END 2023-10-12 07:37 | disposition home or self-care (01) ==
LOC: RAD 07:36
PROVIDERS: PCP Family Medicine; Visit Provider Internal Medicine Cardiovascular Disease
DX: I71.40 Abdominal aortic aneurysm, without rupture, unspecified (principal)
CPT/HCPCS: 93978

== ENCOUNTER → 2023-11-02 09:13 | Outpatient (BNVA) | payer OTHER, SELFPAY | PROVIDERS: PCP Family Medicine; Visit Provider Internal Medicine | DX: E11.649 Type 2 diabetes mellitus with hypoglycemia without coma (principal); E78.2 Mixed hyperlipidemia; Z79.4 Long term (current) use of insulin | CPT/HCPCS: 99214 ==

== ENCOUNTER → 2023-12-06 10:18 | Outpatient (BNVA) | payer OTHER, SELFPAY | PROVIDERS: PCP Family Medicine; Visit Provider Internal Medicine Pulmonary Disease | DX: J44.9 Chronic obstructive pulmonary disease, unspecified (principal); R91.8 Other nonspecific abnormal finding of lung field; J43.2 Centrilobular emphysema; Z87.891 Personal history of nicotine dependence | CPT/HCPCS: 99214 ==

== ENCOUNTER 2024-01-15 08:41 | Outpatient (CLI) | payer OTHER, SELFPAY ==
[2024-01-15 09:27] LABS: Basophils % 0.6 %; Eosinophils # 0.1 10^3/uL (0.0-0.8); Eosinophils % 2.2 %; Hematocrit 41.4 % (37-53); Lymphocytes # 1.3 10^3/uL (0.8-4.8); Lymphocytes % 24.7 %; Mean Corpuscular HGB Conc 32.4 g/dL (30-55); Mean Corpuscular Hemoglobin 31.3 pg (27-33); Mean Corpuscular Volume 96.7 fl (82-101); Mean Platelet Volume 9.9 fL (7.4-10.4); Monocytes # 0.4 10^3/uL (0.2-0.9); Monocytes % 7.6 %; Neutrophils # 3.49 10^3/uL (1.8-7.7); Neutrophils % 64.7 %; Nucleated Red Blood Cells % 0 %; Platelet Count 143 10^3/cmm (157-399); Red Blood Count 4.28 10^6/uL (3.85-5.65); Red Cell Distribution Width 14.1 % (12.1-15.1); White Blood Count 5.39 10^3/uL (3.29-11.43)
[2024-01-15 09:49] LABS: Alanine Aminotransferase 16 U/L (0-41); Albumin Level 3.8 g/dL (3.5-5.2); Alkaline Phosphatase 147 U/L (40-130); Anion Gap 13.3 (5-19); Aspartate Amino Transferase 17 U/L (0-40); Blood Urea Nitrogen 42 mg/dL (8-23); Calcium 9.1 mg/dL (8.5-10.5); Carbon Dioxide 22 mmol/L (22-29); Chloride 110 mmol/L (98-107); Chol HDL Ratio 2.75 mg/dL (1.0-5.00); Cholesterol 99 mg/dL (0-200); Globulin 2.4 g/dL (1.3-4.6); Glucose 121 mg/dL (65-115); HDL Cholesterol 36 mg/dL (60-100); LDL Cholesterol Calculated 47 mg/dL (50-129); LDL HDL Ratio 1.31 RATIO (0.00-3.22); Osmolality Calculated 304 mOsm/kg (285-295); Potassium 4.3 mmol/L (3.5-5.1); Sodium 141 mmol/L (136-145); Total Bilirubin 0.3 mg/dL (0.15-1.2); Total Protein 6.2 g/dL (6.6-8.7); Triglycerides 81 mg/dL (0-150)
[2024-01-15 09:50] LABS: Calcium 9.1 mg/dL (8.5-10.5)
[2024-01-15 09:54] LABS: Parathyroid Hormone 39.9 pg/mL (15-65)
[2024-01-15 10:16] LABS: Creatinine Urine, Random 69 mg/dL (39-259); Microalbum Creatinine Ratio Ur 14 mg/dL (0-20); Microalbumin Random Urine 1 ug/dL (0-20)
[2024-01-15 10:20] LABS: Estmated Average Glucose 143; Hemoglobin A1C 6.6 % (4.0-6.0)
== END 2024-01-15 08:42 | disposition home or self-care (01) ==
LOC: LAB 08:44
PROVIDERS: Absent Provider Internal Medicine; PCP Family Medicine; Visit Provider Internal Medicine
DX: E11.649 Type 2 diabetes mellitus with hypoglycemia without coma (principal); E78.2 Mixed hyperlipidemia; N18.4 Chronic kidney disease, stage 4 (severe)
CPT/HCPCS: 36415; 80053; 80061; 82044; 82310; 83036; 83970; 85025

== ENCOUNTER → 2024-01-31 10:53 | Outpatient (BNVA) | payer OTHER, SELFPAY | PROVIDERS: PCP Family Medicine; Visit Provider Internal Medicine | DX: E11.649 Type 2 diabetes mellitus with hypoglycemia without coma; E78.2 Mixed hyperlipidemia; Z79.4 Long term (current) use of insulin; Z79.85 Long-term (current) use of injectable non-insulin antidiabetic drugs | CPT/HCPCS: 99214 ==

== ENCOUNTER 2024-03-29 09:47 | Inpatient (IN) | payer OTHER, MEDICARE, SELFPAY ==
[2024-03-29] VITALS (34 sets, daily range): BP systolic 71–131; BP diastolic 45–91; PULSE 52–86; RESP 12–21; TEMP 36.4–36.7; O2SAT 85–96; BMI 28.7
--- NOTE | 2024-03-29 10:21 | CTR_ITS ---
PROCEDURE INFORMATION: Exam: CT Abdomen And Pelvis Without Contrast Exam date and time: 03/29/2024 11:15 AM Age: 78 years old Clinical indication: Nausea and vomiting; Abdominal pain; Localized; Right lower quadrant (rlq); Prior surgery; Surgery date: 6+ months; Surgery type: Gb, umbilical hernia; Additional info: Rlq abd pain , n/v/d TECHNIQUE: Imaging protocol: Computed tomography of the abdomen and pelvis without contrast. Radiation optimization: All CT scans at this facility use at least one of these dose optimization techniques: automated exposure control; mA and/or kV adjustment per patient size (includes targeted exams where dose is matched to clinical indication); or iterative reconstruction. COMPARISON: 1. PT PET skulltothigh INITIAL [id number] 06/02/2023 9:[address] abdomen pelvis wo con [id number] 09/05/2022 7:[address] angio abdomen pelvis [id number] 02/23/2022 10:[address] abdomen pelvis w con* [id number] 10/09/2019 9:48 AM RADIATION DOSE METRICS: Total DLP (mGy-cm): 899.7 FINDINGS: Lungs: Minimal dependent bibasilar atelectasis. Coronary arteries: Coronary artery calcifications noted. Liver: The liver is normal in size and contour. Gallbladder and bile ducts: The gallbladder is surgically absent. Pancreas: The pancreas appears normal. Spleen: The spleen appears normal. Adrenal glands: The adrenals appear normal. Kidneys and ureters: Bilateral renal cortical thinning. Stomach and bowel: The stomach is unremarkable. The small bowel loops are not abnormally dilated. The large bowel loops are not abnormally dilated. Appendix: The appendix appears normal. The appendix is mildly prominent in diameter measuring up to 9 mm. Mild appendiceal wall thickening. Trace distal periappendiceal fat stranding and possible right lower quadrant peritoneal thickening. The appendix appears slightly dilated on exam dated 02/23/2022. Possible distal acute appendicitis on exam dated 09/05/2022. The appendix on 10/09/2019 was much smaller in caliber measuring only up to 5 mm in diameter. Intraperitoneal space: Trace fluid in the right lower quadrant. Vasculature: Prominent calcified atherosclerotic disease. The infrarenal abdominal aorta is aneurysmal measuring up to 4 cm in diameter. Calcified atherosclerotic disease causing mild stenosis of the origin of the celiac and SMA. Calcified atherosclerotic disease likely causing stenosis at the origin of the renal arteries. Postsurgical changes in the left common femoral region with SFA bypass graft noted. Lymph nodes: There are no enlarged lymph nodes. Urinary bladder: The bladder is distended and demonstrates no focal contour abnormality. Reproductive: Unremarkable as visualized. Bones/joints: Unremarkable. Soft tissues: 2.1 cm umbilical hernia containing fat and a possible very short segment of small bowel, similar to prior exam in 2021. CT/CT abdomen pelvis wo con [id number] IMPRESSION: 1. Findings concerning for possible mild acute appendicitis. Recommend clinical correlation. 2. The infrarenal abdominal aorta is aneurysmal measuring up to 4 cm in diameter. 3. 2.1 cm umbilical hernia containing fat and a possible very short segment of small bowel, similar to prior exam in 2021. No signs of bowel obstruction. COMMENTS: Evaluation of solid organs and vascular structures is limited as no IV contrast was administered.
--- NOTE | 2024-03-29 10:23 | ED_ITS ---
HPI - Abdominal Pain 2 General: Chief Complaint: Abdominal Pain Stated Complaint: lower right side abd pain Time Seen by Provider: 03/29/24 09:48 History of Present Illness: Patient presents to the ER with complaints of right lower quadrant abdominal pain that comes and goes with no known factors that change it. Patient says that sharp and stabbing when it comes. This started approximately 3 days ago. Patient has had this before but it got better so he did not have it checked out. Patient states this time is not getting any better. Patient denies any fever chills but does have nausea vomiting diarrhea. Patient denies any pain burning frequency with urination. Review of Systems 2 General: Reports: 10 or more systems reviewed and unremarkable except in HPI and below PFSH ED 2 PFSH: Medical History Helicobacter pylori gastritis Recurrent umbilical hernia Abdominal aortic aneurysm Chronic obstructive pulmonary disease Hypertension Low back pain Peripheral vascular disease Restless legs syndrome Sleep apnea Surgical History History of open reduction and internal fixation (ORIF) procedure left hip Hx of cholecystectomy Status post femoropopliteal bypass surgery History of umbilical hernia repair 11/26/2019 Status post colonoscopy 11/25/2019: 3 mm sessile polyps x3 removed from the ascending colon, follow-up colonoscopy 2024 History of coronary artery stent placement Hx of CABG History of appendectomy Family History Other Family history non-contributory Denies family history of Clotting disorder Anesthesia complication Bleeding disorder Social History Smoking and tobacco/nicotine status: former use of tobacco/nicotine Quit status (tobacco/nicotine): has quit using Year quit tobacco: 1995 Former quit date comment: 2 ppd 38 years Alcohol intake: former Substance/Drug Use: never Physical Exam 2 Const: COMMON NORMALS: no acute distress, average body habitus, patient oriented x3, no limitations, healthy appearing, alert and well nourished HENMT: COMMON NORMALS: normocephalic, atraumatic, hearing grossly normal bilaterally, external ears normal, Normal external nose present and moist oral mucous membranes HEAD & SCALP: normocephalic and atraumatic NOSE: Normal external nose present EXTERNAL EAR: Yes external ears normal Neck/C-Spine: COMMON NORMALS: full ROM, no lymphadenopathy, supple, no meningeal signs, no JVD and Thyroid normal THYROID: Thyroid normal Chest: COMMONS NORMALS: normal inspection of the chest and normal palpation of entire chest wall Resp: COMMON NORMALS: normal respiratory effort, No retractions, No use of accessory muscles and clear to auscultation bilaterally AUSCULTATION: clear to auscultation bilaterally Cardio: COMMON NORMALS: no JVD, regular rate, regular rhythm, S1 normal heart sound present, S2 normal heart sound present, No gallops present (Cardio), No clicks present (Cardio), No murmurs present (Cardio) and No rub (Cardio) R ATE: regular rate RHYTHM: regular rhythm HEART SOUNDS: S1 normal heart sound present and S2 normal heart sound present GI: COMMON NORMALS: Normal to inspection, nondistended, normoactive bowel sounds present, Soft to palpation, No hepatosplenomegaly present and no masses; negative for non-tender (Mildly tender to palpate right lower quadrant patient's pain) PALPATION: Yes Soft to palpation and Yes No hepatosplenomegaly present Neuro: COMMON NORMALS: patient oriented x3 SENSORIUM/ORIENTATION: Yes alert MENINGEAL SIGNS: Yes no meningeal signs Course 2 Vital Signs: Vital signs: Vital Signs Pulse Rate 82 03/29/24 14:54 Respiratory Rate 14 03/29/24 14:54 Blood Pressure 105/91 03/29/24 14:54 Pulse Oximetry 94 03/29/24 14:54 Oxygen Delivery Me thod Nasal Cannula 03/29/24 14:54 Oxygen Flow Rate 2 03/29/24 14:54 MDM - Abdominal Pain Medical Decision Making Lab work was obtained as well as noncontrast CT scan of the abdomen pelvis which showed mild acute appendicitis. Dr. Gold was consulted who agreed to take the patient to the OR later in the day. He did want us give him 1 dose of Zosyn preop. Differential Diagnosis Likely abdominal pain and acute appendicitis; Unlikely calculus of kidney, constipation, diverticulitis, endometriosis, gastroenteritis, pancreatitis or small bowel obstruction Medical Records I reviewed the patient's medical records. Lab Data I reviewed the patient's lab results. 03/29/24 10:25 03/29/24 10:25 Labs/Radiology: Radiology Impressions Abdomen/Pelvis CT 03/29/24 10:21 IMPRESSION: 1. Findings concerning for possible mild acute appendicitis. Recommend clinical correlation. 2. The infrarenal abdominal aorta is aneurysmal measuring up to 4 cm in diameter. 3. 2.1 cm umbilical hernia containing fat and a possible very short segment of small bowel, similar to prior exam in 2021. No signs of bowel obstruction. COMMENTS: Evaluation of solid organs and vascular structures is limited as no IV contrast was administered. ADDENDUM: 03/29/24 1202 THIS REPORT CONTAINS FINDINGS THAT MAY BE CRITICAL TO PATIENT CARE. The findings were verbally communicated via telephone conference with Manuel Glover at 12:01 PM CDT on 03/29/2024. The findings were acknowledged and understood. Laboratory Results WBC 8.98 10^3/uL (3.29-11.43) 03/29/24 10:25 RBC 4.36 10^6/uL (3.85-5.65) 03/29/24 10:25 Hgb 13.40 g/dL (11.27-16.99) 03/29/24 10:25 Hct 41.1 % (37-53) 03/29/24 10:25 MCV 94.3 fl (82-101) 03/29/24 10:25 MCH 30.7 pg (27-33) 03/29/24 10:25 MCHC 32.6 g/dL (30-55) 03/29/24 10:25 RDW 13.4 % (12.1-15.1) 03/29/24 10:25 Plt Count 148 10^3/cmm (157-399) L 03/29/24 10:25 MPV 9.8 fL (7.4-10.4) 03/29/24 10:25 Neut % (Auto) 83.4 % 03/29/24 10:25 Lymph % (Auto) 10.6 % 03/29/24 10:25 Phillips % (Auto) 5.3 % 03/29/24 10:25 Eos % (Auto) 0.1 % 03/29/24 10:25 Baso % (Auto) 0.3 % 03/29/24 10:25 Neut # (Auto) 7.48 10^3/uL (1.8-7.7) 03/29/24 10:25 Lymph # (Auto) 1.0 10^3/uL (0.8-4.8) 03/29/24 10:25 Phillips # (Auto) 0.5 10^3/uL (0.2-0.9) 03/29/24 10:25 Eos # (Auto) 0.0 10^3/uL (0.0-0.8) 03/29/24 10:25 Baso # (Auto) 0.0 10^3/uL (0.0-0.1) 03/29/24 10:25 Nucleated RBC % (auto) 0 % 03/29/24 10:25 Nucleated RBCs # 0.0 /100WBC 03/29/24 10:25 Sodium 136 mmol/L (136-145) 03/29/24 10:25 Potassium 4.2 mmol/L (3.5-5.1) 03/29/24 10:25 Chloride 106 mmol/L (98-107) 03/29/24 10:25 Carbon Dioxide 20 mmol/L (22-29) L 03/29/24 10:25 Anion Gap 14.2 (5-19) 03/29/24 10:25 BUN 40 mg/dL (8-23) H 03/29/24 10:25 Creatinine 1.9 mg/dL (0.7-1.2) H 03/29/24 10:25 GFR Calculation Not Reportable 03/29/24 10:25 Glucose 139 mg/dL (65-115) H 03/29/24 10:25 Calculated Osmolality 294 mOsm/kg (285-295) 03/29/24 10:25 Calcium 8.7 mg/dL (8.5-10.5) 03/29/24 10:25 Magnesium 2.2 mg/dL (1.7-2.3) 03/29/24 10:25 Total Bilirubin 0.8 mg/dL (0.15-1.2) 03/29/24 10:25 AST 14 U/L (0-40) 03/29/24 10:25 ALT 12 U/L (0-41) 03/29/24 10:25 Alkaline Phosphatase 127 U/L (40-130) 03/29/24 10:25 Total Protein 6.5 g/dL (6.6-8.7) L 03/29/24 10:25 Albumin 3.4 g/dL (3.5-5.2) L 03/29/24 10:25 Globulin 3.1 g/dL (1.3-4.6) 03/29/24 10:25 Lipase 16 U/L (13-60) 03/29/24 10:25 Urine Color Yellow (Yellow) 03/29/24 12:40 Urine Appearance Clear (CLEAR) 03/29/24 12:40 Urine pH 5 (5-7) 03/29/24 12:40 Ur Specific [place] 1.020 (1.005-1.030) 03/29/24 12:40 Urine Protein Neg (Negative) 03/29/24 12:40 Urine Glucose (UA) 4+ (Normal) H 03/29/24 12:40 Urine Ketones Negative (Negative) 03/29/24 12:40 Urine Blood Neg (Negative) 03/29/24 12:40 Urine Nitrate Negative (Negative) 03/29/24 12:40 Urine Bilirubin 1+ (Negative) H 03/29/24 12:40 Urine Urobilinogen Norm mg/dL (Negative) 03/29/24 12:40 Ur Leukocyte Esterase Negative (Negative) 03/29/24 12:40 All radiology interpretation(s) finalized by discharge Discharge Plan Discharge Patient Disposition: Admitted As Inpatient Admit Provider: Reji Gold Clinical Impression: Acute appendicitis, Chronic kidney insufficiency Condition: Stable Coding Level of Care Code ED Stave Bolt Equalizer for Teri Garay
[2024-03-29 10:33] LABS: Basophils % 0.3 %; Eosinophils % 0.1 %; Hematocrit 41.1 % (37-53); Lymphocytes % 10.6 %; Mean Corpuscular HGB Conc 32.6 g/dL (30-55); Mean Corpuscular Hemoglobin 30.7 pg (27-33); Mean Corpuscular Volume 94.3 fl (82-101); Mean Platelet Volume 9.8 fL (7.4-10.4); Monocytes # 0.5 10^3/uL (0.2-0.9); Monocytes % 5.3 %; Neutrophils # 7.48 10^3/uL (1.8-7.7); Neutrophils % 83.4 %; Nucleated Red Blood Cells % 0 %; Platelet Count 148 10^3/cmm (157-399); Red Blood Count 4.36 10^6/uL (3.85-5.65); Red Cell Distribution Width 13.4 % (12.1-15.1); White Blood Count 8.98 10^3/uL (3.29-11.43)
[2024-03-29 10:49] LABS: Alanine Aminotransferase 12 U/L (0-41); Albumin Level 3.4 g/dL (3.5-5.2); Alkaline Phosphatase 127 U/L (40-130); Anion Gap 14.2 (5-19); Aspartate Amino Transferase 14 U/L (0-40); Blood Urea Nitrogen 40 mg/dL (8-23); Calcium 8.7 mg/dL (8.5-10.5); Carbon Dioxide 20 mmol/L (22-29); Chloride 106 mmol/L (98-107); Globulin 3.1 g/dL (1.3-4.6); Glucose 139 mg/dL (65-115); Lipase 16 U/L (13-60); Magnesium 2.2 mg/dL (1.7-2.3); Osmolality Calculated 294 mOsm/kg (285-295); Potassium 4.2 mmol/L (3.5-5.1); Sodium 136 mmol/L (136-145); Total Bilirubin 0.8 mg/dL (0.15-1.2); Total Protein 6.5 g/dL (6.6-8.7)
[2024-03-29 10:55] LABS: Creatinine Clr Calc Pharmacy 41.2153
[2024-03-29] MEDS: ondansetron 2 mg/ML SDV 2 mL 4 MG IVP (10:55)
[2024-03-29] MEDS: sodium chloride 0.9% 1,000 ML 999 ML IV ×2 (10:55→13:14)
--- NOTE | 2024-03-29 10:55 | PC.NURSE ---
pt b/p 71/45, pt placed in trendelenburg and Dr. Cervantes notified. Dr. Cervantes verbalized order for normal saline bolus. see MAR. pt's states his normal blood pressure is low.
--- NOTE | 2024-03-29 10:57 | PC.NURSE ---
pt oxygenation saturation periodically decreases to 88% and will increase with deep breathing to 93%. pt states he has COPD. Dr. Cervantes notified.
--- NOTE | 2024-03-29 11:15 | PC.NURSE ---
pt oxygen saturation continues to decrease to 84%-88% when pt resting, this nurse applied 2L NC to maintain oxygen sat of 92%. pt currently 93% on 2L, respirations even & unlabored.
[2024-03-29 12:42] LABS: Add Urine Microscopic? NO; Charge for UA Resulting for Rev
[2024-03-29 12:53] LABS: Bilirubin Urine 1+ (Negative); Blood Urine Neg (Negative); Glucose Urine UA 4+ (Normal); Ketones Urine Negative (Negative); Leukocyte Esterase Urine Negative (Negative); Nitrate Urine Negative (Negative); Protein Urine Neg (Negative); Urine Appearance Clear (CLEAR); Urine Color Yellow (Yellow); Urobilinogen Urine Norm (Negative); pH Urine 5 (5-7)
--- NOTE | 2024-03-29 12:54 | P.ANESASSM_ITS ---
Pre-Anesthetic Assessment Height/Weight: Height 1.91 m Weight 104.326 kg Pulse Resp BP Pulse Ox O2 Del Method O2 Flow Rate 68 17 107/63 95 Nasal Cannula 2 03/29/24 12:14 03/29/24 12:14 03/29/24 12:14 03/29/24 12:14 03/29/24 12:14 03/29/24 12:14 Laparoscopic Appendectomy Familial anesthetic complications: None Was Beta Subhash taken within 24 hours: N/A Was Clonidine taken within 24 hours: N/A Last intake: > 8 hrs Social No alcohol and No tobacco Exam alert, oriented x 3, clear to auscultation bilaterally and regular rate & rhythm Airway Mallampati: Class III Dentition: false and other (no teeth) CV/HEM Coronary Artery Disease (treated medically), Congestive Heart Failure and Hypertension Hx cabg Chronic Renal Insufficiency GI Gastroesophageal Reflux Disease Metabolic Diabetes Mellitus and Hyperlipidemia Anesthetic Plan ASA status: 4 Anesthesia: General Risk of > 500 ml blood loss (7ml/kg in children): No Medications/Allergies Home Medications Medication Instructions Recorded Confirmed Last Taken Type amlodipine 5 mg tablet 5 mg PO QAM 11/04/19 01/31/24 06/26/23 History finasteride 5 mg tablet 5 mg PO BEDTIME 11/04/19 01/31/24 06/25/23 History gabapentin 300 mg capsule 300 mg PO BEDTIME 11/04/19 01/31/24 06/25/23 History nitroglycerin 0.4 mg sublingual 0.4 mg sublingual Q5M PRN chest 11/04/19 01/31/24 01/20/20 History tablet pain pentoxifylline 400 mg 400 mg PO TID 11/04/19 01/31/24 06/26/23 History tablet,extended release ropinirole 2 mg tablet 2 mg PO TID 11/04/19 01/31/24 06/26/23 History terazosin 1 mg capsule 3 mg PO BEDTIME 11/04/19 01/31/24 06/25/23 History tiotropium bromide 2.5 2 inh inhalation QAM 11/04/19 01/31/24 06/25/23 History mcg/actuation mist for inhalation clopidogrel 75 mg tablet (Plavix) 75 mg PO QAM 11/06/19 01/31/24 06/19/23 History albuterol sulfate 90 mcg/actuation 2 puff inhalation Q4H PRN 01/24/20 01/31/24 06/25/23 History aerosol inhaler Shortness Of Breath pioglitazone 15 mg tablet 15 mg PO QAM 02/01/21 01/31/24 06/26/23 History aspirin 81 mg tablet,delayed 81 mg PO QAM 11/04/21 01/31/24 06/22/23 History release cholecalciferol (vitamin D3) 50 2,000 unit PO BID 11/04/21 01/31/24 06/26/23 History mcg (2,000 unit) capsule (Vitamin D3) oxycodone-acetaminophen 5 mg-325 1.5 tab PO BID PRN Pain 11/04/21 01/31/24 06/25/23 History mg tablet (Percocet) trazodone 100 mg tablet 50 mg PO BEDTIME PRN Sleep 11/04/21 01/31/24 06/22/23 History guaifenesin 600 mg tablet, See Rx Instructions .Route 04/26/22 01/31/24 06/25/23 History extended release 12 hr (Mucinex) .COMPLEX PRN Congestion pantoprazole 40 mg tablet,delayed 40 mg PO BID 14 days #28 tabs 08/25/22 01/31/24 06/26/23 Rx release (Protonix) cyanocobalamin (vitamin B-12) 100 100 mcg PO DAILY 09/05/22 01/31/24 06/26/23 History mcg tablet (Vitamin B-12) ferrous sulfate 325 mg (65 mg 325 mg PO BID 09/05/22 01/31/24 06/26/23 History iron) tablet (iron) fluticasone 250 mcg-salmeterol 50 1 inh inhalation BID 09/05/22 01/31/24 06/25/23 History mcg/dose blistr powdr for inhalation (Advair Diskus) hydrochlorothiazide 25 mg tablet 25 mg PO DAILY 09/05/22 01/31/24 06/26/23 History lisinopril 40 mg tablet 40 mg PO BEDTIME 09/05/22 01/31/24 06/25/23 History glucagon HCl 1 mg solution for 1 mg SUBCUT Q20M PRN hypoglycemia 04/03/23 01/31/24 Unknown Rx injection (Glucagon (HCl) #1 ea Emergency Kit) flash glucose scanning reader #1 ea 04/17/23 01/31/24 06/22/23 Rx (FreeStyle Alvin 2 [place]) isosorbide mononitrate 30 mg See Rx Instructions .Route 05/10/23 01/31/24 06/26/23 Rx tablet,extended release 24 hr .COMPLEX #90 tabs atorvastatin 40 mg tablet (Lipitor) 40 mg PO BEDTIME 06/26/23 01/31/24 06/25/23 History FreeStyle Alvin 2 Sensor (flash #6 ea 07/25/23 01/31/24 Unknown Rx glucose sensor) empagliflozin 25 mg tablet 25 mg PO DAILY 08/06/23 01/31/24 Unknown History (Jardiance) FreeStyle Alvin 2 Sensor (flash #2 ea 11/08/23 01/31/24 Unknown Rx glucose sensor) insulin NPH isoph U-100 human 100 See Rx Instructions SUBCUT DAILY 12/06/23 01/31/24 Unknown History unit/mL subcutaneous suspension lower blood sugar (Novolin N NPH U-100 Insulin isophane) Allergies Allergy/AdvReac Type Severity Reaction Status Date / Time No Known Allergies Allergy Verified 01/31/24 10:49 [facility] Anesthesia Medical History Helicobacter pylori gastritis Recurrent umbilical hernia Abdominal aortic aneurysm Chronic obstructive pulmonary disease Hypertension Low back pain Peripheral vascular disease Restless legs syndrome Sleep apnea Surgical History History of open reduction and internal fixation (ORIF) procedure left hip Hx of cholecystectomy Status post femoropopliteal bypass surgery History of umbilical hernia repair 11/26/2019 Status post colonoscopy 11/25/2019: 3 mm sessile polyps x3 removed from the ascending colon, follow-up colonoscopy 2024 History of coronary artery stent placement Hx of CABG History of appendectomy Family History Other Family history non-contributory Denies family history of Clotting disorder Anesthesia complication Bleeding disorder Social History Smoking and tobacco/nicotine status: former use of tobacco/nicotine Quit status (tobacco/nicotine): has quit using Year quit tobacco: 1995 Former quit date comment: 2 ppd 38 years Alcohol intake: former Substance/Drug Use: never Data Anesthesia 03/29/24 10:25 03/29/24 10:25 Short CBC 03/29/24 Range/Units 10:25 WBC 8.98 (3.29-11.43) 10^3/uL Hgb 13.40 (11.27-16.99) g/dL Hct 41.1 (37-53) % MCV 94.3 (82-101) fl Plt Count 148 L (157-399) 10^3/cmm Neut % (Auto) 83.4 % Neut # (Auto) 7.48 (1.8-7.7) 10^3/uL BMP 03/29/24 10:25 Sodium 136 Potassium 4.2 Chloride 106 Carbon Dioxide 20 L BUN 40 H Creatinine 1.9 H Glucose 139 H Calcium 8.7 Liver Function 03/29/24 Range/Units 10:25 Total Bilirubin 0.8 (0.15-1.2) mg/dL AST 14 (0-40) U/L ALT 12 (0-41) U/L Alkaline Phosphatase 127 (40-130) U/L Albumin 3.4 L (3.5-5.2) g/dL Urine 03/29/24 Range/Units 12:40 Urine Color Yellow (Yellow) Urine Appearance Clear (CLEAR) Urine pH 5 (5-7) Ur Specific [place] 1.020 (1.005-1.030) Urine Protein Neg (Negative) Urine Glucose (UA) 4+ H (Normal) Urine Ketones Negative (Negative) Urine Nitrate Negative (Negative) Urine Bilirubin 1+ H (Negative) Ur Leukocyte Esterase Negative (Negative) Cardiac Studies: 2 Echocardiogram 11/06/21 Sestamibi Stress Test (Cardiology) 04/05
--- NOTE | 2024-03-29 13:08 | P.HP_ITS ---
Providers/Chief Complaint 2 Primary Care Provider: Tish Henry MD Chief Complaint: lower right side abd pain History of Present Illness Musa Germain is a 78 year old male who presents to the emergency department complaining of 24 hours of right lower quadrant abdominal pain. Patient has had intermitting pain in these areas for long time but at this time the pain has become continuous. He denies nausea or vomiting has been having some malaise. Review of Systems 2 General: Reports: 10 or more systems reviewed and unremarkable except in HPI and below Medications/Allergies Home Medications Medication Instructions Recorded Confirmed Last Taken Type amlodipine 5 mg tablet 5 mg PO QAM 11/04/19 01/31/24 06/26/23 History finasteride 5 mg tablet 5 mg PO BEDTIME 11/04/19 01/31/24 06/25/23 History gabapentin 300 mg capsule 300 mg PO BEDTIME 11/04/19 01/31/24 06/25/23 History nitroglycerin 0.4 mg sublingual 0.4 mg sublingual Q5M PRN chest 11/04/19 01/31/24 01/20/20 History tablet pain pentoxifylline 400 mg 400 mg PO TID 11/04/19 01/31/24 06/26/23 History tablet,extended release ropinirole 2 mg tablet 2 mg PO TID 11/04/19 01/31/24 06/26/23 History terazosin 1 mg capsule 3 mg PO BEDTIME 11/04/19 01/31/24 06/25/23 History tiotropium bromide 2.5 2 inh inhalation QAM 11/04/19 01/31/24 06/25/23 History mcg/actuation mist for inhalation clopidogrel 75 mg tablet (Plavix) 75 mg PO QAM 11/06/19 01/31/24 06/19/23 History albuterol sulfate 90 mcg/actuation 2 puff inhalation Q4H PRN 01/24/20 01/31/24 06/25/23 History aerosol inhaler Shortness Of Breath pioglitazone 15 mg tablet 15 mg PO QAM 02/01/21 01/31/24 06/26/23 History aspirin 81 mg tablet,delayed 81 mg PO QAM 11/04/21 01/31/24 06/22/23 History release cholecalciferol (vitamin D3) 50 2,000 unit PO BID 01/01/31/24 06/26/23 History mcg (2,000 unit) capsule (Vitamin D3) oxycodone-acetaminophen 5 mg-325 1.5 tab PO BID PRN Pain 11/04/21 01/31/24 06/25/23 History mg tablet (Percocet) trazodone 100 mg tablet 50 mg PO BEDTIME PRN Sleep 11/04/21 01/31/24 06/22/23 History guaifenesin 600 mg tablet, See Rx Instructions .Route 04/26/22 01/31/24 06/25/23 History extended release 12 hr (Mucinex) .COMPLEX PRN Congestion pantoprazole 40 mg tablet,delayed 40 mg PO BID 14 days #28 tabs 08/25/22 01/31/24 06/26/23 Rx release (Protonix) cyanocobalamin (vitamin B-12) 100 100 mcg PO DAILY 09/05/22 01/31/24 06/26/23 History mcg tablet (Vitamin B-12) ferrous sulfate 325 mg (65 mg 325 mg PO BID 09/05/22 01/31/24 06/26/23 History iron) tablet (iron) fluticasone 250 mcg-salmeterol 50 1 inh inhalation BID 09/05/22 01/31/24 06/25/23 History mcg/dose blistr powdr for inhalation (Advair Diskus) hydrochlorothiazide 25 mg tablet 25 mg PO DAILY 09/05/22 01/31/24 06/26/23 History lisinopril 40 mg tablet 40 mg PO BEDTIME 09/05/22 01/31/24 06/25/23 History glucagon HCl 1 mg solution for 1 mg SUBCUT Q20M PRN hypoglycemia 04/03/23 01/31/24 Unknown Rx injection (Glucagon (HCl) #1 ea Emergency Kit) flash glucose scanning reader #1 ea 04/17/23 01/31/24 06/22/23 Rx (FreeStyle Alvin 2 [place]) isosorbide mononitrate 30 mg See Rx Instructions .Route 05/10/23 01/31/24 06/26/23 Rx tablet,extended release 24 hr .COMPLEX #90 tabs atorvastatin 40 mg tablet (Lipitor) 40 mg PO BEDTIME 06/26/23 01/31/24 06/25/23 History FreeStyle Alvin 2 Sensor (flash #6 ea 07/25/23 01/31/24 Unknown Rx glucose sensor) empagliflozin 25 mg tablet 25 mg PO DAILY 08/06/23 01/31/24 Unknown History (Jardiance) FreeStyle Alvin 2 Sensor (flash #2 ea 11/08/23 01/31/24 Unknown Rx glucose sensor) insulin NPH isoph U-100 human 100 See Rx Instructions SUBCUT DAILY 12/06/23 01/31/24 Unknown History unit/mL subcutaneous suspension lower blood sugar (Novolin N NPH U-100 Insulin isophane) Allergies Allergy/AdvReac Type Severity Reaction Status Date / Time No Known Allergies Allergy Verified 01/31/24 10:49 PFSH Acute 2 PFSH: Medical History Helicobacter pylori gastritis Recurrent umbilical hernia Abdominal aortic aneurysm Chronic obstructive pulmonary disease Hypertension Low back pain Peripheral vascular disease Restless legs syndrome Sleep apnea Surgical History History of open reduction and internal fixation (ORIF) procedure left hip Hx of cholecystectomy Status post femoropopliteal bypass surgery History of umbilical hernia repair 11/26/2019 Status post colonoscopy 11/25/2019: 3 mm sessile polyps x3 removed from the ascending colon, follow-up colonoscopy 2024 History of coronary artery stent placement Hx of CABG History of appendectomy Family History Other Family history non-contributory Denies family history of Clotting disorder Anesthesia complication Bleeding disorder Social History Smoking and tobacco/nicotine status: former use of tobacco/nicotine Quit status (tobacco/nicotine): has quit using Year quit tobacco: 1995 Former quit date comment: 2 ppd 38 years Alcohol intake: former Substance/Drug Use: never Vitals/I&O/Wt Last Vital Signs Pulse 67 03/29/24 12:55 Resp 17 03/29/24 12:14 BP 121/82 03/29/24 12:55 Pulse Ox 92 03/29/24 12:55 O2 Del Method Nasal Cannula 03/29/24 12:14 O2 Flow Rate 2 03/29/24 12:14 Weight last 48 hrs Weight 230 lb Physical Exam 2 Narrative: General : Patient is well developed , no acute distress, oriented x3 Head : Normal cephalic, a-traumatic. Nose : Mucous membranes are without erythema. Lungs : Equal chest rise bilaterally, no use of accessory muscles, trachea is midline. CV : Rate and rhythm are normal. Abdomen : Soft, there is tenderness in the right lower quadrant, McBurney positive. There is an umbilical hernia that is incarcerated. Extremities : No edema. Upper extremities are normal bilaterally. Back : non-tender to palpation, no CVA tenderness. Data 03/29/24 10:25 03/29/24 10:25 A&P Assessment and plan (1) Recurrent umbilical hernia: (2) Acute appendicitis: Qualifiers: Acute appendicitis type: with localized peritonitis Appendicitis abscess presence: without abscess Appendicitis gangrene presence: without gangrene Appendicitis perforation presence: without perforation Qualified Code(s): K35.30 - Acute appendicitis with localized peritonitis, without perforation or gangrene Plan Is a 78-year-old male who presents to the hospital with abdominal pain and is noted to have acute appendicitis on imaging. After complete history physical examination and review of all available clinical data have decided to offer the patient laparoscopic appendectomy. Have discussed with the patient and the family the risk involved with the procedure including the risk of bleeding, infection, perforation, damage to surrounding structures, risk of hernia, the mesh of the great vessels, massive bleeding and , damage to the ureter to the bladder to the cecum to the small intestine. Sepsis, . Patient shows understanding agrees to proceed. I have explained to patient that I might need to put one of the trocars through his umbilical hernia and then I will do a primary repair but this most likely will not will not be a definitive repair. He agrees. -Zosyn stat -Pain control as needed -On-call to the OR Attestations 2 Medical Necessity Statement*: Patient may be discharged after surgery today Coding Level of Care Code Acute Code for [facility] Fwd Diagnoses Recurrent umbilical hernia K42.9 Acute appendicitis K35.30 Acute appendicitis type: with localized peritonitis Appendicitis abscess presence: without abscess Appendicitis gangrene presence: without gangrene Appendicitis perforation presence: without perforation
[2024-03-29] MEDS: piperacillin-tazobactam 3.375 GM in sodium chloride 0.9% (plus) 50 ML IV ×2 (13:58→21:15)
[2024-03-29] MEDS: BUPivacaine 0.25% INJ 10 mL INJECTION (16:46)
[2024-03-29] MEDS: lidocaine-epi 1% 20 mL INJ INJECTION (16:46)
--- NOTE | 2024-03-29 17:07 | P.OP_ITS ---
Operative Report Date of procedure: March 29, 2024 Pre-op diagnosis: Acute appendicitis Post-op diagnosis: Acute appendicitis with peritonitis, intra-abdominal adhesions Post-op findings: There was a severe acute appendicitis with peritonitis and phlegmon formation between the terminal ileum and appendix, significant amount of fibrin with no purulent rents were noted in the area of the cecum and also on the mid abdomen. No perforation was identified. There was a small right inguinal hernia indirect and the tip of the appendix appeared to have been incarcerated inside of this hernia. There was significant adhesions from the omentum to the anterior abdominal wall, the area of the mesh and the falciform ligament, this additions were taken down using LigaSure, about 60 minutes was taken to lyse all these additions. Procedure done: Laparoscopic appendectomy, lysis of adhesions Specimens removed/disposition: Appendix Surgeon: Reji Gold MD Director Of Manufacturing Operations: OLESYA OR STaff Estimated blood loss: 10 Complications: none Brief History: 78-year-old male with history of chronic abdominal pain who presented with acute increase in the pain in the right lower quadrant over the last 24 hours, imaging in the emergency room was consistent with acute appendicitis. After discussion of all risk and benefits as documented my preop note we decided with laparoscopic appendectomy. Procedure: Patient was brought into the OR, he was placed in a supine position. General anesthesia was given. The abdomen was prepped and draped in the usual sterile fashion. Timeout was conducted. Due to patient history of multiple intra- abdominal surgeries as well as history of intra-abdominal mesh I decided to do the entry with a 5mm Optiview trocar at the level of Lindquist's point. Abdominal entry was successful and initial pneumoperitoneum was achieved, laparoscopy showed no evidence of injury of intra-abdominal structures during entry. Immediately upon entry it was noted that significant adhesions from the omentum to the anterior abdominal wall were in the pat of visualization. There visualization had an additional 5 mm trocar was able to be placed in the left lower quadrant and with the help of LigaSure and sharp dissection I took down the adhesions to the omentum to the mid abdomen in the area of the mesh. This was done carefully avoiding injury to adjacent structures. Once the adhesions were taken down I was able to place a 12 mm trocar in the left flank under direct visualization. Additional laparoscopy evaluation of the abdomen was done and it was immediately apparent that there was significant inflammatory process in the right lower quadrant there was significant fibrinous Rands in the right lower quadrant and also in the mid abdomen consistent with the possibility of peritonitis. With careful blunt dissection I was able to take down adhesions from the small bowel to the right lower quadrant. after The small bowel was mobilized I was able to visualize a large phlegmon composed of the terminal ileum and the appendix, this was carefully taken down with blunt dissection and no evidence of visceral injury was noted after mobilization. The appendix was localized in the right lower quadrant and the tip appeared to be very inflamed, the tip was completely stuck in the right pelvis, with careful blunt dissection I was able to mobilize it and it revealed that it had been chronically incarcerated inside of a small right indirect inguinal hernia. Once completely mobilized I was able to take down the mesoappendix from the tip of the appendix to the base using LigaSure. The base appeared to be healthy, I used a 45 mm blue load Endo GALINA stapler to transect the appendix at the level of the base. After transection suture line was hemostatic and there was no evidence of active bleeding. The specimen was retrieved through the 12 mm trocar site. Extensive irrigation of the right lower quadrant and pelvis was achieved until clear fluid was noted. Before terminating the procedure I took down the adhesions of the omentum to the falciform ligament and to the anterior abdominal wall about the liver to allow the omentum to be mobilized down to the surgical area. During laparoscopy the mesh was evaluated, this was noted to be intact and in a preperitoneal position. There was some purulence overlying this area is likely from the inflammatory process in the right lower quadrant, the area was irrigated no other significant findings were noted at this level. I then proceeded to remove the 12 mm trocar and this fascia was closed with a #0 Vicryl with a Sly-Jordon suture passer under direct visualization. Left lower quadrant trocar was then removed under direct visualization and I used the left upper quadrant trocar to evacuate the pneumoperitoneum and subsequently removed. The wounds were then closed in layers using #4-0 Monocryl for the skin. Dermabond was applied. At the end of the procedure all counts were correct. The patient tolerated well the procedure and was transferred to the PACU in stable condition. Due to significant evidence of peritonitis as well as history of a mesh prosthesis in the abdomen patient will be kept as inpatient for 48 to 72 hours of IV antibiotics. Right inguinal hernia was not repaired during this procedure as it would be unwise to put mesh in a contaminated field.
--- NOTE | 2024-03-29 17:12 | P.CONIM_ITS ---
Providers/Reason For Consult 2 Consulting Physician/Specialty*: Mallika Mcconnell MD Reason for Consult*: management of medical comorbidities Requesting Physician: Reji Gold MD Attending Physician: Reji Gold MD Primary Care Provider: Tish Henry MD History of Present Illness History of Present Illness Musa Germain is a 78 year old male with past medical history of COPD, CKD, hypertension, diabetes melitis, pulmonary nodule, AAA, PAD s/p femoropopliteal bypass surgery, CAD s/p CABG presented this morning with left lower quadrant pain, worsening since 3 days and associated with malaise. He denied any history of fever, chills, nausea, vomiting and was diagnosed with acute appendicitis. He is s/p laparoscopic appendicectomy, hemodynamically stable. Medical consult requested for management of medical comorbidities. Review of Systems 2 General: Reports: 10 or more systems reviewed and unremarkable except in HPI and below Medications/Allergies Home Medications Medication Instructions Recorded Confirmed Last Taken Type amlodipine 5 mg tablet 5 mg PO QAM 11/04/19 01/31/24 06/26/23 History finasteride 5 mg tablet 5 mg PO BEDTIME 11/04/19 01/31/24 06/25/23 History gabapentin 300 mg capsule 300 mg PO BEDTIME 11/04/19 01/31/24 06/25/23 History nitroglycerin 0.4 mg sublingual 0.4 mg sublingual Q5M PRN chest 11/04/19 01/31/24 01/20/20 History tablet pain pentoxifylline 400 mg 400 mg PO TID 11/04/19 01/31/24 06/26/23 History tablet,extended release ropinirole 2 mg tablet 2 mg PO TID 11/04/19 01/31/24 06/26/23 History terazosin 1 mg capsule 3 mg PO BEDTIME 11/04/19 01/31/24 06/25/23 History tiotropium bromide 2.5 2 inh inhalation QAM 11/04/19 01/31/24 06/25/23 History mcg/actuation mist for inhalation clopidogrel 75 mg tablet (Plavix) 75 mg PO QAM 11/06/19 01/31/24 06/19/23 History albuterol sulfate 90 mcg/actuation 2 puff inhalation Q4H PRN 01/24/20 01/31/24 06/25/23 History aerosol inhaler Shortness Of Breath pioglitazone 15 mg tablet 15 mg PO QAM 02/01/21 01/31/24 06/26/23 History aspirin 81 mg tablet,delayed 81 mg PO QAM 11/04/21 01/31/24 06/22/23 History release cholecalciferol (vitamin D3) 50 2,000 unit PO BID 11/04/21 01/31/24 06/26/23 History mcg (2,000 unit) capsule (Vitamin D3) oxycodone-acetaminophen 5 mg-325 1.5 tab PO BID PRN Pain 11/04/21 01/31/24 06/25/23 History mg tablet (Percocet) trazodone 100 mg tablet 50 mg PO BEDTIME PRN Sleep 11/04/21 01/31/24 06/22/23 History guaifenesin 600 mg tablet, See Rx Instructions .Route 04/26/22 01/31/24 06/25/23 History extended release 12 hr (Mucinex) .COMPLEX PRN Congestion pantoprazole 40 mg tablet,delayed 40 mg PO BID 14 days #28 tabs 08/25/22 01/31/24 06/26/23 Rx release (Protonix) cyanocobalamin (vitamin B-12) 100 100 mcg PO DAILY 09/05/22 01/31/24 06/26/23 History mcg tablet (Vitamin B-12) ferrous sulfate 325 mg (65 mg 325 mg PO BID 09/05/22 01/31/24 06/26/23 History iron) tablet (iron) fluticasone 250 mcg-salmeterol 50 1 inh inhalation BID 09/05/22 01/31/24 06/25/23 History mcg/dose blistr powdr for inhalation (Advair Diskus) hydrochlorothiazide 25 mg tablet 25 mg PO DAILY 09/05/22 01/31/24 06/26/23 History lisinopril 40 mg tablet 40 mg PO BEDTIME 09/05/22 01/31/24 06/25/23 History glucagon HCl 1 mg solution for 1 mg SUBCUT Q20M PRN hypoglycemia 04/03/23 01/31/24 Unknown Rx injection (Glucagon (HCl) #1 ea Emergency Kit) flash glucose scanning reader #1 ea 04/17/23 01/31/24 06/22/23 Rx (FreeStyle Alvin 2 Dundee) isosorbide mononitrate 30 mg See Rx Instructions .Route 05/10/23 01/31/24 06/26/23 Rx tablet,extended release 24 hr .COMPLEX #90 tabs atorvastatin 40 mg tablet (Lipitor) 40 mg PO BEDTIME 06/26/23 01/31/24 06/25/23 History FreeStyle Alvin 2 Sensor (flash #6 ea 07/25/23 01/31/24 Unknown Rx glucose sensor) empagliflozin 25 mg tablet 25 mg PO DAILY 08/06/23 01/31/24 Unknown History (Jardiance) FreeStyle Alvin 2 Sensor (flash #2 ea 11/08/23 01/31/24 Unknown Rx glucose sensor) insulin NPH isoph U-100 human 100 See Rx Instructions SUBCUT DAILY 12/06/23 01/31/24 Unknown History unit/mL subcutaneous suspension lower blood sugar (Novolin N NPH U-100 Insulin isophane) Allergies Allergy/AdvReac Type Severity Reaction Status Date / Time No Known Allergies Allergy Verified 01/31/24 10:49 PFSH Acute 2 PFSH: Medical History Helicobacter pylori gastritis Recurrent umbilical hernia Abdominal aortic aneurysm Chronic obstructive pulmonary disease Hypertension Low back pain Peripheral vascular disease Restless legs syndrome Sleep apnea Surgical History History of open reduction and internal fixation (ORIF) procedure left hip Hx of cholecystectomy Status post femoropopliteal bypass surgery History of umbilical hernia repair 11/26/2019 Status post colonoscopy 11/25/2019: 3 mm sessile polyps x3 removed from the ascending colon, follow-up colonoscopy 2024 History of coronary artery stent placement Hx of CABG History of appendectomy Family History Other Family history non-contributory Denies family history of Clotting disorder Anesthesia complication Bleeding disorder Social History Smoking and tobacco/nicotine status: former use of tobacco/nicotine Quit status (tobacco/nicotine): has quit using Year quit tobacco: 1995 Former quit date comment: 2 ppd 38 years Alcohol intake: former Substance/Drug Use: never Vitals/I&O/Wt Last Vital Signs Pulse 82 03/29/24 14:54 Resp 14 03/29/24 14:54 BP 105/91 03/29/24 14:54 Pulse Ox 94 03/29/24 14:54 O2 Del Method Nasal Cannula 03/29/24 14:54 O2 Flow Rate 2 03/29/24 14:54 03/29/24 03/29/24 03/29/24 06:59 14:59 22:59 Intake Total 1000 / 1000 50 / 1050 Balance 1000 / 1000 50 / 1050 Weight last 48 hrs Weight 104.326 kg Physical Exam 2 Narrative: He is alert awake oriented x 3 Chest clear to auscultation bilaterally, decreased air entry bilaterally CVS normal heart sounds no murmurs Abdomen soft nondistended mildly tender in left lower quadrant, normal bowel sounds, 3 laparoscopic incisions seen on right side of the abdomen, sealed with Dermabond Extremities 1+ bilateral pitting edema present lower extremity Data 03/29/24 10:25 03/29/24 10:25 A&P Assessment and plan (1) Acute appendicitis: Qualifiers: Acute appendicitis type: with localized peritonitis Appendicitis abscess presence: without abscess Appendicitis gangrene presence: without gangrene Appendicitis perforation presence: without perforation Qualified Code(s): K35.30 - Acute appendicitis with localized peritonitis, without perforation or gangrene Plan 78 year old male with past medical history of COPD, CKD, hypertension, diabetes melitis, pulmonary nodule, AAA, PAD s/p femoropopliteal bypass surgery, CAD s/p CABG presented this morning with left lower quadrant pain, worsening since 3 days and associated with malaise secondary to acute appendicitis. He is s/p laparoscopic appendicectomy, hemodynamically stable. Continue IV antibiotics Zosyn for now as per surgery Hypertension/CAD-blood pressure soft, monitor for now, will hold off home medications amlodipine, lisinopril, hydrochlorothiazide, isosorbide mononitrate. Hold Plavix for 24 hours. Diabetes melitus-monitor fingersticks 3 times daily with meals and bedtime He is n.p.o. currently. Will hold off on home dose insulin, Jardiance, pioglitazone Will start on correction scale insulin with meals and bedtime. COPD-will do DuoNebs every 4 hours as needed, tiotropium 2 inhalations daily Peripheral vascular disease and restless leg syndrome-continue ropinirole 2 mg 3 times daily, gabapentin 300 mg at bedtime Hyperlipidemia-will continue Lipitor 40 mg bedtime BPH-continue finasteride 5 mg at bedtime, will hold terazosin 3 mg. Anxiety-continue trazodone 50 mg at bedtime as needed GERD-continue Protonix 40 mg twice daily. DVT prophylaxis with SCD He is n.p.o. for now He is full code for now, discussed with patient and his Will follow-up. Consult Attestations 2 Medical Necessity Statement: He needs hospitalization for postop management for acute appendicitis and IV antibiotics Time Spent in Patient Care: 35 minutes Coding Level of Care Code Acute Code for [facility] Diagnoses Acute appendicitis K35.30 Acute appendicitis type: with localized peritonitis Appendicitis abscess presence: without abscess Appendicitis gangrene presence: without gangrene Appendicitis perforation presence: without perforation Time Spent (min) 35
--- NOTE | 2024-03-29 17:45 | ANE.PACU2 ---
Inpatient post-anesthesia follow up: Airway intact: Yes Vital signs: Temperature 98.0 F Pulse Rate 61 Respiratory Rate 18 Blood Pressure 118/57 Pulse Oximetry 93 Oxygen Delivery Me thod Nasal Cannula Oxygen Flow Rate 3 Fraction of Inspir ed Oxygen Hydration adequate: Yes Nausea and vomiting: No Pain level: 1 Mental status: Baseline
--- NOTE | 2024-03-29 18:28 | PC.NURSE ---
Dr Mcconnell in to see patient. No PO medications at this time per MD.
[2024-03-29] MEDS: finasteride 5 mg Tablet PO (20:17)
[2024-03-29] MEDS: gabapentin 300 mg Capsule PO (20:17)
[2024-03-29] MEDS: atorvastatin 40 mg Tablet PO (20:18)
[2024-03-29] MEDS: ropinirole 2 mg Tablet PO (20:18)
[2024-03-29 20:29] LABS: Glucose Point of Care 137 mg/dL (70-110)
[2024-03-29] MEDS: ipratropium 0.5 mg/2.5 mL Neb INHALATION (20:55)
[2024-03-29] MEDS: acetaminophen 1,000 MG/100 ML PIGGYBACK 400 MG IV (22:58)
[2024-03-30] VITALS (20 sets, daily range): BP systolic 120–150; BP diastolic 56–67; PULSE 65–81; RESP 16–26; TEMP 36.6–36.8; O2SAT 90–97
[2024-03-30 04:47] LABS: Basophils % 0.1 %; Hematocrit 38.9 % (37-53); Lymphocytes # 0.7 10^3/uL (0.8-4.8); Lymphocytes % 8.2 %; Mean Corpuscular HGB Conc 31.4 g/dL (30-55); Mean Corpuscular Hemoglobin 30.3 pg (27-33); Mean Corpuscular Volume 96.5 fl (82-101); Mean Platelet Volume 10.2 fL (7.4-10.4); Monocytes # 0.4 10^3/uL (0.2-0.9); Monocytes % 4.2 %; Neutrophils # 7.83 10^3/uL (1.8-7.7); Neutrophils % 87.1 %; Nucleated Red Blood Cells % 0 %; Platelet Count 153 10^3/cmm (157-399); Red Blood Count 4.03 10^6/uL (3.85-5.65); Red Cell Distribution Width 13.3 % (12.1-15.1)
[2024-03-30] MEDS: aspirin 81 mg EC Tablet PO (04:59)
[2024-03-30] MEDS: amlodipine 5 mg Tablet PO (04:59)
[2024-03-30] MEDS: piperacillin-tazobactam 3.375 GM in sodium chloride 0.9% (plus) 50 ML IV (05:00)
[2024-03-30 05:07] LABS: Anion Gap 17.9 (5-19); Blood Urea Nitrogen 48 mg/dL (8-23); Calcium 8.3 mg/dL (8.5-10.5); Carbon Dioxide 18 mmol/L (22-29); Chloride 109 mmol/L (98-107); Glucose 135 mg/dL (65-115); Osmolality Calculated 305 mOsm/kg (285-295); Potassium 4.9 mmol/L (3.5-5.1); Sodium 140 mmol/L (136-145)
--- NOTE | 2024-03-30 06:06 | PC.NURSE ---
Blood sugar this morning was 120 according to patients Jorge Alvin
[2024-03-30] MEDS: acetaminophen 1,000 MG/100 ML PIGGYBACK 400 MG IV ×2 (06:57→15:05)
--- NOTE | 2024-03-30 07:05 | PC.NURSE ---
Patient requesting real food this morning saying I am starving. Informed Dr Mcconnell and received telephone order to change diet to consistent carb diet. RBVO
[2024-03-30] MEDS: ropinirole 2 mg Tablet PO ×3 (07:30→21:26)
[2024-03-30] MEDS: pantoprazole DR 40 mg Tablet PO ×2 (07:30→17:08)
[2024-03-30] MEDS: ipratropium 0.5 mg/2.5 mL Neb INHALATION ×4 (07:34→19:43)
--- NOTE | 2024-03-30 10:50 | P.PN_ITS ---
Subjective 2 Subjective: No acute overnight events noted Medications: Reviewed: Yes Vitals/I&O/Wt Last Vital Signs Temp 97.8 F 03/30/24 07:55 Pulse 71 03/30/24 07:55 Resp 26 H 03/30/24 07:55 BP 131/66 03/30/24 07:55 Pulse Ox 92 03/30/24 07:55 O2 Del Method Room Air 03/30/24 07:55 O2 Flow Rate 1 03/30/24 00:00 03/29/24 03/30/24 03/30/24 22:59 06:59 14:59 Intake Total 1950 / 2950 594 / 3544 510 / 510 Output Total / 825 / 830 325 / 325 Balance 1945 / 2945 -231 / 2714 185 / 185 Weight last 48 hrs Weight 113.115 kg Weight 113.398 kg Weight 104.326 kg Physical Exam 2 Narrative: He is alert awake oriented x 3 Chest clear to auscultation bilaterally, decreased air entry bilaterally CVS normal heart sounds no murmurs Abdomen soft nondistended nontender normal bowel sounds, 3 laparoscopic incisions seen on right side of the abdomen, sealed with Dermabond Extremities 1+ bilateral pitting edema present lower extremity Data 03/30/24 04:26 03/30/24 04:26 A&P Assessment and plan (1) Acute appendicitis: Qualifiers: Acute appendicitis type: with localized peritonitis Appendicitis abscess presence: without abscess Appendicitis gangrene presence: without gangrene Appendicitis perforation presence: without perforation Qualified Code(s): K35.30 - Acute appendicitis with localized peritonitis, without perforation or gangrene Plan 78 year old male with past medical history of COPD, CKD, hypertension, diabetes melitis, pulmonary nodule, AAA, PAD s/p femoropopliteal bypass surgery, CAD s/p CABG presented this morning with left lower quadrant pain, worsening since 3 days and associated with malaise secondary to acute appendicitis. He is s/p laparoscopic appendicectomy, hemodynamically stable. Continue IV antibiotics Zosyn for now as per surgery Hypertension/CAD-blood pressure okay, monitor for now, will start amlodipine, lisinopril, isosorbide mononitrate and hold off hydrochlorothiazide. hold Plavix for 24 hours. Diabetes melitus-monitor fingersticks 3 times daily with meals and bedtime He is n.p.o. currently. Will hold off on home dose insulin, Jardiance, pioglitazone Will start on correction scale insulin with meals and bedtime. COPD-will do DuoNebs every 4 hours as needed, tiotropium 2 inhalations daily Peripheral vascular disease and restless leg syndrome-continue ropinirole 2 mg 3 times daily, gabapentin 300 mg at bedtime Hyperlipidemia-will continue Lipitor 40 mg bedtime BPH-continue finasteride 5 mg at bedtime, will hold terazosin 3 mg. Anxiety-continue trazodone 50 mg at bedtime as needed GERD-continue Protonix 40 mg twice daily. DVT prophylaxis with SCD He is n.p.o. for now He is full code for now, discussed with patient and his Will follow-up. Attestations 2 Medical Necessity Statement*: He is here post appendicectomy for IV antibiotics Time Spent in Patient Care: 10 minutes Coding Level of Care Code Acute Code for [facility] Diagnoses Acute appendicitis K35.30 Acute appendicitis type: with localized peritonitis Appendicitis abscess presence: without abscess Appendicitis gangrene presence: without gangrene Appendicitis perforation presence: without perforation Time Spent (min) 10
--- NOTE | 2024-03-30 11:19 | P.PN_ITS ---
Subjective 2 Subjective: This is a 78-year-old male who presents to the hospital with acute appendicitis. He is now postoperative day 1 status post laparoscopic appendectomy and lysis of additions. Patient is doing well after surgery. Abdominal pain has significantly improved. Has not ambulated yet has not had a bowel movement yet. Vitals/I&O/Wt Last Vital Signs Temp 97.8 F 03/30/24 07:55 Pulse 71 03/30/24 11:15 Resp 16 03/30/24 11:11 BP 131/66 03/30/24 07:55 Pulse Ox 92 03/30/24 11:11 O2 Del Method Room Air 03/30/24 11:11 O2 Flow Rate 1 03/30/24 00:00 03/29/24 03/30/24 03/30/24 22:59 06:59 14:59 Intake Total 1950 / 2950 594 / 3544 510 / 510 Output Total / 825 / 830 325 / 325 Balance 1945 / 2945 -231 / 2714 185 / 185 Weight last 48 hrs Weight 249 lb 6 oz Weight 250 lb Weight 230 lb Physical Exam 2 GI: OTHER: Abdomen is soft, appropriately tender to palpation, surgical incisions are covered with Dermabond. Data 03/30/24 04:26 03/30/24 04:26 A&P Assessment and plan (1) Acute appendicitis: Qualifiers: Acute appendicitis type: with localized peritonitis Appendicitis abscess presence: without abscess Appendicitis gangrene presence: without gangrene Appendicitis perforation presence: without perforation Qualified Code(s): K35.30 - Acute appendicitis with localized peritonitis, without perforation or gangrene Plan Patient is showing good progression after laparoscopic appendectomy for acute appendicitis. IntraOp findings show evidence of peritonitis with significant fibrinous material in the abdomen as well as some peritoneal rents. In addition taking consideration the patient has an intra-abdominal prosthesis from a previous parenteral hernia repair I think will be important for him to stay for 24 to 48 hours more in the hospital to receive IV antibiotics before being able to transition to p.o. His progression is adequate, management of comorbidities is being done by the medical team and is appreciated. -Regular diet -pain control -Ambulate as tolerated -incentive spirometer -Continue IV antibiotics Attestations 2 Medical Necessity Statement*: for 24 to 48 hours more of hospital stay for IV antibiotics. Coding Level of Care Code Acute Code for [facility] Diagnoses Acute appendicitis K35.30 Acute appendicitis type: with localized peritonitis Appendicitis abscess presence: without abscess Appendicitis gangrene presence: without gangrene Appendicitis perforation presence: without perforation
[2024-03-30 11:44] LABS: Glucose Point of Care 164 mg/dL (70-110)
[2024-03-30] MEDS: insulin lispro 100 unit/1 mL SUBCUT ×3 (11:49→21:25)
[2024-03-30] MEDS: piperacillin-tazobactam 3.375 GM in sodium chloride 0.9% (plus) 100 ML IV ×2 (13:22→21:27)
[2024-03-30 16:53] LABS: Glucose Point of Care 184 mg/dL (70-110)
[2024-03-30 20:26] LABS: Glucose Point of Care 171 mg/dL (70-110)
[2024-03-30] MEDS: polyethylene glycol 3350 Pkt 17 gm PO (21:23)
[2024-03-30] MEDS: gabapentin 300 mg Capsule PO (21:25)
[2024-03-30] MEDS: finasteride 5 mg Tablet PO (21:25)
[2024-03-30] MEDS: atorvastatin 40 mg Tablet PO (21:25)
[2024-03-30] MEDS: trazodone 50 mg Tablet PO (21:25)
[2024-03-31] VITALS (15 sets, daily range): BP systolic 109–152; BP diastolic 63–80; PULSE 69–85; RESP 15–20; TEMP 36.4–36.9; O2SAT 92–96
[2024-03-31] MEDS: amlodipine 5 mg Tablet PO (05:35)
[2024-03-31] MEDS: piperacillin-tazobactam 3.375 GM in sodium chloride 0.9% (plus) 100 ML IV ×2 (05:35→13:23)
[2024-03-31] MEDS: aspirin 81 mg EC Tablet PO (05:35)
[2024-03-31 06:23] LABS: Basophils % 0.3 %; Eosinophils % 0.6 %; Hematocrit 39.4 % (37-53); Lymphocytes # 0.9 10^3/uL (0.8-4.8); Lymphocytes % 12.2 %; Mean Corpuscular HGB Conc 32.7 g/dL (30-55); Mean Corpuscular Hemoglobin 30.4 pg (27-33); Mean Corpuscular Volume 92.9 fl (82-101); Mean Platelet Volume 10.1 fL (7.4-10.4); Monocytes # 0.6 10^3/uL (0.2-0.9); Monocytes % 8.2 %; Neutrophils # 5.58 10^3/uL (1.8-7.7); Neutrophils % 78.4 %; Nucleated Red Blood Cells % 0 %; Platelet Count 136 10^3/cmm (157-399); Red Blood Count 4.24 10^6/uL (3.85-5.65); Red Cell Distribution Width 13.2 % (12.1-15.1); White Blood Count 7.11 10^3/uL (3.29-11.43)
[2024-03-31 06:42] LABS: Anion Gap 16.4 (5-19); Blood Urea Nitrogen 47 mg/dL (8-23); Calcium 8.7 mg/dL (8.5-10.5); Carbon Dioxide 20 mmol/L (22-29); Chloride 109 mmol/L (98-107); Creatinine Clr Calc Pharmacy 50.6065; Glucose 134 mg/dL (65-115); Osmolality Calculated 306 mOsm/kg (285-295); Potassium 4.4 mmol/L (3.5-5.1); Sodium 141 mmol/L (136-145)
[2024-03-31 07:12] LABS: Glucose Point of Care 158 mg/dL (70-110)
[2024-03-31] MEDS: ipratropium 0.5 mg/2.5 mL Neb INHALATION ×4 (07:56→20:38)
[2024-03-31] MEDS: ropinirole 2 mg Tablet PO ×3 (09:08→21:18)
[2024-03-31] MEDS: pantoprazole DR 40 mg Tablet PO ×2 (09:08→17:24)
[2024-03-31] MEDS: isosorbide mononitrate ER 30 mg Tablet PO (09:08)
[2024-03-31] MEDS: lisinopril 20 mg Tablet 40 MG PO (09:08)
[2024-03-31] MEDS: insulin lispro 100 unit/1 mL SUBCUT ×4 (09:09→21:18)
--- NOTE | 2024-03-31 10:05 | PC.CHAP ---
Pastoral Care Encounter/Spiritual Assessment Type of Contact [] Declined hand tube bender visit [] Patient/Family/Request visit [] Outpatient visit [] Follow-up visit [] Physician referral [] Code/Alert [x] Routine visit [] Staff referral [] Actively dying [] Patient sleeping [] Family support [] [] Out of room [] Palliative care [] [] Receiving care in room [] Pre-surgical visit [] Trauma [] Long length of stay [] ICU visit [] Other: Relational/Emotional Strength [x] Patient feels connected with others/family/visitors/staff [] Distress [] Loneliness/isolation [] Abandonment Spirituality of Patient x[] Person of Liz [x] Attends Catholic of their Liz [x] Believes in Prayer [x] Reads Bible or Gnosticism materials [] There are Spiritual issues to be addressed Card Writer Hand Interventions [x] Prayer [x] Active listening [] Non-anxious presence [] Spiritual/emotional support [] Crisis/trauma care [] Spiritual counseling [] Bereavement support [] Provided bereavement packet [] Provided Bible/devotional materials [] Provided toy/stuffed animal, coloring book to patient or family member [] Provided Communion [] Anointing/[place] [] Salvation [x] Completed spiritual assessment [] Other: Impact on Illness or Injury [] Angry [] Fearful [] Anxious [] Often cries [] Exhaustion [] Unable to work [] Unable to attend religious [] Unable to walk/stand [] Unable to read [] Unable to drive [] Unable to eat/drink [] Unable to sleep [] Unable to be with family [] Patient intubated [] Other: Summary patient feeling beter Time spent with patient 15 min
--- NOTE | 2024-03-31 11:27 | P.PN_ITS ---
Subjective 2 Subjective: Doing well this morning was walking around in the hallway. No new complaints noted Vitals/I&O/Wt Last Vital Signs Temp 98.2 F 03/31/24 07:50 Pulse 76 03/31/24 11:25 Resp 16 03/31/24 11:20 BP 152/80 03/31/24 07:50 Pulse Ox 96 03/31/24 11:20 O2 Del Method Room Air 03/31/24 11:20 O2 Flow Rate 1 03/30/24 00:00 03/30/24 03/31/24 03/31/24 22:59 06:59 14:59 Intake Total 680 / 1430 340 / 1770 322 / 322 Output Total 1175 / 1850 1775 / 3625 130 / 130 Balance -495 / -420 -1435 / -1855 192 / 192 Weight last 48 hrs Weight 112.179 kg Weight 113.115 kg Weight 113.398 kg Physical Exam 2 Narrative: He is alert awake oriented x 3 Chest clear to auscultation bilaterally, decreased air entry bilaterally CVS normal heart sounds no murmurs Abdomen soft nondistended nontender normal bowel sounds, 3 laparoscopic incisions seen on right side of the abdomen, sealed with Dermabond Extremities 1+ bilateral pitting edema present lower extremity Data 03/31/24 04:37 03/31/24 04:37 A&P Assessment and plan (1) Acute appendicitis: Qualifiers: Acute appendicitis type: with localized peritonitis Appendicitis abscess presence: without abscess Appendicitis gangrene presence: without gangrene Appendicitis perforation presence: without perforation Qualified Code(s): K35.30 - Acute appendicitis with localized peritonitis, without perforation or gangrene Plan 78 year old male with past medical history of COPD, CKD, hypertension, diabetes melitis, pulmonary nodule, AAA, PAD s/p femoropopliteal bypass surgery, CAD s/p CABG presented this morning with left lower quadrant pain, worsening since 3 days and associated with malaise secondary to acute appendicitis. He is s/p laparoscopic appendicectomy, hemodynamically stable. Continue IV antibiotics Zosyn for now as per surgery Hypertension/CAD-blood pressure okay, monitor for now, will start amlodipine, lisinopril, isosorbide mononitrate and also start hydrochlorothiazide. Continue to hold Plavix till discharge. Diabetes melitus-monitor fingersticks 3 times daily with meals and bedtime Will hold off on home dose insulin, Jardiance, pioglitazone Will start on correction scale insulin with meals and bedtime. COPD-will do DuoNebs every 4 hours as needed, tiotropium 2 inhalations daily Peripheral vascular disease and restless leg syndrome-continue ropinirole 2 mg 3 times daily, gabapentin 300 mg at bedtime Hyperlipidemia-will continue Lipitor 40 mg bedtime BPH-continue finasteride 5 mg at bedtime, will hold terazosin 3 mg. Anxiety-continue trazodone 50 mg at bedtime as needed GERD-continue Protonix 40 mg twice daily. DVT prophylaxis with SCD He is n.p.o. for now He is full code for now, discussed with patient and his Will follow-up. Attestations 2 Medical Necessity Statement*: He is here post appendicectomy for IV antibiotics Time Spent in Patient Care: 10 minutes Coding Level of Care Code Acute Code for [facility] Diagnoses Acute appendicitis K35.30 Acute appendicitis type: with localized peritonitis Appendicitis abscess presence: without abscess Appendicitis gangrene presence: without gangrene Appendicitis perforation presence: without perforation Time Spent (min) 10
[2024-03-31 12:10] LABS: Glucose Point of Care 149 mg/dL (70-110)
--- NOTE | 2024-03-31 12:14 | P.PN_ITS ---
Subjective 2 Subjective: Patient is postoperative day 2 status post laparoscopic appendectomy for acute appendicitis with peritonitis. Patient is doing well abdominal pain has improved significantly. No fever chills reported. Tolerating diet has passed gas but has not had a bowel movement. Vitals/I&O/Wt Last Vital Signs Temp 98.2 F 03/31/24 07:50 Pulse 76 03/31/24 11:25 Resp 16 03/31/24 11:20 BP 152/80 03/31/24 07:50 Pulse Ox 96 03/31/24 11:20 O2 Del Method Room Air 03/31/24 11:20 O2 Flow Rate 1 03/30/24 00:00 03/30/24 03/31/24 03/31/24 22:59 06:59 14:59 Intake Total 680 / 1430 340 / 1770 322 / 322 Output Total 1175 / 1850 1775 / 3625 130 / 130 Balance -495 / -420 -1435 / -1855 192 / 192 Weight last 48 hrs Weight 247 lb 5 oz Weight 249 lb 6 oz Weight 250 lb Physical Exam 2 GI: OTHER: Abdominal signs benign, surgical incisions are covered with dressing and tenderness appropriate Data 03/31/24 04:37 03/31/24 04:37 A&P Assessment and plan (1) Acute appendicitis: Qualifiers: Acute appendicitis type: with localized peritonitis Appendicitis abscess presence: without abscess Appendicitis gangrene presence: without gangrene Appendicitis perforation presence: without perforation Qualified Code(s): K35.30 - Acute appendicitis with localized peritonitis, without perforation or gangrene Plan Patient is having a good progression after laparoscopic appendectomy for acute appendicitis with peritonitis. Patient was kept in the hospital for antibiotics for 72 hours as there was significant peritoneal Rands as well as history of prosthesis in the abdomen making him a high risk for developing infection. Patient is progressing well, labs are unremarkable today. He is tolerating diet has not had a bowel movement yet. Will continue bowel regimen and plan is for discharge tomorrow morning. Attestations 2 Medical Necessity Statement*: Patient require 24 hours more of hospital stay passports charge in the morning. Coding Level of Care Code Acute Code for [facility] Diagnoses Acute appendicitis K35.30 Acute appendicitis type: with localized peritonitis Appendicitis abscess presence: without abscess Appendicitis gangrene presence: without gangrene Appendicitis perforation presence: without perforation
[2024-03-31] MEDS: hydroCHLOROthiazide 25 mg Tablet PO (13:02)
[2024-03-31] MEDS: HYDROmorphone 1 mg/mL INJ 1 mL 0.400000000000000022 MG IVP (17:24)
[2024-03-31 17:38] LABS: Glucose Point of Care 150 mg/dL (70-110)
[2024-03-31 20:19] LABS: Glucose Point of Care 201 mg/dL (70-110)
[2024-03-31] MEDS: atorvastatin 40 mg Tablet PO (21:18)
[2024-03-31] MEDS: finasteride 5 mg Tablet PO (21:19)
[2024-03-31] MEDS: gabapentin 300 mg Capsule PO (21:19)
[2024-03-31] MEDS: piperacillin-tazobactam 3.375 GM in sodium chloride 0.9% (plus) 50 ML IV (21:20)
[2024-03-31] MEDS: trazodone 50 mg Tablet PO ×2 (21:44→22:09)
[2024-04-01 02:14] VITALS: RESP 19
[2024-04-01] MEDS: HYDROmorphone 1 mg/mL INJ 1 mL 0.400000000000000022 MG IVP (02:14)
[2024-04-01 04:00] VITALS: BP 130/60; PULSE 80; RESP 17; O2SAT 91; O2SAT 94
[2024-04-01 04:31] LABS: Basophils % 0.3 %; Eosinophils # 0.1 10^3/uL (0.0-0.8); Eosinophils % 1.3 %; Hematocrit 41.6 % (37-53); Lymphocytes # 1.2 10^3/uL (0.8-4.8); Mean Corpuscular Hemoglobin 30.1 pg (27-33); Mean Corpuscular Volume 94.1 fl (82-101); Mean Platelet Volume 9.9 fL (7.4-10.4); Monocytes # 0.7 10^3/uL (0.2-0.9); Monocytes % 9.6 %; Neutrophils # 4.88 10^3/uL (1.8-7.7); Neutrophils % 71.4 %; Nucleated Red Blood Cells % 0 %; Platelet Count 163 10^3/cmm (157-399); Red Blood Count 4.42 10^6/uL (3.85-5.65); Red Cell Distribution Width 13.1 % (12.1-15.1); White Blood Count 6.84 10^3/uL (3.29-11.43)
[2024-04-01 04:57] LABS: Anion Gap 16.1 (5-19); Blood Urea Nitrogen 46 mg/dL (8-23); Calcium 9.2 mg/dL (8.5-10.5); Carbon Dioxide 20 mmol/L (22-29); Chloride 107 mmol/L (98-107); Creatinine Clr Calc Pharmacy 53.9803; Glucose 130 mg/dL (65-115); Osmolality Calculated 302 mOsm/kg (285-295); Potassium 4.1 mmol/L (3.5-5.1); Sodium 139 mmol/L (136-145)
[2024-04-01 05:40] LABS: Glucose Point of Care 138 mg/dL (70-110)
[2024-04-01] MEDS: amlodipine 5 mg Tablet PO (06:49)
[2024-04-01] MEDS: aspirin 81 mg EC Tablet PO (06:49)
[2024-04-01] MEDS: piperacillin-tazobactam 3.375 GM in sodium chloride 0.9% (plus) 50 ML IV (06:49)
--- NOTE | 2024-04-01 06:50 | PM.DCS ---
Discharge Providers Date of Admission: 03/30/24 12:14 Date of Discharge: April 01, 2024 Attending Provider at Admission: Reji Gold MD Attending Provider at Discharge: Reji Gold MD Primary Care Provider: Tish Henry MD Diagnoses at Discharge Discharge Diagnosis (1) Acute appendicitis: Status: Acute Qualifiers: Acute appendicitis type: with localized peritonitis Appendicitis abscess presence: without abscess Appendicitis gangrene presence: without gangrene Appendicitis perforation presence: without perforation Qualified Code(s): K35.30 - Acute appendicitis with localized peritonitis, without perforation or gangrene Reason for Visit Reason for Visit: lower right side abd pain Hospital Course Hospital Course Is a 78-year-old male who presented to the hospital with acute appendicitis verified by imaging. Intraoperative findings were consistent with acute appendicitis with localized peritonitis, there was also significant adhesions of the omentum to anterior abdominal wall and the patient was noted to have a previous abdominal wall mesh. Patient remained in the hospital for 72 hours for IV antibiotics due to the previously described findings. He has been doing okay. This morning abdominal exam is benign, he has been ambulating had 2 bowel movements yesterday and laboratory workup is normal. Patient will be discharged for follow-up as outpatient. Physical Exam GI: OTHER: Surgical incisions are covered with Dermabond, abdomen is soft, appropriately tender to palpation. Nondistended. Discharge Data Studies Completed and Pending Completed Studies During Hospitalization Category Date Time Status CT abdomen pelvis wo con [id number] Stat Cat Scan 03/29/24 10:21 Completed Pending at discharge Category Date Time Status Pathology: Surgical [PTH] Routine Pth 03/29/24 16:53 Received Radiology Impressions Abdomen/Pelvis CT 03/29/24 10:21 IMPRESSION: 1. Findings concerning for possible mild acute appendicitis. Recommend clinical correlation. 2. The infrarenal abdominal aorta is aneurysmal measuring up to 4 cm in diameter. 3. 2.1 cm umbilical hernia containing fat and a possible very short segment of small bowel, similar to prior exam in 2021. No signs of bowel obstruction. COMMENTS: Evaluation of solid organs and vascular structures is limited as no IV contrast was administered. ADDENDUM: 03/29/24 1200 THIS REPORT CONTAINS FINDINGS THAT MAY BE CRITICAL TO PATIENT CARE. The findings were verbally communicated via telephone conference with Manuel Glover at 12:01 PM CDT on 03/29/2024. The findings were acknowledged and understood. Laboratory Results WBC 6.84 10^3/uL (3.29-11.43) 04/01/24 03:50 RBC 4.42 10^6/uL (3.85-5.65) 04/01/24 03:50 Hgb 13.30 g/dL (11.27-16.99) 04/01/24 03:50 Hct 41.6 % (37-53) 04/01/24 03:50 MCV 94.1 fl (82-101) 04/01/24 03:50 MCH 30.1 pg (27-33) 04/01/24 03:50 MCHC 32.0 g/dL (30-55) 04/01/24 03:50 RDW 13.1 % (12.1-15.1) 04/01/24 03:50 Plt Count 163 10^3/cmm (157-399) 04/01/24 03:50 MPV 9.9 fL (7.4-10.4) 04/01/24 03:50 Neut % (Auto) 71.4 % 04/01/24 03:50 Lymph % (Auto) 17.0 % 04/01/24 03:50 [place] % (Auto) 9.6 % 04/01/24 03:50 Eos % (Auto) 1.3 % 04/01/24 03:50 Baso % (Auto) 0.3 % 04/01/24 03:50 Neut # (Auto) 4.88 10^3/uL (1.8-7.7) 04/01/24 03:50 Lymph # (Auto) 1.2 10^3/uL (0.8-4.8) 04/01/24 03:50 [place] # (Auto) 0.7 10^3/uL (0.2-0.9) 04/01/24 03:50 Eos # (Auto) 0.1 10^3/uL (0.0-0.8) 04/01/24 03:50 Baso # (Auto) 0.0 10^3/uL (0.0-0.1) 04/01/24 03:50 Nucleated RBC % (auto) 0 % 04/01/24 03:50 Nucleated RBCs # 0.0 /100WBC 04/01/24 03:50 Sodium 139 mmol/L (136-145) 04/01/24 03:50 Potassium 4.1 mmol/L (3.5-5.1) 04/01/24 03:50 Chloride 107 mmol/L (98-107) 04/01/24 03:50 Carbon Dioxide 20 mmol/L (22-29) L 04/01/24 03:50 Anion Gap 16.1 (5-19) 04/01/24 03:50 BUN 46 mg/dL (8-23) H 04/01/24 03:50 Creatinine 1.5 mg/dL (0.7-1.2) H 04/01/24 03:50 GFR Calculation Not Reportable 04/01/24 03:50 Glucose 130 mg/dL (65-115) H 04/01/24 03:50 POC Glucose 138 mg/dL (70-110) H 04/01/24 05:26 Calculated Osmolality 302 mOsm/kg (285-295) H 04/01/24 03:50 Calcium 9.2 mg/dL (8.5-10.5) 04/01/24 03:50 Magnesium 2.2 mg/dL (1.7-2.3) 03/29/24 10:25 Total Bilirubin 0.8 mg/dL (0.15-1.2) 03/29/24 10:25 AST 14 U/L (0-40) 03/29/24 10:25 ALT 12 U/L (0-41) 03/29/24 10:25 Alkaline Phosphatase 127 U/L (40-130) 03/29/24 10:25 Total Protein 6.5 g/dL (6.6-8.7) L 03/29/24 10:25 Albumin 3.4 g/dL (3.5-5.2) L 03/29/24 10:25 Globulin 3.1 g/dL (1.3-4.6) 03/29/24 10:25 Lipase 16 U/L (13-60) 03/29/24 10:25 Urine Color Yellow (Yellow) 03/29/24 12:40 Urine Appearance Clear (CLEAR) 03/29/24 12:40 Urine pH 5 (5-7) 03/29/24 12:40 Ur Specific Burt 1.020 (1.005-1.030) 03/29/24 12:40 Urine Protein Neg (Negative) 03/29/24 12:40 Urine Glucose (UA) 4+ (Normal) H 03/29/24 12:40 Urine Ketones Negative (Negative) 03/29/24 12:40 Urine Blood Neg (Negative) 03/29/24 12:40 Urine Nitrate Negative (Negative) 03/29/24 12:40 Urine Bilirubin 1+ (Negative) H 03/29/24 12:40 Urine Urobilinogen Norm mg/dL (Negative) 03/29/24 12:40 Ur Leukocyte Esterase Negative (Negative) 03/29/24 12:40 Vitals Last Vital Signs Temp 98.4 F 03/31/24 23:51 Pulse 80 04/01/24 04:00 Resp 17 04/01/24 04:00 BP 130/60 04/01/24 04:00 Pulse Ox 91 04/01/24 04:00 O2 Del Method Room Air 03/31/24 20:41 O2 Flow Rate 1 03/30/24 00:00 Discharge Plan Discharge Patient Disposition: Home Condition: Stable Prescriptions: New oxycodone 5 mg tablet 5 mg PO Q8H PRN (Reason: pain) Qty: 20 0RF amoxicillin-pot clavulanate 875-125 mg tablet 1 tab PO BID Qty: 10 0RF acetaminophen [Tylenol] 325 mg capsule 650 mg PO Q6H 5 Days Qty: 40 0RF polyethylene glycol 3350 [Miralax] 17 gram powder in packet 17 g PO DAILY 7 Days Qty: 14 0RF Continued amlodipine 5 mg tablet 5 mg PO QAM finasteride 5 mg tablet 5 mg PO BEDTIME gabapentin 300 mg capsule 300 mg PO BEDTIME nitroglycerin 0.4 mg tablet, sublingual 0.4 mg SUBLINGUAL Q5M PRN (Reason: chest pain) Rx Instructions: Dissolve one tablet under the tongue one time as needed for check pain if no improvement after first dose call 911 may take 2 additional doses after 5 minutes apart. pentoxifylline 400 mg tablet extended release 400 mg PO TID ropinirole 2 mg tablet 2 mg PO TID terazosin 1 mg capsule 3 mg PO BEDTIME tiotropium bromide 2.5 mcg/actuation mist 2 inh INHALATION QAM clopidogrel [Plavix] 75 mg tablet 75 mg PO QAM Hold Instructions: Resume on 08/12/22. pantoprazole [Protonix] 40 mg tablet,delayed release (DR/EC) 40 mg PO BID 14 Days Qty: 28 0RF (DME) FreeStyle Alvin 2 [place] Misc See Rx Instructions .Route Qty: 1 0RF Rx Instructions: As directed Jardiance 25 mg tablet 25 mg PO DAILY Novolin N NPH U-100 Insulin 100 unit/mL suspension See Rx Instructions SUBCUT DAILY Rx Instructions: 20 units q am subcutaneous; 10 units before supper glucagon HCl [Glucagon (HCl) Emergency Kit] 1 mg recon soln 1 mg SUBCUT Q20M PRN (Reason: hypoglycemia) Qty: 1 2RF Rx Instructions: until target blood sugar attained isosorbide mononitrate 30 mg tablet extended release 24 hr See Rx Instructions .ROUTE .COMPLEX Qty: 90 3RF Dose Instruction: TAKE ONE TABLET BY MOUTH ONCE A DAY TO PREVENT CHEST PAIN. TAKE ON EMPTY STOMACH. SWALLOW WHOLE. DO NOT CRUSH OR CHEW. MAY CAUSE HEADACHES UNTIL BODY ADJUSTS. TAKE ACETAMINOPHEN OR IBUPROFEN NEEDED 30 MINUTES BEFORE. Rx Instructions: TAKE ONE TABLET BY MOUTH ONCE A DAY TO PREVENT CHEST PAIN. TAKE ON EMPTY STOMACH. SWALLOW WHOLE. DO NOT CRUSH OR CHEW. MAY CAUSE HEADACHES UNTIL BODY ADJUSTS. TAKE ACETAMINOPHEN OR IBUPROFEN NEEDED 30 MINUTES BEFORE. (DME) FreeStyle Alvin 2 Sensor Kit See Rx Instructions .ROUTE .COMPLEX Qty: 2 2RF Dose Instruction: USE SENSOR EVERY 14 DAYS CHANGE SENSOR/SITE EVERY 14 DAYS. TO REPLACE SENSOR FOR ANY REASON OR FOR TECHNICAL HELP PLEASE CALL [employer] DESK: -SPECIFIC PHONE NUMBER: ([phone]). Rx Instructions: USE SENSOR EVERY 14 DAYS CHANGE SENSOR/SITE EVERY 14 DAYS. TO REPLACE SENSOR FOR ANY REASON OR FOR TECHNICAL HELP PLEASE CALL [employer] DESK: -SPECIFIC PHONE NUMBER: ([phone]). aspirin 81 mg Tablet,Delayed Release (Dr/Ec) 81 mg PO QAM oxycodone-acetaminophen [Percocet] 5-325 mg Tablet 1.5 tab PO BID PRN (Reason: Pain) trazodone 100 mg Tablet 50 mg PO BEDTIME PRN (Reason: Sleep) cholecalciferol (vitamin D3) [Vitamin D3] 50 mcg (2,000 unit) Capsule 2,000 unit PO BID albuterol sulfate 90 mcg/actuation Hfa Aerosol Inhaler 2 puff INHALATION Q4H PRN (Reason: Shortness Of Breath) pioglitazone 15 mg Tablet 15 mg PO QAM guaifenesin [Mucinex] 600 mg tablet extended release 12hr See Rx Instructions .ROUTE .COMPLEX PRN (Reason: Congestion) Rx Instructions: 600 mg orally qam and 1200mg po bedtime PRN; fluticasone propion-salmeterol [Advair Diskus] 250-50 mcg/dose Blister With Device 1 inh INHALATION BID cyanocobalamin (vitamin B-12) [Vitamin B-12] 100 mcg Tablet 100 mcg PO DAILY ferrous sulfate [iron] 325 mg (65 mg iron) Tablet 325 mg PO BID hydrochlorothiazide 25 mg Tablet 25 mg PO DAILY lisinopril 40 mg Tablet 40 mg PO BEDTIME atorvastatin [Lipitor] 40 mg tablet 40 mg PO BEDTIME Discharge Orders: Discharge Order (Routine); Ordered 04/01/24 Ordered By: Reji Gold Referrals: Tish Henry MD [Primary Care Provider] - 04/08/24 1:45 pm Reji Gold MD [Physician] - 04/09/24 9:55 am Discharge Diet: Advance as tolerated Discharge Activity: Limit activity as instructed Patient Instructions: Opioid Safety Activity Restrictions/Additional Instructions: You can shower, let soap and water run over your wounds and then pat dry. Walk is much as possible this will speed up your recovery. Do not lift anything heavier than 10 pounds for the next 6 weeks. Return to the hospital you have fever chills severe abdominal pain and tenderness or purulence coming from your wounds. Discharge Attestations Time Spent in Discharge Care*: less than 30 min Status at Discharge: Cognitive status at discharge: cognitively intact, Quality Metrics Clinical Quality Measures [ No reported AMI, CVA or VTE this stay] Coding Level of Care Code Acute Code for [facility] Diagnoses Acute appendicitis K35.30 Acute appendicitis type: with localized peritonitis Appendicitis abscess presence: without abscess Appendicitis gangrene presence: without gangrene Appendicitis perforation presence: without perforation
[2024-04-01 07:56] VITALS: PULSE 80; RESP 16; O2SAT 94
[2024-04-01 08:00] VITALS: BP 97/60; PULSE 85; RESP 21; O2SAT 96
[2024-04-01] MEDS: insulin lispro 100 unit/1 mL SUBCUT (08:50)
[2024-04-01] MEDS: isosorbide mononitrate ER 30 mg Tablet PO (08:52)
[2024-04-01] MEDS: lisinopril 20 mg Tablet 40 MG PO (08:52)
[2024-04-01] MEDS: pantoprazole DR 40 mg Tablet PO (08:52)
[2024-04-01] MEDS: ropinirole 2 mg Tablet PO (08:52)
[2024-04-01] MEDS: hydroCHLOROthiazide 25 mg Tablet PO (08:52)
[2024-04-01 11:02] VITALS: BP 97/60; PULSE 85; RESP 21; O2SAT 96
== END 2024-04-01 11:56 | disposition home or self-care (01) | DRG 336 ==
LOC: ER 11:39 → OR 13:05 → CSU 16:36
PROVIDERS: Admitting Provider Surgery; Emergency Provider Emergency Medicine; PCP Family Medicine; Visit Provider Surgery
PROC: 0DTJ4ZZ Resection of Appendix, Percutaneous Endoscopic Approach (ICD-10-PCS; CPT 44970; principal; 2024-03-29 12:55)
PROC: 0DTJ4ZZ Resection of Appendix, Percutaneous Endoscopic Approach (ICD-10-PCS; 2024-03-29 12:55)
DX: K35.30 Acute appendicitis with localized peritonitis, without perforation or gangrene (principal); K40.30 Unilateral inguinal hernia, with obstruction, without gangrene, not specified as recurrent; K63.0 Abscess of intestine; Z95.1 Presence of aortocoronary bypass graft; Z95.5 Presence of coronary angioplasty implant and graft; J44.9 Chronic obstructive pulmonary disease, unspecified; I12.9 Hypertensive chronic kidney disease with stage 1 through stage 4 chronic kidney disease, or unspecified chronic kidney disease; E11.22 Type 2 diabetes mellitus with diabetic chronic kidney disease; N18.9 Chronic kidney disease, unspecified; E11.51 Type 2 diabetes mellitus with diabetic peripheral angiopathy without gangrene; G25.81 Restless legs syndrome; G47.30 Sleep apnea, unspecified; Z87.891 Personal history of nicotine dependence; I71.40 Abdominal aortic aneurysm, without rupture, unspecified; I25.10 Atherosclerotic heart disease of native coronary artery without angina pectoris; N40.0 Benign prostatic hyperplasia without lower urinary tract symptoms; F41.9 Anxiety disorder, unspecified; K21.9 Gastro-esophageal reflux disease without esophagitis; K66.0 Peritoneal adhesions (postprocedural) (postinfection); K42.9 Umbilical hernia without obstruction or gangrene
CPT/HCPCS: 36415; 36416; 74176; 80048; 80053; 81003; 82962; 83690; 83735; 85025; 88304; 94640; 96365; 96372; 96375; 96376; 99285; G0378; J0131; J0330; J1100; J1170; J1815; J2405; J2543; J2704; J2710; J3010; J3490; J7030; J7644

== ENCOUNTER 2024-04-07 13:15 | Outpatient (CLI) | payer OTHER, SELFPAY ==
[2024-04-07 13:54] LABS: Alanine Aminotransferase 12 U/L (0-41); Albumin Level 3.2 g/dL (3.5-5.2); Alkaline Phosphatase 179 U/L (40-130); Anion Gap 14.6 (5-19); Aspartate Amino Transferase 11 U/L (0-40); Blood Urea Nitrogen 56 mg/dL (8-23); Calcium 8.4 mg/dL (8.5-10.5); Carbon Dioxide 20 mmol/L (22-29); Chloride 108 mmol/L (98-107); Chol HDL Ratio 3.08 mg/dL (1.0-5.00); Cholesterol 80 mg/dL (0-200); Globulin 3.1 g/dL (1.3-4.6); Glucose 261 mg/dL (65-115); HDL Cholesterol 26 mg/dL (60-100); LDL Cholesterol Calculated 38 mg/dL (50-129); LDL HDL Ratio 1.46 RATIO (0.00-3.22); Osmolality Calculated 311 mOsm/kg (285-295); Potassium 4.6 mmol/L (3.5-5.1); Sodium 138 mmol/L (136-145); Total Bilirubin 0.3 mg/dL (0.15-1.2); Total Protein 6.3 g/dL (6.6-8.7); Triglycerides 81 mg/dL (0-150)
[2024-04-07 13:56] LABS: Estmated Average Glucose 163; Hemoglobin A1C 7.3 % (4.0-6.0)
[2024-04-07 13:57] LABS: Creatinine Urine, Random 140 mg/dL (39-259); Microalbum Creatinine Ratio Ur 7 mg/dL (0-20); Microalbumin Random Urine 1 ug/dL (0-20)
== END 2024-04-07 13:16 | disposition home or self-care (01) ==
LOC: LAB 13:16
PROVIDERS: PCP Family Medicine; Visit Provider Internal Medicine
DX: E11.9 Type 2 diabetes mellitus without complications (principal); E78.2 Mixed hyperlipidemia; E16.2 Hypoglycemia, unspecified; E11.649 Type 2 diabetes mellitus with hypoglycemia without coma
CPT/HCPCS: 36415; 80053; 80061; 82044; 83036; 99214

== ENCOUNTER → 2024-04-09 09:38 | Outpatient (BNVA) | payer OTHER, SELFPAY | PROVIDERS: PCP Family Medicine; Visit Provider Surgery | DX: Z90.49 Acquired absence of other specified parts of digestive tract (principal); Z98.890 Other specified postprocedural states | CPT/HCPCS: 99024 ==

== ENCOUNTER 2024-05-08 08:05 | Outpatient (CLI) | payer OTHER, SELFPAY ==
--- NOTE | 2024-05-08 08:14 | CT_ITS ---
WS: [id number] CT chest w con* [id number] HISTORY: R UPPER LOBE NODULE TECHNIQUE: Axial imaging performed through the thorax. Coronal and sagittal reformats are submitted. All CT scans at [facility] use at least one of these dose optimization techniques: automated exposure control; mA and/or kV adjustment per patient size (includes targeted exams where dose is mat ched to clinical indication); or iterative reconstruction. CONTRAST: Omnipaque 350; 100 mL IV. DLP: 557.57 mGy.cm COMPARISON: 08/07/2023, 09/17/2023 Lungs and central airway: Advanced centrilobular emphysema. Previously described spiculated nodule in the RIGHT upper lobe has essentially resolved with no increase in size. There is a new heterogeneous nodule in the LEFT upper lobe. There is a focal central nodule measuring 5 mm surrounded by groundgl ass attenuation measuring 23 x 16 mm which has not been present on the prior studies. There are a few additional stable micronodules. Pleura: Normal. No pleural effusion. Heart and pericardium: Prior CABG. Mediastinum and darleen: No enlarged lymph nodes. There are small nodules identified at the sneha which will need to be evaluated on follow-up exams. These are endobronchial nodules measuring less than a centimeter. Vessels: 3 Chest wall and lower neck: No soft tissue masses. Upper abdomen: Small hiatal hernia. Prior cholecystectomy. Visualized liver is negative. Cortical thi nning upper pole of each kidney. No adrenal mass. Heavy calcification in the visualized suprarenal ao rta and mesenteric arteries. Osseous structures: Spondylosis. No destructive bone lesions. CT/CT chest w con* [id number] IMPRESSION: 1. Near complete resolution previously described PET/CT positive nodule RIGHT upper lobe. 2. There is a new mixed nodule in the LEFT upper lobe. The solid component is 5 mm surrounded by groundglass attenuation measuring 23 x 16 mm. Neoplasm is no t excluded. Recommend follow-up chest CT in 3 months with IV contrast. 3. There are small indeterminate nodules at the sneha. These can be reevaluat ed in 3 months also. 4. Prior cholecystectomy. 5. Prior CABG. 6. Chronic emphysema. 7. No mediastinal or hilar adenopathy.
[2024-05-08] MEDS: iohexol 350 mg/mL 500 mL Btl (per mL) IV (08:47)
== END 2024-05-08 08:06 | disposition home or self-care (01) ==
LOC: RAD 08:06
PROVIDERS: PCP Family Medicine; Visit Provider Family Medicine
DX: J43.2 Centrilobular emphysema (principal); R91.8 Other nonspecific abnormal finding of lung field; Z95.1 Presence of aortocoronary bypass graft; K44.9 Diaphragmatic hernia without obstruction or gangrene; Z90.49 Acquired absence of other specified parts of digestive tract; I70.0 Atherosclerosis of aorta
CPT/HCPCS: 71260; Q9967

== ENCOUNTER → 2024-05-14 11:06 | Outpatient (BNVA) | payer OTHER, SELFPAY | PROVIDERS: PCP Family Medicine; Visit Provider Internal Medicine | DX: E11.649 Type 2 diabetes mellitus with hypoglycemia without coma; E78.2 Mixed hyperlipidemia | CPT/HCPCS: 99214 ==

== ENCOUNTER 2024-07-07 14:43 | Outpatient (CLI) | payer OTHER, SELFPAY ==
[2024-07-07 15:07] LABS: Basophils # 0.1 10^3/uL (0.0-0.1); Basophils % 0.7 %; Eosinophils # 0.1 10^3/uL (0.0-0.8); Hematocrit 40.4 % (37-53); Lymphocytes # 1.4 10^3/uL (0.8-4.8); Lymphocytes % 19.6 %; Mean Corpuscular HGB Conc 32.4 g/dL (30-55); Mean Corpuscular Hemoglobin 30.8 pg (27-33); Mean Corpuscular Volume 95.1 fl (82-101); Mean Platelet Volume 9.9 fL (7.4-10.4); Monocytes # 0.4 10^3/uL (0.2-0.9); Monocytes % 6.3 %; Neutrophils # 5.02 10^3/uL (1.8-7.7); Neutrophils % 72.3 %; Nucleated Red Blood Cells % 0 %; Platelet Count 173 10^3/cmm (157-399); Red Blood Count 4.25 10^6/uL (3.85-5.65); Red Cell Distribution Width 12.8 % (12.1-15.1); White Blood Count 6.95 10^3/uL (3.29-11.43)
[2024-07-07 15:31] LABS: Albumin Level 3.8 g/dL (3.5-5.2); Anion Gap 14.5 (5-19); Blood Urea Nitrogen 40 mg/dL (8-23); Calcium 8.9 mg/dL (8.5-10.5); Carbon Dioxide 21 mmol/L (22-29); Chloride 108 mmol/L (98-107); Glucose 268 mg/dL (65-115); Phosphorus 3.4 mg/dL (2.5-4.5); Potassium 4.5 mmol/L (3.5-5.1); Sodium 139 mmol/L (136-145)
[2024-07-07 15:32] LABS: Calcium 9.1 mg/dL (8.5-10.5)
[2024-07-07 15:37] LABS: Parathyroid Hormone 47.9 pg/mL (15-65)
[2024-07-07 15:39] LABS: Creatinine Urine, Random 84 mg/dL (39-259); Microalbum Creatinine Ratio Ur 12 mg/dL (0-20); Microalbumin Random Urine 1 ug/dL (0-20)
[2024-07-07 15:45] LABS: 25 Hydroxy Vitamin D 42 ng/mL (30-100)
== END 2024-07-07 14:44 | disposition home or self-care (01) ==
LOC: LAB 14:45
PROVIDERS: PCP Family Medicine; Visit Provider Internal Medicine
DX: N18.32 Chronic kidney disease, stage 3b (principal)
CPT/HCPCS: 36415; 80069; 82044; 82306; 82310; 83970; 85025

== ENCOUNTER 2024-07-30 11:55 | Inpatient (IN) | payer OTHER, MEDICARE, SELFPAY ==
[2024-07-30] VITALS (12 sets, daily range): BP systolic 93–154; BP diastolic 56–94; PULSE 73–87; RESP 17–30; TEMP 36.7–37.7; O2SAT 90–96; BMI 25.9; BMI 25.6
--- NOTE | 2024-07-30 12:12 | ECG_ITS ---
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: : 1945 Requested By: Krishan Garcia Order Number: [id number] Elvia MD: WOODY MATTHEWS Measurements Intervals [place] Rate: 81 P: 90 VT: 190 QRS: 48 QRSD: 74 T: 66 QT: 356 QTc: 413 Interpretive Statements SINUS RHYTHM LOW QRS VOLTAGE IN PRECORDIAL LEADS [QRS DEFLECTION < 1.0 mV IN CHEST LEADS] INTERPRETATION BASED ON A DEFAULT AGE OF 40 YEARS Compared to ECG 02/06/2023 16:23:49 Low QRS voltage now present Electronically Signed On 07-30-2024 20:11:32 CDT by WOODY AMTTHEWS [id number] f
--- NOTE | 2024-07-30 12:36 | XRR_ITS ---
PROCEDURE INFORMATION: Exam: XR Abdomen Exam date and time: 07/30/2024 2:14 PM Age: 79 years old Clinical indication: Vomiting; Additional info: Vomiting, cough TECHNIQUE: Imaging protocol: Radiologic exam of the abdomen. Views: 3 or more views. COMPARISON: CT abdomen pelvis wo con [id number] 03/29/2024 11:15 AM FINDINGS: Lungs: Emphysematous change with mild chronic interstitial lung changes with prior exam of 06/26/2023. No focal infiltrate or consolidation. Small amount of basilar atelectasis. Pleural spaces: No pleural effusion. No pneumothorax. Heart/Mediastinum: No cardiomegaly. Gastrointestinal tract: Nonspecific bowel gas pattern, with mild scattered gas and stool in the colon predominantly. No dilated small bowel or air-fluid levels are seen. Intraperitoneal space: No indication of free air. Psoas margins appear distinct. Surgical clips right upper quadrant. Vasculature: Arteriosclerosis of the thoracic aorta. Extensive vascular calcification within the abdomen/pelvis. Bones/joints: Postsurgical changes of sternotomy/CABG. Degenerative bony changes. Partial visualization prior internal fixation hardware of the left hip. Old healed rib fracture lateral 5th rib on the left. XR/XR acute abdomen series [id number] IMPRESSION: 1. No acute findings in the chest. Emphysematous change along with mild chronic interstitial lung change with previous exam. Small amount of basilar atelectasis otherwise. 2. Nonspecific nonobstructive bowel gas pattern.
[2024-07-30 13:49] LABS: Basophils % 0.2 %; Lymphocytes # 0.8 10^3/uL (0.8-4.8); Lymphocytes % 14.4 %; Mean Corpuscular HGB Conc 31.8 g/dL (30-55); Mean Corpuscular Hemoglobin 30.1 pg (27-33); Mean Corpuscular Volume 94.4 fl (82-101); Mean Platelet Volume 10.4 fL (7.4-10.4); Monocytes # 0.4 10^3/uL (0.2-0.9); Monocytes % 6.8 %; Neutrophils # 4.23 10^3/uL (1.8-7.7); Neutrophils % 78.2 %; Nucleated Red Blood Cells % 0 %; Platelet Count 159 10^3/cmm (157-399); Red Blood Count 5.19 10^6/uL (3.85-5.65); Red Cell Distribution Width 12.7 % (12.1-15.1); White Blood Count 5.41 10^3/uL (3.29-11.43)
[2024-07-30 14:06] LABS: Alanine Aminotransferase 14 U/L (0-41); Albumin Level 3.4 g/dL (3.5-5.2); Alkaline Phosphatase 155 U/L (40-130); Aspartate Amino Transferase 30 U/L (0-40); Blood Urea Nitrogen 65 mg/dL (8-23); C Reactive Protein 100.1 mg/L (0.0-4.9); Calcium 8.4 mg/dL (8.5-10.5); Carbon Dioxide 18 mmol/L (22-29); Chloride 101 mmol/L (98-107); Creatinine Clr Calc Pharmacy 31.9774; Globulin 3.6 g/dL (1.3-4.6); Glucose 185 mg/dL (65-115); Lipase 25 U/L (13-60); Osmolality Calculated 303 mOsm/kg (285-295); Sodium 135 mmol/L (136-145); Total Bilirubin 0.6 mg/dL (0.15-1.2)
[2024-07-30 14:11] LABS: Lactic Sepsis W/Reflex 2.7 mmol/L (0.5-2.2)
[2024-07-30 14:15] LABS: Anion Gap 20.7 (5-19); Potassium 4.7 mmol/L (3.5-5.1)
--- NOTE | 2024-07-30 14:24 | ED_ITS ---
HPI - Nausea/Vomiting/Diarrhea 2 General: Chief complaint: Nausea/Vomiting/Diarrhea Stated complaint: Fever, no appttitde, Vomitting Time Seen by Provider: 07/30/24 14:08 History of Present Illness: 79-year-old male presents with generaliz ed malaise, upset stomach, nausea, cough and not feeling well for about 4 days. He denies vomiting but states he cannot keep anything down. Denies any diarrhea. Associated nausea: Yes Associated symtoms: Reports fatigue, malaise and nausea; Denies headache(s) or palpitations Related Data Home Medications Medication Instructions Recorded Confirmed amlodipine 5 mg tablet 5 mg PO QAM 11/04/19 05/14/24 finasteride 5 mg tablet 5 mg PO BEDTIME 11/04/19 05/14/24 gabapentin 300 mg capsule 300 mg PO BEDTIME 11/04/19 05/14/24 nitroglycerin 0.4 mg sublingual 0.4 mg sublingual Q5M PRN chest 11/04/19 05/14/24 tablet pain pentoxifylline 400 mg 400 mg PO TID 11/04/19 05/14/24 tablet,extended release ropinirole 2 mg tablet 2 mg PO TID 11/04/19 05/14/24 terazosin 1 mg capsule 3 mg PO BEDTIME 11/04/19 05/14/24 tiotropium bromide 2.5 2 inh inhalation QAM 11/04/19 05/14/24 mcg/actuation mist for inhalation clopidogrel 75 mg tablet (Plavix) 75 mg PO QAM 11/06/19 05/14/24 albuterol sulfate 90 mcg/actuation 2 puff inhalation Q4H PRN 01/24/20 05/14/24 aerosol inhaler Shortness Of Breath pioglitazone 15 mg tablet 15 mg PO QAM 02/01/21 05/14/24 aspirin 81 mg tablet,delayed 81 mg PO QAM 11/04/21 05/14/24 release cholecalciferol (vitamin D3) 50 2,000 unit PO BID 11/04/21 05/14/24 mcg (2,000 unit) capsule (Vitamin D3) oxycodone-acetaminophen 5 mg-325 1.5 tab PO BID PRN Pain 11/04/21 05/14/24 mg tablet (Percocet) trazodone 100 mg tablet 50 mg PO BEDTIME PRN Sleep 11/04/21 05/14/24 guaifenesin 600 mg tablet, See Rx Instructions .Route 04/26/22 05/14/24 extended release 12 hr (Mucinex) .COMPLEX PRN Congestion cyanocobalamin (vitamin B-12) 100 100 mcg PO DAILY 09/05/22 05/14/24 mcg tablet (Vitamin B-12) ferrous sulfate 325 mg (65 mg 325 mg PO BID 09/05/22 05/14/24 iron) tablet (iron) fluticasone 250 mcg-salmeterol 50 1 inh inhalation BID 09/05/22 05/14/24 mcg/dose blistr powdr for inhalation (Advair Diskus) hydrochlorothiazide 25 mg tablet 25 mg PO DAILY 09/05/22 05/14/24 lisinopril 40 mg tablet 40 mg PO BEDTIME 09/05/22 05/14/24 atorvastatin 40 mg tablet (Lipitor) 40 mg PO BEDTIME 06/26/23 05/14/24 empagliflozin 25 mg tablet 25 mg PO DAILY 08/06/23 05/14/24 (Jardiance) insulin NPH isoph U-100 human 100 See Rx Instructions SUBCUT DAILY 12/06/23 05/14/24 unit/mL subcutaneous suspension lower blood sugar (Novolin N NPH U-100 Insulin isophane) Previous Rx's Medication Instructions Recorded pantoprazole 40 mg tablet,delayed 40 mg PO BID 14 days #28 tabs 08/25/22 release (Protonix) glucagon HCl 1 mg solution for 1 mg SUBCUT Q20M PRN hypoglycemia 04/03/23 injection (Glucagon (HCl) #1 ea Emergency Kit) flash glucose scanning reader #1 ea 04/17/23 (FreeStyle Alvin 2 [place]) isosorbide mononitrate 30 mg See Rx Instructions .Route 05/10/23 tablet,extended release 24 hr .COMPLEX #90 tabs FreeStyle Alvin 2 Sensor (flash #2 ea 11/08/23 glucose sensor) oxycodone 5 mg tablet 5 mg PO Q8H PRN pain #20 tabs 04/01/24 Allergies Allergy/AdvReac Type Severity Reaction Status Date / Time No Known Allergies Allergy Verified 05/14/24 07:48 Review of Systems 2 Const: Reports: body aches, fatigue and malaise Card: Denies: palpitations or edema Resp: Reports: non-productive cough GI: Reports: nausea and GI cramping : Denies: flank pain or difficulty urinating Musc: Denies: neck pain or back pain Skin/Breast: Denies: rash Neuro: Denies: headache(s) PFSH ED 2 PFSH: Medical History Helicobacter pylori gastritis Abdominal aortic aneurysm Chronic obstructive pulmonary disease Hypertension Low back pain Peripheral vascular disease Restless legs syndrome Sleep apnea Surgical History History of open reduction and internal fixation (ORIF) procedure left hip Hx of cholecystectomy Status post femoropopliteal bypass surgery History of umbilical hernia repair 11/26/2019 Status post colonoscopy 11/25/2019: 3 mm sessile polyps x3 removed from the ascending colon, follow-up colonoscopy 2024 History of coronary artery stent placement Hx of CABG History of appendectomy Family History Other Family history non-contributory Denies family history of Clotting disorder Anesthesia complication Bleeding disorder Social History Smoking and tobacco/nicotine status: never used tobacco/nicotine Quit status (tobacco/nicotine): has quit using Year quit tobacco: 1995 Former quit date comment: 2 ppd 38 years Alcohol intake: former Substance/Drug Use: never Physical Exam 2 Const: COMMON NORMALS: no acute distress, average body habitus and alert Resp: COMMON NORMALS: normal respiratory effort, No use of accessory muscles and clear to auscultation bilaterally AUSCULTATION: clear to auscultation bilaterally Cardio: COMMON NORMALS: regular rate and regular rhythm RATE: regular rate RHYTHM: regular rhythm GI: COMMON NORMALS: Soft to palpation and non-tender PALPATION: Yes Soft to palpation Extremity: COMMON NORMALS: normal to inspection and full ROM Neuro: SENSORIUM/ORIENTATION: Yes alert Psych: COMMON NORMALS: mental status grossly normal, Normal thought process present, normal affect and speech normal SPEECH: Yes normal speech THOUGHT PROCESS: Normal thought process present Course 2 Vital Signs: Vital signs: Vital Signs Temperature 98.0 F 07/30/24 12:12 Pulse Rate 82 07/30/24 16:00 Respiratory Rate 30 H 07/30/24 12:12 Blood Pressure 93/60 07/30/24 16:00 Pulse Oximetry 92 07/30/24 16:00 Oxygen Delivery Me thod Room Air 07/30/24 12:12 MDM - Nausea/Vomiting/Diarrhea Medical Decision Making Patient diagnostic studies were ordered reviewed interpreted by me. Patient is positive for COVID. This is likely the cause of his acute kidney injury as he has lack of appetite and inability keep a lot down. Patient will be admitted for IV fluids at an inpatient management. He is currently does not require oxygen. His CT does show groundglass appearance consistent with COVID otherwise no significant acute abnormalities. Patient is stable upon admission to the hospital Lab Data 07/30/24 13:20 07/30/24 13:20 Radiology Impressions Chest/Abdomen X-ray 07/30/24 12:36 IMPRESSION: 1. No acute findings in the chest. Emphysematous change along with mild chronic interstitial lung change with previous exam. Small amount of basilar atelectasis otherwise. 2. Nonspecific nonobstructive bowel gas pattern. Abdomen/Pelvis CT 07/30/24 15:59 IMPRESSION: 1. Lung windows through the visualized lung bases demonstrate mild scattered ground-glass opacity and consider underlying mild infiltrate or pneumonitis. No consolidation or effusion. 2. Previous cholecystectomy and suggestion of previous appendectomy. 3. Mild urinary bladder wall thickening though appearing unchanged with prior exam. Correlate with urinalysis otherwise. 4. Small umbilical hernia of fat and short segment of nondilated small bowel, unchanged with prior exam. No bowel obstruction. 5. Calcific atherosclerotic vascular disease with infrarenal abdominal aortic aneurysmal dilatation up to 4 cm, as noted with prior exam. Laboratory Results WBC 5.41 10^3/uL (3.29-11.43) 07/30/24 13:20 RBC 5.19 10^6/uL (3.85-5.65) 07/30/24 13:20 Hgb 15.60 g/dL (11.27-16.99) 07/30/24 13:20 Hct 49.0 % (37-53) 07/30/24 13:20 MCV 94.4 fl (82-101) 07/30/24 13:20 MCH 30.1 pg (27-33) 07/30/24 13:20 MCHC 31.8 g/dL (30-55) 07/30/24 13:20 RDW 12.7 % (12.1-15.1) 07/30/24 13:20 Plt Count 159 10^3/cmm (157-399) 07/30/24 13:20 MPV 10.4 fL (7.4-10.4) 07/30/24 13:20 Neut % (Auto) 78.2 % 07/30/24 13:20 Lymph % (Auto) 14.4 % 07/30/24 13:20 [place] % (Auto) 6.8 % 07/30/24 13:20 Eos % (Auto) 0.0 % 07/30/24 13:20 Baso % (Auto) 0.2 % 07/30/24 13:20 Neut # (Auto) 4.23 10^3/uL (1.8-7.7) 07/30/24 13:20 Lymph # (Auto) 0.8 10^3/uL (0.8-4.8) 07/30/24 13:20 [place] # (Auto) 0.4 10^3/uL (0.2-0.9) 07/30/24 13:20 Eos # (Auto) 0.0 10^3/uL (0.0-0.8) 07/30/24 13:20 Baso # (Auto) 0.0 10^3/uL (0.0-0.1) 07/30/24 13:20 Nucleated RBC % (auto) 0 % 07/30/24 13:20 Nucleated RBCs # 0.0 /100WBC 07/30/24 13:20 Sodium 135 mmol/L (136-145) L 07/30/24 13:20 Potassium 4.7 mmol/L (3.5-5.1) 07/30/24 13:20 Chloride 101 mmol/L (98-107) 07/30/24 13:20 Carbon Dioxide 18 mmol/L (22-29) L 07/30/24 13:20 Anion Gap 20.7 (5-19) H 07/30/24 13:20 BUN 65 mg/dL (8-23) H 07/30/24 13:20 Creatinine 2.3 mg/dL (0.7-1.2) H 07/30/24 13:20 GFR Calculation Not Reportable 07/30/24 13:20 Glucose 185 mg/dL (65-115) H 07/30/24 13:20 Calculated Osmolality 303 mOsm/kg (285-295) H 07/30/24 13:20 Lactic Acid 2.7 mmol/L (0.5-2.2) H 07/30/24 13:20 Lactic Acid (Sepsis) 1.8 mmol/L (0.5-2.2) 07/30/24 17:08 Calcium 8.4 mg/dL (8.5-10.5) L 07/30/24 13:20 Total Bilirubin 0.6 mg/dL (0.15-1.2) 07/30/24 13:20 AST 30 U/L (0-40) 07/30/24 13:20 ALT 14 U/L (0-41) 07/30/24 13:20 Alkaline Phosphatase 155 U/L (40-130) H 07/30/24 13:20 C-Reactive Protein 100.1 mg/L (0.0-4.9) H 07/30/24 13:20 Total Protein 7.0 g/dL (6.6-8.7) 07/30/24 13:20 Albumin 3.4 g/dL (3.5-5.2) L 07/30/24 13:20 Globulin 3.6 g/dL (1.3-4.6) 07/30/24 13:20 Lipase 25 U/L (13-60) 07/30/24 13:20 Urine Color Yellow (Yellow) 07/30/24 14:38 Urine Appearance Clear (CLEAR) 07/30/24 14:38 Urine pH 5.0 (5-7) 07/30/24 14:38 Ur Specific [place] 1.023 (1.005-1.030) 07/30/24 14:38 Urine Protein Negative (Negative) 07/30/24 14:38 Urine Glucose (UA) 3+ (Normal) H 07/30/24 14:38 Urine Ketones Negative (Negative) 07/30/24 14:38 Urine Blood Negative (Negative) 07/30/24 14:38 Urine Nitrate Negative (Negative) 07/30/24 14:38 Urine Bilirubin Negative (Negative) 07/30/24 14:38 Urine Urobilinogen 0.2 mg/dL (Negative) 07/30/24 14:38 Ur Leukocyte Esterase Negative (Negative) 07/30/24 14:38 Urine RBC 0-2 /hpf (0-2) 07/30/24 14:38 Urine WBC 0-5 /hpf (0-5) 07/30/24 14:38 Ur Squamous Epith Cells 0-5 /hpf (0-5) 07/30/24 14:38 Amorphous Sediment Not Reportable 07/30/24 14:38 Urine Bacteria None seen /hpf (NONE) 07/30/24 14:38 Hyaline Casts 18.18 /lpf 07/30/24 14:38 Fine Granular Casts 0-4 /lpf H 07/30/24 14:38 Coronavirus (PCR) Positive (Negative) A 07/30/24 14:53 Influenza A (PCR) Negative (Negative) 07/30/24 14:53 Influenza Type B (PCR) Negative (Negative) 07/30/24 14:53 RSV (PCR) Negative (Negative) 07/30/24 14:53 All radiology interpretation(s) finalized by discharge Discharge Plan Discharge Patient Disposition: Admitted As Inpatient Clinical Impression: COVID-19, Acute kidney injury Condition: Stable Coding Level of Care Code ED Principal Investigator for Teri Garay
[2024-07-30 15:20] LABS: Bilirubin Urine Negative (Negative); Blood Urine Negative (Negative); Glucose Urine UA 3+ (Normal); Ketones Urine Negative (Negative); Leukocyte Esterase Urine Negative (Negative); Nitrate Urine Negative (Negative); Protein Urine Negative (Negative); Specific Gravity, Urine 1.023 (1.005-1.030); Urine Appearance Clear (CLEAR); Urine Color Yellow (Yellow); Urobilinogen Urine 0.2 mg/dL (Negative)
[2024-07-30] MEDS: lactated ringers 1,000 ML 999 ML IV (15:22)
[2024-07-30] MEDS: ondansetron 2 mg/ML SDV 2 mL 4 MG IVP (15:22)
[2024-07-30 15:23] LABS: Bacteria Urine None Seen /hpf; Hyaline Casts Urine 18.18 /lpf; RBC Urine 0-2 /hpf (0-2); Squamous Epithelial Cell Urine 0-5 /hpf (0-5); WBC Urine 0-5 /hpf (0-5)
[2024-07-30 15:32] LABS: Reflex Lactate Order REFLEX LACTIC ORDERD
[2024-07-30 15:48] LABS: Influenza A NEGATIVE (Negative); Influenza B NEGATIVE (Negative); Respiratory Syncytial Virus Ce NEGATIVE (Negative)
[2024-07-30 15:52] LABS: Fine Granular Casts Urine 0-4 /lpf
[2024-07-30 15:53] LABS: Add Urine Culture? No
--- NOTE | 2024-07-30 15:59 | CTR_ITS ---
PROCEDURE INFORMATION: Exam: CT Abdomen And Pelvis Without Contrast Exam date and time: 07/30/2024 4:04 PM Age: 79 years old Clinical indication: Nausea and vomiting; Abdominal pain; Additional info: Abd pain, n/v TECHNIQUE: Imaging protocol: Computed tomography of the abdomen and pelvis without contrast. Radiation optimization: All CT scans at this facility use at least one of these dose optimization techniques: automated exposure control; mA and/or kV adjustment per patient size (includes targeted exams where dose is matched to clinical indication); or iterative reconstruction. COMPARISON: CT abdomen pelvis wo con [id number] 03/29/2024 11:15 AM RADIATION DOSE METRICS: Total DLP (mGy-cm): 816 FINDINGS: Lungs: Lung windows through the visualized lung bases demonstrate mild scattered ground-glass opacity anteriorly bilaterally and posteriorly right lung base. No consolidation or effusion. Diaphragm: A tiny hiatal hernia. Liver: Normal. No mass. Gallbladder and biliary ducts: Previous cholecystectomy. No significant biliary ductal dilatation. Pancreas: Normal. No ductal dilation. Spleen: Normal. No splenomegaly. Adrenal glands: Normal. No mass. Kidneys and ureters: Kidneys demonstrate mild renal cortical thinning bilaterally and presence of arterial vascular calcification bilaterally along with likely age-related perinephric stranding, as findings are unchanged from prior exam. No hydronephrosis or obstruction. Stomach and bowel: Surgical clip at the medial cecum suggest previous appendectomy. No small bowel dilatation or obstruction. No gastric or colonic distension. No significant bowel thickening. No pericolonic mesenteric stranding. There is suggestion of some fluid content within the rectosigmoid and proximal right colon, nonspecific. Appendix: See Stomach and bowel finding. Intraperitoneal space: No free fluid or ascites. No free air. Vasculature: Calcific atherosclerotic disease of the abdominal aorta and tributaries. Aneurysmal dilatation of the infrarenal abdominal aorta up to 4 cm noted, as seen with prior exam. Lymph nodes: Unremarkable. No enlarged lymph nodes. Urinary bladder: Urinary bladder demonstrates mild wall thickening though unchanged with prior exam. Correlate with urinalysis otherwise. Reproductive: Unremarkable as visualized. Bones/joints: Bone windows demonstrate chronic degenerative changes in the spine along with old compression deformity L4, unchanged with prior exam. Prior internal fixation of the left hip, unchanged with prior exam. Soft tissues: A small umbilical hernia containing fat and a short segment of nondilated small bowel is seen, and appears unchanged with prior exam. CT/CT abdomen pelvis wo con [id number] IMPRESSION: 1. Lung windows through the visualized lung bases demonstrate mild scattered ground-glass opacity and consider underlying mild infiltrate or pneumonitis. No consolidation or effusion. 2. Previous cholecystectomy and suggestion of previous appendectomy. 3. Mild urinary bladder wall thickening though appearing unchanged with prior exam. Correlate with urinalysis otherwise. 4. Small umbilical hernia of fat and short segment of nondilated small bowel, unchanged with prior exam. No bowel obstruction. 5. Calcific atherosclerotic vascular disease with infrarenal abdominal aortic aneurysmal dilatation up to 4 cm, as noted with prior exam.
[2024-07-30 16:24] LABS: Covid PCR Positive (Negative)
[2024-07-30 17:41] LABS: Lactic Acid level (Lactate) 1.8 mmol/L (0.5-2.2)
--- NOTE | 2024-07-30 18:20 | P.HP_ITS ---
Providers/Chief Complaint 2 Admitting Physician: Elodia Cohen MD Primary Care Provider: Tish Henry MD Chief Complaint: Fever, no appttitde, Vomitting History of Present Illness Musa Germain is a 79 year old male with history of diabetes, hypertension, presented with chief complaint of generalized weakness and fatigue which started last Sunday. In the ER he has been diagnosed with [place] and COVID-19. He is not requiring oxygen. He is afebrile. Patient is stating that he had 1 episode of diarrhea today, he has been weak and lethargic, he lives with his and 2 dogs. He is not requiring oxygen. His baseline creatinine seems to be around 1.6-1.7 Review of Systems 2 Const: Reports: fever(s) Eyes: Denies: change in vision ENMT: Denies: throat pain Card: Denies: chest pain Resp: Reports: dyspnea GI: Reports: diarrhea Medications/Allergies Home Medications Medication Instructions Recorded Confirmed Last Taken Type amlodipine 5 mg tablet 5 mg PO QAM 11/04/19 05/14/24 1 Day Ago History ~03/28/24 finasteride 5 mg tablet 5 mg PO BEDTIME 11/04/19 05/14/24 1 Day Ago History ~03/28/24 gabapentin 300 mg capsule 300 mg PO BEDTIME 11/04/19 05/14/24 1 Day Ago History ~03/28/24 nitroglycerin 0.4 mg sublingual 0.4 mg sublingual Q5M PRN chest 11/04/19 05/14/24 01/20/20 History tablet pain pentoxifylline 400 mg 400 mg PO TID 11/04/19 05/14/24 1 Day Ago History tablet,extended release ~03/28/24 ropinirole 2 mg tablet 2 mg PO TID 11/04/19 05/14/24 1 Day Ago History ~03/28/24 terazosin 1 mg capsule 3 mg PO BEDTIME 11/04/19 05/14/24 1 Day Ago History ~03/28/24 tiotropium bromide 2.5 2 inh inhalation QAM 11/04/19 05/14/24 06/25/23 History mcg/actuation mist for inhalation clopidogrel 75 mg tablet (Plavix) 75 mg PO QAM 11/06/19 05/14/24 1 Day Ago History ~03/28/24 albuterol sulfate 90 mcg/actuation 2 puff inhalation Q4H PRN 01/24/20 05/14/24 06/25/23 History aerosol inhaler Shortness Of Breath pioglitazone 15 mg tablet 15 mg PO QAM 02/01/21 05/14/24 1 Day Ago History ~03/28/24 aspirin 81 mg tablet,delayed 81 mg PO QAM 11/04/21 05/14/24 1 Day Ago History release ~03/28/24 cholecalciferol (vitamin D3) 50 2,000 unit PO BID 11/04/21 05/14/24 1 Day Ago History mcg (2,000 unit) capsule (Vitamin ~03/28/24 D3) oxycodone-acetaminophen 5 mg-325 1.5 tab PO BID PRN Pain 11/04/21 05/14/24 06/25/23 History mg tablet (Percocet) trazodone 100 mg tablet 50 mg PO BEDTIME PRN Sleep 11/04/21 05/14/24 06/22/23 History guaifenesin 600 mg tablet, See Rx Instructions .Route 04/26/22 05/14/24 06/25/23 History extended release 12 hr (Mucinex) .COMPLEX PRN Congestion pantoprazole 40 mg tablet,delayed 40 mg PO BID 14 days #28 tabs 08/25/22 05/14/24 1 Day Ago Rx release (Protonix) ~03/28/24 cyanocobalamin (vitamin B-12) 100 100 mcg PO DAILY 09/05/22 05/14/24 1 Day Ago History mcg tablet (Vitamin B-12) ~03/28/24 ferrous sulfate 325 mg (65 mg 325 mg PO BID 09/05/22 05/14/24 1 Day Ago History iron) tablet (iron) ~03/28/24 fluticasone 250 mcg-salmeterol 50 1 inh inhalation BID 09/05/22 05/14/24 06/25/23 History mcg/dose blistr powdr for inhalation (Advair Diskus) hydrochlorothiazide 25 mg tablet 25 mg PO DAILY 09/05/22 05/14/24 1 Day Ago History ~03/28/24 lisinopril 40 mg tablet 40 mg PO BEDTIME 09/05/22 05/14/24 1 Day Ago History ~03/28/24 glucagon HCl 1 mg solution for 1 mg SUBCUT Q20M PRN hypoglycemia 04/03/23 05/14/24 Unknown Rx injection (Glucagon (HCl) #1 ea Emergency Kit) flash glucose scanning reader #1 ea 04/17/23 05/14/24 06/22/23 Rx (FreeStyle Alvin 2 [place]) isosorbide mononitrate 30 mg See Rx Instructions .Route 05/10/23 05/14/24 1 Day Ago Rx tablet,extended release 24 hr .COMPLEX #90 tabs ~03/28/24 atorvastatin 40 mg tablet (Lipitor) 40 mg PO BEDTIME 06/26/23 05/14/24 1 Day Ago History ~03/28/24 empagliflozin 25 mg tablet 25 mg PO DAILY 08/06/23 05/14/24 1 Day Ago History (Jardiance) ~03/28/24 FreeStyle Alvin 2 Sensor (flash #2 ea 11/08/23 05/14/24 Unknown Rx glucose sensor) insulin NPH isoph U-100 human 100 See Rx Instructions SUBCUT DAILY 12/06/23 05/14/24 1 Day Ago History unit/mL subcutaneous suspension lower blood sugar ~03/28/24 (Novolin N NPH U-100 Insulin isophane) oxycodone 5 mg tablet 5 mg PO Q8H PRN pain #20 tabs 04/01/24 05/14/24 Unknown Rx Allergies Allergy/AdvReac Type Severity Reaction Status Date / Time No Known Allergies Allergy Verified 05/14/24 07:48 PFSH Acute 2 PFSH: Medical History Helicobacter pylori gastritis Abdominal aortic aneurysm Chronic obstructive pulmonary disease Hypertension Low back pain Peripheral vascular disease Restless legs syndrome Sleep apnea Surgical History History of open reduction and internal fixation (ORIF) procedure left hip Hx of cholecystectomy Status post femoropopliteal bypass surgery History of umbilical hernia repair 11/26/2019 Status post colonoscopy 11/25/2019: 3 mm sessile polyps x3 removed from the ascending colon, follow-up colonoscopy 2024 History of coronary artery stent placement Hx of CABG History of appendectomy Family History Other Family history non-contributory Denies family history of Clotting disorder Anesthesia complication Bleeding disorder Social History Smoking and tobacco/nicotine status: never used tobacco/nicotine Quit status (tobacco/nicotine): has quit using Year quit tobacco: 1995 Former quit date comment: 2 ppd 38 years Alcohol intake: former Substance/Drug Use: never Vitals/I&O/Wt Last Vital Signs Temp 98.0 F 07/30/24 12:12 Pulse 82 07/30/24 16:00 Resp 30 H 07/30/24 12:12 BP 93/60 07/30/24 16:00 Pulse Ox 92 07/30/24 16:00 O2 Del Method Room Air 07/30/24 12:12 Weight last 48 hrs Weight 93.894 kg Physical Exam 2 Narrative: Patient is resting comfortably Currently on room air Nonfocal neuroexam Hemodynamically stable Looks dehydrated GCS 15 Pleasant cough Awake and alert Data 07/30/24 13:20 07/30/24 13:20 Micro: Microbiology 07/30/24 13:24 Blood Culture - Preliminary Blood SPECIMEN COLLECTED 07/30/24 13:20 Blood Culture - Preliminary Blood SPECIMEN COLLECTED A&P Assessment and plan (1) Hypertension: Qualifiers: Hypertension type: essential hypertension Qualified Code(s): I10 - Essential (primary) hypertension (2) Peripheral vascular disease: (3) Acute kidney injury: (4) Chronic kidney disease: Qualifiers: Chronic kidney disease stage: stage 3 (moderate) Chronic kidney disease stage 3 subtype: stage 3a (GFR 45-59) Qualified Code(s): N18.31 - Chronic kidney disease, stage 3a (5) COVID-19: (6) Physical deconditioning: Plan Generalized weakness and fatigue COVID-19 Acute on chronic kidney disease Start patient of gentle fluid hydration considering underlying diastolic CHF Hold nephrotoxic agents Hold lisinopril and hydrochlorothiazide For hypertension I would switch to metoprolol amlodipine and hydralazine for now He may resume his aspirin and Plavix Baseline creatinine seems to be a 1.6-1.7, current creatinine seems to be above 1 with acidosis Add bicarb tablets Patient is full code Cardiac diet /Consistent carb along sliding scale DVT prophylaxis added Attestations 2 Medical Necessity Statement*: More than 2 midnights anticipated Diagnoses Essential hypertension I10 Hypertension type: essential hypertension Peripheral vascular disease I73.9 Acute kidney injury N17.9 Stage 3a chronic kidney disease N18.31 Chronic kidney disease stage: stage 3 (moderate) Chronic kidney disease stage 3 subtype: stage 3a (GFR 45-59) COVID-19 U07.1 Physical deconditioning R53.81
--- NOTE | 2024-07-30 19:10 | PC.NURSE ---
nurse answered call light, pt asked for pillow and blanket. Nurse helped turn pt and reposition
[2024-07-30] MEDS: heparin 5,000 unit/mL INJ 1 mL 5000 UNIT SUBCUT (19:27)
[2024-07-30] MEDS: sodium chloride 0.9% 1,000 ML 75 ML IV (19:30)
[2024-07-30 20:05] LABS: Glucose Point of Care 174 mg/dL (70-110)
[2024-07-30 20:31] LABS: Estmated Average Glucose 154
[2024-07-30] MEDS: ropinirole 2 mg Tablet PO (20:40)
[2024-07-30] MEDS: acetaminophen 500 mg Tablet PO (20:40)
[2024-07-30] MEDS: insulin lispro 100 unit/1 mL SUBCUT (20:40)
[2024-07-30 21:45] LABS: Glucose Point of Care 142 mg/dL (70-110)
[2024-07-31] VITALS (7 sets, daily range): BP systolic 106–115; BP diastolic 54–92; PULSE 47–85; RESP 17–20; TEMP 36.6–37.1; O2SAT 90–94
[2024-07-31] MEDS: heparin 5,000 unit/mL INJ 1 mL 5000 UNIT SUBCUT ×3 (03:00→18:46)
[2024-07-31] MEDS: amlodipine 5 mg Tablet PO (06:13)
[2024-07-31] MEDS: clopidogrel 75 mg Tablet PO (06:13)
[2024-07-31] MEDS: aspirin 81 mg EC Tablet PO (06:13)
[2024-07-31 06:23] LABS: Glucose Point of Care 171 mg/dL (70-110)
[2024-07-31 06:26] LABS: Hematocrit 44.9 % (37-53); Lymphocytes % 17.8 %; Mean Corpuscular HGB Conc 32.3 g/dL (30-55); Mean Corpuscular Hemoglobin 29.7 pg (27-33); Monocytes # 0.3 10^3/uL (0.2-0.9); Monocytes % 5.6 %; Neutrophils # 4.12 10^3/uL (1.8-7.7); Neutrophils % 76.2 %; Nucleated Red Blood Cells % 0 %; Platelet Count 150 10^3/cmm (157-399); Red Blood Count 4.88 10^6/uL (3.85-5.65); Red Cell Distribution Width 12.6 % (12.1-15.1)
[2024-07-31 06:48] LABS: Blood Urea Nitrogen 60 mg/dL (8-23); Calcium 8.3 mg/dL (8.5-10.5); Carbon Dioxide 22 mmol/L (22-29); Chloride 105 mmol/L (98-107); Creatinine Clr Calc Pharmacy 39.1551; Glucose 153 mg/dL (65-115); Magnesium 2.5 mg/dL (1.7-2.3); Osmolality Calculated 308 mOsm/kg (285-295); Phosphorus 3.1 mg/dL (2.5-4.5); Sodium 139 mmol/L (136-145)
[2024-07-31 06:49] LABS: Anion Gap 16.4 (5-19); Potassium 4.4 mmol/L (3.5-5.1)
[2024-07-31] MEDS: insulin lispro 100 unit/1 mL SUBCUT ×3 (09:45→22:06)
[2024-07-31] MEDS: ropinirole 2 mg Tablet PO ×3 (09:46→22:07)
[2024-07-31] MEDS: doxycycline 100 mg Tablet PO ×2 (09:46→17:16)
--- NOTE | 2024-07-31 10:05 | PC.CHAP ---
Pastoral Care Encounter/Spiritual Assessment Type of Contact [] Declined certified energy manager visit [] Patient/Family/Request visit [] Outpatient visit [] Follow-up visit [] Physician referral [] Code/Alert [] Routine visit [] Staff referral [] Actively dying [] Patient sleeping [] Family support [] [] Out of room [] Palliative care [] [] Receiving care in room [] Pre-surgical visit [] Trauma [] Long length of stay [] ICU visit [x] Other:Contact precautions. No visit. Relational/Emotional Strength [] Patient feels connected with others/family/visitors/staff [] Distress [] Loneliness/isolation [] Abandonment Spirituality of Patient [] Person of Liz [] Attends Yazidism of their Liz [] Believes in Prayer [] Reads Bible or Episcopal materials [] There are Spiritual issues to be addressed Director Of Assessment Interventions [] Prayer [] Active listening [] Non-anxious presence [] Spiritual/emotional support [] Crisis/trauma care [] Spiritual counseling [] Bereavement support [] Provided bereavement packet [] Provided Bible/devotional materials [] Provided toy/stuffed animal, coloring book to patient or family member [] Provided Communion [] Anointing/[place] [] Salvation [] Completed spiritual assessment [] Other: Impact on Illness or Injury [] Angry [] Fearful [] Anxious [] Often cries [] Exhaustion [] Unable to work [] Unable to attend confucianism [] Unable to walk/stand [] Unable to read [] Unable to drive [] Unable to eat/drink [] Unable to sleep [] Unable to be with family [] Patient intubated [] Other: Summary Time spent with patient
--- NOTE | 2024-07-31 10:41 | P.PN_ITS ---
Subjective 2 Subjective: This morning patient is extremely lethargic and fatigued not eating well Stating that he is taste of mouth has changed that why he is not eating much Creatinine 1.9 with IV fluid hydration Hemoglobin A1c 7 lactic acid improved Vitals/I&O/Wt Last Vital Signs Temp 98.3 F 07/31/24 08:00 Pulse 63 07/31/24 09:24 Resp 18 07/31/24 09:24 BP 106/57 07/31/24 08:00 Pulse Ox 93 07/31/24 09:24 O2 Del Method Nasal Cannula 07/31/24 09:24 O2 Flow Rate 2 07/31/24 09:24 07/30/24 07/31/24 07/31/24 22:59 06:59 14:59 Intake Total 1000 / 1000 240 / 240 Output Total 250 / 250 100 / 100 Balance 1000 / 1000 -250 / 750 140 / 140 Weight last 48 hrs Weight 96.434 kg Weight 92.986 kg Weight 93.894 kg Physical Exam 2 Narrative: Dehydrated GCS 15 Pleasant cough Currently on 2 L Nonfocal neuroexam No audible stridor or wheezing Nonproductive cough S1, S2 Data 07/31/24 05:57 07/31/24 05:57 Micro: Microbiology 07/30/24 13:24 Blood Culture - Preliminary Blood SPECIMEN COLLECTED 07/30/24 13:20 Blood Culture - Preliminary Blood SPECIMEN COLLECTED A&P Assessment and plan (1) Hypertension: Qualifiers: Hypertension type: essential hypertension Qualified Code(s): I10 - Essential (primary) hypertension (2) Peripheral vascular disease: (3) Acute kidney injury: (4) Chronic kidney disease: Qualifiers: Chronic kidney disease stage: stage 3 (moderate) Chronic kidney disease stage 3 subtype: stage 3a (GFR 45-59) Qualified Code(s): N18.31 - Chronic kidney disease, stage 3a (5) COVID-19: (6) Physical deconditioning: (7) Hypoxia: Plan COVID-19 pneumonia Extremely high CRP Continue doxycycline Add remdesivir and prednisone at this point Acute hypoxia: Related to COVID-19: Currently requiring 2 L Dehydration Continue IV fluids for next 10 hours Acute on chronic kidney disease: Creatinine improving with IV fluid hydration Full code Consistent carb diet with sliding scale Hemoglobin A1c around 7 Continue opioids along bowel regimen DVT prophylaxis: Heparin Restless legs: Continue ropinirole Attestations 2 Medical Necessity Statement*: Possible discharge in next 48 hours depending on clinical progress Diagnoses Essential hypertension I10 Hypertension type: essential hypertension Peripheral vascular disease I73.9 Acute kidney injury N17.9 Stage 3a chronic kidney disease N18.31 Chronic kidney disease stage: stage 3 (moderate) Chronic kidney disease stage 3 subtype: stage 3a (GFR 45-59) COVID-19 U07.1 Physical deconditioning R53.81 Hypoxia R09.02
[2024-07-31] MEDS: predniSONE 20 mg Tablet PO ×2 (11:23→17:16)
[2024-07-31] MEDS: remdesivir 200 MG in sodium chloride 0.9% (100 ml) 60 ML 100 MG IV (11:23)
[2024-07-31] MEDS: sodium chloride 0.9% 1,000 ML 100 ML IV (11:25)
[2024-07-31 12:07] LABS: Glucose Point of Care 152 mg/dL (70-110)
[2024-07-31 16:45] LABS: Glucose Point of Care 140 mg/dL (70-110)
[2024-07-31 20:28] LABS: Glucose Point of Care 239 mg/dL (70-110)
[2024-08-01] VITALS (7 sets, daily range): BP systolic 112–135; BP diastolic 64–77; PULSE 56–67; RESP 16–18; TEMP 36.6–37.1; O2SAT 89–96
[2024-08-01] MEDS: heparin 5,000 unit/mL INJ 1 mL 5000 UNIT SUBCUT (02:38)
[2024-08-01 05:39] LABS: Hematocrit 41.8 % (37-53); Lymphocytes # 0.6 10^3/uL (0.8-4.8); Mean Corpuscular Volume 90.9 fl (82-101); Monocytes # 0.2 10^3/uL (0.2-0.9); Monocytes % 4.5 %; Neutrophils # 3.87 10^3/uL (1.8-7.7); Neutrophils % 82.1 %; Nucleated Red Blood Cells % 0 %; Platelet Count 167 10^3/cmm (157-399); Red Cell Distribution Width 12.4 % (12.1-15.1); White Blood Count 4.71 10^3/uL (3.29-11.43)
[2024-08-01] MEDS: amlodipine 5 mg Tablet PO (05:59)
[2024-08-01] MEDS: aspirin 81 mg EC Tablet PO (05:59)
[2024-08-01] MEDS: clopidogrel 75 mg Tablet PO (05:59)
[2024-08-01] MEDS: remdesivir 100 MG in sodium chloride 0.9% (100 ml) 80 ML IV (06:00)
[2024-08-01 06:02] LABS: Anion Gap 14.5 (5-19); Blood Urea Nitrogen 62 mg/dL (8-23); Calcium 8.2 mg/dL (8.5-10.5); Carbon Dioxide 22 mmol/L (22-29); Chloride 106 mmol/L (98-107); Glucose 225 mg/dL (65-115); Osmolality Calculated 311 mOsm/kg (285-295); Potassium 4.5 mmol/L (3.5-5.1); Sodium 138 mmol/L (136-145)
[2024-08-01 06:30] LABS: Glucose Point of Care 197 mg/dL (70-110)
[2024-08-01] MEDS: predniSONE 20 mg Tablet PO (08:19)
[2024-08-01] MEDS: doxycycline 100 mg Tablet PO (08:19)
[2024-08-01] MEDS: ropinirole 2 mg Tablet PO (08:19)
[2024-08-01] MEDS: insulin lispro 100 unit/1 mL SUBCUT (08:19)
--- NOTE | 2024-08-01 10:42 | P.DS_ITS ---
Discharge Providers Date of Admission: 07/30/24 18:02 Date of Discharge: August 01, 2024 Attending Provider at Admission: Elodia Cohen MD Attending Provider at Discharge: Charo Catalan MD Primary Care Provider: Tish Henry MD Diagnoses at Discharge Discharge Diagnosis (1) Hypertension: Status: Acute Qualifiers: Hypertension type: essential hypertension Qualified Code(s): I10 - Essential (primary) hypertension (2) Peripheral vascular disease: Status: Acute (3) Acute kidney injury: Status: Acute (4) Chronic kidney disease: Status: Acute Qualifiers: Chronic kidney disease stage: stage 3 (moderate) Chronic kidney disease stage 3 subtype: stage 3a (GFR 45-59) Qualified Code(s): N18.31 - Chronic kidney disease, stage 3a (5) COVID-19: Status: Acute (6) Physical deconditioning: Status: Acute (7) Hypoxia: Status: Acute Reason for Visit Reason for Visit: Fever, no appttitde, Vomitting Hospital Course Hospital Course 79-year-old male who was admitted for management valuation of COVID-19 pneumonia, he intermittently requires 2 L of oxygen, he was put on remdesivir and prednisone, remained hemodynamically stable without any fever, no leukocytosis, he was put empirical IV antibiotics, he was also given IV fluids for acute on chronic kidney disease related to dehydration, he stopped eating because of change of taste in mouth. His creatinine improved returned to baseline at the time of discharge. He is being discharged with stable hemodynamics. Physical Exam 2 Narrative: Awake and alert GCS 15 Pleasant cooperative Currently on room air Signs of dehydration present but slightly better Sitting at the bedside Discharge Data Studies Completed and Pending Completed Studies During Hospitalization Category Date Time Status CT abdomen pelvis wo con [id number] Stat Cat Scan 07/30/24 15:59 Completed XR acute abdomen series [id number] Stat Exams 07/30/24 12:36 Completed Pending at discharge Category Date Time Status Blood Culture Stat Lab 07/30/24 13:24 Results Radiology Impressions Chest/Abdomen X-ray 07/30/24 12:36 IMPRESSION: 1. No acute findings in the chest. Emphysematous change along with mild chronic interstitial lung change with previous exam. Small amount of basilar atelectasis otherwise. 2. Nonspecific nonobstructive bowel gas pattern. Abdomen/Pelvis CT 07/30/24 15:59 IMPRESSION: 1. Lung windows through the visualized lung bases demonstrate mild scattered ground-glass opacity and consider underlying mild infiltrate or pneumonitis. No consolidation or effusion. 2. Previous cholecystectomy and suggestion of previous appendectomy. 3. Mild urinary bladder wall thickening though appearing unchanged with prior exam. Correlate with urinalysis otherwise. 4. Small umbilical hernia of fat and short segment of nondilated small bowel, unchanged with prior exam. No bowel obstruction. 5. Calcific atherosclerotic vascular disease with infrarenal abdominal aortic aneurysmal dilatation up to 4 cm, as noted with prior exam. Laboratory Results WBC 4.71 10^3/uL (3.29-11.43) 08/01/24 05:12 RBC 4.60 10^6/uL (3.85-5.65) 08/01/24 05:12 Hgb 13.80 g/dL (11.27-16.99) 08/01/24 05:12 Hct 41.8 % (37-53) 08/01/24 05:12 MCV 90.9 fl (82-101) 08/01/24 05:12 MCH 30.0 pg (27-33) 08/01/24 05:12 MCHC 33.0 g/dL (30-55) 08/01/24 05:12 RDW 12.4 % (12.1-15.1) 08/01/24 05:12 Plt Count 167 10^3/cmm (157-399) 08/01/24 05:12 MPV 10.0 fL (7.4-10.4) 08/01/24 05:12 Neut % (Auto) 82.1 % 08/01/24 05:12 Lymph % (Auto) 13.0 % 08/01/24 05:12 [place] % (Auto) 4.5 % 08/01/24 05:12 Eos % (Auto) 0.0 % 08/01/24 05:12 Baso % (Auto) 0.0 % 08/01/24 05:12 Neut # (Auto) 3.87 10^3/uL (1.8-7.7) 08/01/24 05:12 Lymph # (Auto) 0.6 10^3/uL (0.8-4.8) L 08/01/24 05:12 [place] # (Auto) 0.2 10^3/uL (0.2-0.9) 08/01/24 05:12 Eos # (Auto) 0.0 10^3/uL (0.0-0.8) 08/01/24 05:12 Baso # (Auto) 0.0 10^3/uL (0.0-0.1) 08/01/24 05:12 Nucleated RBC % (auto) 0 % 08/01/24 05:12 Nucleated RBCs # 0.0 /100WBC 08/01/24 05:12 Sodium 138 mmol/L (136-145) 08/01/24 05:12 Potassium 4.5 mmol/L (3.5-5.1) 08/01/24 05:12 Chloride 106 mmol/L (98-107) 08/01/24 05:12 Carbon Dioxide 22 mmol/L (22-29) 08/01/24 05:12 Anion Gap 14.5 (5-19) 08/01/24 05:12 BUN 62 mg/dL (8-23) H 08/01/24 05:12 Creatinine 1.4 mg/dL (0.7-1.2) H 08/01/24 05:12 GFR Calculation Not Reportable 08/01/24 05:12 Glucose 225 mg/dL (65-115) H 08/01/24 05:12 POC Glucose 197 mg/dL (70-110) H 08/01/24 06:07 Estimat Average Glucose 154 07/30/24 13:20 Hemoglobin A1c 7.0 % (4.0-6.0) H 07/30/24 13:20 Calculated Osmolality 311 mOsm/kg (285-295) H 08/01/24 05:12 Lactic Acid 2.7 mmol/L (0.5-2.2) H 07/30/24 13:20 Lactic Acid (Sepsis) 1.8 mmol/L (0.5-2.2) 07/30/24 17:08 Calcium 8.2 mg/dL (8.5-10.5) L 08/01/24 05:12 Phosphorus 3.1 mg/dL (2.5-4.5) 07/31/24 05:57 Magnesium 2.5 mg/dL (1.7-2.3) H 07/31/24 05:57 Total Bilirubin 0.6 mg/dL (0.15-1.2) 07/30/24 13:20 AST 30 U/L (0-40) 07/30/24 13:20 ALT 14 U/L (0-41) 07/30/24 13:20 Alkaline Phosphatase 155 U/L (40-130) H 07/30/24 13:20 C-Reactive Protein 100.1 mg/L (0.0-4.9) H 07/30/24 13:20 Total Protein 7.0 g/dL (6.6-8.7) 07/30/24 13:20 Albumin 3.4 g/dL (3.5-5.2) L 07/30/24 13:20 Globulin 3.6 g/dL (1.3-4.6) 07/30/24 13:20 Lipase 25 U/L (13-60) 07/30/24 13:20 Urine Color Yellow (Yellow) 07/30/24 14:38 Urine Appearance Clear (CLEAR) 07/30/24 14:38 Urine pH 5.0 (5-7) 07/30/24 14:38 Ur Specific [place] 1.023 (1.005-1.030) 07/30/24 14:38 Urine Protein Negative (Negative) 07/30/24 14:38 Urine Glucose (UA) 3+ (Normal) H 07/30/24 14:38 Urine Ketones Negative (Negative) 07/30/24 14:38 Urine Blood Negative (Negative) 07/30/24 14:38 Urine Nitrate Negative (Negative) 07/30/24 14:38 Urine Bilirubin Negative (Negative) 07/30/24 14:38 Urine Urobilinogen 0.2 mg/dL (Negative) 07/30/24 14:38 Ur Leukocyte Esterase Negative (Negative) 07/30/24 14:38 Urine RBC 0-2 /hpf (0-2) 07/30/24 14:38 Urine WBC 0-5 /hpf (0-5) 07/30/24 14:38 Ur Squamous Epith Cells 0-5 /hpf (0-5) 07/30/24 14:38 Amorphous Sediment Not Reportable 07/30/24 14:38 Urine Bacteria None seen /hpf (NONE) 07/30/24 14:38 Hyaline Casts 18.18 /lpf 07/30/24 14:38 Fine Granular Casts 0-4 /lpf H 07/30/24 14:38 Coronavirus (PCR) Positive (Negative) A 07/30/24 14:53 Influenza A (PCR) Negative (Negative) 07/30/24 14:53 Influenza Type B (PCR) Negative (Negative) 07/30/24 14:53 RSV (PCR) Negative (Negative) 07/30/24 14:53 Vitals Last Vital Signs Temp 98.1 F 08/01/24 08:00 Pulse 67 08/01/24 09:22 Resp 16 08/01/24 09:22 BP 124/68 08/01/24 08:00 Pulse Ox 93 08/01/24 09:22 O2 Del Method Room Air 08/01/24 09:22 O2 Flow Rate 3 08/01/24 04:00 Discharge Plan Discharge Patient Disposition: Home Condition: Stable Prescriptions: New doxycycline monohydrate 100 mg Tablet 100 mg PO BID Qty: 6 0RF hydralazine 25 mg tablet 25 mg PO BID Qty: 60 3RF Continued amlodipine 5 mg tablet 5 mg PO QAM finasteride 5 mg tablet 5 mg PO BEDTIME gabapentin 300 mg capsule 300 mg PO BEDTIME nitroglycerin 0.4 mg tablet, sublingual 0.4 mg SUBLINGUAL Q5M PRN (Reason: chest pain) Rx Instructions: Dissolve one tablet under the tongue one time as needed for check pain if no improvement after first dose call 911 may take 2 additional doses after 5 minutes apart. pentoxifylline 400 mg tablet extended release 400 mg PO TID ropinirole 2 mg tablet 2 mg PO TID terazosin 1 mg capsule 3 mg PO BEDTIME tiotropium bromide 2.5 mcg/actuation mist 2 inh INHALATION QAM clopidogrel [Plavix] 75 mg tablet 75 mg PO QAM Hold Instructions: Resume on 08/12/22. pantoprazole [Protonix] 40 mg tablet,delayed release (DR/EC) 40 mg PO BID 14 Days Qty: 28 0RF (DME) [employer] Alvin 2 [place] Misc See Rx Instructions .Route Qty: 1 0RF Rx Instructions: As directed Jardiance 25 mg tablet 25 mg PO DAILY Novolin N NPH U-100 Insulin 100 unit/mL suspension See Rx Instructions SUBCUT DAILY Rx Instructions: 20 units q am subcutaneous; 10 units before supper glucagon HCl [Glucagon (HCl) Emergency Kit] 1 mg recon soln 1 mg SUBCUT Q20M PRN (Reason: hypoglycemia) Qty: 1 2RF Rx Instructions: until target blood sugar attained isosorbide mononitrate 30 mg tablet extended release 24 hr See Rx Instructions .ROUTE .COMPLEX Qty: 90 3RF Dose Instruction: TAKE ONE TABLET BY MOUTH ONCE A DAY TO PREVENT CHEST PAIN. TAKE ON EMPTY STOMACH. SWALLOW WHOLE. DO NOT CRUSH OR CHEW. MAY CAUSE HEADACHES UNTIL BODY ADJUSTS. TAKE ACETAMINOPHEN OR IBUPROFEN NEEDED 30 MINUTES BEFORE. Rx Instructions: TAKE ONE TABLET BY MOUTH ONCE A DAY TO PREVENT CHEST PAIN. TAKE ON EMPTY STOMACH. SWALLOW WHOLE. DO NOT CRUSH OR CHEW. MAY CAUSE HEADACHES UNTIL BODY ADJUSTS. TAKE ACETAMINOPHEN OR IBUPROFEN NEEDED 30 MINUTES BEFORE. (DME) [employer] Alvin 2 Sensor Kit See Rx Instructions .ROUTE .COMPLEX Qty: 2 2RF Dose Instruction: USE SENSOR EVERY 14 DAYS CHANGE SENSOR/SITE EVERY 14 DAYS. TO REPLACE SENSOR FOR ANY REASON OR FOR TECHNICAL HELP PLEASE CALL [employer] DESK: -SPECIFIC PHONE NUMBER: ([phone]). Rx Instructions: USE SENSOR EVERY 14 DAYS CHANGE SENSOR/SITE EVERY 14 DAYS. TO REPLACE SENSOR FOR ANY REASON OR FOR TECHNICAL HELP PLEASE CALL [employer] DESK: -SPECIFIC PHONE NUMBER: ([phone]). aspirin 81 mg Tablet,Delayed Release (Dr/Ec) 81 mg PO QAM cholecalciferol (vitamin D3) [Vitamin D3] 50 mcg (2,000 unit) Capsule 2,000 unit PO BID albuterol sulfate 90 mcg/actuation Hfa Aerosol Inhaler 2 puff INHALATION Q4H PRN (Reason: Shortness Of Breath) pioglitazone 15 mg Tablet 15 mg PO QAM fluticasone propion-salmeterol [Advair Diskus] 250-50 mcg/dose Blister With Device 1 inh INHALATION BID cyanocobalamin (vitamin B-12) [Vitamin B-12] 100 mcg Tablet 100 mcg PO DAILY ferrous sulfate [iron] 325 mg (65 mg iron) Tablet 325 mg PO BID atorvastatin [Lipitor] 40 mg tablet 40 mg PO BEDTIME oxycodone-acetaminophen 7.5-325 mg Tablet 1 tab PO TID PRN (Reason: Pain) Discontinued hydrochlorothiazide 25 mg Tablet 25 mg PO DAILY lisinopril 40 mg Tablet 40 mg PO BEDTIME Discharge Orders: Discharge Order (Routine); Ordered 08/01/24 Ordered By: Charo Catalan Referrals: Tish Henry MD [Primary Care Provider] - 7-10 days Discharge Diet: Diabetic Discharge Activity: Increase activity as tolerated Patient Instructions: Opioid Safety Discharge Attestations Time Spent in Discharge Care*: greater than 30 min Status at Discharge: Cognitive status at discharge: cognitively intact , Quality Metrics Clinical Quality Measures [ No reported AMI, CVA or VTE this stay] Coding Level of Care Code Acute Code for Chg Fwd Diagnoses Essential hypertension I10 Hypertension type: essential hypertension Peripheral vascular disease I73.9 Acute kidney injury N17.9 Stage 3a chronic kidney disease N18.31 Chronic kidney disease stage: stage 3 (moderate) Chronic kidney disease stage 3 subtype: stage 3a (GFR 45-59) COVID-19 U07.1 Physical deconditioning R53.81 Hypoxia R09.02
--- NOTE | 2024-08-01 12:33 | PC.NURSE ---
I attempted to schedule a f/u appointment within [address] Henry at the [place] [facility], however their call service states that there are no appointments available that soon, so they sent a message to the provider line to expedite the appointment. They state they will call the patient with the appointment when it is made.
== END 2024-08-01 12:50 | disposition home or self-care (01) | DRG 177 ==
LOC: ER 17:29 → ER IP 18:02 → MEDSURG 20:17
PROVIDERS: Emergency Medicine; Admitting Provider Internal Medicine; Emergency Provider Student in an Organized Health Care Education/Training Program; PCP Family Medicine; Visit Provider Internal Medicine
DX: U07.1 COVID-19 (principal); J12.82 Pneumonia due to coronavirus disease 2019; N17.9 Acute kidney failure, unspecified; I71.40 Abdominal aortic aneurysm, without rupture, unspecified; J44.9 Chronic obstructive pulmonary disease, unspecified; I12.9 Hypertensive chronic kidney disease with stage 1 through stage 4 chronic kidney disease, or unspecified chronic kidney disease; E11.22 Type 2 diabetes mellitus with diabetic chronic kidney disease; N18.31 Chronic kidney disease, stage 3a; E11.51 Type 2 diabetes mellitus with diabetic peripheral angiopathy without gangrene; G25.81 Restless legs syndrome; G47.33 Obstructive sleep apnea (adult) (pediatric); E86.0 Dehydration; R09.02 Hypoxemia; Z79.82 Long term (current) use of aspirin; Z79.891 Long term (current) use of opiate analgesic; Z79.4 Long term (current) use of insulin; Z79.02 Long term (current) use of antithrombotics/antiplatelets; Z79.84 Long term (current) use of oral hypoglycemic drugs; Z95.1 Presence of aortocoronary bypass graft; Z95.5 Presence of coronary angioplasty implant and graft; Z98.890 Other specified postprocedural states
CPT/HCPCS: 0241U; 36415; 36416; 74022; 74176; 80048; 80053; 81001; 82962; 83036; 83605; 83690; 83735; 84100; 85025; 86140; 87040; 93005; 94664; 94760; 96361; 96372; 96374; 99285; J0248; J1644; J1815; J2405; J7030; J7120; J7512

== ENCOUNTER 2024-08-05 12:21 | Emergency (ER) | payer OTHER, SELFPAY ==
--- NOTE | 2024-08-05 12:23 | XRR_ITS ---
PROCEDURE INFORMATION: Exam: XR Chest Exam date and time: 08/05/2024 12:41 PM Age: 79 years old Clinical indication: Shortness of breath; Patient HX: Recent covid; Additional info: SOB TECHNIQUE: Imaging protocol: Radiologic exam of the chest. Views: 1 view. COMPARISON: CT chest w con* [id number] 05/08/2024 8:33 AM FINDINGS: Tubes, catheters and devices: There are sternal wires consistent with previous sternotomy incision. Airway: Patent Lungs: Mild chronic appearing interstitial reticulation in the bilateral lung bases. No consolidations. Calcified granulomas or vessels seen on end in the right infrahilar space. Suggestion of bilateral upper lung emphysema. Pleural spaces: Unremarkable. No pleural effusion. No pneumothorax. Heart/Mediastinum: Unremarkable. No cardiomegaly. Vasculature: Tortuous aorta. Calcified aortic knob. Bones/joints: Bone demineralization. There are healed left rib fractures. XR/XR chest 1V portable [id number] IMPRESSION: No acute findings.
--- NOTE | 2024-08-05 12:29 | ECG_ITS ---
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 Measurements Intervals [place] Rate: 94 P: 0 [place]: 0 QRS: 55 QRSD: 83 T: 15 QT: 361 QTc: 453 Interpretive Statements SUPRAVENTRICULAR RHYTHM NONSPECIFIC ST & T-WAVE ABNORMALITY ABNORMAL RHYTHM ECG Compared to ECG 07/30/2024 12:12:58 Supraventricular rhythm now present T-wave abnormality now present Sinus rhythm no longer present Electronically Signed On 08-06-2024 01:06:34 CDT by Roshan Medley M.D. [email or web address]
[2024-08-05 12:33] VITALS: PULSE 93; RESP 30; TEMP 36.9; O2SAT 95
--- NOTE | 2024-08-05 12:40 | ED_ITS ---
HPI - SOB/Dyspnea 2 General: Chief Complaint: Shortness of Breath/Dyspnea Stated Complaint: SOB, unable to eat or drink Time Seen by Provider: 08/05/24 12:26 Source: patient Mode of arrival: ambulatory Limitations: no limitations History of Present Illness: HPI Narrative: 79-year-old male who was admitted last w [facility] for COVID he states that today has been having some shortness of breath with all over body pain. States pains been sharp he states he denies any fever patient's pulse ox here is 94% on room air. He states he is continue to have a cough from his COVID. He denies any vomiting diarrhea Associated symptoms: Deny abdominal pain, chest pain, fever(s), nausea or vomiting Related Data Home Medications Medication Instructions Recorded Confirmed amlodipine 5 mg tablet 5 mg PO QAM 11/04/19 08/05/24 finasteride 5 mg tablet 5 mg PO BEDTIME 11/04/19 08/05/24 gabapentin 300 mg capsule 300 mg PO BEDTIME 11/04/19 08/05/24 nitroglycerin 0.4 mg sublingual 0.4 mg sublingual Q5M PRN chest 11/04/19 08/05/24 tablet pain pentoxifylline 400 mg 400 mg PO TID 11/04/19 08/05/24 tablet,extended release ropinirole 2 mg tablet 2 mg PO TID 11/04/19 08/05/24 terazosin 1 mg capsule 3 mg PO BEDTIME 11/04/19 08/05/24 tiotropium bromide 2.5 2 inh inhalation QAM 11/04/19 08/05/24 mcg/actuation mist for inhalation (Spiriva Respimat) clopidogrel 75 mg tablet (Plavix) 75 mg PO QAM 11/06/19 08/05/24 albuterol sulfate 90 mcg/actuation 2 puff inhalation Q4H PRN 01/24/20 08/05/24 aerosol inhaler Shortness Of Breath pioglitazone 15 mg tablet 15 mg PO QAM 02/01/21 08/05/24 aspirin 81 mg tablet,delayed 81 mg PO QAM 11/04/21 08/05/24 release cholecalciferol (vitamin D3) 50 2,000 unit PO BID 11/04/21 08/05/24 mcg (2,000 unit) capsule (Vitamin D3) cyanocobalamin (vitamin B-12) 100 100 mcg PO DAILY 09/05/22 08/05/24 mcg tablet (Vitamin B-12) ferrous sulfate 325 mg (65 mg 325 mg PO BID 09/05/22 08/05/24 iron) tablet (iron) fluticasone 250 mcg-salmeterol 50 1 inh inhalation BID 09/05/22 08/05/24 mcg/dose blistr powdr for inhalation (Advair Diskus) atorvastatin 40 mg tablet (Lipitor) 40 mg PO BEDTIME 06/26/23 08/05/24 empagliflozin 25 mg tablet 25 mg PO DAILY 08/06/23 08/05/24 (Jardiance) insulin NPH isoph U-100 human 100 See Rx Instructions SUBCUT DAILY 12/06/23 08/05/24 unit/mL subcutaneous suspension lower blood sugar (Novolin N NPH U-100 Insulin isophane) oxycodone-acetaminophen 7.5 mg-325 1 tab PO TID PRN Pain 07/31/24 08/05/24 mg tablet Previous Rx's Medication Instructions Recorded pantoprazole 40 mg tablet,delayed 40 mg PO BID 14 days #28 tabs 08/25/22 release (Protonix) glucagon HCl 1 mg solution for 1 mg SUBCUT Q20M PRN hypoglycemia 04/03/23 injection (Glucagon (HCl) #1 ea Emergency Kit) flash glucose scanning reader #1 ea 04/17/23 (FreeStyle Alvin 2 [place]) isosorbide mononitrate 30 mg See Rx Instructions .Route 05/10/23 tablet,extended release 24 hr .COMPLEX #90 tabs FreeStyle Alvin 2 Sensor (flash #2 ea 11/08/23 glucose sensor) doxycycline monohydrate 100 mg 100 mg PO BID #6 tabs 08/01/24 tablet hydralazine 25 mg tablet 25 mg PO BID #60 tabs 08/01/24 Allergies Allergy/AdvReac Type Severity Reaction Status Date / Time No Known Allergies Allergy Verified 05/14/24 07:48 Review of Systems 2 Const: Denies: fever(s), chills, body aches or change in appetite ENMT: Denies: throat pain or dental pain Card: Denies: chest pain Resp: Reports: dyspnea GI: Denies: abdominal pain, nausea, vomiting or diarrhea : Denies: dysuria Musc: Denies: neck pain or back pain Skin/Breast: Denies: rash Neuro: Denies: headache(s) PFSH ED 2 PFSH: Medical History Hypoxia Acute kidney injury COVID-19 Physical deconditioning Chronic kidney disease Helicobacter pylori gastritis Abdominal aortic aneurysm Chronic obstructive pulmonary disease Hypertension Low back pain Peripheral vascular disease Restless legs syndrome Sleep apnea Surgical History History of open reduction and internal fixation (ORIF) procedure left hip Hx of cholecystectomy Status post femoropopliteal bypass surgery History of umbilical hernia repair 11/26/2019 Status post colonoscopy 11/25/2019: 3 mm sessile polyps x3 removed from the ascending colon, follow-up colonoscopy 2024 History of coronary artery stent placement Hx of CABG History of appendectomy Family History Other Family history non-contributory Denies family history of Clotting disorder Anesthesia complication Bleeding disorder Social History Smoking and tobacco/nicotine status: never used tobacco/nicotine Quit status (tobacco/nicotine): has quit using Year quit tobacco: 1995 Former quit date comment: 2 ppd 38 years Alcohol intake: former Substance/Drug Use: never Physical Exam 2 Const: COMMON NORMALS: no acute distress, patient oriented x3 and healthy appearing HENMT: COMMON NORMALS: normocephalic and atraumatic HEAD & SCALP: n ormocephalic and atraumatic Neck/C-Spine: COMMON NORMALS: full ROM and supple Chest: COMMONS NORMALS: normal inspection of the chest Resp: COMMON NORMALS: normal respiratory effort, No retractions, No use of accessory muscles and clear to auscultation bilaterally AUSCULTATION: clear to auscultation bilaterally Cardio: COMMON NORMALS: regular rate, regular rhythm and No murmurs present (Cardio) RATE: regular rate RHYTHM: regular rhythm GI: COMMON NORMALS: Normal to inspection, nondistended, normoactive bowel sounds present, Soft to palpation, non-tender and no masses PALPATION: Yes Soft to palpation Extremity: COMMON NORMALS: normal to inspection and full ROM Neuro: COMMON NORMALS: patient oriented x3, moves all extremities and no focal motor deficits Psych: COMMON NORMALS: mental status grossly normal, Normal thought process present and cooperative THOUGHT PROCESS: Normal thought process present Skin: COMMON NORMALS: no rashes or lesions noted and no wounds GENERAL SKIN EXAM: no rashes or lesions noted Course 2 Vital Signs: Vital signs: Vital Signs Temperature 98.4 F 08/05/24 12:33 Pulse Rate 92 08/05/24 16:04 Respiratory Rate 30 H 08/05/24 12:33 Blood Pressure 136/89 08/05/24 16:04 Pulse Oximetry 98 08/05/24 16:04 Oxygen Delivery Me thod Room Air 08/05/24 15:50 MDM - SOB/Dyspnea Medical Decision Making Patient presented here with some chest pain along with shortness of breath likely from his recent COVID he has no signs of pulm embolism no signs of ACS his x-ray is unchanged EKG troponins are negative he feels much improved here has been able to tolerate p.o. here he stable for discharge follow-up with PCP return if worsening. Medical Records I reviewed the patient's medical records. Lab Data I reviewed the patient's lab results. 08/05/24 13:08 08/05/24 13:08 Labs/Radiology: Radiology Impressions Chest X-Ray 08/05/24 12:23 IMPRESSION: No acute findings. Laboratory Results WBC 7.44 10^3/uL (3.29-11.43) 08/05/24 13:08 RBC 4.79 10^6/uL (3.85-5.65) 08/05/24 13:08 Hgb 14.30 g/dL (11.27-16.99) 08/05/24 13:08 Hct 43.9 % (37-53) 08/05/24 13:08 MCV 91.6 fl (82-101) 08/05/24 13:08 MCH 29.9 pg (27-33) 08/05/24 13:08 MCHC 32.6 g/dL (30-55) 08/05/24 13:08 RDW 12.5 % (12.1-15.1) 08/05/24 13:08 Plt Count 226 10^3/cmm (157-399) 08/05/24 13:08 MPV 10.3 fL (7.4-10.4) 08/05/24 13:08 Neut % (Auto) 85.7 % 08/05/24 13:08 Lymph % (Auto) 6.9 % 08/05/24 13:08 [place] % (Auto) 6.5 % 08/05/24 13:08 Eos % (Auto) 0.0 % 08/05/24 13:08 Baso % (Auto) 0.1 % 08/05/24 13:08 Neut # (Auto) 6.38 10^3/uL (1.8-7.7) 08/05/24 13:08 Lymph # (Auto) 0.5 10^3/uL (0.8-4.8) L 08/05/24 13:08 [place] # (Auto) 0.5 10^3/uL (0.2-0.9) 08/05/24 13:08 Eos # (Auto) 0.0 10^3/uL (0.0-0.8) 08/05/24 13:08 Baso # (Auto) 0.0 10^3/uL (0.0-0.1) 08/05/24 13:08 Nucleated RBC % (auto) 0 % 08/05/24 13:08 Nucleated RBCs # 0.0 /100WBC 08/05/24 13:08 Sodium 133 mmol/L (136-145) L 08/05/24 13:08 Potassium 4.5 mmol/L (3.5-5.1) 08/05/24 13:08 Chloride 101 mmol/L (98-107) 08/05/24 13:08 Carbon Dioxide 16 mmol/L (22-29) L 08/05/24 13:08 Anion Gap 20.5 (5-19) H 08/05/24 13:08 BUN 85 mg/dL (8-23) H* 08/05/24 13:08 Creatinine 2.4 mg/dL (0.7-1.2) H 08/05/24 13:08 GFR Calculation Not Reportable 08/05/24 13:08 Glucose 465 mg/dL (65-115) H 08/05/24 13:08 Calculated Osmolality 322 mOsm/kg (285-295) H 08/05/24 13:08 Calcium 8.4 mg/dL (8.5-10.5) L 08/05/24 13:08 Total Bilirubin 1.0 mg/dL (0.15-1.2) 08/05/24 13:08 AST 17 U/L (0-40) 08/05/24 13:08 ALT 21 U/L (0-41) 08/05/24 13:08 Alkaline Phosphatase 162 U/L (40-130) H 08/05/24 13:08 Troponin T Baseline 35 ng/L (0-15) H 08/05/24 13:08 Troponin T 120 Minute 36.46 ng/L (0-15) H 08/05/24 15:23 Delta Troponin T 1.46 ABS# (0-10) 08/05/24 15:23 NT-Pro-B Natriuret Pep 1086 pg/mL (0-450) H 08/05/24 13:08 Total Protein 6.1 g/dL (6.6-8.7) L 08/05/24 13:08 Albumin 3.3 g/dL (3.5-5.2) L 08/05/24 13:08 Globulin 2.8 g/dL (1.3-4.6) 08/05/24 13:08 All radiology interpretation(s) finalized by discharge EKG Data EKG 1: I personally reviewed and interpreted this EKG as follows: EKG Interpretation Date: 08/05/24 EKG interpretation time: 12:27 Interpretation: nsr hr [address] elevation qrs 83 qtc 413 EKG 2: I personally reviewed and interpreted this EKG as follows: EKG Interpretation Date: 08/05/24 EKG interpretation time: 14:13 Interpretation: nsr hr [address] elevation qrs 86 qtc 431 Discharge Plan Discharge Patient Disposition: Home Clinical Impression: Chest pain, Dyspnea Condition: Stable Prescriptions: No Action amlodipine 5 mg tablet 5 mg PO QAM finasteride 5 mg tablet 5 mg PO BEDTIME gabapentin 300 mg capsule 300 mg PO BEDTIME nitroglycerin 0.4 mg tablet, sublingual 0.4 mg SUBLINGUAL Q5M PRN (Reason: chest pain) Rx Instructions: Dissolve one tablet under the tongue one time as needed for check pain if no improvement after first dose call 911 may take 2 additional doses after 5 minutes apart. pentoxifylline 400 mg tablet extended release 400 mg PO TID ropinirole 2 mg tablet 2 mg PO TID terazosin 1 mg capsule 3 mg PO BEDTIME Spiriva Respimat 2.5 mcg/actuation mist 2 inh INHALATION QAM clopidogrel [Plavix] 75 mg tablet 75 mg PO QAM Hold Instructions: Resume on 08/12/22. pantoprazole [Protonix] 40 mg tablet,delayed release (DR/EC) 40 mg PO BID 14 Days Qty: 28 0RF (DME) FreeStyle Alvin 2 [place] Misc See Rx Instructions .Route Qty: 1 0RF Rx Instructions: As directed Jardiance 25 mg tablet 25 mg PO DAILY Novolin N NPH U-100 Insulin 100 unit/mL suspension See Rx Instructions SUBCUT DAILY Rx Instructions: 20 units q am subcutaneous; 10 units before supper glucagon HCl [Glucagon (HCl) Emergency Kit] 1 mg recon soln 1 mg SUBCUT Q20M PRN (Reason: hypoglycemia) Qty: 1 2RF Rx Instructions: until target blood sugar attained isosorbide mononitrate 30 mg tablet extended release 24 hr See Rx Instructions .ROUTE .COMPLEX Qty: 90 3RF Dose Instruction: TAKE ONE TABLET BY MOUTH ONCE A DAY TO PREVENT CHEST PAIN. TAKE ON EMPTY STOMACH. SWALLOW WHOLE. DO NOT CRUSH OR CHEW. MAY CAUSE HEADACHES UNTIL BODY ADJUSTS. TAKE ACETAMINOPHEN OR IBUPROFEN NEEDED 30 MINUTES BEFORE. Rx Instructions: TAKE ONE TABLET BY MOUTH ONCE A DAY TO PREVENT CHEST PAIN. TAKE ON EMPTY STOMACH. SWALLOW WHOLE. DO NOT CRUSH OR CHEW. MAY CAUSE HEADACHES UNTIL BODY ADJUSTS. TAKE ACETAMINOPHEN OR IBUPROFEN NEEDED 30 MINUTES BEFORE. (DME) FreeStyle Alvin 2 Sensor Kit See Rx Instructions .ROUTE .COMPLEX Qty: 2 2RF Dose Instruction: USE SENSOR EVERY 14 DAYS CHANGE SENSOR/SITE EVERY 14 DAYS. TO REPLACE SENSOR FOR ANY REASON OR FOR TECHNICAL HELP PLEASE CALL [employer] DESK: -SPECIFIC PHONE NUMBER: ([phone]). Rx Instructions: USE SENSOR EVERY 14 DAYS CHANGE SENSOR/SITE EVERY 14 DAYS. TO REPLACE SENSOR FOR ANY REASON OR FOR TECHNICAL HELP PLEASE CALL [employer] DESK: -SPECIFIC PHONE NUMBER: ([phone]). aspirin 81 mg Tablet,Delayed Release (Dr/Ec) 81 mg PO QAM cholecalciferol (vitamin D3) [Vitamin D3] 50 mcg (2,000 unit) Capsule 2,000 unit PO BID albuterol sulfate 90 mcg/actuation Hfa Aerosol Inhaler 2 puff INHALATION Q4H PRN (Reason: Shortness Of Breath) pioglitazone 15 mg Tablet 15 mg PO QAM fluticasone propion-salmeterol [Advair Diskus] 250-50 mcg/dose Blister With Device 1 inh INHALATION BID cyanocobalamin (vitamin B-12) [Vitamin B-12] 100 mcg Tablet 100 mcg PO DAILY ferrous sulfate [iron] 325 mg (65 mg iron) Tablet 325 mg PO BID atorvastatin [Lipitor] 40 mg tablet 40 mg PO BEDTIME oxycodone-acetaminophen 7.5-325 mg Tablet 1 tab PO TID PRN (Reason: Pain) doxycycline monohydrate 100 mg Tablet 100 mg PO BID Qty: 6 0RF hydralazine 25 mg tablet 25 mg PO BID Qty: 60 3RF Discharge Orders: Discharge ED (Routine); Ordered 08/05/24 Ordered By: Burke Fernandez Referrals: Tish Henry MD [Primary Care Provider] - 4-7 days Discharge Diet: Advance as tolerated Discharge Activity: Resume usual activity Patient Instructions: Chest Pain (ED), Shortness of Breath (ED) Coding Level of Care Code ED Scaffold Builder for Teri Garay
[2024-08-05 12:46] VITALS: BP 127/57; PULSE 94; O2SAT 97
[2024-08-05] MEDS: morphine 4 mg/mL SDV 1 mL IVP (12:56)
[2024-08-05] MEDS: ondansetron 2 mg/ML SDV 2 mL 4 MG IVP (12:56)
--- NOTE | 2024-08-05 13:07 | PC.PHAR ---
[facility] at 1:04pm, will confirm med list shmuel
[2024-08-05 13:21] LABS: Basophils % 0.1 %; Hematocrit 43.9 % (37-53); Lymphocytes # 0.5 10^3/uL (0.8-4.8); Lymphocytes % 6.9 %; Mean Corpuscular HGB Conc 32.6 g/dL (30-55); Mean Corpuscular Hemoglobin 29.9 pg (27-33); Mean Corpuscular Volume 91.6 fl (82-101); Mean Platelet Volume 10.3 fL (7.4-10.4); Monocytes # 0.5 10^3/uL (0.2-0.9); Monocytes % 6.5 %; Neutrophils # 6.38 10^3/uL (1.8-7.7); Neutrophils % 85.7 %; Nucleated Red Blood Cells % 0 %; Platelet Count 226 10^3/cmm (157-399); Red Blood Count 4.79 10^6/uL (3.85-5.65); Red Cell Distribution Width 12.5 % (12.1-15.1); White Blood Count 7.44 10^3/uL (3.29-11.43)
[2024-08-05 13:42] LABS: Troponin(5th) Baseline 35 ng/L (0-15)
[2024-08-05 13:50] LABS: Alanine Aminotransferase 21 U/L (0-41); Albumin Level 3.3 g/dL (3.5-5.2); Alkaline Phosphatase 162 U/L (40-130); Aspartate Amino Transferase 17 U/L (0-40); Calcium 8.4 mg/dL (8.5-10.5); Carbon Dioxide 16 mmol/L (22-29); Chloride 101 mmol/L (98-107); Globulin 2.8 g/dL (1.3-4.6); Glucose 465 mg/dL (65-115); NT Pro B Type Natriuretic Pept 1086 pg/mL (0-450); Osmolality Calculated 322 mOsm/kg (285-295); Sodium 133 mmol/L (136-145); Total Protein 6.1 g/dL (6.6-8.7)
[2024-08-05 13:57] LABS: Creatinine Clr Calc Pharmacy 30.7079
[2024-08-05 13:58] LABS: Anion Gap 20.5 (5-19); Potassium 4.5 mmol/L (3.5-5.1)
[2024-08-05 13:59] LABS: Blood Urea Nitrogen 85 mg/dL (8-23)
--- NOTE | 2024-08-05 14:29 | ECG_ITS ---
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
[2024-08-05] MEDS: HYDROcodone-acetaminophen 7.5-325 mg Tablet 1 TAB PO (15:13)
[2024-08-05 15:50] VITALS: PULSE 91; O2SAT 95
[2024-08-05 15:50] LABS: Troponin 5 2HR 36.46 ng/L (0-15); Troponin 5 2HR Delta 1.46 ABS# (0-10)
[2024-08-05 16:04] VITALS: BP 136/89; PULSE 92; O2SAT 98
== END 2024-08-05 16:05 | disposition home or self-care (01) ==
PROVIDERS: Emergency Provider Emergency Medicine; PCP Family Medicine
DX: R07.9 Chest pain, unspecified (principal); R06.00 Dyspnea, unspecified; I12.9 Hypertensive chronic kidney disease with stage 1 through stage 4 chronic kidney disease, or unspecified chronic kidney disease; N18.9 Chronic kidney disease, unspecified; Z87.891 Personal history of nicotine dependence; J44.9 Chronic obstructive pulmonary disease, unspecified; Z79.4 Long term (current) use of insulin; Z95.1 Presence of aortocoronary bypass graft; Z95.5 Presence of coronary angioplasty implant and graft; Z79.02 Long term (current) use of antithrombotics/antiplatelets; Z79.82 Long term (current) use of aspirin
CPT/HCPCS: 36415; 71045; 80053; 83880; 84484; 85025; 93005; 96374; 96375; 99285; J2270; J2405

== ENCOUNTER → 2024-09-17 08:55 | Outpatient (BNVA) | payer OTHER, SELFPAY | PROVIDERS: PCP Family Medicine; Visit Provider Internal Medicine | DX: E11.649 Type 2 diabetes mellitus with hypoglycemia without coma (principal); E78.2 Mixed hyperlipidemia; E11.22 Type 2 diabetes mellitus with diabetic chronic kidney disease; N18.4 Chronic kidney disease, stage 4 (severe); U07.1 COVID-19; J12.82 Pneumonia due to coronavirus disease 2019; E78.5 Hyperlipidemia, unspecified; Z79.4 Long term (current) use of insulin | CPT/HCPCS: 99214 ==

== ENCOUNTER 2024-10-29 10:36 | Outpatient (CLI) | payer OTHER, SELFPAY ==
[2024-10-29 11:25] LABS: Anion Gap 17.2 (5-19); Blood Urea Nitrogen 46 mg/dL (8-23); Calcium 9.4 mg/dL (8.5-10.5); Carbon Dioxide 22 mmol/L (22-29); Chloride 102 mmol/L (98-107); Glucose 142 mg/dL (65-115); Phosphorus 3.8 mg/dL (2.5-4.5); Potassium 4.2 mmol/L (3.5-5.1); Sodium 137 mmol/L (136-145)
[2024-10-29 11:30] LABS: Creatinine Urine, Random 99 mg/dL (39-259); Microalbum Creatinine Ratio Ur 10 mg/dL (0-20); Microalbumin Random Urine 1 ug/dL (0-20)
== END 2024-10-29 10:37 | disposition home or self-care (01) ==
LOC: LAB 10:39
PROVIDERS: PCP Family Medicine; Visit Provider Internal Medicine
DX: N18.32 Chronic kidney disease, stage 3b (principal); I25.10 Atherosclerotic heart disease of native coronary artery without angina pectoris; I13.0 Hypertensive heart and chronic kidney disease with heart failure and stage 1 through stage 4 chronic kidney disease, or unspecified chronic kidney disease; N18.30 Chronic kidney disease, stage 3 unspecified; I50.32 Chronic diastolic (congestive) heart failure; Z87.891 Personal history of nicotine dependence; E11.22 Type 2 diabetes mellitus with diabetic chronic kidney disease; E78.5 Hyperlipidemia, unspecified; I71.40 Abdominal aortic aneurysm, without rupture, unspecified; Z79.4 Long term (current) use of insulin
CPT/HCPCS: 36415; 80069; 82044; 99213

== ENCOUNTER 2024-11-06 12:24 | Outpatient (CLI) | payer OTHER, SELFPAY ==
--- NOTE | 2024-11-06 12:45 | USCV_ITS ---
Musa Germain Age: 79 Gender: M : 1945 Exam Date: 11/06/2024 12:44 Ordering Phys: Ting Germain NP Technologist: ISIAH Exam Location: [facility] [place] Indication: bruit Risk Factors: Previous Vascular Surgery: Right Brachial BP: / Left Brachial BP: / Right Left Velocity (cm/s) Spectral Plaque Velocity (cm/s) Spectral Plaque Syst/Diast Broadening Syst/Diast Broadening 74.20/ 10.70 Prox CCA 56.30 / 10.00 63.30/ 10.70 Mid CCA 63.50 / 11.40 57.90/ 12.50 Distal CCA 74.40 / 15.40 42.40/ 7.00 Prox ICA 64.70 / 9.30 38.60/ 6.50 Mid ICA 55.90 / 15.50 40.80/ 9.70 Distal ICA 42.40 / 11.30 51.60 ECA 75.00 0.70 ICA/CCA 0.90 Antegrade Vertebral Antegrade 39.90/ 10.50 cm/s 16.60/ 4.70 cm/s Tri Subclavian Tri 57.30 45.10 CONCLUSIONS Right ICA stenosis <50%. Moderate atheromatous plaque right carotid bulb/ICA. Left ICA stenosis <50%. Moderate atheromatous plaque left carotid bulb/ICA. Normal antegrade Doppler flow noted in the right vertebral artery. Normal antegrade Doppler flow noted in the left vertebral artery. Vic Stout MD (Electronically Signed) Final Date: 07 November 2024 11:03 S
== END 2024-11-06 12:25 | disposition home or self-care (01) ==
LOC: RAD 12:25
PROVIDERS: PCP Family Medicine; Visit Provider Nurse Practitioner Family
DX: R09.89 Other specified symptoms and signs involving the circulatory and respiratory systems (principal); I65.23 Occlusion and stenosis of bilateral carotid arteries
CPT/HCPCS: 93880

== ENCOUNTER 2024-11-17 14:00 | Outpatient (CLI) | payer OTHER, SELFPAY ==
[2024-11-17 14:47] LABS: Alanine Aminotransferase 18 U/L (0-41); Alkaline Phosphatase 152 U/L (40-130); Anion Gap 17.2 (5-19); Aspartate Amino Transferase 19 U/L (0-40); Blood Urea Nitrogen 39 mg/dL (8-23); Calcium 9.3 mg/dL (8.5-10.5); Carbon Dioxide 23 mmol/L (22-29); Chloride 103 mmol/L (98-107); Chol HDL Ratio 2.62 mg/dL (1.0-5.00); Cholesterol 110 mg/dL (0-200); Globulin 2.9 g/dL (1.3-4.6); Glucose 248 mg/dL (65-115); HDL Cholesterol 42 mg/dL (60-100); LDL Cholesterol Calculated 56 mg/dL (50-129); LDL HDL Ratio 1.33 RATIO (0.00-3.22); Osmolality Calculated 306 mOsm/kg (285-295); Potassium 4.2 mmol/L (3.5-5.1); Sodium 139 mmol/L (136-145); Total Bilirubin 0.3 mg/dL (0.15-1.2); Total Protein 6.9 g/dL (6.6-8.7); Triglycerides 59 mg/dL (0-150)
[2024-11-17 14:48] LABS: Creatinine Urine, Random 53 mg/dL (39-259); Microalbum Creatinine Ratio Ur 19 mg/dL (0-20); Microalbumin Random Urine 1 ug/dL (0-20)
[2024-11-17 14:50] LABS: Estmated Average Glucose 180; Hemoglobin A1C 7.9 % (4.0-6.0)
== END 2024-11-17 14:01 | disposition home or self-care (01) ==
LOC: LAB 14:02
PROVIDERS: PCP Family Medicine; Visit Provider Internal Medicine
DX: E11.9 Type 2 diabetes mellitus without complications (principal)
CPT/HCPCS: 36415; 80053; 80061; 82044; 83036

== ENCOUNTER 2024-12-05 10:22 | Outpatient (CLI) | payer OTHER, SELFPAY ==
--- NOTE | 2024-12-05 10:32 | CT_ITS ---
WS: [id number] CT chest w con* [id number] HISTORY: FOLLOW UP RUL NODULE TECHNIQUE: Axial imaging performed through the thorax. Coronal and sagittal reformats are submitted. All CT scans at [facility] use at least one of these dose optimization techniques: automated exposure control; mA and/or kV adjustment per patient size (includes targeted exams where dose is matched to clinical indication); or iterative reconstruction. CONTRAST: Omnipaque 350; 100 mL IV. DLP: 517.17 mGy.cm COMPARISON: 05/08/2024, 09/17/2023 Lungs and central airway: Marked centrilobular emphysema. PET/CT positive nodule in the RIGHT upper lobe is reidentified measuring 6 mm. Nodule appears just slightly more prominent as compared to 05/08/2024 but this may be due to a volume averaging. Groundglass attenuation with a central 7 mm ovoid nodule is reidentified. This is new since 09/17/2023 but essentially stable since 05/08/2024. No new mass or nodule. Pleura: Normal. No pleural effusion. Heart and pericardium: Normal size heart with no pericardial effusion. Mediastinum and darleen: Inferior RIGHT paratracheal lymph node. This is the largest lymph node and stable. Vessels: No atherosclerosis aorta. Atherosclerotic calcification extensively throughout the [place] coronary arteries. Patient is status post CABG. Normal size pulmonary artery. Chest wall and lower neck: Prior CABG. Upper abdomen: Visualized adrenal glands are negative. Prior cholecystectomy. Heavy calcifications in the celiac axis and distal arteries. Osseous structures: Advanced degenerative changes in the thoracic spine and scoliosis. CT/CT chest w con* [id number] IMPRESSION: 1. Previously described nodule in the RIGHT lower lobe measures 6 mm. Nodule i s measuring just slightly greater in size. This may be due to volume averaging. 2. Groundglass opacification with central 7 mm ovoid nodule is reidentified an d stable since 05/08/2024 but new compared to 09/17/2023. Recommend continued cl ose imaging follow-up to exclude low-grade neoplasm. 3. No mediastinal or hilar adenopathy. 4. Advanced emphysema. 5. Prior CABG. 6. Prior cholecystectomy.
[2024-12-05] MEDS: iohexol 350 mg/mL 500 mL Btl (per mL) IV (10:57)
== END 2024-12-05 10:23 | disposition home or self-care (01) ==
PROVIDERS: PCP Family Medicine; Visit Provider Family Medicine
DX: Z01.89 Encounter for other specified special examinations (principal); R91.1 Solitary pulmonary nodule; R91.8 Other nonspecific abnormal finding of lung field; J43.2 Centrilobular emphysema; Z98.890 Other specified postprocedural states; Z90.49 Acquired absence of other specified parts of digestive tract; R59.0 Localized enlarged lymph nodes; I25.10 Atherosclerotic heart disease of native coronary artery without angina pectoris; R93.89 Abnormal findings on diagnostic imaging of other specified body structures; M47.894 Other spondylosis, thoracic region; M41.9 Scoliosis, unspecified
CPT/HCPCS: 71260

== ENCOUNTER → 2025-01-06 08:47 | Outpatient (BNVA) | payer OTHER, SELFPAY | PROVIDERS: PCP Family Medicine; Visit Provider Nurse Practitioner Family | DX: I13.0 Hypertensive heart and chronic kidney disease with heart failure and stage 1 through stage 4 chronic kidney disease, or unspecified chronic kidney disease (principal); N18.9 Chronic kidney disease, unspecified; I50.32 Chronic diastolic (congestive) heart failure; I25.10 Atherosclerotic heart disease of native coronary artery without angina pectoris; Z95.828 Presence of other vascular implants and grafts; E78.5 Hyperlipidemia, unspecified; Z87.891 Personal history of nicotine dependence | CPT/HCPCS: 99213 ==

== ENCOUNTER 2025-03-24 10:10 | Outpatient (CLI) | payer OTHER, SELFPAY ==
[2025-03-24 11:24] LABS: Basophils % 0.6 %; Eosinophils # 0.1 10^3/uL (0.0-0.8); Eosinophils % 1.1 %; Hematocrit 47.2 % (37-53); Lymphocytes # 1.6 10^3/uL (0.8-4.8); Lymphocytes % 22.7 %; Mean Corpuscular Hemoglobin 30.1 pg (27-33); Mean Corpuscular Volume 94.2 fl (82-101); Mean Platelet Volume 9.9 fL (7.4-10.4); Monocytes # 0.6 10^3/uL (0.2-0.9); Monocytes % 7.9 %; Neutrophils # 4.89 10^3/uL (1.8-7.7); Neutrophils % 67.6 %; Nucleated Red Blood Cells % 0 %; Platelet Count 148 10^3/cmm (157-399); Red Blood Count 5.01 10^6/uL (3.85-5.65); Red Cell Distribution Width 13.5 % (12.1-15.1); White Blood Count 7.23 10^3/uL (3.29-11.43)
[2025-03-24 11:36] LABS: Estmated Average Glucose 151; Hemoglobin A1C 6.9 % (4.0-6.0)
[2025-03-24 11:41] LABS: Albumin Level 3.8 g/dL (3.5-5.2); Anion Gap 16.7 (5-19); Blood Urea Nitrogen 36 mg/dL (8-23); Calcium 8.9 mg/dL (8.5-10.5); Carbon Dioxide 18 mmol/L (22-29); Chloride 107 mmol/L (98-107); Glucose 170 mg/dL (65-115); Phosphorus 2.8 mg/dL (2.5-4.5); Potassium 4.7 mmol/L (3.5-5.1); Sodium 137 mmol/L (136-145)
[2025-03-24 11:43] LABS: Alanine Aminotransferase 22 U/L (0-41); Albumin Level 3.7 g/dL (3.5-5.2); Alkaline Phosphatase 124 U/L (40-130); Anion Gap 16.7 (5-19); Aspartate Amino Transferase 21 U/L (0-40); Blood Urea Nitrogen 36 mg/dL (8-23); Calcium 8.9 mg/dL (8.5-10.5); Carbon Dioxide 18 mmol/L (22-29); Chloride 109 mmol/L (98-107); Chol HDL Ratio 2.56 mg/dL (1.0-5.00); Cholesterol 100 mg/dL (0-200); Globulin 2.8 g/dL (1.3-4.6); Glucose 171 mg/dL (65-115); HDL Cholesterol 39 mg/dL (60-100); LDL Cholesterol Calculated 42 mg/dL (50-129); LDL HDL Ratio 1.08 RATIO (0.00-3.22); Osmolality Calculated 300 mOsm/kg (285-295); Potassium 4.7 mmol/L (3.5-5.1); Sodium 139 mmol/L (136-145); Total Bilirubin 0.4 mg/dL (0.15-1.2); Total Protein 6.5 g/dL (6.6-8.7); Triglycerides 95 mg/dL (0-150)
[2025-03-24 11:51] LABS: Creatinine Urine, Random 85 mg/dL (39-259); Microalbum Creatinine Ratio Ur 12 mg/dL (0-20); Microalbumin Random Urine 1 ug/dL (0-20)
[2025-03-24 11:55] LABS: Calcium 8.9 mg/dL (8.5-10.5)
== END 2025-03-24 10:11 | disposition home or self-care (01) ==
PROVIDERS: Internal Medicine; PCP Family Medicine; Visit Provider Internal Medicine
DX: N18.32 Chronic kidney disease, stage 3b (principal); E78.5 Hyperlipidemia, unspecified; E11.9 Type 2 diabetes mellitus without complications; E78.2 Mixed hyperlipidemia; E11.649 Type 2 diabetes mellitus with hypoglycemia without coma
CPT/HCPCS: 36415; 80053; 80061; 80069; 82044; 82310; 83036; 83970; 85025

== ENCOUNTER → 2025-06-10 10:13 | Outpatient (BNVA) | payer OTHER, SELFPAY | PROVIDERS: PCP Family Medicine; Visit Provider Podiatrist Foot & Ankle Surgery | DX: E11.40 Type 2 diabetes mellitus with diabetic neuropathy, unspecified (principal); L60.3 Nail dystrophy; L84 Corns and callosities; Z79.4 Long term (current) use of insulin | CPT/HCPCS: 11056; 11721; 99203 ==

== ENCOUNTER → 2025-08-27 14:58 | Outpatient (BNVA) | payer OTHER, SELFPAY | PROVIDERS: PCP Family Medicine; Visit Provider Internal Medicine Cardiovascular Disease | DX: I25.10 Atherosclerotic heart disease of native coronary artery without angina pectoris (principal); I11.0 Hypertensive heart disease with heart failure; I50.30 Unspecified diastolic (congestive) heart failure; E78.2 Mixed hyperlipidemia; I71.40 Abdominal aortic aneurysm, without rupture, unspecified; Z79.02 Long term (current) use of antithrombotics/antiplatelets; Z79.82 Long term (current) use of aspirin; Z95.1 Presence of aortocoronary bypass graft; Z95.828 Presence of other vascular implants and grafts; Z95.5 Presence of coronary angioplasty implant and graft; Z87.891 Personal history of nicotine dependence; R06.02 Shortness of breath | CPT/HCPCS: 36415; 80048; 83880; 99214 ==

== ENCOUNTER 2025-09-09 07:14 | Outpatient (CLI) | payer OTHER, SELFPAY ==
--- NOTE | 2025-09-09 07:45 | USCV_ITS ---
Marcellus Musa Age: 80 Gender: M : 1945 Exam Date: 09/09/2025 07:41 Ordering Phys: Roshan Medley MD ([email or web address]) Technologist: Exam Location: [facility] [place] Indication: AAA HISTORY: Diameter (cm) AP x Transverse x Length Velocity (cm/s) Waveform Prox Aorta: 2.60 x 2.80 x 84.90 Mid Aorta: 4.10 x 3.40 x 73.40 Distal Aorta: 3.80 x 4.40 x 34.50 Right Iliac Prox: 1.24 x 1.81 x 95.40 Left Iliac Prox: 1.29 x 1.78 x 60.20 Stent Prox Landing x x Aneurysmal Sac Max x x Lt Lat Sac Dim Rt Lat Sac Dim Stent Dist Landing x x Right Iliac Stent x x Left Iliac Stent x x Right Renal Art Left Renal Art FINDINGS: TDS DUE TO GAS KNOWN AAA. LAST SEEN ON CT IN 2023 CONCLUSIONS AAA measuring 4.1 x 3.4cm in the mid aorta and 3.8 x 4.4 cm in the distal aorta. This is stable since the CT 07/30/24 but increased since the prior ultrasound 10/12/23 Normal iliac arteries Vic Stout MD (Electronically Signed) Final Date: 09 September 2025 14:58 S
== END 2025-09-09 07:15 | disposition home or self-care (01) ==
LOC: RAD 07:15
PROVIDERS: Visit Provider Internal Medicine Cardiovascular Disease
DX: I71.40 Abdominal aortic aneurysm, without rupture, unspecified (principal); Z95.828 Presence of other vascular implants and grafts
CPT/HCPCS: 93978

== ENCOUNTER 2025-09-18 15:45 | Emergency (ER) | payer OTHER, SELFPAY ==
--- OUTSIDE RECORDS SUMMARY | 2024-04-12 03:00 | XMS_ITS ---
Author Organization [facility] Address [address] [place] [address] Care Team Providers Care Seed Trucker Name Role Phone Migration, Provider Unavailable Unavailable REASON FOR VISIT EMR-Memo Encounters Encounter Location Date Provider Diagnosis Migrated_Facility 0 0 04/12/2024 Provider Migration Plan Of Treatment No Information Progress Notes * WILI MILLER HDOB:1945 (80 yo M)Acc No.[id number]:04/12/2024 Patient: Radha JAKEMikeyWILI :1945 A ge:78 Y S ex:Male Address:[address] [place], [place] [address] [place], [address] Subjective: * Chief Complaints: * E MR-Memo * * Date:
--- OUTSIDE RECORDS SUMMARY | 2024-04-13 03:00 | XMS_ITS ---
Author Organization [facility] Address [address] [place] [address] Care Team Providers Care Care Connector Name Role Phone Migration, Provider Unavailable Unavailable REASON FOR VISIT EMR-Memo Medications Medication SIG (Take, Route, Frequency, Duration) Notes Start Date End Date Status pentoxifylline 400 MG Extended Release Oral Tablet ORAL *Reorder from [facility] for eRx and Interaction Alerts* 10/10/2023 Active [id number] 200 ACTUAT albuterol 0.09 MG/ACTUAT Metered Dose Inhaler INTRAPULMONARY *Reorder from [facility] for eRx and Interaction Alerts* 10/10/2023 Active vitamin B12 0.1 MG Oral Tablet ORAL *Reorder from [facility] for eRx and Interaction Alerts* 10/10/2023 Active insulin isophane, human 100 UNT/ML Injectable Suspension *Reorder from [facility] for eRx and Interaction Alerts* 10/10/2023 Active fluticasone propionate 0.1 MG/ACTUAT / salmeterol 0.05 MG/ACTUAT Dry Powder Inhaler INTRAPULMONARY *Reorder from [facility] for eRx and Interaction Alerts* 10/10/2023 Active Lisinopril 40 MG Oral Tablet ORAL *Reorder from [facility] for eRx and Interaction Alerts* 10/10/2023 Active 60 ACTUAT tiotropium 0.0025 MG/ACTUAT Inhalation [place] INTRAPULMONARY *Reorder from [facility] for eRx and Interaction Alerts* 10/10/2023 Active 24 HR isosorbide mononitrate 30 MG Extended Release Oral Tablet ORAL *Reorder from [facility] for eRx and Interaction Alerts* 10/10/2023 Active empagliflozin 25 MG Oral Tablet [Jardiance] ORAL *Reorder from [facility] for eRx and Interaction Alerts* 10/10/2023 Active clobetasol propionate 0.5 MG/ML Topical Cream CUTANEOUS *Reorder from [facility] for eRx and Interaction Alerts* 10/10/2023 12/09/2023 Active Furosemide 40 MG Oral Tablet ORAL *Reorder from [facility] for eRx and Interaction Alerts* 10/10/2023 Active Metoprolol Tartrate 50 MG Oral Tablet ORAL *Reorder from [facility] for eRx and Interaction Alerts* 10/10/2023 Active Gabapentin 300 MG Oral Capsule ORAL *Reorder from [facility] for eRx and Interaction Alerts* 10/10/2023 Active Acetaminophen 325 MG Oral Tablet ORAL *Reorder from [facility] for eRx and Interaction Alerts* 10/10/2023 Active Trazodone Hydrochloride 100 MG Oral Tablet ORAL *Reorder from [facility] for eRx and Interaction Alerts* 10/10/2023 Active ferrous sulfate 325 MG Oral Tablet ORAL *Reorder from [facility] for eRx and Interaction Alerts* 10/10/2023 Active ropinirole 3 MG Oral Tablet ORAL *Reorder from [facility] for eRx and Interaction Alerts* 10/10/2023 Active Terazosin 1 MG Oral Capsule ORAL *Reorder from [facility] for eRx and Interaction Alerts* 10/10/2023 Active Acetaminophen 325 MG / Oxycodone Hydrochloride 7.5 MG Oral Tablet ORAL *Reorder from [facility] for eRx and Interaction Alerts* 10/10/2023 Active atorvastatin 80 MG Oral Tablet ORAL *Reorder from [facility] for eRx and Interaction Alerts* 10/10/2023 Active Finasteride 5 MG Tablet Oral 10/10/2023 Active Nitroglycerin 0.4 MG Tablet Sublingual Sublingual 10/10/2023 Active Pantoprazole Sodium 40 MG Tablet Delayed Release Oral 10/10/2023 Active Tamsulosin HCl 0.4 MG Capsule Oral 12/28/2023 02/26/2024 Active Aspirin 81 81 MG Tablet Delayed Release Oral 10/10/2023 Active Clopidogrel Bisulfate 75 MG Tablet Oral 10/10/2023 Active Social History Social History Additional Details Category Social Info Options Details Migrated Social History Migrated Social History Smoking Status : Former tobacco user , History of tobacco use : Encounters Encounter Location Date Provider Diagnosis Migrated_Facility 0 0 04/13/2024 Provider Migration Plan Of Treatment No Information Progress Notes * WILI MILLER HDOB:1945 (80 yo M)Acc No.[id number]:04/13/2024 Patient: WILI MARIE :1945 A ge:78 Y S ex:Male Address:[address] [place] [address], [place] [address] Subjective: * Chief Complaints: * E MR-Memo * Family History: S iblings: SIB - Brother: :: Malignant neoplasm of lung,,known absent . * Social History: M igrated Social History: M igrated Social History: Smoking Status : Former tobacco user , History of tobacco use :. * Medications: T akingClopidogrel Bisulfate 75 MG Tablet Oral Finasteride 5 MG Tablet Oral Nitroglycerin 0.4 MG Tablet Sublingual Sublingual Pantoprazole Sodium 40 MG Tablet Delayed Release Oral Tamsulosin HCl 0.4 MG Capsule Oral , stop date 4Aspirin 81 81 MG Tablet Delayed Release Oral ferrous sulfate 325 MG Oral Tablet ORAL , Notes to Pharmacist: *Reorder from [facility] for eRx and Interaction Alerts*ropinirole 3 MG Oral Tablet ORAL , Notes to Pharmacist: *Reorder from [facility] for eRx and Interaction Alerts*Terazosin 1 MG Oral Capsule ORAL , Notes to Pharmacist: *Reorder from [facility] for eRx and Interaction Alerts*Acetaminophen 325 MG / Oxycodone Hydrochloride 7.5 MG Oral Tablet ORAL , Notes to Pharmacist: *Reorder from [facility] for eRx and Interaction Alerts*atorvastatin 80 MG Oral Tablet ORAL , Notes to Pharmacist: *Reorder from [facility] for eRx and Interaction Alerts*Trazodone Hydrochloride 100 MG Oral Tablet ORAL , Notes to Pharmacist: *Reorder from [facility] for eRx and Interaction Alerts*Metoprolol Tartrate 50 MG Oral Tablet ORAL , Notes to Pharmacist: *[facility]*Furosemide 40 MG Oral Tablet ORAL , Notes to Pharmacist: *Reorder from [facility] for eRx and Interaction Alerts*Acetaminophen 325 MG Oral Tablet ORAL , Notes to Pharmacist: *Reorder from [facility] for eRx and Interaction Alerts*Gabapentin 300 MG Oral Capsule ORAL , Notes to Pharmacist: *Reorder from [facility] for eRx and Interaction Alerts*Lisinopril 40 MG Oral Tablet ORAL , Notes to Pharmacist: *Reorder from [facility] for eRx and Interaction Alerts*24 HR isosorbide mononitrate 30 MG Extended Release Oral Tablet ORAL , Notes to Pharmacist: *Reorder from [facility] for eRx and Interaction Alerts*60 ACTUAT tiotropium 0.0025 MG/ACTUAT Inhalation [place] INTRAPULMONARY , Notes to Pharmacist: *Reorder from [facility] for eRx and Interaction Alerts*clobetasol propionate 0.5 MG/ML Topical Cream CUTANEOUS , stop date 12/09/2023, Notes to Pharmacist: *Reorder from [facility] for eRx and Interaction Alerts*empagliflozin 25 MG Oral Tablet [Jardiance] ORAL , Notes to Pharmacist: *Reorder from [facility] for eRx and Interaction Alerts*fluticasone propionate 0.1 MG/ACTUAT / salmeterol 0.05 MG/ACTUAT Dry Powder Inhaler INTRAPULMONARY , Notes to Pharmacist: *Reorder from [facility] for eRx and Interaction Alerts*insulin isophane, human 100 UNT/ML Injectable Suspension , Notes to Pharmacist: *Reorder from [facility] for eRx and Interaction Alerts*[id number] 200 ACTUAT albuterol 0.09 MG/ACTUAT Metered Dose Inhaler INTRAPULMONARY , Notes to Pharmacist: *Reorder from [facility] for eRx and Interaction Alerts*pentoxifylline 400 MG Extended Release Oral Tablet ORAL , Notes to Pharmacist: *Reorder from [facility] for eRx and Interaction Alerts*vitamin B12 0.1 MG Oral Tablet ORAL , Notes to Pharmacist: *Reorder from [facility] for eRx and Interaction Alerts*Taking Clopidogrel Bisulfate 75 MG Tablet Oral Taking Finasteride 5 MG Tablet Oral Taking Nitroglycerin 0.4 MG Tablet Sublingual Sublingual Taking Pantoprazole Sodium 40 MG Tablet Delayed Release Oral Taking Tamsulosin HCl 0.4 MG Capsule Oral , stop date 02/26/2024Taking Aspirin 81 81 MG Tablet Delayed Release Oral Taking ferrous sulfate 325 MG Oral Tablet ORAL , Notes to Pharmacist: *Reorder from [facility] for eRx and Interaction Alerts*Taking ropinirole 3 MG Oral Tablet ORAL , Notes to Pharmacist: *Reorder from [facility] for eRx and Interaction Alerts*Taking Terazosin 1 MG Oral Capsule ORAL , Notes to Pharmacist: *Reorder from [facility] for eRx and Interaction Alerts*Taking Acetaminophen 325 MG / Oxycodone Hydrochloride 7.5 MG Oral Tablet ORAL , Notes to Pharmacist: *Reorder from [facility] for eRx and Interaction Alerts*Taking atorvastatin 80 MG Oral Tablet ORAL , Notes to Pharmacist: *Reorder from [facility] for eRx and Interaction Alerts*Taking Trazodone Hydrochloride 100 MG Oral Tablet ORAL , Notes to Pharmacist: *Reorder from [facility] for eRx and Interaction Alerts*Taking Metoprolol Tartrate 50 MG Oral Tablet ORAL , Notes to Pharmacist: *Reorder from [facility] for eRx and Interaction Alerts*Taking Furosemide 40 MG Oral Tablet ORAL , Notes to Pharmacist: *Reorder from [facility] for eRx and Interaction Alerts*Taking Acetaminophen 325 MG Oral Tablet ORAL , Notes to Pharmacist: *Reorder from [facility] for eRx and Interaction Alerts*Taking Gabapentin 300 MG Oral Capsule ORAL , Notes to Pharmacist: *Reorder from [facility] for eRx and Interaction Alerts*Taking Lisinopril 40 MG Oral Tablet ORAL , Notes to Pharmacist: *Reorder from [facility] for eRx and Interaction Alerts*Taking 24 HR isosorbide mononitrate 30 MG Extended Release Oral Tablet ORAL , Notes to Pharmacist: *Reorder from [facility] for eRx and Interaction Alerts*Taking 60 ACTUAT tiotropium 0.0025 MG/ACTUAT Inhalation [place] INTRAPULMONARY , Notes to Pharmacist: *Reorder from [facility] for eRx and Interaction Alerts*Taking clobetasol propionate 0.5 MG/ML Topical Cream CUTANEOUS , stop date 12/09/2023, Notes to Pharmacist: *Reorder from [facility] for eRx and Interaction Alerts*Taking empagliflozin 25 MG Oral Tablet [Jardiance] ORAL , Notes to Pharmacist: *Reorder from [facility] for eRx and Interaction Alerts*Taking fluticasone propionate 0.1 MG/ACTUAT / salmeterol 0.05 MG/ACTUAT Dry Powder Inhaler INTRAPULMONARY , Notes to Pharmacist: *Reorder from [facility] for eRx and Interaction Alerts*Taking insulin isophane, human 100 UNT/ML Injectable Suspension , Notes to Pharmacist: *Reorder from [facility] for eRx and Interaction Alerts*Taking [id number] 200 ACTUAT albuterol 0.09 MG/ACTUAT Metered Dose Inhaler INTRAPULMONARY , Notes to Pharmacist: *Reorder from [facility] for eRx and Interaction Alerts*Taking pentoxifylline 400 MG Extended Release Oral Tablet ORAL , Notes to Pharmacist: *Reorder from [facility] for eRx and Interaction Alerts*Taking vitamin B12 0.1 MG Oral Tablet ORAL , Notes to Pharmacist: *Reorder from [facility] for eRx and Interaction Alerts* * * Date:
[2025-09-18 15:50] VITALS: BP 156/78; PULSE 67; RESP 18; TEMP 36.4; O2SAT 94; BMI 30.2
--- OUTSIDE RECORDS SUMMARY | 2025-09-18 15:50 | XMS_ITS | Encounter Summary ---
Author Organization [facility] [employer], [facility] Address [address] [facility] [address] [place] [address] Phone Care Team Providers Care Heavy Equipment Supervisor Name Role Phone Tish Henry MD Primary Care Provider [phone] Encounter Details Date Type Department Care Team (Late st Contact Info) Description 12/07/2022 [facility] [address] [facility] [address] [place] [address] Abnormal result of kidney function study Social History Tobacco Use Types Packs/Day Years Used Date Smoking Tobacco: Never Assessed Sex and Gender Information Value Date Recorded Sex Assigned at Not on file Legal Sex Male 10:55 AM EST Gender Identity Not on file Sexual Orientation Not on file documented as of this encounter Plan of Treatment Upcoming Encounters Date Type Department Care Team (Late st Contact Info) Description 10/08/2025 2:00 PM SENIOR GROUP MANAGER [facility] [address] [place], [place] [address] Tammy Clement NP [address] [place] [address] [place] [address] documented as of this encounter Visit Diagnoses Diagnosis Abnormal result of kidney function study documented in this encounter Care Teams Heavy Equipment Supervisor Relationship Specialty Start Date End Date Tish Henry MD [address] [facility] [place] [address] PCP - General Family Medicine 12/14/22 documented as of this encounter
--- OUTSIDE RECORDS SUMMARY | 2025-09-18 15:51 | XMS_ITS | Clinical Summary ---
Author Organization [facility], [facility] Address [address] [place] [address] Phone Care Team Providers Care Regional Transportation Manager Name Role Phone Tish Henry MD Primary Care Provider [phone] Allergies No known active allergies Medications albuterol HFA (PROVENTIL HFA;VENTOLIN HFA) 108 (90 Base) MCG/ACT inhaler Inhale 2 puffs every 4 (four) hours if needed 5 Active aspirin (ST GERRY) 81 MG EC tablet Take 81 mg by mouth in the morning. 5 Active clopidogrel (PLAVIX) 75 MG tablet Take 75 mg by mouth in the morning. 5 Active finasteride (PROSCAR) 5 MG tablet Take 5 mg by mouth in the morning. 5 Active gabapentin (NEURONTIN) 300 MG capsule Take 300 mg by mouth every night 5 Active nitroglycerin (NITROSTAT) 0.[address] 0.4 mg under the tongue every 5 (five) minutes if needed 5 Active pentoxifylline (TRENtal) 400 MG CR tablet Take 1 tablet by mouth in the morning and 1 tablet at noon and 1 tablet in the evening. 1 Active rOPINIRole (REQUIP) 3 MG tablet Take 2 mg by mouth in the morning and 2 mg at noon and 2 mg in the evening. 5 Active Tiotropium [place] Monohydrate 2.5 MCG/ACT aerosol solution Inhale 2 puffs 1 (one) time each day 0 Active acetaminophen (TYLENOL) 325 MG tablet Take by mouth every 6 (six) hours if needed for mild pain Active atorvastatin (LIPITOR) 80 MG tablet Take 40 mg by mouth 1 (one) time each day Active cyanocobalamin (VITAMIN B-12) 100 MCG tablet Take 100 mcg by mouth 1 (one) time each day Active ferrous sulfate 325 (65 Fe) MG tablet Take 325 mg by mouth in the morning and 325 mg in the evening. Active FLUTICASONE-SALM ETEROL IN Inhale 1 puff 2 (two) times a day Active isosorbide mononitrate (IMDUR) 30 MG 24 hr tablet Take 30 mg by mouth 1 (one) time each day Do not crush or chew. Active pantoprazole (PROTONIX) 40 MG EC tablet Take 40 mg by mouth in the morning and 40 mg in the evening. Do not crush, chew, or split. . Active oxyCODONE-acetam inophen (PERCOCET) 7.5-325 MG per tablet Take 1 tablet by mouth every 8 (eight) hours if needed for moderate pain Active cholecalciferol (VITAMIN D-3 SUPER STRENGTH) 50 MCG (2000 UT) tablet 50 mcg 3 Active guaiFENesin (MUCINEX) 600 MG 12 hr tablet Take 600 mg by mouth 1 (one) time each day 3 Active insulin aspart protamine-insuli n aspart (NovoLOG MIX 70/30 FLEXPEN) (70-30) 100 UNIT/ML injection Inject 10-20 Units under the skin in the morning and 10-20 Units in the evening. 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 04/02/2025 Benign prostatic hyperplasia with lower urinary tract symptom 04/02/2025 Chronic kidney disease stage 3B 01/21/2024 Immunizations Immunization Administration Dates Next Due Influenza, Unspecified 07/22/2014 Family History Medical History Relation Comments Hypertension Father Cancer Sibling Relation Status Comments Father (Age 70) Per Referral Mother (Age 80) Per Referral Sibling Other Sister Alive Social History Tobacco Use Types Packs/Day Years Used Date Smoking Tobacco: Former Cigarettes 0 Q uit: 1995 Smokeless Tobacco: Never Tobacco Cessation:Counseling Given: Not Answered Alcohol Use Standard Drinks/Week Comments Never 0 (1 standard drink = 0.6 oz pur e alcohol) Sex and Gender Information Value Date Recorded Sex Assigned at Not on file Legal Sex Male 10:55 AM EST Gender Identity Not on file Sexual Orientation Not on file Last Filed Vital Signs Vital Sign Reading Time Taken Comments Blood Pressure 122/66 04/02/2025 2:19 PM CDT Pulse 62 04/02/2025 2:19 PM CDT Temperature - - Respiratory Rate - - Oxygen Saturation 93% 04/02/2025 2:19 PM CDT Inhaled Oxygen Concentration - - Weight 106 kg (233 lb 4.8 oz) 04/02/2025 2:19 PM CDT Height 190.5 cm (6' 3 ) 04/02/2025 2:19 PM CDT Body Mass Index 29.16 04/02/2025 2:19 PM CDT Plan of Treatment Upcoming Encounters Date Type Department Care Team (Late st Contact Info) Description 10/08/2025 2:00 PM PHOTOGRAPH ENLARGER Office Visit [facility] [address] [place], [place] [id number] Tammy Clement, DIANE [address] [facility] [address] [place] [address] Health Maintenance Due Date Last Done Comments Diabetes: Hemoglobin A1C 05/23/2023 10/24/2022, 01/21 Diabetes: Ophthalmology Exam 05/23/2023 Diabetes: Pedal Pulse Checked 05/23/2023 Diabetes: Sensory Foot Exam 05/23/2023 Diabetes: Visual Foot Exam 05/23/2023 Influenza Vaccine (#1) 2025 , 03/30/2022, 07/27/2021, Additional history exists Pneumococcal Vaccine: 50+ Years Completed 09/27/2015, 03/23/2015, 07/18/2004, Additional history exists Hepatitis B Vaccine Aged Out No longe r eligible based on patient's age to complete this topic Procedures Procedure Name Priority Date/Time Associated Diagnosis Comments HEMOGLOBIN A1C (EXTERNAL RESULT ENTRY) Routine 10/24/2022 12:09 PM PHOTOGRAPH ENLARGER from Last 3 Months or Most Recently Relevant to Health Maintenance Results * Hemoglobin A1C (10/24/2022 12:09 PM PHOTOGRAPH ENLARGER) Hemoglobin A1C 6.0 Blood specimen (specimen) Venous blood / Unknown 10/24/2022 12:09 PM PHOTOGRAPH ENLARGER [facility] Provider LAB BLOOD ORDERABLES Katey l Result from Last 3 Months or Most Recently Relevant to Health Maintenance Insurance Regions 1,2,3 (VACCN) Care Teams Regional Transportation Manager Relationship Specialty Start Date End Date Tish Henry MD [address] [place] [address] [place] [address] PCP - General Family Medicine 12/14/22
--- OUTSIDE RECORDS SUMMARY | 2025-09-18 15:51 | XMS_ITS | Clinical Summary ---
Author Organization [facility] Address [address] [place] [address] Phone Care Team Providers Care Mold Holder Name Role Phone Jeffry Love MD Primary Care Provider Allergies No known active allergies Medications albuterol sulfate (VENTOLIN HFA) 90 mcg/Actuation inhaler Take 2 Puffs by inhalation every 4 hours as needed for Shortness of Breath. Active amLODIPine (NORVASC) 5 mg tablet Take 5 mg by mouth daily. Active aspirin (ECOTRIN EC) 81 mg Tablet, Delayed Release (E.C.) Take 81 mg by mouth daily. Active budesonide-form oterol (SYMBICORT) 160-4.5 mcg/actuation HFA Aerosol Inhaler Take 2 Puffs by inhalation 2 times daily. Active clopidogrel (PLAVIX) 75 mg Tablet Take 75 mg by mouth daily. Active finasteride (PROSCAR) 5 mg tablet Take 5 mg by mouth daily. Active gabapentin (NEURONTIN) 300 mg capsule Take 300 mg by mouth daily at bedtime. Active hydrochlorothia zide 25 mg tablet Take 25 mg by mouth daily. Active lisinopril (PRINIVIL) 40 mg tablet Take 20 mg by mouth daily. Active meloxicam (MOBIC) 7.5 mg tablet Take 7.5 mg by mouth 2 times daily. Active metoprolol tartrate (LOPRESSOR) 50 mg tablet Take 25 mg by mouth 2 times daily. Active nitroglycerin (NITROSTAT) 0.4 mg Tablet, Sublingual Place 0.4 mg under tongue every 5 minutes as needed for Chest Pain. Active pioglitazone (ACTOS) 15 mg tablet Take 15 mg by mouth daily with breakfast. Active simvastatin (ZOCOR) 80 mg tablet Take 40 mg by mouth Daily LATE. Active terazosin (HYTRIN) 1 mg capsule Take 3 mg by mouth daily at bedtime. Active tiotropium (SPIRIVA) 18 mcg capsule Take 18 mcg by inhalation daily. Active insulin NPH human recomb (NOVOLIN NPH;HUMULIN-N) 100 unit/mL Suspension 48 Units daily before breakfast. Active insulin NPH human recomb (NOVOLIN NPH;HUMULIN-N) 100 unit/mL Suspension 25 Units daily with supper. Active rOPINIRole (REQUIP) 3 mg Tablet Take 3 mg by mouth. Active OTHER Tens Unit Please give printed order to patient to take to the DME store. 1 Each 9 Active furosemide (LASIX) 40 mg tablet TAKE ONE TABLET BY MOUTH EVERY MORNING FOR FLUID RETENTION Active pentoxifylline (TRENtal) 400 mg Extended Release tablet TAKE ONE TABLET BY MOUTH THREE TIMES A DAY FOR CIRCULATION. TAKE WITH FOOD. DO NOT SPLIT, CRUSH OR CHEW TABLETS. Active Active Problems Problem Noted Date Diagnosed Date Opiate analgesic use agreement exists 09/30/2018 shelter prescription opiate use 09/30/2018 Spinal stenosis of lumbar region 12/11/2017 Spondylosis of lumbar region without myelopathy or radiculopathy 08/08/2017 Lumbar radiculopathy 12/29/2015 Pars defect of lumbar spine 12/29/2015 DDD (degenerative disc disease), lumbar 12/29/19 16 Numbness and tingling of leg 11/01/2015 Arthritis of right hip 11/01/2015 Femoral acetabular impingement 11/01/2015 Acute cholecystitis s/p lap dottie 02/11/201501/21 Cholecystitis 02/11/2015 Leukocytosis 02/10/2015 Abdominal pain 02/09/2015 Left ventricular diastolic dysfunction, NYHA cla ss 1 02/09/2015 Fever 02/09/2015 Chest pain at rest 02/08/2015 Edema extremities 02/08/2015 CKD (chronic kidney disease) stage 3, GFR 30-59 ml/min 02/08/2015 COPD (chronic obstructive pulmonary disease) Chest pain Resolved Problems Problem Noted Date Diagnosed Date Resolved Date DUBON (dyspnea on exertion) 02/08/2015 Elevated troponin I level 02/08/2015 Acute CHF (congestive heart failure) 02/08/2015 02/09/2015 Immunizations Immunization Administration Dates Next Due Influenza Seasonal Unspecified Formulation IM Social History Tobacco Use Types Packs/Day Years Used Date Smoking Tobacco: Former Alcohol Use Standard Drinks/Week Comments No 0 (1 standard drink = 0.6 oz pur e alcohol) Sex and Gender Information Value Date Recorded Sex Assigned at Not on file Legal Sex Male 3:51 AM CONTROL OFFICER MANAGER Gender Identity Not on file Sexual Orientation Not on file Last Filed Vital Signs Vital Sign Reading Time Taken Comments Blood Pressure 136/60 03/09/2021 9:31 AM CDT Pulse 54 12/14/2020 9:44 AM CONTROL OFFICER MANAGER Temperature 36.8 C (98.3 F) 07/02/2018 11:38 AM CDT Respiratory Rate 16 09/13/2020 12:02 PM CONTROL OFFICER MANAGER Oxygen Saturation 93% 12/14/2020 9:44 AM CONTROL OFFICER MANAGER Inhaled Oxygen Concentration - - Weight 117 kg (258 lb) 03/09/2021 9:31 AM CDT Height 190.5 cm (6' 3 ) 03/09/2021 9:31 AM CDT Body Mass Index 32.25 03/09/2021 9:31 AM CDT Plan of Treatment Health Maintenance Due Date Last Done Comments DIABETES ANNUAL FOOT EXAM 1962 DIABETES ANNUAL RETINAL EXAM 1962 DIABETES MICROALBUMIN ANNUAL SCREEN 1962 ZOSTER VACCINE (1 of 2) 1994 LDL CHOLESTEROL ANNUAL 02/09/2016 02/08/2015 RSV VACCINE (60+ or ) (1 - 1-dose 75+ series) 2019 DIABETES HBA1C Q 6 MONTHS 10/29/2020 04/28/2020, DTAP/TDAP/TD VACCINES (3 - T d or Tdap) 01/20/2022 01/21/2012, 07/02/1997 INFLUENZA VACCINE (#1) 2025 , 08/15/2018, 08/30/2017, Additional history exists PNEUMOCOCCAL VACCINE 50+ YEARS Completed 09/27/2015 , 03/23/2015 Procedures Procedure Name Priority Date/Time Associated Diagnosis Comments HEMOGLOBIN A1C Add on 02/10/2015 5:06 AM CDT LIPID RFLX Routine 02/08/2015 6:37 AM CDT from Last 3 Months or Most Recently Relevant to Health Maintenance Results * (ABNORMAL) HEMOGLOBIN A1C (02/10/2015 5:06 AM CDT) HEMOGLOBIN A1C 6.2(H) 4.0 - 6.0 %A1C [facility] Comment: This test was performed on a Turnip Truck II II Instrument using HPLC methodology. Blood 02/10/2015 5:06 AM CDT Narrative [facility] - 02/11/2015 9:45 AM CDT If not available from last three months Tyra Koroma MD CHEMISTRY ORDERABLES Final Re sult Performing Organization Address City/[facility]/ZIP Co de Phone Number [facility] CLIA# [id number] [facility] [place] [address] * LIPID RFLX (02/08/2015 6:37 AM CDT) [facility] CHOLESTEROL 125 0 - 200 mg/dL [facility] TRIGLYCERIDE 50 0 - 150 mg/dL [facility] HDL 48 40 - 59 mg/dL [facility] LDL CALCULATED 67 0 - 100 mg/dL [facility] Comment: ATPIII Guideline Reference Ranges for Lipid Panel/ Calculated LDL Reference: Optimal <100 Near Optimal 100-129 Borderline High 130-159 High Risk >160 NON-HDL CHOLESTEROL 77 <=130 mg/dL [facility] Comment: ATPIII Guideline reference ranges for calculated non-HDL Cholesterol: Optimal <130 Near optimal 130-159 Borderline high 160-189 High 190-219 Very high >=220 Blood 02/08/2015 6:37 AM CDT us Sony Beard MD CHEMISTRY ORDERABLES Final Result Performing Organization Address [facility]/ZIP Co de Phone Number [facility] CLIA# [id number] [address] [place] [address] from Last 3 Months or Most Recently Relevant to Health Maintenance Insurance [place] [employer] [employer] VIS[employer] 16 CONSOLIDATED FEE UNIT Advance Directives For more information, please contact: [phone] * Full Code (Latest Code Status on File) Date Activated Date Inactivated Comments 02/11/2015 5:24 PM 02/13/2015 1:38 PM * Full Code Date Activated Date Inactivated Comments 02/11/2015 2:15 PM 02/11/2015 5:24 PM * Full Code Date Activated Date Inactivated Comments 02/08/2015 4:32 AM 02/11/2015 2:15 PM Care Teams Mold Holder Relationship Specialty Start Date End Date Jeffry Love MD PCP - General Specialist 03/17/16
--- OUTSIDE RECORDS SUMMARY | 2025-09-18 15:51 | XMS_ITS | Encounter Summary ---
Author Organization [facility] Address [address] [place] [address] Care Team Providers Care Public Aid Eligibility Assistant Name Role Phone Jeffry Love MD Primary Care Provider [phone] Encounter Details Date Type Department Care Team (Late st Contact Info) Description 09/23/2015 Ancillary Orders [address] [place] [address] Peña Brennan DO [facility] [place] [address] Right hip pain (Primary Dx) Social History Tobacco Use Types Packs/Day Years Used Date Smoking Tobacco: Former Alcohol Use Standard Drinks/Week Comments No 0 (1 standard drink = 0.6 oz pur e alcohol) Sex and Gender Information Value Date Recorded Sex Assigned at Not on file Legal Sex Male 3:51 AM BLOWER FEEDER DYED RAW STOCK Gender Identity Not on file Sexual Orientation Not on file documented as of this encounter Plan of Treatment Not on file documented as of this encounter Results * XR HIP 2+ VW RIGHT (09/23/2015 12:06 PM BLOWER FEEDER DYED RAW STOCK) Anatomical Region Laterality Modality Lower Extremity Right Computed Radiogr aphy Narrative 09/23/2015 1:04 PM BLOWER FEEDER DYED RAW STOCK X-RAYS: The x-rays of the right hip were reviewed and revealed mild degenerative changes grade 2 bilateral hips. Mild femoral acetabular impingement. Peña Brennan D.O. [facility] CDM:efremw us Peña Brennan DO DIAGNOSTIC IMAGING ORDERABLES Final Result documented in this encounter Visit Diagnoses Diagnosis Right hip pain- Primary Pain in joint, pelvic region and thigh documented in this encounter Care Teams Public Aid Eligibility Assistant Relationship Specialty Start Date End Date Jeffry Love MD PCP - General Specialist 03/17/16 documented as of this encounter
--- OUTSIDE RECORDS SUMMARY | 2025-09-18 15:51 | XMS_ITS | Encounter Summary ---
Author Organization [facility] Address [address] [place] [address] Care Team Providers Care Settlement Agent Name Role Phone Jeffry Love MD Primary Care Provider [phone] Encounter Details Date Type Department Care Team (Latest Contact Info) Description 06/19/2005 Outpatient Historical [facility] [address] [place] [address] AMBULANCE, [facility] CHEST PAIN NOS (Primary Dx); GENERALIZED HYPERHIDROSIS; NAUSEA WITH VOMITING; DIABETES MELLITUS TYPE II-UNCOMPL (CMS/HCC); PERS HX CIRCULATORY DIS NOS Social History Tobacco Use Types Packs/Day Years Used Date Smoking Tobacco: Never Assessed Sex and Gender Information Value Date Recorded Sex Assigned at Not on file Legal Sex Male 3:51 AM DRILL HAND Gender Identity Not on file Sexual Orientation Not on file documented as of this encounter Plan of Treatment Not on file documented as of this encounter Visit Diagnoses Diagnosis Chest pain, unspecified- Primary Generalized hyperhidrosis Nausea with vomiting Type II or unspecified type diabetes mellitus without mention of complication, not stated as uncontrolled Personal history of unspecified circulatory disease documented in this encounter Care Teams Settlement Agent Relationship Specialty Start Date End Date Jeffry Love MD PCP - General Specialist 03/17/16 documented as of this encounter
--- OUTSIDE RECORDS SUMMARY | 2025-09-18 15:51 | XMS_ITS | Patient Health Record ---
Author Organization [facility] Address [address] [place] [address] Support Name Relationship Address Phone BERNARD MILLER Emergency Contact Unknown WILI MILLER Guarantor Unknown [phone] Reason For Referral No Information Medications Medication SIG (Take, Route, Frequency, Duration) Notes Start Date End Date Status 60 ACTUAT tiotropium 0.0025 MG/ACTUAT Inhalation [place] INTRAPULMONARY *Reorder from [facility] for eRx and Interaction Alerts* 10/10/2023 Active ropinirole 3 MG Oral Tablet ORAL *Reorder from [facility] for eRx and Interaction Alerts* 10/10/2023 Active 24 HR isosorbide mononitrate 30 MG Extended Release Oral Tablet ORAL *Reorder from [facility] for eRx and Interaction Alerts* 10/10/2023 Active Terazosin 1 MG Oral Capsule ORAL *Reorder from [facility] for eRx and Interaction Alerts* 10/10/2023 Active empagliflozin 25 MG Oral Tablet [Jardiance] ORAL *Reorder from [facility] for eRx and Interaction Alerts* 10/10/2023 Active Acetaminophen 325 MG / Oxycodone Hydrochloride 7.5 MG Oral Tablet ORAL *Reorder from [facility] for eRx and Interaction Alerts* 10/10/2023 Active atorvastatin 80 MG Oral Tablet ORAL *Reorder from [facility] for eRx and Interaction Alerts* 10/10/2023 Active insulin isophane, human 100 UNT/ML Injectable Suspension *Reorder from [facility] for eRx and Interaction Alerts* 10/10/2023 Active Clopidogrel Bisulfate 75 MG Tablet Oral 10/10/2023 Active Trazodone Hydrochloride 100 MG Oral Tablet ORAL *Reorder from [facility] for eRx and Interaction Alerts* 10/10/2023 Active fluticasone propionate 0.1 MG/ACTUAT / salmeterol 0.05 MG/ACTUAT Dry Powder Inhaler INTRAPULMONARY *Reorder from [facility] for eRx and Interaction Alerts* 10/10/2023 Active Finasteride 5 MG Tablet Oral 10/10/2023 Active Furosemide 40 MG Oral Tablet ORAL *Reorder from [facility] for eRx and Interaction Alerts* 10/10/2023 Active pentoxifylline 400 MG Extended Release Oral Tablet ORAL *Reorder from [facility] for eRx and Interaction Alerts* 10/10/2023 Active Nitroglycerin 0.4 MG Tablet Sublingual Sublingual 10/10/2023 Active Metoprolol Tartrate 50 MG Oral Tablet ORAL *Reorder from [facility] for eRx and Interaction Alerts* 10/10/2023 Active [id number] 200 ACTUAT albuterol 0.09 MG/ACTUAT Metered Dose Inhaler INTRAPULMONARY *Reorder from [facility] for eRx and Interaction Alerts* 10/10/2023 Active Pantoprazole Sodium 40 MG Tablet Delayed Release Oral 10/10/2023 Active Gabapentin 300 MG Oral Capsule ORAL *Reorder from [facility] for eRx and Interaction Alerts* 10/10/2023 Active Acetaminophen 325 MG Oral Tablet ORAL *Reorder from [facility] for eRx and Interaction Alerts* 10/10/2023 Active vitamin B12 0.1 MG Oral Tablet ORAL *Reorder from [facility] for eRx and Interaction Alerts* 10/10/2023 Active Aspirin 81 81 MG Tablet Delayed Release Oral 10/10/2023 Active ferrous sulfate 325 MG Oral Tablet ORAL *Reorder from [facility] for eRx and Interaction Alerts* 10/10/2023 Active Lisinopril 40 MG Oral Tablet ORAL *Reorder from [facility] for eRx and Interaction Alerts* 10/10/2023 Active Social History Social History Additional Details Category Social Info Options Details Migrated Social History Migrated Social History Smoking Status : Former tobacco user , History of tobacco use : Plan Of Treatment No Information Insurance Providers Payer Name Payer Address Payer Phone Subscriber Number Group Number Insured Name Patient Relationship to Insured Coverage Start Date Coverage End Date VAC[employer] OPTUM [address] [place] [phone] [id number] WILI MILLER Self - patient is the insured
--- OUTSIDE RECORDS SUMMARY | 2025-09-18 15:51 | XMS_ITS | Encounter Summary ---
Author Organization [facility] Address [address] [place] [address] Care Team Providers Care Soldering Machine Operator Name Role Phone Tish Henry MD Primary Care Provider [phone] Encounter Details Date Type Department Care Team (Latest Contact Info) Description 08/24/2025 Results Follow-Up [facility] [address] [place] [address] Maria Elena Woods MD [address] [place] [address] [address] CHEST WO CONTRAST Social History Tobacco Use Types Packs/Day Years Used Date Smoking Tobacco: Former Cigarettes 1 36.3 0 1958 - 10/22/1994 Passive Smoke Exposure: Past Smokeless Tobacco: Never Alcohol Use Standard Drinks/Week Comments No 0 (1 standard drink = 0.6 oz pur e alcohol) Sex and Gender Information Value Date Recorded Sex Assigned at Not on file Legal Sex Male 1:30 AM CONTENT ASSISTANT Gender Identity Not on file Sexual Orientation Not on file documented as of this encounter Plan of Treatment Upcoming Encounters Date Type Department Care Team (Late st Contact Info) Description 09/29/2025 1:00 PM CONTENT ASSISTANT Office Visit [facility] [address] [place] [address] Maria Elena Woods MD [address] [place] [address] documented as of this encounter Visit Diagnoses Not on filedocumented in this encounter Care Teams Soldering Machine Operator Relationship Specialty Start Date End Date Tish Henry MD [address] [place] [id number] PCP - General Family Practice 12/05/21 documented as of this encounter
--- OUTSIDE RECORDS SUMMARY | 2025-09-18 15:51 | XMS_ITS | Clinical Summary ---
Author Organization [facility] Address [address] [place] [address] Phone Care Team Providers Care Business Area Manager Name Role Phone Tish Henry MD Primary Care Provider [phone] Allergies No known active allergies Medications pentoxifylline (TRENtal) 400 mg Extended Release tablet TAKE ONE TABLET BY MOUTH THREE TIMES A DAY FOR CIRCULATION. TAKE WITH FOOD. DO NOT SPLIT, CRUSH OR CHEW TABLETS. 1 Active OTHER Tens UnitPlease give printed order to patient to take to the [employer] store. 1 Each 0 9 Active furosemide (LASIX) 40 mg tablet TAKE ONE TABLET BY MOUTH EVERY MORNING FOR FLUID RETENTION 0 Active albuterol sulfate 90 mcg/Actuation inhaler INHALE 2 PUFFS BY ORAL INHALATION EVERY 4 HOURS NEEDED (RINSE MOUTHPIECE FREQUENTLY TO PREVENT CLOGGING) FOR SHORTNESS OF BREATH OR WHEEZING 1 Active aspirin (ECOTRIN EC) 81 mg Tablet, Delayed Release (E.C.) Take 81 mg by mouth daily. Active budesonide-form oteroL (SYMBICORT) 160-4.5 mcg/actuation HFA Aerosol Inhaler INHALE 2 PUFFS (160/4.5MCG EA) BY ORAL INHALATION TWICE A DAY (SHAKE WELL AND RINSE MOUTH AFTER EACH USE) FOR BREATHING 0 Active cholecalciferol , Vitamin D3, 50 mcg (2,000 unit) Tablet TAKE ONE TABLET BY MOUTH TWICE A DAY WITH MEALS FOR VITAMIN D DEFICIENCY. 0 Active clopidogreL (PLAVIX) 75 mg Tablet TAKE ONE TABLET BY MOUTH ONCE A DAY TO THIN BLOOD 1 Active finasteride (PROSCAR) 5 mg tablet TAKE ONE TABLET BY MOUTH ONCE A DAY FOR PROSTATE 0 Active gabapentin (NEURONTIN) 300 mg capsule Take 1 Capsule by mouth daily at bedtime. 0 Active hydroCHLOROthia zide 25 mg tablet TAKE ONE TABLET BY MOUTH EVERY MORNING FOR EXCESSIVE FLUID AND FOR BLOOD PRESSURE 0 Active insulin NPH human (HUMULIN N,NOVOLIN N) 100 unit/mL vial INJECT 48 UNITS UNDER THE SKIN EVERY MORNING BEFORE MEAL(S) AND INJECT 20 UNITS EVERY EVENING BEFORE A MEAL KEEP IN FRIDGE UNTIL OPENED (DISCARD ANY REMAINING 28 DAYS AFTER OPENING) TO LOWER BLOOD SUGAR 0 Active lisinopriL (PRINIVIL) 40 mg tablet TAKE ONE-HALF TABLET BY MOUTH ONCE A DAY TO LOWER BLOOD PRESSURE THIS TABLET IS TO BE CUT IN HALF FOR YOUR DOSE 0 Active meloxicam (MOBIC) 7.5 mg tablet TAKE ONE TABLET BY MOUTH TWICE A DAY FOR PAIN/INFLAMMATIO N. TAKE WITH FOOD. 1 Active metoprolol tartrate (LOPRESSOR) 50 mg tablet TAKE ONE-HALF TABLET BY MOUTH TWICE A DAY FOR HEART AND TO LOWER BLOOD PRESSURE THIS TABLET IS TO BE CUT IN HALF FOR YOUR DOSE 0 Active nitroglycerin (NITROSTAT) 0.4 mg Tablet, Sublingual DISSOLVE ONE TABLET UNDER THE TONGUE ONE-TIME NEEDED FOR CHEST PAIN; IF NO IMPROVEMENT AFTER FIRST DOSE CALL 9-1-1. MAY TAKE 2 ADDITIONAL DOSES, 5 MINUTES APART 1 Active pioglitazone (ACTOS) 15 mg tablet TAKE ONE TABLET BY MOUTH ONCE A DAY TO LOWER BLOOD SUGAR 0 Active rOPINIRole (REQUIP) 3 mg Tablet Take 3 mg by mouth. Active simvastatin (ZOCOR) 80 mg tablet TAKE ONE-HALF TABLET BY MOUTH EVERY EVENING TO LOWER CHOLESTEROL THIS TABLET IS TO BE CUT IN HALF FOR YOUR DOSE 0 Active terazosin (HYTRIN) 1 mg capsule TAKE 3 CAPSULES BY MOUTH AT BEDTIME FOR PROSTATE 0 Active tiotropium (SPIRIVA) 18 mcg capsule Take 18 mcg by inhalation daily. Active tiotropium (SPIRIVA RESPIMAT) 2.5 mcg/actuation Mist INHALE 2 INHALATIONS BY ORAL INHALATION ONCE A DAY (ADMINISTER AT SAME TIME EACH DAY) FOR BREATHING. 0 Active clopidogreL (PLAVIX) 75 mg Tablet Take 75 mg by mouth daily. 5 Active tiotropium (SPIRIVA) 18 mcg capsule Take 18 mcg by inhalation daily. 5 Active meloxicam (MOBIC) 7.5 mg tablet Take 7.5 mg by mouth 2 times daily. 5 Active insulin NPH human (HUMULIN N,NOVOLIN N) 100 unit/mL vial 48 Units daily before breakfast. 5 Active albuterol sulfate 90 mcg/Actuation inhaler Take 2 Puffs by inhalation every 4 hours as needed for Shortness of Breath. 5 Active nitroglycerin (NITROSTAT) 0.4 mg Tablet, Sublingual Place 0.4 mg under tongue every 5 minutes as needed for Chest Pain. 5 Active pioglitazone (ACTOS) 15 mg tablet Take 15 mg by mouth daily with breakfast. Active lisinopriL (PRINIVIL) 40 mg tablet Take 20 mg by mouth daily. 5 Active amLODIPine (NORVASC) 5 mg tablet Take 5 mg by mouth daily. Active aspirin (ECOTRIN EC) 81 mg Tablet, Delayed Release (E.C.) Take 81 mg by mouth daily. 5 Active insulin NPH human (HUMULIN N,NOVOLIN N) 100 unit/mL vial 25 Units daily with supper. 5 Active simvastatin (ZOCOR) 80 mg tablet Take 40 mg by mouth Daily LATE. 5 Active gabapentin (NEURONTIN) 300 mg capsule Take 300 mg by mouth daily at bedtime. 5 Active terazosin (HYTRIN) 1 mg capsule Take 3 mg by mouth daily at bedtime. 5 Active hydroCHLOROthia zide 25 mg tablet Take 25 mg by mouth daily. 5 Active finasteride (PROSCAR) 5 mg tablet Take 5 mg by mouth daily. 5 Active metoprolol tartrate (LOPRESSOR) 50 mg tablet Take 25 mg by mouth 2 times daily. 5 Active rOPINIRole (REQUIP) 3 mg Tablet Take 3 mg by mouth. 5 Active budesonide-form oteroL (SYMBICORT) 160-4.5 mcg/actuation HFA Aerosol Inhaler Take 2 Puffs by inhalation 2 times daily. 5 Active atorvastatin (LIPITOR) 80 mg tablet Take 40 mg by mouth daily with supper. 4 Active cyanocobalamin (VITAMIN B-12) 100 mcg tablet Take 100 mcg by mouth daily. 4 Active acetaminophen (TYLENOL) 325 mg tablet Take 325 mg by mouth every 6 hours as needed. 4 Active doxazosin (CARDURA) 1 mg tablet Take 3 mg by mouth daily at bedtime. 4 Active empagliflozin (JARDIANCE) 25 mg tablet Take 25 mg by mouth daily in the morning. 5 Active ferrous sulfate 325 mg (65 mg iron) tablet Take 325 mg by mouth 2 times daily. 4 Active fluticasone propion-salmete roL (ADVAIR DISKUS,WIXELA INHUB) 250-50 mcg/dose disk inhaler Take by inhalation 2 times daily. 4 Active guaiFENesin (MUCINEX) 600 mg Extended Release Biphasic tablet Take 600 mg by mouth daily. 3 Active hydrALAZINE (APRESOLINE) 25 mg tablet Take 25 mg by mouth 2 times daily. 4 Active pantoprazole (PROTONIX) 40 mg Tablet, Delayed Release (E.C.) Take 40 mg by mouth daily. 4 Active oxyCODONE-aceta minophen (PERCOCET) 7.5-325 mg Tablet Take 1 Tablet by mouth every 8 hours as needed. 5 Active naloxone (NARCAN) 4 mg/spray [place], Non-Aerosol Administer 4 mg in one nostril (alternate nostril with each dose) one time as needed. 4 Active isosorbide mononitrate (IMDUR) 30 mg Extended Release 24 hour tablet Take 30 mg by mouth daily in the morning. 4 Active insulin aspart protamine-aspar t (NovoLOG MIX 70-30) 100 unit/mL (70-30) pen syringe Inject 20 Units by subcutaneous injection 2 times daily with meals. 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 Numbness and tingling of leg 11/01/2015 Arthritis of right hip 11/01/2015 Acute cholecystitis s/p lap dottie 02/11/201501/21 Cholecystitis 02/11/2015 Leukocytosis 02/10/2015 Abdominal pain 02/09/2015 Left ventricular diastolic dysfunction, NYHA cla ss 1 02/09/2015 Fever 02/09/2015 Chest pain at rest 02/08/2015 Edema extremities 02/08/2015 CKD (chronic kidney disease) stage 3, GFR 30-59 ml/min 02/08/2015 COPD (chronic obstructive pulmonary disease) Chest pain Resolved Problems Problem Noted Date Diagnosed Date Resolved Date Elevated troponin I level 02/08/2015 DUBON (dyspnea on exertion) 02/08/2015 Acute CHF (congestive heart failure) 02/08/2015 02/09/2015 Encounters Date Type Department Care Team Description 08/24/2025 Results Follow-Up [facility] [address] [place] [id number] CHEST WO CONTRAST 08/21/2025 12:55 PM CDT - 08/21/2025 11:59 PM CDT Hospital Encounter [facility] CT Scan [place] [address] [place] [address] Maria Elena Woods MD Discharge Disposition: Home or Self Care from Last 3 Months Immunizations Immunization Administration Dates Next Due Influenza Seasonal Unspecified Formulation IM Social History Tobacco Use Types Packs/Day Years Used Date Smoking Tobacco: Former Cigarettes 1 36.3 0 1958 - 10/22/1994 Passive Smoke Exposure: Past Smokeless Tobacco: Never Tobacco Cessation:Counseling Given: Not Answered Alcohol Use Standard Drinks/Week Comments No 0 (1 standard drink = 0.6 oz pur e alcohol) Sex and Gender Information Value Date Recorded Sex Assigned at Not on file Legal Sex Male 1:30 AM FINANCE ASSOCIATE Gender Identity Not on file Sexual Orientation Not on file Last Filed Vital Signs Vital Sign Reading Time Taken Comments Blood Pressure 134/58 01/02/2025 1:30 PM CDT Pulse 74 01/02/2025 1:30 PM CDT Temperature 36.8 C (98.3 F) 07/02/2018 11:38 AM CDT Respiratory Rate 16 09/07/2021 1:32 PM FINANCE ASSOCIATE Oxygen Saturation 93% 01/02/2025 1:30 PM CDT Inhaled Oxygen Concentration - - Weight 103 kg (227 lb) 01/02/2025 1:30 PM CDT Height 188 cm (6' 2 ) 01/02/2025 1:30 PM CDT Body Mass Index 29.15 01/02/2025 1:30 PM CDT Plan of Treatment Upcoming Encounters Date Type Department Care Team (Late st Contact Info) Description 09/29/2025 1:00 PM FINANCE ASSOCIATE Office Visit [facility] [address] [place] [address] Maria Elena Woods MD [address] [place] [id number] Health Maintenance Due Date Last Done Comments DIABETES ANNUAL FOOT EXAM 1962 DIABETES MICROALBUMIN ANNUAL SCREEN 1962 RSV VACCINE (60+ or ) (1 - 1-dose 75+ series) 2019 INFLUENZA VACCINE (#1) 2025 , 08/07/2023, 03/30/2022, Additional history exists DIABETES ANNUAL RETINAL EXAM 07/22/2025 07/22/2024 LDL CHOLESTEROL ANNUAL 11/24/2025 11/24/2024, 2014 DIABETES HBA1C Q 6 MONTHS 11/27/20252024, 11/24/2024, 02/10/2015, Additional history exists DTAP/TDAP/TD VACCINES (4 - T d or Tdap) 10/26/2031 10/26/2021, 01/21/2012, 07/02/1997 PNEUMOCOCCAL VACCINE 50+ YEARS Completed 1 11/28/2014, 03/23/2015, 07/18/2004, Additional history exists ZOSTER VACCINE Completed 12/20/2020, /10/2019, 08/26/2019, Additional history exists Procedures Procedure Name Priority Date/Time Associated Diagnosis Comments CT CHEST WO CONTRAST Routine 08/21/2025 1:04 PM CDT Lung nodules LIPID PANEL Routine 11/24/2024 HEMOGLOBIN A1C Routine 11/24/2024 from Last 3 Months or Most Recently Relevant to Health Maintenance Results * CT CHEST WO CONTRAST (08/21/2025 1:04 PM CDT) Anatomical Region Laterality Modality Chest Computed Tomogra phy 08/21/2025 12:4 7 PM CDT Impressions 08/23/2025 12:08 PM FINANCE ASSOCIATE IMPRESSION: 1. Decreased size of the small area of platelike atelectasis or scarring in the posterior left upper lobe compared to the CT from 04/03/2025. On the prior CT, there was a tiny nodular area within this lesion that is less prominent on today's exam. 2. Unchanged size of a 3 mm subpleural lesion in the posterior right upper lobe likely representing an area of subsegmental atelectasis or scarring. A solid pulmonary nodule is a less likely consideration. 3. Mild to moderate emphysematous changes of the lungs. 4. 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 5. Cholecystectomy. Narrative 08/23/2025 12:08 PM FINANCE ASSOCIATE EXAM: CT CHEST WO CONTRAST DIAGNOSIS/REASON FOR EXAM: Lung nodules. Lung nodule, > 8mm. DATE: 08/21/2025, 1:04 PM. COMPARISON: CT obtained on 04/03/2025. TECHNIQUE: [address] images of the chest were obtained without contrast. Sagittal and coronal reconstructions were created. FINDINGS: In the posterior right upper lobe, there is a triangular soft tissue density lesion abutting the pleura that measures 3 x 3 x 3 mm (sagittal image 2:30 and series 4, image 93). A small area of platelike atelectasis or scarring is located in the posterior left upper lobe (sagittal image 118 and series 4, image 68). There are [id number] emphysematous changes of the lungs. No focal consolidation, pleural effusion, or pneumothorax is identified. No enlarged hilar lymph nodes are seen. A pretracheal lymph node measures 1.2 cm across that short axis. A few subcentimeter mediastinal lymph nodes are present. The heart size is at the upper limits of normal. The coronary arteries contain a large amount of calcified plaque. The aortic valve has a small amount of calcification. The thoracic aorta contains a moderate to large amount of calcified plaque. There are postsurgical changes of a coronary artery bypass graft. A moderate amount of ingested material is located within the partially imaged stomach. The gallbladder is surgically absent. The bones are diffusely demineralized. There are moderate degenerative changes of the thoracic spine. Sternotomy wires are present. Procedure Note Mesfin Green MD - 08/23/2025 EXAM: CT CHEST WO CONTRAST DIAGNOSIS/REASON FOR EXAM: Lung nodules. Lung nodule, > 8mm. DATE: 08/21/2025, 1:04 PM. COMPARISON: CT obtained on 04/03/2025. TECHNIQUE: [address] images of the chest were obtained without contrast. Sagittal and coronal reconstructions were created. FINDINGS: In the posterior right upper lobe, there is a triangular soft tissue density lesion abutting the pleura that measures 3 x 3 x 3 mm (sagittal image 2:30 and series 4, image 93). A small area of platelike atelectasis or scarring is located in the posterior left upper lobe (sagittal image 118 and series 4, image 68). There are [id number] emphysematous changes of the lungs. No focal consolidation, pleural effusion, or pneumothorax is identified. No enlarged hilar lymph nodes are seen. A pretracheal lymph node measures 1.2 cm across that short axis. A few subcentimeter mediastinal lymph nodes are present. The heart size is at the upper limits of normal. The coronary arteries contain a large amount of calcified plaque. The aortic valve has a small amount of calcification. The thoracic aorta contains a moderate to large amount of calcified plaque. There are postsurgical changes of a coronary artery bypass graft. A moderate amount of ingested material is located within the partially imaged stomach. The gallbladder is surgically absent. The bones are diffusely demineralized. There are moderate degenerative changes of the thoracic spine. Sternotomy wires are present. IMPRESSION: 1. Decreased size of the small area of platelike atelectasis or scarring in the posterior left upper lobe compared to the CT from 04/03/2025. On the prior CT, there was a tiny nodular area within this lesion that is less prominent on today's exam. 2. Unchanged size of a 3 mm subpleural lesion in the posterior right upper lobe likely representing an area of subsegmental atelectasis or scarring. A solid pulmonary nodule is a less likely consideration. 3. Mild to moderate emphysematous changes of the lungs. 4. 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 5. Cholecystectomy. us Maria Elena Jhaveri MD CT ORDERABLES Final Result * HEMOGLOBIN A1C (11/24/2024) ABSTRACTED HGB A1C 8.5 % Blood 11/24/2024 us Abstract Provider CHEMISTRY ORDERABLES Final Res ult * LIPID PANEL (11/24/2024) ABSTRACTED CHOLESTEROL 118 ABSTRACTED TRIGLYCERIDE 60 ABSTRACTED HDL 36 ABSTRACTED LDL CALCULATED 70 Blood 11/24/2024 us Abstract Provider CHEMISTRY ORDERABLES Final Res ult from Last 3 Months or Most Recently Relevant to Health Maintenance Insurance MEDICARE PART A HOSPITAL ONLY [facility] [employer] [facility] OFFICE OF COMMUNITY CARE [facility] [employer] [place] [address] [place] [address] [employer] * Guarantor: [facility] [employer] (C) Account Type Relation to Patient Date of Phone Billing Address [facility] Other DEFAULT ADDRESS [address] [employer] Care Teams Business Area Manager Relationship Specialty Start Date End Date Tish Henry MD [address] [place] [id number] PCP - General Family Practice 12/05/21
--- NOTE | 2025-09-18 16:48 | XRR_ITS ---
PROCEDURE INFORMATION: Exam: XR Left Finger(s) Exam date and time: 09/18/2025 4:47 PM Age: 80 years old Clinical indication: Injury or trauma; Other: Table saw accident; Laceration; Finger; Left; Thumb; Additional info: Trauma of thumb TECHNIQUE: Imaging protocol: Radiologic exam of the left fingers. Views: Minimum 2 views. COMPARISON: No relevant prior studies available. FINDINGS: Bones/joints: Degenerative changes IP joint of the thumb and 1st MCP joint. No acute appearing bony abnormalities. Soft tissues: Overlying bandage. Some heterogeneous soft tissue irregularity and thickening anterior to the tuft of the distal phalanx . XR/XR finger LT min 2V [id number] IMPRESSION: 1. No acute bony abnormality. 2. Soft tissue injury anterior to distal tuft of the distal phalanx of the left thumb.
--- NOTE | 2025-09-18 16:50 | W.ED.UPPEXIN ---
HPI - Extremity Injury (Upper) General: Chief Complaint: Wound/Laceration Stated Complaint: L thumb Cut Time Seen by Provider: 09/18/25 16:34 Source: patient and family Mode of arrival: ambulatory Limitations: no limitations History of Present Illness: Patient is a very nice 80-year-old male who presents to ED today for evaluation of a left thumb laceration that he sustained just prior to arrival after cutting it with a table saw. He states last tetanus is not up-to-date. No other injuries or complaints at this time. MD complaint: injury to: left and finger Onset (ago): hour(s) Other Extremity Injury: Left: fingers Other injuries: none Place: home Severity: moderate Relieving factors: none Exacerbating factors: none Context: laceration Associated symptoms: Reports no associated symptoms Treatments prior to arrival: bandage Related Data Home Medications ?Medication ?Instructions ?Recorded ?Confirmed finasteride 5 mg tablet 5 mg PO BEDTIME 11/04/19 06/10/25 gabapentin 300 mg capsule 300 mg PO BEDTIME 11/04/19 06/10/25 nitroglycerin 0.4 mg sublingual 0.4 mg sublingual Q5M PRN chest 11/04/19 06/10/25 tablet pain pentoxifylline 400 mg 400 mg PO TID 11/04/19 06/10/25 tablet,extended release ropinirole 2 mg tablet 2 mg PO TID 11/04/19 06/10/25 terazosin 1 mg capsule 3 mg PO BEDTIME 11/04/19 06/10/25 tiotropium bromide 2.5 2 inh inhalation QAM 11/04/19 06/10/25 mcg/actuation mist for inhalation (Spiriva Respimat) clopidogrel 75 mg tablet (Plavix) 75 mg PO QAM 11/06/19 06/10/25 albuterol sulfate 90 mcg/actuation 2 puff inhalation Q4H PRN 01/24/20 06/10/25 aerosol inhaler Shortness Of Breath aspirin 81 mg tablet,delayed 81 mg PO QAM 11/04/21 06/10/25 release cholecalciferol (vitamin D3) 50 2,000 unit PO BID 11/04/21 06/10/25 mcg (2,000 unit) capsule (Vitamin D3) cyanocobalamin (vitamin B-12) 100 100 mcg PO DAILY 09/05/22 06/10/25 mcg tablet (Vitamin B-12) ferrous sulfate 325 mg (65 mg 325 mg PO BID 09/05/22 06/10/25 iron) tablet (iron) fluticasone 250 mcg-salmeterol 50 1 inh inhalation BID 09/05/22 06/10/25 mcg/dose blistr powdr for inhalation (Advair Diskus) atorvastatin 40 mg tablet (Lipitor) 40 mg PO BEDTIME 06/26/23 06/10/25 empagliflozin 25 mg tablet 25 mg PO DAILY 08/06/23 06/10/25 (Jardiance) insulin NPH isoph U-100 human 100 See Rx Instructions SUBCUT DAILY 12/06/23 06/10/25 unit/mL subcutaneous suspension lower blood sugar (Novolin N NPH U-100 Insulin isophane) oxycodone-acetaminophen 7.5 mg-325 1 tab PO TID PRN Pain 07/31/24 06/10/25 mg tablet levetiracetam 500 mg tablet 500 mg PO 09/17/24 06/10/25 Previous Rx's ?Medication ?Instructions ?Recorded pantoprazole 40 mg tablet,delayed 40 mg PO BID 14 days #28 tabs 08/25/22 release (Protonix) glucagon HCl 1 mg solution for 1 mg SUBCUT Q20M PRN hypoglycemia 04/03/23 injection (Glucagon (HCl) #1 ea Emergency Kit) flash glucose scanning reader #1 ea 04/17/23 (FreeStyle Alvin 2 [place]) isosorbide mononitrate 30 mg See Rx Instructions .Route 05/10/23 tablet,extended release 24 hr .COMPLEX #90 tabs FreeStyle Alvin 2 Sensor (flash #2 ea 11/08/23 glucose sensor) hydralazine 25 mg tablet 25 mg PO BID #60 tabs 08/01/24 cephalexin 500 mg capsule 500 mg PO Q6H 7 days #28 caps 09/18/25 Allergies Allergy/AdvReac Type Severity Reaction Status Date / Time No Known Allergies Allergy Verified 08/27/25 15:14 Review of Systems Musc: Reports: extremity pain (L thumb) Skin/Breast: Reports: other (laceration L thumb) Neuro: Denies: numbness in extremities or sensory changes PFSH ED PFSH: Medical History Hypoxia Acute kidney injury COVID-19 Physical deconditioning Chronic kidney disease Helicobacter pylori gastritis Abdominal aortic aneurysm Chronic obstructive pulmonary disease Hypertension Low back pain Peripheral vascular disease Restless legs syndrome Sleep apnea Surgical History History of open reduction and internal fixation (ORIF) procedure left hip Hx of cholecystectomy Status post femoropopliteal bypass surgery History of umbilical hernia repair 11/26/2019 Status post colonoscopy 11/25/2019: 3 mm sessile polyps x3 removed from the ascending colon, follow-up colonoscopy 2024 History of coronary artery stent placement Hx of CABG History of appendectomy Family History Other Family history non-contributory Denies family history of Clotting disorder Anesthesia complication Bleeding disorder Social History Smoking and tobacco/nicotine status: former use of tobacco/nicotine Quit status (tobacco/nicotine): has quit using Year quit tobacco: 1995 Former quit date comment: 2 ppd 38 years Alcohol intake: former Substance/Drug Use: never Physical Exam Const: COMMON NORMALS: no acute distress, average body habitus, no limitations, healthy appearing, alert and well nourished Extremity: COMMON NORMALS: full ROM and capillary refill normal GENERAL: Yes normal exam except as noted LEFT UPPER EXTREMITY: Yes hand & digits Left hand and digits: Yes inspection (laceration L thumb), Yes ROM (normal), Yes neurovascular exam (normal), Yes tendon exam (does not appear to involve any tendon) and Yes other (no nail involvement) Neuro: COMMON NORMALS: moves all extremities, no focal motor deficits and no sensory deficits noted SENSORIUM/ORIENTATION: Yes alert Skin: TRAUMA: laceration Procedures Laceration Laceration 1: Site: hand (L thumb) Side (If applicable): left Size (cm): 3.0 Description: irregular (Jagged due to tablesaw) Depth: simple, single layer Local Anesthetic: lidocaine 2% (ring block) Amount of anesthesia used (mL): 3.0 Pre-repair: wound explored and irrigated extensively Skin layer closed with: nylon Size (cm): 4-0 Number of sutures: 6 Technique: simple, interrupted Course Vital Signs: Vital signs: Vital Signs Temperature 97.6 F 09/18/25 15:50 Pulse Rate 67 09/18/25 15:50 Respiratory Rate 18 09/18/25 15:50 Blood Pressure 156/78 09/18/25 15:50 Pulse Oximetry 94 09/18/25 15:50 Oxygen Delivery Me thod Room Air 09/18/25 15:50 MDM - Extremity Injury (Upper) Medical Decision Making XR showing no acute bony injury. Tetanus will be updated. Wound was copiously irrigated and repaired as documented. He will be placed on prophylactic antibiotics. Was given 1g IM Ancef prior to discharge. Wound care/infection precautions discussed. Medical Records I reviewed the patient's medical records. Lab Data Radiology Impressions Finger X-Ray 09/18/25 16:48 IMPRESSION: 1. No acute bony abnormality. 2. Soft tissue injury anterior to distal tuft of the distal phalanx of the left thumb. All radiology interpretation(s) finalized by discharge Discharge Plan Discharge Patient Disposition: Home Clinical Impression: Laceration of left thumb Qualifiers: Encounter type: initial encounter Damage to nail status: without damage Foreign body presence: without foreign body Qualified Code(s): S61.012A - Laceration without foreign body of left thumb without damage to nail, initial encounter Condition: Stable Prescriptions: New cephalexin 500 mg capsule 500 mg PO Q6H 7 Days Qty: 28 0RF No Action finasteride 5 mg tablet 5 mg PO BEDTIME gabapentin 300 mg capsule 300 mg PO BEDTIME nitroglycerin 0.4 mg tablet, sublingual 0.4 mg SUBLINGUAL Q5M PRN (Reason: chest pain) Rx Instructions: Dissolve one tablet under the tongue one time as needed for check pain if no improvement after first dose call 911 may take 2 additional doses after 5 minutes apart. pentoxifylline 400 mg tablet extended release 400 mg PO TID ropinirole 2 mg tablet 2 mg PO TID terazosin 1 mg capsule 3 mg PO BEDTIME Spiriva Respimat 2.5 mcg/actuation mist 2 inh INHALATION QAM clopidogrel [Plavix] 75 mg tablet 75 mg PO QAM pantoprazole [Protonix] 40 mg tablet,delayed release (DR/EC) 40 mg PO BID 14 Days Qty: 28 0RF (DME) FreeStyle Alvin 2 [place] Misc See Rx Instructions .Route Qty: 1 0RF Rx Instructions: As directed levetiracetam 500 mg tablet 500 mg PO Jardiance 25 mg tablet 25 mg PO DAILY Novolin N NPH U-100 Insulin 100 unit/mL suspension See Rx Instructions SUBCUT DAILY Rx Instructions: 20 units q am subcutaneous; 10 units before supper glucagon HCl [Glucagon (HCl) Emergency Kit] 1 mg recon soln 1 mg SUBCUT Q20M PRN (Reason: hypoglycemia) Qty: 1 2RF Rx Instructions: until target blood sugar attained isosorbide mononitrate 30 mg tablet extended release 24 hr See Rx Instructions .ROUTE .COMPLEX Qty: 90 3RF Dose Instruction: TAKE ONE TABLET BY MOUTH ONCE A DAY TO PREVENT CHEST PAIN. TAKE ON EMPTY STOMACH. SWALLOW WHOLE. DO NOT CRUSH OR CHEW. MAY CAUSE HEADACHES UNTIL BODY ADJUSTS. TAKE ACETAMINOPHEN OR IBUPROFEN NEEDED 30 MINUTES BEFORE. Rx Instructions: TAKE ONE TABLET BY MOUTH ONCE A DAY TO PREVENT CHEST PAIN. TAKE ON EMPTY STOMACH. SWALLOW WHOLE. DO NOT CRUSH OR CHEW. MAY CAUSE HEADACHES UNTIL BODY ADJUSTS. TAKE ACETAMINOPHEN OR IBUPROFEN NEEDED 30 MINUTES BEFORE. (DME) [employer] Alvin 2 Sensor Kit See Rx Instructions .ROUTE .COMPLEX Qty: 2 2RF Dose Instruction: USE SENSOR EVERY 14 DAYS CHANGE SENSOR/SITE EVERY 14 DAYS. TO REPLACE SENSOR FOR ANY REASON OR FOR TECHNICAL HELP PLEASE CALL [facility] DESK: -SPECIFIC PHONE NUMBER: ([phone]). Rx Instructions: USE SENSOR EVERY 14 DAYS CHANGE SENSOR/SITE EVERY 14 DAYS. TO REPLACE SENSOR FOR ANY REASON OR FOR TECHNICAL HELP PLEASE CALL [facility] DESK: -SPECIFIC PHONE NUMBER: ([phone]). aspirin 81 mg Tablet,Delayed Release (Dr/Ec) 81 mg PO QAM cholecalciferol (vitamin D3) [Vitamin D3] 50 mcg (2,000 unit) Capsule 2,000 unit PO BID albuterol sulfate 90 mcg/actuation Hfa Aerosol Inhaler 2 puff INHALATION Q4H PRN (Reason: Shortness Of Breath) fluticasone propion-salmeterol [Advair Diskus] 250-50 mcg/dose Blister With Device 1 inh INHALATION BID cyanocobalamin (vitamin B-12) [Vitamin B-12] 100 mcg Tablet 100 mcg PO DAILY ferrous sulfate [iron] 325 mg (65 mg iron) Tablet 325 mg PO BID atorvastatin [Lipitor] 40 mg tablet 40 mg PO BEDTIME oxycodone-acetaminophen 7.5-325 mg Tablet 1 tab PO TID PRN (Reason: Pain) hydralazine 25 mg tablet 25 mg PO BID Qty: 60 3RF Discharge Orders: Discharge ED (Routine); Ordered 09/18/25 Ordered By: Ting Meyer Patient Instructions: Finger Laceration (ED), Patient Portal & Kai Instructions Activity Restrictions/Additional Instructions: Keep wound/laceration clean with warm soap and water twice daily. Monitor for signs of infection such as redness, swelling, increased pain, or drainage. Please seek medical re-evaluation if these occur. If you received sutures today these will need to be removed (unless you were told by the provider that they are absorbable). The provider should have discussed with you the length of time until removal-10 days. Print Language: Yoruba Coding Level of Care Code ED Quality Control Operator for Teri Garay
[2025-09-18] MEDS: tetanus-dipt-pertussis 0.5 mL SDV IM (17:46)
[2025-09-18] MEDS: ceFAZolin 1,000 MG in water for injection-sterile 2.5 ML 2.5 MG IM (17:47)
== END 2025-09-18 18:00 | disposition home or self-care (01) ==
PROVIDERS: Emergency Provider Physician Assistant
DX: S61.012A Laceration without foreign body of left thumb without damage to nail, initial encounter (principal); Z79.02 Long term (current) use of antithrombotics/antiplatelets; Z79.82 Long term (current) use of aspirin; Z87.891 Personal history of nicotine dependence; Z95.1 Presence of aortocoronary bypass graft; I12.9 Hypertensive chronic kidney disease with stage 1 through stage 4 chronic kidney disease, or unspecified chronic kidney disease; N18.9 Chronic kidney disease, unspecified; W27.0XXA Contact with workbench tool, initial encounter
CPT/HCPCS: 12002; 73140; 90471; 90715; 96372; 99284; J0690

== ENCOUNTER 2025-09-29 06:31 | Outpatient (CLI) | payer OTHER, SELFPAY ==
[2025-09-29 07:35] LABS: Hematocrit 47.4 % (37-53); Hemoglobin 15.90 g/dL (11.27-16.99); Mean Corpuscular HGB Conc 33.5 g/dL (30-55); Mean Corpuscular Hemoglobin 30.1 pg (27-33); Mean Corpuscular Volume 89.6 fl (82-101); Nucleated Red Blood Cells % 0 %; Platelet Count 149 10^3/cmm (157-399); Red Blood Count 5.29 10^6/uL (3.85-5.65); White Blood Count 5.81 10^3/uL (3.29-11.43)
[2025-09-29 08:00] LABS: Albumin Level 4.0 g/dL (3.5-5.2); Anion Gap 15.3 (5-19); Blood Urea Nitrogen 29 mg/dL (8-23); Calcium 9.0 mg/dL (8.5-10.5); Carbon Dioxide 24 mmol/L (22-29); Chloride 104 mmol/L (98-107); Glucose 252 mg/dL (65-115); Potassium 4.3 mmol/L (3.5-5.1); Sodium 139 mmol/L (136-145)
[2025-09-29 08:21] LABS: Calcium 9.0 mg/dL (8.5-10.5)
[2025-09-29 08:29] LABS: Creatinine Urine, Random 46 mg/dL (39-259)
[2025-09-29 08:31] LABS: Microalbum Creatinine Ratio Ur 65 mg/dL (0-20)
[2025-09-29 08:35] LABS: Slide Review Slide Review Perform
== END 2025-09-29 06:32 | disposition home or self-care (01) ==
LOC: LAB 06:34
PROVIDERS: PCP Nurse Practitioner Family; Visit Provider Nurse Practitioner Family
DX: N18.32 Chronic kidney disease, stage 3b (principal)
CPT/HCPCS: 80069; 82044; 82310; 83970; 85025